=== PATIENT | female | born 1955 | race Caucasian/White ===

== ENCOUNTER 2016-04-18 16:53 | Inpatient (IN) | payer MEDICARE ==
[~2016-04-18] VITALS: Ht 154.9 cm; Wt 50.4 kg
[~2016-04-18 16:53] MED LIST: ASPI81TA3 PO; BISA-67 PO; DIL4T PO; DXM4T PO; Fentanyl TOPICAL; HYDR4TAB PO; LOV80 SUBQ; OMEP20CA11 PO; OXYC-466 PO; POLY17PO6 PO; SENN-133 PO
[2016-04-18 17:00] VITALS: BP 115/77; PULSE 119; O2SAT 94
[2016-04-18 17:11] VITALS: BP 112/63; PULSE 113; RESP 18; O2SAT 94
--- NOTE | 2016-04-18 17:16 | ED.REPORT ---
HPI-Dyspnea / Wheezing Date of Service Apr 18, 2016 ED Provider: Haile Salvador MD A 61 year old female with a medical history including pulmonary adenocarcinoma, pulmonary embolism, and pneumonia presents to the ED with bilateral rib pain and shortness of breath onset last night, waking her up. She also reports wheezing, nausea, upper abdominal pain, and back pain. Her rib pain is exacerbated with deep breathing and her abdominal pain is relieved with passing gas. Her current pain has replaced the right shoulder pain she has been experiencing for some time. The patient denies fever or chills, although her temperature in the ED is 38.0. Her most recent oncology appointment for chemotherapy was two weeks ago. Nursing Notes Stated Complaint: TROUBLE BREATHING,LUNG PAIN Chief Complaint: Respiratory Distress Nursing Notes Reviewed: Yes Allergies: Coded Allergies: cyclobenzaprine (Verified Allergy, Unknown, Unknown, 03/18/16) per outpatient record prednisone (Verified Adverse Reaction, Severe, "makes my skin crawl", 04/18) Scheduled Aspirin Chew (Aspirin Chew) 81 Mg Chew 81 MG PO DAILY Enoxaparin (Lovenox) 80 Mg/0.8 Ml Syringe 80 MG SUBQ DAILY Fentanyl 50 mcg/hr Patch (Fentanyl 50 mcg/hr Patch) 1 Each Patch.td72 1 PATCH TRANSDERM Q3D Metoprolol Tartrate (Metoprolol Tartrate) 25 Mg Tablet 12.5 MG PO BID Scheduled PRN Omeprazole (Omeprazole) 20 Mg Tablet.dr 20 MG PO DAILY PRN PRN For Nausea oxyCODONE-Acetaminophen 5-325 mg (oxyCODONE-Acetaminophen 5-325 mg) 1 Each Tablet 1 TAB PO 3.5h PRN PRN For Pain General Time Seen by MD: 17:14 Chief Complaint Shortness of breath Hx Obtained From: Patient Arrived By: Walk-in Sudden in Onset?: Yes Onset Occurred: 13 - 16 hours ago Symptom Duration: Since onset Location: : Chest left: Chest right Quality: Painful Severity: Current: Moderate Severity: Maximum: Moderate Associated with: Denies: Fever, Nausea, Wheeze Exacerbated by: Deep breath Context Related History: Reports: Pulmonary embolism Recent Healthcare: Recent doctor visit Similar Sx Previous: Yes Past Medical History Past Medical History Notes: Past Medical History - Stage IV pulmonary adenocarcinoma - Cancer-related PE - Pneumonia - Thrombocytosis - 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 Past Surgical History Corrective surgery on her feet in childhood, otherwise none. Family History Mother blood clot Father cancer unspecified Brother Ear cancer Sister Breast cancer Smoking History Current Every Day Smoker Ambulatory Status Cane Review of Systems Constitutional: Denies: Chills, Fever (Although temp in ED is 38.0) Respiratory: Reports: Shortness of breath, Wheezing Cardiovascular: Reports: Chest pain (Ribs) Musculoskeletal: Reports: Back pain, Denies: Joint pain Complete sys rev & neg: except as marked. GI: Reports: Abdominal pain (Upper), Nausea Physical Exam Initial Vital Signs Vital Signs (First) Date Time Temp Pulse Resp B/P Pulse Ox O2 Delivery O2 Flow Rate FiO2 04/18/16 17:00 38.0 119 115/77 94 04/18/16 17:11 18 Room Air Initial VS: Reviewed Head / Eyes: Atraumatic, Normocephalic ENT: Conjunctiva normal, No scleral icterus Skin: Warm, Dry Neurologic: Alert, Oriented, Nonfocal Psychiatric: Mood/affect normal, Behavior normal, Normal thought content General/Constitutional: Awake, Alert Neck: Full range of motion, Non-tender Soft Tissue Neck: Positive: Cervical adenopathy R... (Anterior) Respiratory / Chest: Breath sounds = bilat, No respiratory distress, No wheezing Slightly coarse breath sounds Speaking in full sentences Cardiovascular: Regular rhythm, Heart sounds NL, No gallop, No murmurs, No rubs Heart Rate / Rhythm: Positive: Tachycardia Interpretation & Diagnostics Interpretation & Diagnostics: Influenza Negative Lab Results Interpretation Result Diagram: 04/18/16 1720 04/18/16 1720 Test 04/18/16 17:20 White Blood Count 10.6th/mm3 (3.8-10.1) Red Blood Count 3.66mil/mm3 (3.90-5.20) Hemoglobin 9.7g/dL (12.0-15.6) Hematocrit 30.9% (35.0-46.0) Mean Corpuscular Volume 84.4fL (81-100) Mean Corpuscular Hemoglobin 26.5pg (27.0-35.0) Mean Corpuscular Hemoglobin Concent 31.4% (32.0-37.0) Red Cell Distribution Width 18.7% (12.3-15.4) Platelet Count 795bil/L (150-400) Neutrophils (%) (Auto) 77.1% (40-74) Lymphocytes (%) (Auto) 14.3% (14-46) Monocytes (%) (Auto) 7.6% (4-12) Eosinophils (%) (Auto) 0.1% (0-5) Basophils (%) (Auto) 0.2% (0-3) Prothrombin Time 12.3sec (8.1-12.5) Prothromb Time International Ratio 1.15ratio Sodium Level 132mEq/L (134-144) Potassium Level 3.4mEq/L (3.5-5.2) Chloride Level 94mEq/L (97-108) Carbon Dioxide Level 19mmol/L (18-29) Blood Urea Nitrogen 8mg/dL (8-27) Creatinine 0.39mg/dL (0.57-1.00) Estimat Glomerular Filtration Rate 239mL/min (>59) Glucose Level 112mg/dL (60-99) Lactic Acid Level 1.8mmol/L (0.4-2.0) Calcium Level 8.8mg/dL (8.5-10.1) Total Bilirubin 0.2mg/dL (0.0-1.2) Aspartate Amino Transf (AST/SGOT) 12U/L (0-50) Alanine Aminotransferase (ALT/SGPT) 7U/L (0-32) Alkaline Phosphatase 124U/L (25-165) Troponin T < 0.010ug/L (0.0-0.011) Pro-B-Type Natriuretic Peptide 654.3pg/mL (0-287) Total Protein 6.4g/dL (6.4-8.4) Albumin 2.8g/dL (3.4-5.0) ECG Interpretation ECG Interpretation: Sinus rhythm rate 107 Time: 18:06 Interpreted by: ED physician X-Ray Chest Interpretation Chest Xray Interpretation: IMPRESSION: 1. Increased bony erosion of the fourth and fifth right posterior ribs when compared with the study dated 03/25/16 suggesting progression of disease. 2. Slightly decreased patchy airspace opacities around the right upper lobe mass when compared with the prior study. Dictated by: Clarisse Lane M.D. on 04/18/2016 at 17:51 View: AP & lat Interpretation / Wet Read by: Interpret - Radiologist CT Chest Interpretation IMPRESSION: 1. Segmental and subsegmental pulmonary emboli in the bilateral lower lobes as described above. 2. Increased size of the right upper lobe lung mass with increased bony destruction when compared with the study dated 03/17/16 suggesting progression of disease. 3. Increased right hilar and mediastinal adenopathy consistent with progression of disease. These findings were discussed with Dr. Salvador at 7:41 PM on 04/18/16. Dictated by: Clarisse Lane M.D. on 04/18/2016 at 19:34 Study type: CT pulm angiogram Interpretation / Wet Read by: Interpret - Radiologist, Discussed w radiologist Re-Eval/Medical Decision Med Decision/Clinical Course 61-year-old female with recurrent pulmonary embolism in spite of being on Lovenox. Dosage adjusted to a milligram subcutaneous twice a day per recommendations of hematology. She is hemodynamically stable and will be admitted to the hospitalist service. Presently full code per her stated wishes. Source of Hx: Old records Re-Evaluation/Progress : Time of Eval: 19:52 Patient Status: Condition improved, Pain improved Re-Evaluation/Progress Note: Patient rechecked. Her breathing has improved. Discussed with patient x-ray and CT results, diagnosis, and plan for admit. Patient agrees with plan for care and all questions were addressed. Code status discussed at length with patient, at this point she wishes to be FULL CODE Consultation #1: Referral / Consult Name: Jeovany Gomes MD Call Returned at: 19:46 Machine Operator Packaging: Agrees with eval, Agrees with plan Note: ONCOLOGY: Will consult Recommends Lovenox (1mg/kg) and ASA (81mg) Consultation #2: Referral / Consult Name: Lor Murray DO Consulted With: Hospitalist Call Returned at: 20:22 Machine Operator Packaging: Agrees with eval, Agrees with plan Counseled Regarding: Diagnosis, Need for admission Discharge & Departure Impression: Primary Impression: Pulmonary embolism Pulmonary embolism type: other Chronicity: acute Acute cor pulmonale presence: without acute cor pulmonale Qualified Code: I26.99 - Other pulmonary embolism without acute cor pulmonale Disposition: ADMITTED TO HOSPITAL Discharge Condition All VS Reviewed: Yes Condition: Stable Referrals: AIDEN TREADWELL DO (PCP) Maniibneri Attestation Portions of this note were transcribed by Jenny Matt. I, Dr. Salvador, personally performed the history, physical exam, and medical decision-making; I reviewed and confirmed the accuracy of the information in the transcribed note. Signed by: Erendira Tellez, 04/18/2016, 20:45 copies to: AIDEN TREADWELL Donald L MD Apr 18, 2016 17:16 JENNY MATT Apr 18, 2016 18:39
[2016-04-18] MEDS ORDERED: 0.9% Sodium Chloride 1,000 ML IV ONE (17:20)
[2016-04-18 17:37] LABS: BASOPHILS % (AUTO) 0.2 % (0-3); EOSINOPHILS % (AUTO) 0.1 % (0-5); MONOCYTES % (AUTO) 7.6 % (4-12); Mean Corpuscular Hemoglobin 26.5 pg (27.0-35.0); Mean Corpuscular Volume 84.4 fL (81-100); NEUTROPHILS % (AUTO) 77.1 % (40-74); Platelet Count 795 bil/L (150-400)
[2016-04-18] MEDS ORDERED: oxyCODONE-Acetamin 5-325 mg Tablet PO ONE ×2 (17:45→18:40)
[2016-04-18 17:53] LABS: INR 1.15 ratio
--- NOTE | 2016-04-18 17:54 | DRSVH ---
PROCEDURE: X-RAY CHEST, TWO VIEWS ([id number]) INDICATIONS: dyspnea, fever, lung Ca TECHNIQUE: 2 views of the chest were acquired. COMPARISON: [facility], CR, XR CHEST 1VW (PORTABLE), 03/25/2016, 17:35. FINDINGS: Surgical changes and devices: None. Lungs and pleura: Right upper lobe pulmonary mass is redemonstrated. Airspace opacity surrounding thi s mass have decreased in extent when compared with the study dated 03/25/16, but some airspace opacit ies persist. There is likely mild atelectasis at the bilateral lung bases. No pleural effusion or pne umothorax. Mediastinum: Mediastinal contours are normal. Heart size is normal. Bones and chest wall: Bony erosion of the fourth and fifth ribs appear increased in extent when fan red with the study dated 03/25/16. IMPRESSION: 1. Increased bony erosion of the fourth and fifth right posterior ribs when compared with the study d ated 03/25/16 suggesting progression of disease. 2. Slightly decreased patchy airspace opacities around the right upper lobe mass when compared with t he prior study. Dictated by: Clarisse Lane M.D. on 04/18/2016 at 17:51 Approved by: Clarisse Lane M.D. on 04/18/2016 at 17:53
[2016-04-18 18:18] LABS: TROPONIN T < 0.010 ug/L (0.0-0.011)
--- NOTE | 2016-04-18 19:44 | DRSVH ---
PROCEDURE: CT ANGIO CHEST PULMONARY EMBOLISM ([id number]) INDICATIONS: prior PE, dyspnea and tachycardia TECHNIQUE: After the administration of intravenous contrast, 2 mm thick sections acquired from the pulmonary api maico to the posterior costophrenic angles. 3-dimensional maximum intensity projection (MIP) coronal a nd sagittal reformats were then acquired through the thorax. For radiation dose reduction, the follo wing was used: automated exposure control, adjustment of mA and/or kV according to patient size. COMPARISON: [facility], CT, CT ANGIO CHEST PE, 03/17/2016, 22:28. FINDINGS: Image quality: Excellent. Pulmonary arteries: Nonocclusive pulmonary arterial emboli are present within the segmental branches of the bilateral lower lobes. No pulmonary arterial emboli within the upper lobes. Lungs and pleura: When compared with the study dated 03/17/16, the heterogeneously enhancing right up per lobe mass which has eroded into the third, fourth, fifth, and sixth ribs has increased in size. T his lesion now measures 8.8 x 7.8 cm (previously measured 7.9 x 7.3 cm in the same plane). There is s evere centrilobular emphysema with an apical predominance. Patchy airspace opacities persist surround ing the right upper lobe pulmonary mass, somewhat decreased when compared with the prior study. An 8 mm diameter pulmonary nodule is present within the left lower lobe similar in size to the prior study . Mediastinum: Heart size is normal, without pericardial effusion. No evidence for right heart strain or leftward interventricular septal bowing. Right hilar adenopathy and mediastinal adenopathy has inc reased in extent when compared with the prior study. For example, a precarinal lymph node measures 17 mm in diameter and previously measured 14 mm in diameter. Thoracic aorta is normal in caliber and en hancement. Esophagus is normal in caliber, without hiatal hernia. Bones and chest wall: No suspicious bony lesions. Ribs and thoracic spine appear intact throughout. Thyroid gland is unremarkable. No axillary or supraclavicular adenopathy. Abdomen: Visualized upper abdominal solid organs appear normal in the early arterial phase of enhanc ement. IMPRESSION: 1. Segmental and subsegmental pulmonary emboli in the bilateral lower lobes as described above. 2. Increased size of the right upper lobe lung mass with increased bony destruction when compared wit h the study dated 03/17/16 suggesting progression of disease. 3. Increased right hilar and mediastinal adenopathy consistent with progression of disease. These findings were discussed with Dr. Salvador at 7:41 PM on 04/18/16. Dictated by: Clarisse Lane M.D. on 04/18/2016 at 19:34 Approved by: Clarisse Lane M.D. on 04/18/2016 at 19:42
[2016-04-18] MEDS: HYDROmorphone 1 mg/mL Inj IVPUSH PRN ×3 (19:49→21:07)
[2016-04-18] MEDS ORDERED: Ondansetron 2 mg/mL 2 mL Inj IVPUSH PRN (21:00)
[2016-04-18] MEDS ORDERED: Polyethylene Glycol (PEG) 17 Gm Powder PO PRN (21:00)
[2016-04-18] MEDS ORDERED: Alum-Mag Hydrox-Simeth 30 mL Suspension PO PRN (21:00)
[2016-04-18] MEDS ORDERED: OXYC1TAB24 PO (21:09)
[2016-04-18] MEDS ORDERED: METO25TA6 PO (21:09)
[2016-04-18] MEDS ORDERED: OMEP20TA86 PO (21:09)
[2016-04-18] MEDS ORDERED: ASPI81TA3 PO (21:09)
[2016-04-18] MEDS ORDERED: LOV80 SUBQ (21:09)
[2016-04-18] MEDS ORDERED: FENT1PAT9 TRANSDERM (21:09)
[2016-04-18 21:37] VITALS: BP 128/70; PULSE 88; RESP 20; O2SAT 95
[2016-04-18 22:14] VITALS: PULSE 115
[2016-04-18 22:39] VITALS: BP 108/59; PULSE 120; RESP 20; O2SAT 94
[2016-04-18] MEDS ORDERED: Potassium Chloride 20 mEq SR Tablet PO ONE (22:40)
--- NOTE | 2016-04-18 22:41 | PCM.HPMED ---
Subjective Date of Service Apr 18, 2016 Primary Provider: Admitting Physician: Lor Murray DO Primary Care Physician: Aiden Treadwell DO Attending Physician: Lor Murray DO Chief Complaint: SOB History of Present Illness: Patient is a 61 year old female with a history of Stage IV pulmonary adenocarcinoma (last Taxol treatment 04/02/16) and cancer-related PE on Lovenox. She presented to [facility] on 04/18/16 with a 24 hour history of shortness of breath. Patients states that she knew she wasn't feeling right. Minimal amounts of activity made her short of breath and she would have to rest in bed for an hour to recover. She denies chest pain but does report that her sides are sore and it radiates into her back. She denies fever, chills but has been having night sweats. Over the past couple of days she has had a cough with some mild sputum production but no sinus congestion or sore throat. The patient has nausea but no vomiting. She has been constipated and taking Colace to help ease that; also reports increased gas. She denies hematuria, dysuria. In the ED the patient had a temperature of 38.0, heart rate of 119, respiratory rate of 18, blood pressure 115/77 and O2 saturation of 94% on room air. Labs were remarkable for WBC 10.6, Hgb 9.7, platelets 795, sodium 132, potassium 3.4. CTA of the chest showed pulmonary emboli. Heme/onc was called and recommendations were given for increased Lovenox dosing (1mg/kg twice daily). Patient to be admitted and oncology will follow along with us tomorrow. Review of Systems: A comprehensive review of systems was conducted with the patient and found to be negative except as above in the history of present illness. Allergies Coded Allergies: cyclobenzaprine (Verified Allergy, Unknown, Unknown, 03/18/16) per outpatient record prednisone (Verified Adverse Reaction, Severe, "makes my skin crawl", 04/18) Home Medications Per medication bottles provided by the patient: Lovenox 80 mg daily Fentanyl patch 50 mcg every three days Metoprolol tartrate 12.5 mg BID Omeprazole 20 mg daily PRN nausea Oxycodone-acetaminophen 5/325 mg Q3-4H PRN pain Aspirin 81 mg daily PMH Stage IV adenocarcinoma of the lung Cancer-related pulmonary emboli Poliomyelitis (age 4 years) Chronic tobacco use (40+ pack year history) Surgical History Correctional surgery on her feet secondary to the poliomyelitis - approximately age 5 or 6 years Family History Mother last year of a major stroke; also had history of heart disease Social History Hx Alcohol Use: No Hx Substance Use: Yes (occasional marijuana) Hx Tobacco Use: Yes Smoking Status: Current Every Day Smoker (3-4 cigarettes daily) Living Arrangement: with Friends/Roommate Exam Vital Signs Vital Sign - Last Date Time Temp Pulse Resp B/P Pulse Ox O2 Delivery O2 Flow Rate FiO2 04/18/16 21:37 36.9 88 20 128/70 95 Room Air Exam Alert and oriented x3, no acute distress, laying comfortably in ED bed Head atraumatic, normocephalic PERRLA, EOMI, sclera anicteric Mucus membranes moist, no oral thrush observed No cervical lymphadenopathy, neck supple, nontender No JVD noted Cardiac tones regular rate and rhythm with no murmur appreciated Lungs clear to auscultation bilaterally with diminished breath sounds noted throughout the lung adams No abdominal tenderness, non-distended, normoactive bowel tones, soft [place] absent Radial pulses normal and equivalent bilaterally, dorsalis pedis pulses normal and equivalent bilaterally No cyanosis, clubbing or edema No ulcerations/open wounds Cranial nerves appear to be fully intact, normal speech, patient can move upper and lower limbs grossly Lab and Diagnostics Result Diagram: 04/18/16 1720 04/18/16 1720 X-Rays, CTs and MRIs Chest CTA: IMPRESSION: 1. Segmental and subsegmental pulmonary emboli in the bilateral lower lobes as described above. 2. Increased size of the right upper lobe lung mass with increased bony destruction when compared with the study dated 03/17/16 suggesting progression of disease. 3. Increased right hilar and mediastinal adenopathy consistent with progression of disease. Dictated by: Clarisse Lane M.D. on 04/18/2016 at 19:34 12-lead ECG Rate 107 QTc 453 Sinus tachycardia Assessment & Plan Patient is a 61 year old female with a history of Stage IV pulmonary adenocarcinoma (last Taxol treatment 04/02/16) and cancer-related PE on Lovenox. She presented to [facility] on 04/18/16 with a 24 hour history of shortness of breath. CTA of the chest shows pulmonary emboli. New Lovenox dose recommended by oncology and they will follow with her tomorrow. 1. Cancer-related bilateral pulmonary emboli, acute, present on admission. - Lovenox to be given 1 mg/kg BID - 50 mg BID. - Full dose aspirin to be given daily as well. - Heme/onc to follow up with the patient tomorrow AM. 2. Stage IV pulmonary adenocarcinoma. - Patient sees Dr. Zaman. Last chem 04/02/16 - Taxol. Next due 04/22/16. - Continue Fentanyl patch 50 mcg every three days. - Continue oxycodone-acetaminophen 5/325 mg Q4H PRN. - Oncology has been consulted and we appreciate their input. 3. Sinus tachycardia, present on admission, has been ongoing. - Likely secondary to PE. - Continue metoprolol tartrate 12.5 mg BID. - Continue telemetry. 4. Low grade fever (38.0), acute, present on admission. - Likely secondary to PE. - No other obvious signs of infection, no reported recent exposure. Procalcitonin ordered and pending. - No antibiotics at this time. - Continue to monitor. 5. Hypokalemia, acute, present on admission. - Correct with 20 mEq once. - Monitor with BMP tomorrow AM. - Also check magnesium. 6. Hyponatremia, acute, present on admission. - One liter NS given in ED. - Monitor with BMP tomorrow AM. - Bowel regimen available PRN. - Antiemetic available PRN. - Tylenol available PRN fever, mild pain. Patient admitted under inpatient status with expected length of stay greater than 2 midnights for severity of present symptoms, complexities of treatment plan and risk for adverse events. PCP: Aiden Treadwell DO (to establish care soon) Oncologist: Carmel Zaman MD VTE Prophylaxis: Sub-Q Enoxaparin Resuscitation Status: CPR: Attempt Resuscitation Attending Statement The patient was seen and examined together with house staff on 04/19/2016 and I agree with the history, exam and plan as outlined in the note above. copies to: Carmel Zaman MD; AIDEN TREADWELL Jennifer E DO Apr 18, 2016 22:01 Lor Murray DO Apr 19, 2016 01:53
[2016-04-18] MEDS: oxyCODONE-Acetamin 5-325 mg Tablet PO PRN (23:15)
[2016-04-19] VITALS (10 sets, daily range): BP systolic 88–105; BP diastolic 51–67; PULSE 72–124; RESP 16–20; O2SAT 94–99
--- NOTE | 2016-04-19 01:10 | NUR ---
Admit: Pt arrived to room 3004 from ED via stretcher, able to ambulate self to scale and bed; family at bedside. RA, vitals stable, tele placed. Pt sending home medications home with family. Pt pleasant and cooperative with care.
[2016-04-19] MEDS: oxyCODONE-Acetamin 5-325 mg Tablet PO PRN ×2 (03:18→07:51)
[2016-04-19 05:52] LABS: BASOPHILS % (AUTO) 0.1 % (0-3); EOSINOPHILS % (AUTO) 0.6 % (0-5); MONOCYTES % (AUTO) 5.1 % (4-12); Mean Corpuscular Hemoglobin 26.6 pg (27.0-35.0); Mean Corpuscular Volume 85.9 fL (81-100); Platelet Count 918 bil/L (150-400)
[2016-04-19 06:11] LABS: Magnesium 1.9 mg/dL (1.6-2.6); Phosphorus 3.9 mg/dL (2.5-4.9)
--- NOTE | 2016-04-19 06:15 | NUR ---
Pain/NOC Note: Pt c/o R shoulder pain, 11/04 x2, medication administered, pt states medication only lasts for about 3.5 hours order is for Q4hrs; will pass to dayshift to request additional pain medication. Pt stated pain started a couple of days ago and is getting worse. Pt AOx3, pleasant and cooperative with care. Slept most fo the night.
--- NOTE | 2016-04-19 06:24 | NUR ---
Hemoglobin: This am hemoglobin result 6.6. alerted, new order for STAT redraw. Pt up to bathroom with SBA, asymptomatic.
[2016-04-19] MEDS ORDERED: 0.9% Sodium Chloride 250 ML IV ONE (08:20)
[2016-04-19] MEDS ORDERED: Furosemide 10 mg/mL 2 mL Inj IV ONE (08:20)
--- NOTE | 2016-04-19 11:48 | NUR ---
Blood transfused Stat re-draw Hgb = 6.9. aware, New orders received. Pt to receive 1 unit of PRBC. consent obtained and signed, blood has been type and crossed. Blood obtained from blood bank, and double checked with Michael noel RN. Vital signs obtained prior to start of blood and 15 minutes following initiation. Pt tolerated well. Call light with in reach, intentional rounding in place.
[2016-04-19] MEDS: oxyCODONE-Acetamin 10-325 mg Tablet PO PRN ×3 (13:00→22:18)
[2016-04-19] MEDS: Pantoprazole 40 mg ER24 Tablet PO SCH ×2 (15:01→19:57)
[2016-04-19] MEDS: Piper-Tazo 3.375 Gm/50 mL D5W Minibag Plus - Q8H over 4 hrs IV SCH ×4 (15:02→22:19)
--- NOTE | 2016-04-19 16:24 | DRSVH ---
[facility] [address] [place] [address] Echocardiogram Report Name: LILIANA ARREDONDO JStudy Date: Height: 6 2 in Hospital Exam Location: [facility] Weight: 1 09 lb Gender: Female BSA: 1.5 m2 : 1955 Age: 61 yrs BP: 99/61 mmHg Reason For Study: NEW PULMONARY EMBOLISM, LUNG CA Ordering Physician: HOSPITALIST [facility] Performed By: Remberto Naranjo Referring Physician: Jeovany Gomes Interpretation Summary The left ventricle is normal in size. Left ventricular systolic function is normal. The ejection fraction is estimated to be 55-60%. There are no focal wall motion abnormalities. The right ventricle is normal in size and function. The right ventricular systolic pressure is estimated at 44 mmHg assuming a right atrial pressure of 15 mm Hg. Compared to the prior echo exam, there has been an increase in the severity of pulmonary hypertension. Both atria are normal in size. There is no significant valvular heart disease. The aortic root is normal size. 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 The size of thrombus is 0.6 x 1.3 cm. Procedure: A two-dimensional transthoracic echocardiogram with color flow and Doppler was performed. The study quality was technically good. Comparison is made with the echocardiogram of 03/18/16. The patient was in normal sinus rhythm during the exam. The patient was tachycardic with a heart rate of 94- 103 beats per minute. Left Ventricle: The left ventricle is normal in size. There is normal left ventricular wall thickness. Left ventricular systolic function is normal. The ejection fraction is estimated to be 55-60%. There are no focal wall motion abnormalities. Assessment of diastolic parameters indicates normal left ventricular diastolic function and normal filling pressures. Right Ventricle: The right ventricle is normal in size and function. Atria: Both atria are normal in size. The interatrial septum is intact with no evidence for an atrial septal defect. Mitral Valve: The mitral valve is normal in structure and function. The mitral valve leaflets are slightly calcified. There is trace mitral regurgitation. Aortic Valve: The aortic valve is normal in structure and function. The aortic valve is trileaflet. The aortic valve opens well. No aortic regurgitation is present. Tricuspid Valve: The tricuspid valve is normal in structure and function. There is trace tricuspid regurgitation. The right ventricular systolic pressure is estimated at 44 mmHg assuming a right atrial pressure of 15 mm Hg. Compared to the prior echo exam, there has been an increase in the severity of pulmonary hypertension. Pulmonic Valve: The pulmonic valve is normal in structure and function. There is no pulmonic valvular regurgitation. There is no significant valvular heart disease. Great Vessels: The aortic root is normal size. The dimensions of the ascending aorta are normal. 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 The pulmonary artery is normal size. The IVC is of normal diameter and collapses greater than 50% with a sniff. This suggests a low right atrial pressure of 3 mm Hg. Pericardium/ Pleura There is no pericardial effusion. There is no pleural effusion. MMode/2D Measurements & Calculations LVIDd: 4.8 cm RA long axis asc Aorta LVIDs: 3.6 cm LA A2 area: 16.5 cm Diam: 2.5 cm FS: 25.0 % LA A4 area: 16.1 cm RA area IVSd: 0.67 cm LA length (vol): 4.9 cm LVPWd: 0.75 cm LA vol: 46.0 ml : 14.3 cm LA vol index RA vol: 41.9 ml RA : 28.3 mm2 IVC diam: 2.2 cm LV jacob. diameter/BSA LV sys. diameter/BSA RVD1 (basal) RVD2 (mid) (cm/m^2): 3.3 (cm/m^2): 2.5 : 3.3 cm Doppler Measurements & Calculations Ao V2 max MV E max chris MV E/A: 1.0 TR max chris : 178.1 cm/sec : 105.8 cm/sec Med Peak E' Chris : 267.1 cm/sec Ao max PG MV A max chris TR max PG : 12.7 mmHg : 102.3 cm/sec E/E' med: 13.1 : 28.5 mmHg Ao mean PG Pulm A Revs Dur PA V2 max : 6.4 mmHg : 77.4 cm/sec PA mean PG PA Accel Time : 0.08 sec MV dec time Ao V2 mean PA V2 mean : 0.17 sec : 118.4 cm/sec : 56.2 cm/sec Ao V2 VTI: 30.2 cm PA pr(Accel) : 41.6 mmHg Reading Physician:RUBY
--- NOTE | 2016-04-19 18:54 | PCM.PNMED ---
Subjective Date of Service Apr 19, 2016 Subjective María's hgb and hct declined this morning. Per chart review, she has had some diarrhea over the past month, she denies any diarrhea recently and further denies any blood per rectum or black, tarry stools. She denies any known bleeding including epistaxis, hemoptysis, bleeding gums, or uterine bleeding. Exam Vital Signs Vital Sign - Last Date Time Temp Pulse Resp B/P Pulse Ox O2 Delivery O2 Flow Rate FiO2 04/19/16 13:50 36.4 109 20 90/51 99 Nasal Cannula 2.00 Intake and Output 04/18/16 04/18/16 04/19/16 Cumulative From/Thru 15:00 23:00 07:00 04/18/16 17:00 - 04/19/16 06:25 Intake Total 1000 ml 1000 ml Balance 1000 ml 1000 ml IV Total 1000 ml 1000 ml Exam Genera: Resting comfortably in bed. Alert and oriented x3, no acute distress. HEENT: atraumatic, normocephalic, PERRLA, sclera anicteric. Mucus membranes moist. Cardiac: Regular rate and rhythm without murmur, rub, or gallop appreciated Lungs: Moderate inspiratory effort with diminished breath sounds noted throughout the lung adams. No wheezes, rales, or rhonchi Abdomen:Normoactive bowel tones, soft, nontender and nondistended. Extremities: No cyanosis, clubbing or edema Neuro: Normal speech, moves al 4 extremities with ease. Able to sit up in bed unassisted. No known gait impairment. Lab and Diagnostics Result Diagram: 04/19/16 1435 04/19/16 0535 X-Rays, CTs and MRIs Chest CTA: IMPRESSION: 1. Segmental and subsegmental pulmonary emboli in the bilateral lower lobes as described above. 2. Increased size of the right upper lobe lung mass with increased bony destruction when compared with the study dated 03/17/16 suggesting progression of disease. 3. Increased right hilar and mediastinal adenopathy consistent with progression of disease. Dictated by: Clarisse Lane M.D. on 04/18/2016 at 19:34 12-lead ECG Rate 107 QTc 453 Sinus tachycardia Assessment & Plan Patient is a 61yo female with a history of Stage IV pulmonary adenocarcinoma ( last Taxol treatment 04/02/16) and cancer-related pulmonary embolism on Lovenox. She presented to [facility] on 04/18/16 with sudden worsening dyspnea. CT angio of the chest shows pulmonary emboli. New Lovenox dose recommended by oncology while she was still in the ER. 1. Cancer-related bilateral pulmonary emboli, acute, present on admission. - Lovenox to be given 1 mg/kg BID which is 50 mg BID. - Heme/onc to follow up with the patient, recommendations appreciated 2. Stage IV pulmonary adenocarcinoma, present on admission - Increased tumor size with further rib destruction based on CT angio of the chest - Patient sees Dr. Zaman. Last Taxol treatment on 04/02/16, next treatment due per chart review. - Continue Fentanyl patch 50 mcg every 3 days. - Oxycodone-acetaminophen 10/325 mg Q4H PRN for cancer pain - Oncology has been consulted and we appreciate their input. 3. Acute anemia of unclear etiology - It is possible that she was volume depleted giving a higher H&H at admission - 1 unit of PRBCs transfused this morning with good response - Pantoprazole BID in case she is having an upper GI bleed - Guaiac stools - Hgb & hct q6h to monitor 4. Sinus tachycardia, present on admission, has been ongoing. - Likely secondary to PE though infection is possible. - Continue metoprolol tartrate 12.5 mg BID. - Telemetry. 5. Low grade fever (38.0), acute, present on admission. - Likely secondary to PE though infection is also possible - Zosyn q6h. - Procalcitonin 0.92 - Will await recommendations from Dr Avila (infectious disease specialist), who has been consulted 6. Hypokalemia, acute, present on admission, resolved - Corrected with 20 mEq once at admission - Monitor 7. Hyponatremia, acute, present on admission, resolved - NS 1L IV given in the ER and this is normal on this morning's labs - Monitor - Bowel regimen available PRN. - Antiemetic available PRN. - Tylenol available PRN fever, mild pain. PCP: Jasmin Grider DO (to establish care soon) Oncologist: Carmel Zaman MD [facility] Prophylaxis: Sub-Q Enoxaparin Resuscitation Status: CPR: Attempt Resuscitation Attending Statement The patient was seen and examined together with Dr. Marina on 04/19/2016 and I have agree with the assessment and plan of care as noted above. Catie Marina DO Apr 19, 2016 18:43 Brendon Britton MD Apr 20, 2016 14:52
--- NOTE | 2016-04-19 20:01 | CONS ---
[address] [address] CONSULTATION REPORT PATIENT: LILIANA ARREDONDO : 1955 MR#: [id number] ADMIT: 04/18/2016 JOB ID: [id number] DATE OF SERVICE: 04/19/[address] Grider for this timely consult. REASON FOR CONSULTATION: Possible postobstructive pneumonia. HISTORY OF PRESENT ILLNESS: The patient is an unfortunate woman than I had the opportunity to see during her last admission which was February 2016. At that time, she had just been diagnosed with a large malignancy which was adenocarcinoma in the right upper lobe. The patient's biopsy showed poorly differentiated adenocarcinoma. Also, during this initial admission in February, it was found that she had pulmonary emboli requiring anticoagulation as well as probable metastatic disease. The question I was asked in February was whether or not she had a postobstructive pneumonia. I felt it was unlikely though she did have some low-grade fevers and a mild leukocytosis, which I thought were more likely due to the primary tumor itself or perhaps the pulmonary emboli but not likely due to infection. Her procalcitonin levels were elevated throughout that February stay and literature that we reviewed suggested that elevated procalcitonins are common in people with lung malignancies, especially with metastatic disease, so we did not feel that this was a reliable marker. In any event, a course of antibiotics was given on the off chance that there was some postobstructive pneumonia which we had not been able to ascertain on CT scan or through other means and the patient was eventually discharged at about the end of February. She subsequently returned home to [place] where she lives with a roommate. She reports she was getting along reasonably well and receiving outpatient chemotherapy under the direction of Dr. Zaman until about 36 hours ago when she started to get more short of breath. She said that shortness of breath was really pronounced with any level of activity and she would have to lie down and rest for long periods just to recover from short periods of exertion. She denied fevers or chills, but she has been having night sweats really since her lung tumor was diagnosed and these have not changed much. She also notes that she may have had a little bit of cough but really nothing in the way of sputum production. There has been no associated sore throat or GI symptoms except for some mild nausea. In the ER last night, the patient was evaluated and admitted. She had a temperature then of 38 degrees. In talking to the patient this morning, she really has not had any significant fever or chills since the diagnosis of her lung cancer. The night sweats have continued at about twice a week and do not seem to change much. She feels that her shortness of breath was much worse Tuesday night, April 17, as well as yesterday April 18. That is the main reason she came. There has been no significant pleuritic chest pain nor is she having much pain at the site of the rib destruction along the right chest. PAST MEDICAL HISTORY: 1. Stage IV adenocarcinoma of the lung, diagnosed February 2016. 2. Bilateral pulmonary emboli diagnosed February 2016 and felt secondary to a hypercoagulable state due to her malignancy. 3. History of childhood polio. 4. COPD with ongoing cigarette smoking. SOCIAL HISTORY: The patient continues to smoke cigarettes though she has cut back quite a bit since her diagnosis of lung cancer. She lives with a roommate in the [facility]. She notes that her some 17 years ago of a malignancy. She does not drink any alcohol and does not use illicit drugs but occasionally smokes marijuana. FAMILY HISTORY: Negative for tuberculosis. REVIEW OF SYSTEMS: Today, the patient has no significant headache. No visual change. No sores in the mouth, odynophagia, or dysphagia. No stiff neck. She does note that one of her doctors noted a knot in her right neck which he thinks has gone away. Her lungs are notable for some decreased breath sounds at the bases bilaterally as well as perhaps in the right upper lung area. I do not hear much in the way of rales or rhonchi but rather just diminished sounds. Cardiac tones: Regular rate and rhythm. The abdomen is soft and nontender without organomegaly. No Fulton catheter is present. There is no suprapubic tenderness. The joints are without synovitis. There is no cellulitis or edema involving the upper or lower extremities. Neurologically she is completely intact and offers a lucid history. LABORATORIES: Include white blood count 11,500, hematocrit 26, platelet count 918,000 which is steadily increasing. Creatinine is 0.32. LFTs are normal. CRP is 30. Procalcitonin is 0.92. During admission in February, procalcitonin ranged between 2 and 5, so this is actually improved. Urinalysis without white cells. Influenza screen negative. A recent C diff ordered as an outpatient is negative. Blood cultures are negative. IMAGING: Includes a CT scan of the chest, which was done yesterday and shows bilateral pulmonary emboli and increased size in her tumor mass with increased bony destruction in the ribs adjacent to the mass and increased hilar and mediastinal adenopathy, all consistent with progression of disease. Some scattered small infiltrates are also noted around the tumor which are described as patchy airspace opacities surrounding the mass. A plain radiograph done in the ER yesterday shows increased erosion of the 4th and 5th ribs and some slightly decreased patchy infiltrates around the mass as compared to prior. PHYSICAL EXAMINATION: Reveals an afebrile woman lying supine in her bed in no acute distress. She has been afebrile since admission and her current temperature is 36.7. She did have a temperature of 38.0 in the ER. Pulse is currently 90s, respiratory rate 20, blood pressure 88/65. She is saturating well but on 2 L. She looks quite weak but is in no acute distress. Head without trauma. Eyes without conjunctivitis. Nose normal. Oral cavity: No thrush, hairy leukoplakia or pharyngitis. On the right neck there is a palpable supraclavicular node about 2 cm which is firm and mobile. That was not present on her last admission to the best of my recollection or notes. The patient's lungs are notable for some decreased breath sounds at the right upper area as well as some decreased breath sounds over the lower lung adams bilaterally. Cardiac tones regular rate and rhythm without murmur. Abdomen soft and nontender without ascites. I think the remainder of the physical is as follows from above but no suprapubic tenderness. No Fulton catheter. No swelling of the joints. No peripheral edema. No cellulitis. No focal neurologic deficits. IMPRESSION: Once again, think that this patient does not have any infection. She has had some very low-grade fevers up to 38 degrees on both of her recent admissions which could easily be explained by her underlying tumor as well as by bilateral pulmonary emboli. Her white counts have tended to be a bit elevated in a range really between 9 and 18,000 since the whole business with his tumor started back in February. Her procalcitonin levels are probably uninterpretable and I think the fall in procalcitonin between the last admission and this one probably reflects success of chemotherapy. As I mentioned during my consult in February, there is some literature to show that metastatic lung cancers are often associated with elevated procalcitonin levels and these can even be used as a tumor marker of sorts and I suspect her dropping procalcitonin does not mean anything about infection but rather reflects her chemotherapy. That said, her overall CT looks worse and it is hard to tell if she has achieved any benefits from the chemo she has received just in the last few weeks but it may be too early to tell. RECOMMENDATIONS: 1. We can continue with the Zosyn for a day or so but I think that unless we derive some additional evidence of infection, such as higher fevers or positive blood culture or positive sputum to culture, I think I would be inclined to stop the antibiotics tomorrow. 2. Will request a sputum Gram stain and culture should one be available. 3. Will need the urine Legionella and pneumococcal antigens. 4. Respiratory viral PCR will be ordered. Thank you very much.
[2016-04-20] VITALS (12 sets, daily range): BP systolic 90–110; BP diastolic 52–66; PULSE 67–112; RESP 16–20; O2SAT 96–99
[2016-04-20 01:54] LABS: APPEARANCE,URINE CLEAR (CLEAR,HAZY); COLOR,URINE YELLOW (YELLOW)
[2016-04-20 01:55] LABS: OCCULT BLOOD,URINE TRACE (NEGATIVE); UROBILINOGEN,URINE NORMAL (NORMAL)
[2016-04-20] MEDS: oxyCODONE-Acetamin 10-325 mg Tablet PO PRN ×6 (02:07→23:43)
--- NOTE | 2016-04-20 05:15 | NUR ---
Pain/NOC Shift: Pt c/o shoulder pain 11/04, medication administered. Pt states that the new dosing and frequency of pain medication has improved the management of her pain. Denied chest pain and SOB. Pt did experience some anxiety to the point of tears when she learned that the MD ordered a PCR and her nares needed to be swabbed. RN was able to talk pt through the procedure. Pt slept off/on throughout the night, pleasant and cooperative with care.
[2016-04-20] MEDS: Piper-Tazo 3.375 Gm/50 mL D5W Minibag Plus - Q8H over 4 hrs IV SCH ×2 (05:42)
[2016-04-20 07:36] LABS: Mean Corpuscular Hemoglobin 27.1 pg (27.0-35.0); Mean Corpuscular Volume 85.6 fL (81-100)
[2016-04-20 07:38] LABS: BASOPHILS % (AUTO) 0.1 % (0-3); MONOCYTES % (AUTO) 9.7 % (4-12); NEUTROPHILS % (AUTO) 75.7 % (40-74); Platelet Count 1070 bil/L (150-400)
[2016-04-20] MEDS: Pantoprazole 40 mg ER24 Tablet PO SCH ×2 (08:52→20:16)
--- NOTE | 2016-04-20 09:17 | NUR ---
Social Work-initial assessment: Data:See initial assessment. Pt is a 61 y/o female who was admitted on 04/18/16 for PE per H&P. Pt's insurance is [facility] and PCP is Jasmin Grider MD. EMR Reviewed. Pt's readmission score is 4. SW met with pt at bedside to discuss discharge planning, SW role explained. Pt is alert and oriented x3. Pt resides at home with her roommate Arya in [place] in a single level mobile home with 2 steps to enter. Pt uses a cane at baseline and and does drive. Pt has no HH or SNF history. Pt has no middle or intermediate school principal care or VA benefits. SW discussed DPOA/advanced directive, pt states she has completed this paperwork, SW encouraged pt to bring a copy into the hospital. SW discussed pt's lack of supplemental insurance. Pt states that oncology NADYA Diaz has been assisting with this, KASHIF called Joe and left message requesting a return call to discuss. Pt is currently on O2, but does not use this at baseline. Pt states her roommate Arya will provide transport home at discharge. Per RN notes, pt has been up independent in her room. SW provided phone number and plan on white board in room. R/O HH Services. SW will continue to follow. Assessment:Pt who is independent at baseline. Plan:Pt to discharge home when medically stable. message has been left for oncology KASHIF. R/O HH Services. SW will continue to follow. NADYA Duong Addendum: 04/20/16 at 0921 by ARY HAIDER Amended: Links added. Addendum: 04/20/16 at 1530 by ARY DELCID SS SW received call back from Joe ROWLAND, who states he has met with pt, but did not provide CJ information. SW to follow up with pt tomorrow to discuss CJ and HH. KASHIF will continue to follow. NADYA Duong
--- NOTE | 2016-04-20 13:27 | PCM.PNMED ---
Subjective Date of Service Apr 20, 2016 Subjective María states that she is feeling less fatigued than she felt better and that her right sided rib and scapular pain is better since the change of oxycodone-acetaminophen from 5/325mg tablets to 10/325mg tablets. She has not yet had a bowel movement during this hospitalization. Echocardiogram shows a thrombus in the aorta. Exam Vital Signs Vital Sign - Last Date Time Temp Pulse Resp B/P Pulse Ox O2 Delivery O2 Flow Rate FiO2 04/20/16 09:22 37.0 67 18 95/57 96 Nasal Cannula 2.00 Intake and Output 04/19/16 04/19/16 04/20/16 Cumulative From/Thru 15:00 23:00 07:00 04/18/16 17:00 - 04/19/16 22:00 Intake Total 1308 ml 656 ml 2964 ml Output Total 350 ml 1120 ml 1470 ml Balance 958 ml -464 ml 1494 ml Intake Oral 550 ml 656 ml 1206 ml IV Total 458 ml 1458 ml Packed Cells 300 ml 300 ml Output Urine Total 350 ml 1120 ml 1470 ml Exam Genera: Resting comfortably in bed. Alert and oriented x3, no acute distress. No pallor HEENT: Atraumatic, normocephalic, PERRLA, sclera anicteric. Mucus membranes moist. Cardiac: Regular rate and rhythm without murmur, rub, or gallop appreciated Lungs: Moderate inspiratory effort with diminished breath sounds noted throughout the lung adams. No wheezes, rales, or rhonchi Abdomen:Normoactive bowel tones, soft, nontender and nondistended. Extremities: No cyanosis, clubbing or edema. Back: Tender to palpation of the right side of the thoracic region posteriorly, especially along the scapula, ribs 3-7 on the right. Neuro: Normal speech, moves all 4 extremities with ease. Able to sit up in bed unassisted. No known gait impairment. IVs and Medications Medications Reviewed: Medications were reviewed in detail Lab and Diagnostics Result Diagram: 04/20/1635 04/20/16 0535 X-Rays, CTs and MRIs Chest CTA: IMPRESSION: 1. Segmental and subsegmental pulmonary emboli in the bilateral lower lobes as described above. 2. Increased size of the right upper lobe lung mass with increased bony destruction when compared with the study dated 03/17/16 suggesting progression of disease. 3. Increased right hilar and mediastinal adenopathy consistent with progression of disease. Dictated by: Clarisse Lane M.D. on 04/18/2016 at 19:34 Cardiac Echo Impressions Transthoracic Echo 04/19/16: Interpretation Summary The left ventricle is normal in size. Left ventricular systolic function is normal. The ejection fraction is estimated to be 55-60%. There are no focal wall motion abnormalities. The right ventricle is normal in size and function. The right ventricular systolic pressure is estimated at 44 mmHg assuming a right atrial pressure of 15 mm Hg. Compared to the prior echo exam, there has been an increase in the severity of pulmonary hypertension. Both atria are normal in size. There is no significant valvular heart disease. The aortic root is normal size. 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 The size of thrombus is 0.6 x 1.3 cm. Assessment & Plan María is a 61yo female with Stage IV pulmonary adenocarcinoma (last Taxol treatment 04/02/16) and cancer-related pulmonary embolism while on once daily dosing of Lovenox. She presented to [facility] on 04/18/16 with sudden worsening dyspnea. CT angio of the chest shows pulmonary emboli. New Lovenox dose recommended by oncology while she was still in the ER. 1. Bilateral pulmonary emboli due to hypercoagulability in the setting of cancer , acute, present on admission. - Lovenox to be given 1 mg/kg BID which is 50 mg BID. - Dr. Zaman to see the patient later today, recommendations appreciated 2. Stage IV pulmonary adenocarcinoma, present on admission - Increased tumor size with further rib destruction based on CT angio of the chest - Last Taxol treatment on 04/02/16, next treatment due 04/22/16 per chart review. - Continue Fentanyl patch 50 mcg every 3 days. - Oxycodone-acetaminophen 10/325 mg Q4H PRN for cancer pain - Oncology has been consulted and we appreciate their input. 3. Acute anemia of unclear etiology - It is possible that she was volume depleted giving a higher H&H at admission, however, her hgb has declined again. - 1 unit of PRBCs again today - Pantoprazole 40mg BID in case she is having an upper GI bleed - Guaiac stools today - Hgb & hct q6h to monitor - Transferrin, ferritin, and direct Dainel ordered on recommendation from Dr Zaman 4. Aortic thrombus of unknown duration, presumed acute - Further driving the importance of Lovenox BID - This finding was discussed with the patient this morning 5. Sinus tachycardia, present on admission, has been ongoing. - Likely secondary to PE and cancer though infection is possible. - Continue metoprolol tartrate 12.5 mg BID. - Telemetry. 6. Low grade fever (38.0), acute, present on admission. - Suspect this is due to her pulmonary emboli and adenocarcinoma - Procalcitonin 0.92 - Dr Avlia (infectious disease specialist) has been consulted 7. Thrombocytosis, worsening - This may be reactive - Monitor 8. Hypokalemia, acute, present on admission, resolved - Corrected with 20 mEq once at admission - Monitor 9. Hyponatremia, acute, present on admission, resolved - NS 1L IV given in the ER and this is normal on this morning's labs - Monitor - Bowel regimen available PRN. - Antiemetic available PRN. - Tylenol available PRN fever, mild pain. PCP: Jasmin Grider DO (to establish care soon) Oncologist: Carmel Zaman MD VTE Prophylaxis: Sub-Q Enoxaparin (50mg BID) Resuscitation Status: CPR: Attempt Resuscitation Attending Statement The patient was seen and examined together with Dr. Marina on 04/20/2016 and I have agree with the assessment and plan of care as noted above. Catie Marina DO Apr 20, 2016 10:30 Brendon Britton MD Apr 20, 2016 15:11
[2016-04-20] MEDS: 0.9% Sodium Chloride 250 ML IV SCH (14:14)
--- NOTE | 2016-04-20 14:53 | PROG NOTE ---
[address] [address] PROGRESS NOTE PATIENT: LILIANA ARREDONDO : 1955 MR#: [id number] ADMIT: 04/18/2016 JOB ID: [id number] DATE: 04/20/2016 REASON FOR FOLLOWUP: Possible postobstructive pneumonia in a patient with underlying lung cancer. INTERVAL HISTORY: The patient continues to have a minimal amount of cough. She is not significantly short of breath when at rest. She has no fevers, chills, or sweats. No nausea, vomiting, and reports good appetite today. PHYSICAL EXAMINATION: Reveals an afebrile woman. Temperature 36.8, pulse 100, respiratory rate 18, blood pressure 90/54. She is saturating well on 2 L. The patient is quite comfortable. Her oral cavity is benign. Lungs with a few crackles at the bases and some reduced breath sounds over the right upper lung. The abdomen is soft and nontender. No skin rashes noted. LABORATORIES: Include white count 12,700 which continues in a long line of mildly elevate white blood counts. Hematocrit 24. Platelet count now exceeds 1 million at 1.07 million. Creatinine is less than 0.3. LFTs are normal. Albumin 2.2. CRP 30. Micro studies basically negative. Urine pneumococcal and Legionella antigen negative. A sputum culture to date, which had moderate polys and a few mixed leola so far. Rapid PCR multiplex test one respiratory secretions negative and blood cultures negative. IMAGING: Has not been updated. IMPRESSION: I doubt that this patient has any significant underlying infection. She had a very low-grade fever on admission and has been completely afebrile since. Her white count continues to bounce between about 9 and 15,000 to 20,[address] for several weeks. This moderately elevated white count is likely on the basis of underlying tumor and/or pulmonary emboli. I do not think there is anything going on in terms of infection, and her procalcitonin is not reliable because of her metastatic lung cancer. RECOMMENDATIONS: 1. This case was discussed in detail with Dr. Catie Marina of the hospitalist team. 2. I think we can go ahead and stop all antibiotics right now. 3. ID will go ahead and sign off, but please do not hesitate to call me if there are additional questions or problems regarding this unfortunate woman.
--- NOTE | 2016-04-20 18:05 | NUR ---
PRBC tfr pts h&h dropped to 7.7/24.3. ordered 1 unit PRBC. Administered with no reaction. New H&H came back at 8.9/
--- NOTE | 2016-04-20 19:56 | PROG NOTE ---
[address] [address] PROGRESS NOTE PATIENT: LILIANA ARREDONDO : 1955 MR#: [id number] ADMIT: 04/18/2016 JOB ID: [id number] DATE: 04/20/2016 INPATIENT MEDICAL ONCOLOGY PROGRESS REPORT: DIAGNOSIS: Metastatic pulmonary adenocarcinoma, admitted for progressive disease and worsening cancer-related pain, and acute on chronic bilateral pulmonary emboli. HISTORY OF PRESENT ILLNESS: The patient is a very pleasant, chronic smoker, 61-year-old woman who recently was diagnosed with metastatic pulmonary adenocarcinoma after suffering from persistent right shoulder pain for months. A CT scan on March 06 showed a large mass in the posterior segment of the right upper lobe with destruction of right upper posterior ribs, associated with pathological right hilar and mediastinal lymphadenopathy, left adrenal metastasis, and bilateral ovarian metastases ([place] tumors). Biopsy was positive for poorly differentiated adenocarcinoma, negative for city bus driver mutations including EGFR, ALK, and ROS1. She was found to have incidental right lower lobe pulmonary emboli on a CT scan of the abdomen and was initiated on anticoagulation therapy with Lovenox which she continues to take. She recently completed one cycle of carboplatin/weekly paclitaxel chemotherapy. She presented to the ER two days ago because of bilateral chest pain. She also indicates that her posterior right shoulder pain never improved with chemotherapy and in fact has worsened. She was feeling profoundly weak and short of breath. She has lost about 5 pounds over the last month. She denies fever, chills, or sweats. Upon admission, a CT chest angiogram shows further enlargement of the posterior right upper lobe mass, with further advancement of adjacent rib destruction. Additionally, there is advancement of pulmonary embolism, now involving bilateral lower lobes. There is also progression of right hilar and mediastinal pathological lymphadenopathy. Her left adrenal mass does not appear to be any smaller as compared to prior scan. Her labs show persistent leukocytosis, worsening of anemia, and persistent severe thrombocytosis. Albumin is profoundly low at 2.2. Liver and renal function are normal. Inflammatory markers are elevated, including ferritin and CRP. Blood cultures are negative so far at two days. She has been afebrile throughout the admission, but persistently tachycardic and hypotensive. She has received 2 units of packed red blood cell transfusion. She was initiated on antibiotics, but they have been stopped. The Lovenox has been changed to 1 mg/kg subcutaneously b.i.d. and aspirin 325 mg orally has been added. OBJECTIVE: Currently, she feels a little better. Her bilateral rib pain has lessened. Her right shoulder pain is under good control currently. She is awake, alert, and oriented x3. She is resting comfortably in bed. Blood pressure 110/56, heart rate 112, temperature 37, O2 saturation 97% on 2 L. IMPRESSION AND PLAN: 1. The underlying problem is progressive metastatic pulmonary adenocarcinoma. She has not responded to carboplatin/weekly paclitaxel. Even though she has only received one cycle so far, I do not think further treatment of the same regimen would be beneficial. Her options at this point include: A: Switch to immune checkpoint inhibitor therapy. Versus: B: Second-line chemotherapy. Given refractoriness to first-line chemotherapy, I think immune checkpoint inhibitor therapy would give her a better chance of response. We will have to start this in near future as outpatient. I will also discuss her case with Radiation Oncology for palliative radiotherapy to large posterior right upper lobe mass. 2. Persistent/progressive bilateral cancer-related pulmonary embolism. Continue Lovenox 1 mg/kg subcutaneously b.i.d. Her home prescription will need to change at the time of discharge to reflect this. Continue aspirin, but recommend lower dose 81 mg daily, and continue the same at home. 3. Severe anemia, multifactorial, related to advanced malignancy, chemotherapy, and blood loss anemia from anticoagulation. She has received 2 units of packed red blood cell transfusion, and more than likely will need to continue intermittent blood transfusions in the near future. Keep hemoglobin above 8. 4. For this patient, when her pain is under satisfactory control, she can be discharged home on current dosage of Lovenox and will manage her cancer treatment as outpatient.
[2016-04-21] VITALS (7 sets, daily range): BP systolic 97–131; BP diastolic 61–71; PULSE 96–127; RESP 18–20; O2SAT 97–99
[2016-04-21] MEDS: oxyCODONE-Acetamin 10-325 mg Tablet PO PRN ×7 (04:06→23:04)
--- NOTE | 2016-04-21 06:18 | NUR ---
Pain/NOC Note: Pt continues to c/o shoulder pain 11/04, medication administered; effective. Slept most of the night, pleasant and cooperative with care.
[2016-04-21 07:05] LABS: Mean Corpuscular Hemoglobin 26.9 pg (27.0-35.0); Mean Corpuscular Volume 86.7 fL (81-100)
[2016-04-21 07:06] LABS: BASOPHILS % (AUTO) 0.2 % (0-3); EOSINOPHILS % (AUTO) 1.1 % (0-5); MONOCYTES % (AUTO) 12.6 % (4-12); NEUTROPHILS % (AUTO) 70.3 % (40-74); Platelet Count 1158 bil/L (150-400)
[2016-04-21] MEDS: Pantoprazole 40 mg ER24 Tablet PO SCH ×2 (08:00→19:43)
--- NOTE | 2016-04-21 10:33 | PCM.PNMED ---
Subjective Date of Service Apr 21, 2016 Subjective María reports that she is having moderate pain of the right side of her ribs with her opiate medication, she states that her pain is severe without the oxycodone. She reports feeling too weak and tired to go home today, she is wanting to stay another day before going home. Exam Vital Signs Vital Sign - Last Date Time Temp Pulse Resp B/P Pulse Ox O2 Delivery O2 Flow Rate FiO2 04/21/16 09:41 110 04/21/16 08:15 36.6 20 112/69 99 Nasal Cannula 2.00 Intake and Output 04/20/16 04/20/16 04/21/16 Cumulative From/Thru 15:00 23:00 07:00 04/18/16 17:00 - 04/21/16 06:26 Intake Total 400 ml 1737 ml 400 ml 5501 ml Output Total 850 ml 650 ml 2000 ml 4970 ml Balance -450 ml 1087 ml -1600 ml 531 ml Intake Oral 400 ml 637 ml 400 ml 2643 ml IV Total 600 ml 2058 ml Packed Cells 500 ml 800 ml Output Urine Total 850 ml 650 ml 2000 ml 4970 ml # Bowel Movements 0 0 Exam Genera: Resting comfortably in bed. Alert and oriented x3, no acute distress. No pallor. HEENT: Mucus membranes moist. Atraumatic, normocephalic, PERRLA, sclera anicteric. Cardiac: Regular rate and rhythm without murmur, rub, or gallop appreciated Lungs: Moderate inspiratory effort with diminished breath sounds throughout the lung adams. No wheezes, rales, or rhonchi Abdomen: Normoactive bowel tones, soft, nontender and nondistended. Extremities: No cyanosis, clubbing or edema. Back: Tender to palpation of the right side of the thoracic region posteriorly, especially along the scapula and ribs 3-7 on the right. Neuro: Normal speech, moves all 4 extremities with ease. Able to sit up in bed unassisted and with ease. No known gait impairment. IVs and Medications Medications Reviewed: Medications were reviewed in detail Lab and Diagnostics Result Diagram: 04/21/16 0577 04/20/16 0535 X-Rays, CTs and MRIs Chest CTA: IMPRESSION: 1. Segmental and subsegmental pulmonary emboli in the bilateral lower lobes as described above. 2. Increased size of the right upper lobe lung mass with increased bony destruction when compared with the study dated 03/17/16 suggesting progression of disease. 3. Increased right hilar and mediastinal adenopathy consistent with progression of disease. Dictated by: Clarisse Lane M.D. on 04/18/2016 at 19:34 Cardiac Echo Impressions Transthoracic Echo 04/19/16: Interpretation Summary The left ventricle is normal in size. Left ventricular systolic function is normal. The ejection fraction is estimated to be 55-60%. There are no focal wall motion abnormalities. The right ventricle is normal in size and function. The right ventricular systolic pressure is estimated at 44 mmHg assuming a right atrial pressure of 15 mm Hg. Compared to the prior echo exam, there has been an increase in the severity of pulmonary hypertension. Both atria are normal in size. There is no significant valvular heart disease. The aortic root is normal size. 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 The size of thrombus is 0.6 x 1.3 cm. Assessment & Plan María is a 61yo female with Stage IV pulmonary adenocarcinoma (last Taxol treatment 04/02/16) and cancer-related pulmonary embolism while on once daily dosing of Lovenox. She presented to [facility] on 04/18/16 with sudden worsening dyspnea and worsening posterior shoulder pain. CT angio of the chest shows pulmonary emboli and increase in size of her RUL lung mass. New Lovenox dose recommended by oncology while she was still in the ER. 1. Bilateral pulmonary emboli due to hypercoagulability in the setting of cancer , acute, present on admission. - Lovenox to be continued at 1 mg/kg BID which is 50 mg BID. - Note that she was taking once daily Lovenox after her first pulmonary emboli, prior to this hospitalization - Dr. Zaman is providing expertise 2. Stage IV pulmonary adenocarcinoma, present on admission - Increased tumor size with further rib destruction based on CT angio of the chest - Last Taxol treatment on 04/02/16, per Dr Zaman, plan to transition to 2nd line treatment - Oncology has been consulted and we appreciate their expertise. 3. Aortic thrombus of unknown duration, presumed acute - Further driving the importance of Lovenox BID - This finding was discussed with the patient yesterday 4. Acute anemia of unclear etiology - Suspect this is secondary to #2 above - It is possible that she was volume depleted giving a higher H&H at admission, however, her hgb has declined again. - 2 units of PRBCs given during this hospitalization - Pantoprazole 40mg BID in case she is having an upper GI bleed - Stool guaiac is negative - Hgb & hct q6h to monitor 5. Cancer pain - See #2 above - Continue Fentanyl 50 mcg patch every 3 days. - Oxycodone-acetaminophen 10/325 mg Q4H PRN for cancer pain - Palliative radiation oncology as an outpatient per Dr Zaman 6. Sinus tachycardia, present on admission, has been ongoing. - Likely secondary to PE and cancer though infection is possible. - Continue metoprolol tartrate 12.5 mg BID. - Telemetry. 7. Low grade fever (38.0), acute, present on admission. - Suspect this is due to her pulmonary emboli and adenocarcinoma - Dr Avila (infectious disease specialist) has provided expertise and antibiotics have been discontinued. Recall no pleural effusion or sign of pneumonia on CTA chest. 8. Thrombocytosis, worsening - Suspect this is reactive - Monitor 9. Hypokalemia, acute, present on admission, resolved - Corrected with 20 mEq once at admission - Monitoring 10. Hyponatremia, acute, present on admission, resolved - NS 1L IV given in the ER and this is normal on this morning's labs - Monitoring - Bowel regimen available PRN. - Antiemetic available PRN. - Tylenol available PRN fever, mild pain. PCP: Jasmin Girder DO (to establish care soon) Oncologist: Carmel Zaman MD Disposition: Physical therapy evaluation today, anticipate discharge tomorrow with close outpatient oncology follow up. VTE Prophylaxis: Sub-Q Enoxaparin (50mg BID) VTE Mechanical Devices: Intermittant Pneumatic CD Resuscitation Status: CPR: Attempt Resuscitation Attending Statement Patient was seen and evaluated with Dr. Marina on 04/21/2016. I agree with the findings, assessment and plan of care as noted above. Catie Marina DO Apr 21, 2016 10:33 Brendon Britton MD Apr 22, 2016 13:00
--- NOTE | 2016-04-21 14:03 | NUR ---
Pain: Pt continues to c/o pain to R shoulder, ranging from 4-8/10. Effective relief provided by Percocet. Pt able to tolerate PO intake, bed bath/linen changes. Turns independently in bed. Care ongoing.
--- NOTE | 2016-04-21 15:44 | NUR ---
Social Work-continued d/c planning: Data:EMR reviewed. Pt is on day 3 of hospitalization for pulmonary embolism per H&P. Pt is several days out from discharge. SW followed up with pt and provided her with CJ application and discussed information from oncology SW. SW discussed HH services, pt declining at this time. PT evaluation is pending. Pt currently on O2, but does not have home o2. F2F in folder. SW will continue to follow. Assessment:Pt who is would likely benefit from HH. Plan:Pt to discharge home when medically stable via POV. PT evaluation is pending. Pt declining HH currently, SW to follow up again. F2F in folder. SW will continue to follow. NADYA Duong
--- NOTE | 2016-04-21 19:07 | PROG NOTE ---
[address] [address] PROGRESS NOTE PATIENT: LILIAAN ARREDONDO : 1955 MR#: [id number] ADMIT: 04/18/2016 JOB ID: [id number] DATE: 04/21/2016 SUBJECTIVE: Today, she had a slightly better today. Her pain is under satisfactory control. She remains profoundly weak. She does not feel ready yet to go home tomorrow, and she is actually open to discharge to a rehab facility. OBJECTIVE: Appears weak, awake, alert, and oriented x3, resting in bed. She remains tachycardic. Vital signs otherwise normal. She remains afebrile. LABORATORY DATA: Leukocytosis and thrombocytosis are persistent. Hemoglobin and hematocrit are stable. Chemistry remains normal except profound hypoalbuminemia. IMPRESSION AND PLAN: 1. Progressive stage IV pulmonary adenocarcinoma, unresponsive to carboplatin/paclitaxel. Tomorrow, I will discuss with our pharmacy department and will arrange to start nivolumab immunotherapy as outpatient. I will also discuss her case with Radiation Oncology to arrange consult and start palliative radiotherapy to large destructive right upper lobe mass. 2. Cancer-related bilateral pulmonary embolism. Continue Lovenox 50 mg subcutaneously b.i.d. She will need a new prescription at the time of discharge. 3. If she is discharged to a rehab facility, the same dose can be continued, but if she is discharged home, it will have to be 40 mg subcutaneously b.i.d. She is unable to adjust the 60 mg syringe to give herself 50 mg dose. Continue aspirin, but I recommend 81 mg once daily. 4. She is scheduled for port placement as outpatient by Dr. Renee on April 29. Lovenox will need to continue until 24 hours before and will need to be resumed 24 hours after procedure. This will have to be written down for her. She will basically skip three doses, the evening before and day of the procedure. 5. Disposition. This patient does not have adequate support at home and is facing progressive cancer and severe pain. Please consult test case developer for eligibility to discharge to a SNF.
[2016-04-21] MEDS: 0.9% Sodium Chloride 250 ML IV SCH (19:17)
[2016-04-22] MEDS: oxyCODONE-Acetamin 10-325 mg Tablet PO PRN ×7 (02:02→21:31)
--- NOTE | 2016-04-22 04:51 | NUR ---
Pain/Respiration Pt c/o pain 7-9/10 at right shoulder blade area, she requests Percocet 1tab to be given q3hr. Pain med given according her requests, warm pack and ice bag also tried. Pain controlled to tolerable level. Pt doze off intermittently. Pt states mild SOB, occasional cough,nonproductive. Coarse lung sounds bilaterally, no wheezes or crackles noted. SPO2 around 97% on O2 2L per nc. Tachycardia, up to 120s with activities, denies chest pain. VSS, afebrile.
[2016-04-22 05:04] VITALS: BP 138/75; PULSE 115; RESP 20; O2SAT 97
[2016-04-22] MEDS: Pantoprazole 40 mg ER24 Tablet PO SCH ×2 (07:54→20:09)
[2016-04-22 08:05] LABS: BASOPHILS % (AUTO) 0.2 % (0-3); EOSINOPHILS % (AUTO) 1.3 % (0-5); MONOCYTES % (AUTO) 15.9 % (4-12); Mean Corpuscular Hemoglobin 27.5 pg (27.0-35.0); Mean Corpuscular Volume 87.2 fL (81-100); NEUTROPHILS % (AUTO) 65.4 % (40-74)
[2016-04-22 08:12] LABS: Platelet Count 1298 bil/L (150-400)
[2016-04-22 08:30] VITALS: BP 108/69; PULSE 112; RESP 18; O2SAT 98
--- NOTE | 2016-04-22 10:41 | NUR ---
Evaluation completed. Please go to "Notes" then click on "Assessments and Notes" (bottom left corner of screen). Then select appropriate discipline tab on top of screen.
--- NOTE | 2016-04-22 10:44 | NUR ---
Gave access and faxed facesheet to [facility]. Updated REVIEW TRAINER
--- NOTE | 2016-04-22 10:49 | NUR ---
Social Work: Readiness for d/c Data: Pt is on day 4 of hospitalization. EMR reviewed, pt discussed in rounds. MD states pt likely ready for d/c tomorrow. PT recommending SNF at this time, pt walking only 30 feet. MD also requested SNF as pt had medication management needs. HAIR STYLIST met with pt at bedside and explained the recommendations. Pt agreeable to SNF, accepted SNF choice list. She states that she wants referrals sne to [facility]. HAIR STYLIST requested UR specialist send referrals. HAIR STYLIST will continue to follow. Assessment: Pt who is independent at baseline. Plan: Pt will d/c to SNF likely tomorrow, [facility] being referred by UR specialist. HAIR STYLIST will continue to follow. NADYA Kasper
--- NOTE | 2016-04-22 11:07 | PCM.PNMED ---
Subjective Date of Service Apr 22, 2016 Subjective María reports that she is continuing to feel pretty weak and that she felt very short of breath when she got of bed this morning without supplemental oxygen. She had not been using supplemental oxygen prior to this hospitalization. She has worked with physical therapy today who recommend a front wheeled walker. Note that the patient has a hx of gait abnormality secondary to polio as a child. Exam Vital Signs Vital Sign - Last Date Time Temp Pulse Resp B/P Pulse Ox O2 Delivery O2 Flow Rate FiO2 04/22/16 08:30 37.0 112 18 108/69 98 Nasal Cannula 2.00 Intake and Output 04/21/16 04/21/16 04/22/16 Cumulative From/Thru 15:00 23:00 07:00 04/18/16 17:00 - 04/22/16 05:04 Intake Total 1260 ml 6761 ml Output Total 1450 ml 6420 ml Balance -190 ml 341 ml Intake Oral 1260 ml 3903 ml IV Total 2058 ml Packed Cells 800 ml Output Urine Total 1450 ml 6420 ml # Bowel Movements 1 1 2 Exam General: Resting comfortably in bed with supplemental oxygen at 2.5L/h via nasal cannula. Awake, alert and oriented x3, no acute distress. No pallor. HEENT: Mucus membranes moist. Atraumatic, normocephalic, PERRLA, sclera anicteric. Cardiac: Regular rate and rhythm without murmur, rub, or gallop appreciated Lungs: Moderate inspiratory effort with diminished breath sounds throughout the lung adams. No wheezes, rales, or rhonchi Abdomen: Normoactive bowel tones, soft, nontender and nondistended. No hepatosplenomegaly appreciated. Extremities: No cyanosis, clubbing or edema. Skin: Normal turgor without rash Neuro: Normal speech, moves all 4 extremities with ease. Able to sit up in bed unassisted and with ease. No known gait impairment. Lab and Diagnostics Result Diagram: 04/22/16 0730 04/20/16 0535 X-Rays, CTs and MRIs Chest CTA: IMPRESSION: 1. Segmental and subsegmental pulmonary emboli in the bilateral lower lobes as described above. 2. Increased size of the right upper lobe lung mass with increased bony destruction when compared with the study dated 03/17/16 suggesting progression of disease. 3. Increased right hilar and mediastinal adenopathy consistent with progression of disease. Dictated by: Clarisse Lane M.D. on 04/18/2016 at 19:34 Cardiac Echo Impressions Transthoracic Echo 04/19/16: Interpretation Summary The left ventricle is normal in size. Left ventricular systolic function is normal. The ejection fraction is estimated to be 55-60%. There are no focal wall motion abnormalities. The right ventricle is normal in size and function. The right ventricular systolic pressure is estimated at 44 mmHg assuming a right atrial pressure of 15 mm Hg. Compared to the prior echo exam, there has been an increase in the severity of pulmonary hypertension. Both atria are normal in size. There is no significant valvular heart disease. The aortic root is normal size. 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 The size of thrombus is 0.6 x 1.3 cm. Assessment & Plan María is a 61yo female with Stage IV pulmonary adenocarcinoma (last Taxol treatment 04/02/16) and cancer-related pulmonary embolism while on once daily dosing of Lovenox. She presented to [facility] on 04/18/16 with sudden worsening dyspnea and worsening posterior shoulder pain. CT angio of the chest shows pulmonary emboli and increase in size of her RUL lung mass. New Lovenox dose recommended by oncology. 1. Bilateral pulmonary emboli due to hypercoagulability in the setting of cancer , acute, present on admission. - Continue Lovenox 1 mg/kg BID which is 50 mg BID. - Note that she was taking once daily Lovenox after her first pulmonary emboli, prior to this hospitalization - Dr. Zaman has been providing expertise and she will follow up closely with him as an outpatient 2. Stage IV pulmonary adenocarcinoma, present on admission - Increased tumor size with further rib destruction based on CT angio of the chest - Last Taxol treatment on 04/02/16, per Dr Zaman, plan to transition to 2nd line treatment as an outpatient - Port placement for further chemotherapy administration, plan for this to be placed by Dr Renee on 04/29/2016. Her Lovenox will be held the night prior and the day of the port placement, otherwise she will continue with Lovenox. - Oncology has been consulted and we appreciate their expertise. 3. Aortic thrombus of unknown duration, presumed acute - Further driving the importance of Lovenox BID - This finding from her echocardiogram has been discussed with the patient 4. Acute anemia of unclear etiology - Suspect this is secondary to #2 above - 2 units of PRBCs given during this hospitalization, anticipate that she will likely need further transfusions in the future - Pantoprazole 40mg BID - Stool guaiac is negative - Monitor 5. Cancer pain - See #2 above - Continue Fentanyl 50 mcg patch every 3 days. - Oxycodone-acetaminophen 10/325 mg Q4H PRN for cancer pain; plan to continue this as an outpatient - Stool softeners BID and laxatives PRN while on opiate pain medication - Palliative radiation oncology as an outpatient per Dr Zaman 6. Sinus tachycardia, present on admission, has been ongoing. - Likely secondary to PE and cancer though infection is possible. - Continue metoprolol tartrate 12.5 mg BID. - Telemetry. 7. Hypoxemic respiratory failure secondary to #1 and #2 above - Supplemental oxygen to keep oxygen saturation >92% - Desaturated quickly without supplemental oxygen when ambulating 8. Low grade fever (38.0) present on admission, resolved - Suspect this was due to her pulmonary emboli and adenocarcinoma - Dr Avila (infectious disease specialist) has provided expertise and antibiotics discontinued. Recall no pleural effusion or sign of pneumonia on CTA chest. 9. Thrombocytosis, worsening - Suspect this is reactive to #1 and #2 above - Monitor 10. Hypokalemia, acute, present on admission, resolved - Corrected with 20 mEq once at admission - Monitoring - Antiemetic available PRN. - Tylenol available PRN fever, mild pain. PCP: Jasmin Grider DO (to establish care soon) Oncologist: Carmel Zaman MD Disposition: Anticipate discharge tomorrow to SNF where she will need Lovenox 50mg BID as well as a front wheeled walker, supplemental oxygen, and close follow up with oncology. VTE Prophylaxis: Sub-Q Enoxaparin (50mg BID) VTE Mechanical Devices: Intermittant Pneumatic CD Resuscitation Status: CPR: Attempt Resuscitation Attending Statement Patient was seen and evaluated with Dr. Marina on 04/22/2016. I agree with the findings, assessment and plan of care as noted above. Catie Marina DO Apr 22, 2016 11:07 Brendon Britton MD Apr 22, 2016 13:02
[2016-04-22] MEDS: 0.9% Sodium Chloride 250 ML IV SCH (11:45)
--- NOTE | 2016-04-22 12:53 | NUR ---
inside technical sales representativemeal room hand note: This is a 2nd admission for this 61 yrs old patient recently diagnosed with Lung Cancer/PE. Patient voiced concern regarding her financial status. Referral made to NADYA Diaz who is assisting her with financial assistance. Patient is tearful today. She essentially has no support, her family lives in [place]. She says the are trying to come down to see her. Patient stated she will be starting Opdivo because her Chemo Regimen was not working. She has had disease progression. Provided patient with Educational material regarding Opdivo and discussed the common side effects with patient. No othr care needs identified at this time. Will continue to follow and address needs as they arise.
[2016-04-22 13:36] VITALS: BP 138/67; PULSE 102; RESP 18; O2SAT 98
--- NOTE | 2016-04-22 15:25 | NUR ---
Sewing Line Baler D/A: PCA received a referral regarding psychosocial and financial challenges. Patient is 60yo female who lives in [facility]) with a room-mate. Patient states that her primary concerns are "gaining strength back" and "dealing with my finances before it gets to overwhelming". Patient has Medicare Part A and B without any supplemental coverage. Patient is starting to receive bills for her 20% portion causing the patient significant distress. PCA had encouraged the patient at a previous [facility] clinic visit to apply for [facility] Medicaid supplemental coverage. Patient stated that she had presented to [facility] submitted and application and was informed she has a $5900 spend-down. PCA encouraged the patient to bring in any medical bills so PCA can submit them to [facility] spend-down department on the patient's behalf, PCA also provided the patient a application for the [facility] Foundation Cancer Care fund and the [facility] Patient Financial Assistance. Patient also notes the she believes that she has an insurance policy with a cancer rider. PCA suggested the patient bring in the insurance policy and financial assistance application is she requires additional assistance with interpreting/completing the aforementioned paperwork. Patient understands she is discharging to a local SNF and will still be receiving outpatient treatment at [facility]. PCA will be in contact with the patient' SNF to verify transportation arrangements. No other psychosocial concerns noted at this time. [facility] PCA updated inpatient PCAJustice Terry on the issues addressed with the patient. P: PCA will continue to monitor and follow-up with the patient on the aforementioned psychosocial challenges discussed. Joe Timmons GASKET FORMER, PCA
--- NOTE | 2016-04-22 15:37 | NUR ---
Social Work: Continued d/c planning Data: Pt is on day 4 of hospitalization. EMR reviewed. PLANT OPERATIONS MANAGER spoke with Michela with [facility] who states they can take pt as long as she agrees to a no smoking agreement. PLANT OPERATIONS MANAGER met with pt who states she will abide by a no smoking agreement. PLANT OPERATIONS MANAGER will continue to follow. Plan: Pt will d/c to either [facility] or [facility] likely tomorrow. PLANT OPERATIONS MANAGER will continue to follow. NADYA Kasper
[2016-04-22 16:08] LABS: Transferrin 89 mg/dL (.)
[2016-04-22 18:26] VITALS: BP 108/67; PULSE 98; RESP 18; O2SAT 98
--- NOTE | 2016-04-22 18:27 | PROG NOTE ---
[address] [address] PROGRESS NOTE PATIENT: LILIANA ARREDONDO : 1955 MR#: [id number] ADMIT: 04/18/2016 JOB ID: [id number] DATE: 04/22/2016 SUBJECTIVE: Today, she feels overall good. She is happy to be transferred to [facility]. Her pain is under satisfactory control. She reports good appetite. OBJECTIVE: Very comfortable, resting in bed. Awake, alert, oriented x3. Blood pressure 138/67, heart rate 102, temperature 36.7, O2 saturation 98% on 2 L. LABORATORY DATA: Reviewed. Hemoglobin has dropped to 8.8. Transferrin saturation is extremely low. Ferritin is elevated. Albumin remains low. IMPRESSION AND PLAN: 1. Stage IV pulmonary adenocarcinoma, Digital Media Analyst mutation negative. We will schedule for first infusion of immunotherapy with nivolumab next week. The patient has been referred to Radiation Oncology for palliative radiotherapy to large, painful, destructive mass involving the posterior right upper lobe. 2. Continue Lovenox 50 mg subcutaneously b.i.d. and aspirin 81 mg daily at discharge. 3. Severe anemia. The primary cause of this is underlying malignancy, and consequent anemia of chronic disease. The mechanism is impaired iron utilization. There could be slight improvement with IV iron, and I will place an order for one dose Venofer 300 mg IV infusion prior to discharge tomorrow morning. 4. Cancer-related pain. Continue current regimen. 5. Disposition. The patient will be discharged to [facility] tomorrow, and I will follow up later in Cancer Clinic.
[2016-04-22 20:20] VITALS: BP 128/75; PULSE 135; RESP 22; O2SAT 92
[2016-04-23 01:40] VITALS: PULSE 127; O2SAT 92
[2016-04-23] MEDS: oxyCODONE-Acetamin 10-325 mg Tablet PO PRN ×7 (01:49→21:55)
--- NOTE | 2016-04-23 03:18 | NUR ---
Shift report Pleasant and cooperative pt, able to make needs known, uses call light appropriately. d/t pain in R shoulder/back, pt requires PO PRN pain meds, q3hrs while awake. Pt able to sustain O2 at RA, sating near 92%. Pt requires SBA with ambulation d/t weakness from polio in childhood. Bed in low position, call light in reach. Will continue with frequent rounding.
[2016-04-23 05:18] VITALS: BP 108/67; PULSE 118; RESP 20; O2SAT 88
[2016-04-23 05:33] VITALS: O2SAT 97
[2016-04-23 06:03] LABS: Mean Corpuscular Hemoglobin 27.2 pg (27.0-35.0); Mean Corpuscular Volume 87.6 fL (81-100)
[2016-04-23] MEDS: 0.9% Sodium Chloride 250 ML IV SCH (06:29)
[2016-04-23 06:40] LABS: BASOPHILS % (AUTO) 0 % (0-3); EOSINOPHILS % (AUTO) 2 % (0-5); MONOCYTES % (AUTO) 12 % (4-12); NEUTROPHILS % (AUTO) 60 % (40-74); Platelet Count 1468 bil/L (150-400)
[2016-04-23] MEDS ORDERED: IRON SUCROSE IV ONE (07:00)
[2016-04-23] MEDS ORDERED: SODIUM CHLORIDE 0.9% IV ONE (07:00)
[2016-04-23] MEDS: Pantoprazole 40 mg ER24 Tablet PO SCH ×2 (08:32→20:31)
--- NOTE | 2016-04-23 10:41 | NUR ---
Social Work: Continued d/c planning Data: EMR reviewed, pt discussed in rounds. MD states pt likely to remain in hospital today and will likely d/c tomorrow. Plan: Pt will d/c to either [facility] (accepted, and pt's first choice) or to [facility] (referred), when medically stable, likely tomorrow. GEOTHERMAL INSTALLER will continue to follow. NADYA Kasper
[2016-04-23 12:40] VITALS: BP 92/57; PULSE 111; RESP 18; O2SAT 96
--- NOTE | 2016-04-23 12:49 | PCM.PNMED ---
Subjective Date of Service Apr 23, 2016 Subjective María began having diarrhea yesterday. She reports that she had to ambulate to the toilet every 2-3 hours for loose stooling since yesterday afternoon. She had a single dose of Miralax 2 days ago for constipation, no stool softeners or laxatives since that time Exam Vital Signs Vital Sign - Last Date Time Temp Pulse Resp B/P Pulse Ox O2 Delivery O2 Flow Rate FiO2 04/23/16 08:40 Supplement Oxygen 04/23/16 05:33 97 1.00 04/23/16 05:18 37.1 118 20 108/67 Intake and Output 04/22/16 04/22/16 04/23/16 Cumulative From/Thru 15:00 23:00 07:00 04/18/16 17:00 - 04/23/16 06:55 Intake Total 800 ml 1237 ml 400 ml 9198 ml Output Total 2250 ml 1600 ml 750 ml 38307 ml Balance -1450 ml -363 ml -350 ml -1822 ml Intake Oral 800 ml 1237 ml 400 ml 6340 ml IV Total 2058 ml Packed Cells 800 ml Output Urine Total 2250 ml 1600 ml 750 ml 80575 ml # Bowel Movements 0 0 2 Exam General: Resting comfortably in bed with supplemental oxygen at 2L/h via nasal cannula. Awake, alert and oriented x3, no acute distress. No pallor. HEENT: Mucus membranes moist. Atraumatic, normocephalic, PERRLA, sclera anicteric. Cardiac: Mildly tachycardic at 100bpm. Regular rhythm without murmur, rub, or gallop appreciated Lungs: Moderate inspiratory effort with diminished breath sounds throughout the lung adams. No wheezes, rales, or rhonchi Abdomen: Normoactive bowel tones, soft, nontender and nondistended. No hepatosplenomegaly appreciated. Extremities: No cyanosis, clubbing or edema. Skin: Normal turgor without rash Neuro: Normal speech, moves all 4 extremities with ease. Able to sit up in bed unassisted and with ease. IVs and Medications Medications Reviewed: Medications were reviewed in detail Lab and Diagnostics Result Diagram: 04/23/16 0520 04/23/16 0945 X-Rays, CTs and MRIs Chest CTA: IMPRESSION: 1. Segmental and subsegmental pulmonary emboli in the bilateral lower lobes as described above. 2. Increased size of the right upper lobe lung mass with increased bony destruction when compared with the study dated 03/17/16 suggesting progression of disease. 3. Increased right hilar and mediastinal adenopathy consistent with progression of disease. Dictated by: Clarisse Lane M.D. on 04/18/2016 at 19:34 Cardiac Echo Impressions Transthoracic Echo 04/19/16: Interpretation Summary The left ventricle is normal in size. Left ventricular systolic function is normal. The ejection fraction is estimated to be 55-60%. There are no focal wall motion abnormalities. The right ventricle is normal in size and function. The right ventricular systolic pressure is estimated at 44 mmHg assuming a right atrial pressure of 15 mm Hg. Compared to the prior echo exam, there has been an increase in the severity of pulmonary hypertension. Both atria are normal in size. There is no significant valvular heart disease. The aortic root is normal size. 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 The size of thrombus is 0.6 x 1.3 cm. Assessment & Plan María is a 61yo female with Stage IV pulmonary adenocarcinoma (last Taxol treatment 04/02/16) and cancer-related pulmonary embolism while on once daily dosing of Lovenox. She presented to [facility] on 04/18/16 with sudden worsening dyspnea and worsening posterior shoulder pain. CT angio of the chest shows pulmonary emboli and increase in size of her RUL lung mass. New Lovenox dose recommended by oncology. 1. Bilateral pulmonary emboli due to hypercoagulability in the setting of cancer , acute, present on admission. - Continue Lovenox 1 mg/kg BID which is 50 mg BID. - Note that she was taking once daily Lovenox after her first pulmonary emboli, prior to this hospitalization - Dr. Zaman has been providing expertise and she will follow up closely with him as an outpatient 2. Stage IV pulmonary adenocarcinoma, present on admission - Increased tumor size with further rib destruction based on CT angio of the chest - Last Taxol treatment on 04/02/16, per Dr Zaman, plan to transition to 2nd line treatment as an outpatient - Port placement for further chemotherapy administration, plan for this to be placed by Dr Renee on 04/29/2016. Her Lovenox will be held the night prior and the day of the port placement, otherwise she will continue with Lovenox. - Oncology has been consulted and we appreciate their expertise. 3. Aortic thrombus of unknown duration, presumed acute - Further driving the importance of Lovenox BID - This finding from her echocardiogram has been discussed with the patient 4. Thrombocytosis, severe and worsening - Suspect this is reactive to #1 and #2 above - Will consult oncology/hematology about this as it has been worsening - Monitor 5. Acute anemia of unclear etiology - Suspect this is secondary to #2 above - 2 units of PRBCs given during this hospitalization, anticipate that she will likely need further transfusions in the future - Pantoprazole 40mg BID - Stool guaiac is negative - Monitor 6. Cancer pain - See #2 above - Continue Fentanyl 50 mcg patch every 3 days. - Oxycodone-acetaminophen 10/325 mg Q4H PRN for cancer pain; plan to continue this as an outpatient - Stool softeners BID and laxatives PRN while on opiate pain medication - Palliative radiation oncology as an outpatient per Dr Zaman 7. Sinus tachycardia, present on admission, has been ongoing. - Likely secondary to PE and cancer though infection is possible. - Continue metoprolol tartrate 12.5 mg BID. - Telemetry. 8. Hypoxemic respiratory failure secondary to #1 and #2 above - Supplemental oxygen to keep oxygen saturation >92% - Desaturated quickly without supplemental oxygen when ambulating 9. Low grade fever (38.0) present on admission, resolved - Suspect this was due to her pulmonary emboli and adenocarcinoma - Dr Avila (infectious disease specialist) has provided expertise and antibiotics discontinued. Recall no pleural effusion or sign of pneumonia on CTA chest. 10. Diarrhea, new onset - This may be due to miralax use, however, with her elevated leukocytosis, infection is a concern - Stool BioFire PCR - Monitor 11. Hypokalemia, acute, present on admission, resolved - Corrected with 20 mEq once at admission - Monitoring - Antiemetic available PRN. - Tylenol available PRN fever, mild pain. Disposition: Anticipate discharge to SNF once more stable, in 1-2 days, where she will need Lovenox 50mg BID as well as a front wheeled walker, supplemental oxygen, and close follow up with oncology. VTE Prophylaxis: Sub-Q Enoxaparin (50mg BID) VTE Mechanical Devices: Venous Foot Pump Resuscitation Status: CPR: Attempt Resuscitation Attending Statement The patient was seen and examined together with Dr. Marina on 04/23/2016 and I agree with the history, exam and plan as outlined in the note above. Catie Marina DO Apr 23, 2016 11:05 Brendon Britton MD Apr 24, 2016 12:55
[2016-04-23 20:30] VITALS: BP 119/65; PULSE 127; O2SAT 95
[2016-04-24] MEDS: oxyCODONE-Acetamin 10-325 mg Tablet PO PRN ×8 (01:12→23:24)
--- NOTE | 2016-04-24 03:00 | NUR ---
Pain Pt has been asking for pain medication about every 3 hours. Pt is complaining of right shoulder pain as her worst pain. Current dose of percocet is managing Pts pain.
[2016-04-24 04:30] VITALS: BP 113/67; PULSE 116; RESP 18; O2SAT 96
[2016-04-24 06:32] LABS: Mean Corpuscular Hemoglobin 27.3 pg (27.0-35.0); Mean Corpuscular Volume 87.2 fL (81-100); Platelet Count 1396 bil/L (150-400)
[2016-04-24 06:33] LABS: BASOPHILS % (AUTO) 0 % (0-3); EOSINOPHILS % (AUTO) 0 % (0-5); MONOCYTES % (AUTO) 7 % (4-12); NEUTROPHILS % (AUTO) 64 % (40-74)
[2016-04-24] MEDS: Pantoprazole 40 mg ER24 Tablet PO SCH ×2 (07:44→20:21)
[2016-04-24] MEDS ORDERED: DOCU-41 PO (10:14)
[2016-04-24] MEDS ORDERED: Fentanyl TOPICAL (10:14)
[2016-04-24] MEDS ORDERED: OXYC-466 PO (10:14)
[2016-04-24] MEDS ORDERED: ONDA-53 PO (10:14)
[2016-04-24] MEDS ORDERED: Aspirin-Expunged Drug, Do Not Renew! PO (10:14)
[2016-04-24] MEDS ORDERED: LOV60 SUBQ (10:14)
--- NOTE | 2016-04-24 10:50 | PCM.DIMED ---
Discharge Instructions Date of Service Apr 24, 2016 Dates of Hospitalization Apr 18, 2016 at 20:31 Discharge Diagnosis Discharge Diagnosis 1. Bilateral pulmonary emboli due to hypercoagulability in the setting of cancer , acute, present on admission. 2. Stage IV pulmonary adenocarcinoma, present on admission 3. Aortic thrombus of unknown duration, presumed acute 4. Thrombocytosis, severe and worsening 5. Acute anemia, likely secondary to malignancy 6. Cancer pain 7. Sinus tachycardia, present on admission, ongoing. 8. Hypoxemic respiratory failure secondary to #1 and #2 above, improved 9. Low grade fever (38.0) present on admission, resolved 10. Diarrhea, resolved 11. Hypokalemia, acute, present on admission, resolved Medication Instructions Take the following: Lovenox 50mg injected subcutaneously twice daily. * You will be getting this medication twice daily every day except you will not receive a dose the evening of 04/28/2016 or either dose on 04/29/16 as you are scheduled to have a port placed on 04/29/[address] Renee. The Lovenox will return to twice daily dosing the morning of 04/30/16. Aspiring 325mg by mouth once daily Metoprolol 25mg by mouth twice daily The pain medication can cause constipation, thus you should take 1 tablet of docusate by mouth twice daily; This is a stool softener. For pain: Fentanyl 1 patch to be applied once every 3 days. The old patch must be removed prior to application of the new patch Oxycodone-acetaminophen 10/325mg tablet, 1 tablet by mouth every 3 hours as needed. You will not be able to take any additional acetaminophen when taking this medication, so take extra caution to avoid other acetaminophen containing medications. For nausea: Take 1 tablet of ondansetron by mouth every 4 hours as needed. Test Results CT Angiogram of the chest: IMPRESSION: 1. Segmental and subsegmental pulmonary emboli in the bilateral lower lobes as described above. 2. Increased size of the right upper lobe lung mass with increased bony destruction when compared with the study dated 03/17/16 suggesting progression of disease. 3. Increased right hilar and mediastinal adenopathy consistent with progression of disease. These findings were discussed with Dr. Salvador at 7:41 PM on 04/18/16. Dictated by: Clarisse Lane M.D. on 04/18/2016 at 19:34 Diet No restrictions Activity Other (Detention physical therapy) Patient Instructions Follow-up plan You have an appointment with Dr Zaman (oncologist) on Tuesday to start the new chemotherapy; make sure that you keep this appointment. Please call to schedule an appointment with Dr Nielson in the [facility] for follow up of this hospitalization,This may be in 1-2 weeks from now. Follow-up Provider: Carmel Zaman MD Provider: AIDEN TREADWELL DO Follow-up in: 2 weeks Catie Marina DO Apr 24, 2016 10:18
[2016-04-24] MEDS ORDERED: METO25TA6 PO (11:40)
[2016-04-24] MEDS: 0.9% Sodium Chloride 250 ML IV SCH (11:45)
[2016-04-24] MEDS ORDERED: Insulin Human REGular 300 Unit/3 mL Inj IV ONE (13:20)
--- NOTE | 2016-04-24 13:33 | DRSVH ---
PROCEDURE: X-RAY CHEST, TWO VIEWS ([id number]) INDICATIONS: 61 year-old woman with elevated white blood count and procalcitonin. TECHNIQUE: 2 views of the chest were acquired. COMPARISON: [facility], CT, CT CHEST W CON, 03/06/2016, 14:57. [facility], CT, CT ANGIO CHEST PE, 03/17/2016, 22:28. [facility], CR, XR CHEST 2VW, 04/18/2016, 17:32 . [facility], CT, CT ANGIO CHEST PE, 04/18/2016, 19:20. FINDINGS: Surgical changes and devices: None. Lungs and pleura: There is a large mass in the right apex. There is diffuse interstitial prominence. Interstitial and air space infiltrates in the right upper lobe below the mass are slightly increased . A 1.3 cm nodular density seen in the left midlung zone. Blunting of the left costophrenic angle may be caused by small left effusion. Moderate emphysema. No pneumothorax. Mediastinum: Mediastinal contours are normal. Heart size is normal. Bones and chest wall: The right fourth and fifth ribs are well-seen, likely secondary to rib destruc tion. IMPRESSION: 1. Large right apical mass with destruction of posterior right upper ribs, compatible with a large pr imary lung cancer. Interstitial and airspace infiltrates below the mass could represent superimposed pneumonia. 2. A 1.3 cm nodule in the left midlung zone. 3. Emphysema. 4. Possible small left effusion. Dictated by: Emil James M.D. on 04/24/2016 at 13:23 Approved by: Emil James M.D. on 04/24/2016 at 13:32
--- NOTE | 2016-04-24 13:38 | PCM.PNMED ---
Subjective Date of Service Apr 24, 2016 Subjective María states that she has not had any further diarrhea. She states that she is feeling well and looking forward to discharging. Exam Vital Signs Vital Sign - Last Date Time Temp Pulse Resp B/P Pulse Ox O2 Delivery O2 Flow Rate FiO2 04/24/16 07:50 Supplement Oxygen 04/24/16 04:30 36.9 116 18 113/67 96 1.00 Intake and Output 04/23/16 04/23/16 04/24/16 Cumulative From/Thru 15:00 23:00 07:00 04/18/16 17:00 - 04/24/16 06:00 Intake Total 1072 ml 700 ml 68375 ml Output Total 1400 ml 2100 ml 45298 ml Balance -328 ml -1400 ml -3550 ml Intake Oral 1072 ml 700 ml 8112 ml IV Total 2058 ml Packed Cells 800 ml Output Urine Total 1400 ml 2100 ml 95583 ml # Bowel Movements 2 4 Exam General: Resting comfortably in bed with supplemental oxygen at 2L/h via nasal cannula, smiling and pleasant. Awake, alert and oriented x3, no acute distress. No pallor. HEENT: Mucus membranes moist. Atraumatic, normocephalic, PERRLA, sclera anicteric. Cardiac: Mildly tachycardic at 110bpm. Regular rhythm without murmur, rub, or gallop appreciated Lungs: Moderate inspiratory effort with diminished breath sounds throughout the lung adams. No wheezes, rales, or rhonchi Abdomen: Normoactive bowel tones, soft, nontender and nondistended. No hepatosplenomegaly appreciated. Extremities: No cyanosis, clubbing or edema. Skin: Normal turgor without rash Neuro: Normal speech, moves all 4 extremities with ease. Able to sit up in bed unassisted and with ease. Lab and Diagnostics Result Diagram: 04/24/16 0510 04/24/16 1220 X-Rays, CTs and MRIs Chest CTA: IMPRESSION: 1. Segmental and subsegmental pulmonary emboli in the bilateral lower lobes as described above. 2. Increased size of the right upper lobe lung mass with increased bony destruction when compared with the study dated 03/17/16 suggesting progression of disease. 3. Increased right hilar and mediastinal adenopathy consistent with progression of disease. Dictated by: Clarisse Lane M.D. on 04/18/2016 at 19:34 Cardiac Echo Impressions Transthoracic Echo 04/19/16: Interpretation Summary The left ventricle is normal in size. Left ventricular systolic function is normal. The ejection fraction is estimated to be 55-60%. There are no focal wall motion abnormalities. The right ventricle is normal in size and function. The right ventricular systolic pressure is estimated at 44 mmHg assuming a right atrial pressure of 15 mm Hg. Compared to the prior echo exam, there has been an increase in the severity of pulmonary hypertension. Both atria are normal in size. There is no significant valvular heart disease. The aortic root is normal size. 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 The size of thrombus is 0.6 x 1.3 cm. Assessment & Plan María is a 61yo female with Stage IV pulmonary adenocarcinoma (last Taxol treatment 04/02/16) and cancer-related pulmonary embolism while on once daily dosing of Lovenox. She presented to [facility] on 04/18/16 with sudden worsening dyspnea and worsening posterior shoulder pain. CT angio of the chest shows pulmonary emboli and increase in size of her RUL lung mass. New Lovenox dosing as guided by oncology. 1. Bilateral pulmonary emboli due to hypercoagulability in the setting of cancer , acute, present on admission. - Continue Lovenox 1 mg/kg BID which is 50 mg BID. - Note that she was taking once daily Lovenox after her first pulmonary emboli, prior to this hospitalization - Dr. Zaman has been providing expertise and she will follow up closely with him as an outpatient 2. Stage IV pulmonary adenocarcinoma, present on admission - Increased tumor size with further rib destruction based on CT angio of the chest - Last Taxol treatment on 04/02/16, per Dr Zaman, plan to transition to 2nd line treatment as an outpatient starting on 04/27/2016 - Port placement for further chemotherapy administration, plan for this to be placed by Dr Renee on 04/29/2016. Her Lovenox will be held the night prior and the day of the port placement, otherwise she will continue with Lovenox. - Oncology has been consulted and we appreciate their expertise. 3. Aortic thrombus of unknown duration, presumed acute - Further driving the importance of Lovenox BID - This finding from her echocardiogram has been discussed with the patient 4. Thrombocytosis, severe - Suspect this is reactive to #1 and #2 above - This has worsening during this hospitalization, today's platelet count is slightly better than yesterdays. - Monitor 5. Acute anemia of unclear etiology. improved and stable - Suspect this is secondary to #2 above - 2 units of PRBCs given during this hospitalization, anticipate that she may need further transfusions in the future - Pantoprazole 40mg BID - Stool guaiac is negative - Monitor 6. Cancer pain - See #2 above - Continue Fentanyl 50 mcg patch every 3 days. - Oxycodone-acetaminophen 10/325 mg Q4H PRN for cancer pain; plan to continue this as an outpatient - Stool softeners BID and laxatives PRN while on opiate pain medication - Palliative radiation oncology as an outpatient per Dr Zaman 7. Sinus tachycardia, present on admission, ongoing. - Likely secondary to PE and cancer though infection is a concern. - Continue metoprolol tartrate 12.5 mg BID. - Telemetry. 8. Leukocytosis with 6% bands, worsening - Concern for infection especially given her elevated procalcitonin - Chest xray, blood cultures, and urine analysis ordered - Monitor 9. Hypoxemic respiratory failure secondary to #1 and #2 above - Supplemental oxygen to keep oxygen saturation >92% - Desaturated quickly without supplemental oxygen when ambulating 10. Hyperkalemia, new onset - 10units of regular insulin with D50 to be given - Monitor 11. Diarrhea, new onset - This may be due to miralax use, however, with her elevated leukocytosis, infection is a concern - Stool BioFire PCR - Monitor 12. Low grade fever (38.0) present on admission, resolved - Suspect this was due to her pulmonary emboli and adenocarcinoma - Dr Avila (infectious disease specialist) has provided expertise and antibiotics were discontinued. - Antiemetic available PRN. - Tylenol available PRN fever, mild pain. Disposition: Anticipate discharge to SNF when stable, where she will need Lovenox 50mg BID as well as a front wheeled walker, supplemental oxygen, and close follow up with oncology. VTE Prophylaxis: Sub-Q Enoxaparin (50mg BID) VTE Mechanical Devices: Venous Foot Pump Resuscitation Status: CPR: Attempt Resuscitation Attending Statement The patient was seen and examined together with Dr. Marina on 04/24/2016 and I agree with the findings, assessment and plan as stated above. Catie Marina 28, 2017 13:28 Brendon Britton MD Apr 25, 2016 13:11
[2016-04-24 14:52] VITALS: BP 97/61; PULSE 116; RESP 18; O2SAT 96
[2016-04-24 15:57] VITALS: PULSE 126
--- NOTE | 2016-04-24 15:59 | NUR ---
Social Work-readiness for discharge: Data:EMR Reviewed. Pt is on day 6 of hospitalization for PE per H&P. Pt may be medically stable to discharge tomorrow. SW called Erika Elise at [facility] and confirmed they can accept pt tomorrow. PT continues to recommend SNF, pt only able to ambulate 25ft CGA. Paperwork in the chart. SW will continue to follow. Assessment:Pt who will benefit from SNF. Plan:[facility] has accepted with Dr. Thomas to follow when medically stable. Paperwork in the chart. SW will continue to follow. NADYA Duong
--- NOTE | 2016-04-24 17:07 | NUR ---
Pain Pt requesting PO pain med appro every 3 hours as ordered. Pain rated at 7/10 during initial assessment however has decreased to 6/10 for following assessments. Pt reports pain Rx is managing pain levels at tolerable levels at this time. Call light with in reach, will continue to monitor,
[2016-04-24 20:22] VITALS: BP 111/68; PULSE 121; RESP 20; O2SAT 94
[2016-04-24 22:02] LABS: APPEARANCE,URINE HAZY (CLEAR,HAZY); COLOR,URINE YELLOW (YELLOW); OCCULT BLOOD,URINE NEGATIVE (NEGATIVE); UROBILINOGEN,URINE NORMAL (NORMAL)
[2016-04-25] MEDS: oxyCODONE-Acetamin 10-325 mg Tablet PO PRN ×8 (02:21→23:45)
--- NOTE | 2016-04-25 03:21 | NUR ---
Increased pain Tonight Pt is reporting her pain numbers greater than last nights numbers. Pt says she will ask MD in morning if there is anything else to do for her pain.
[2016-04-25 04:44] VITALS: BP 107/67; PULSE 120; RESP 18; O2SAT 95
[2016-04-25 06:11] LABS: Mean Corpuscular Hemoglobin 27.2 pg (27.0-35.0); Mean Corpuscular Volume 88.3 fL (81-100)
[2016-04-25 06:16] LABS: Platelet Count 1514 bil/L (150-400)
[2016-04-25 06:51] LABS: BASOPHILS % (AUTO) 1 % (0-3); EOSINOPHILS % (AUTO) 1 % (0-5); MONOCYTES % (AUTO) 12 % (4-12); NEUTROPHILS % (AUTO) 62 % (40-74)
[2016-04-25] MEDS: Pantoprazole 40 mg ER24 Tablet PO SCH ×2 (08:40→20:41)
[2016-04-25] MEDS ORDERED: Albuterol 2.5 mg/3 mL Inhalation Solution NEB ONE (09:10)
[2016-04-25 09:19] VITALS: PULSE 120; RESP 18; O2SAT 96
[2016-04-25] MEDS ORDERED: Piperacillin-Tazo 3.375 Gm Inj 3.375 GM in Dextrose 5% Minibag Plus 50 ML IV SCH (10:25)
--- NOTE | 2016-04-25 10:44 | NUR ---
NICOLAS signed. NADYA Duong
[2016-04-25] MEDS ORDERED: Vancomycin Inj 1,000 MG in IV Premix 1 EACH IV SCH (10:46)
--- NOTE | 2016-04-25 10:53 | PCM.CONPHA ---
Subjective SOB Objective Vital Signs Date Time Temp Pulse Resp B/P Pulse Ox O2 Delivery O2 Flow Rate FiO2 04/25/16 09:19 120 18 96 Nasal Cannula 1.00 04/25/16 04:44 36.9 120 18 107/67 95 Nasal Cannula 1.00 04/24/16 20:22 36.9 121 20 111/68 94 Nasal Cannula 1.00 04/24/16 20:00 Supplement Oxygen 04/24/16 15:57 126 Nasal Cannula 2.00 04/24/16 14:52 36.1 116 18 97/61 96 Nasal Cannula 1.00 Intake and Output 04/23/16 04/24/16 04/25/16 00:00 00:00 00:00 Intake Total 2037 ml 1472 ml 1320 ml Output Total 3850 ml 2150 ml 2100 ml Balance -1813 ml -678 ml -780 ml Weight (Kilograms): 49.800 Height (Feet): 5 Height (Inches): 2.00 Test 04/18/16 17:20 04/19/16 05:35 04/20/16 01:00 04/20/16 05:15 Prothrombin Time 12.3sec (8.1-12.5) Prothromb Time International Ratio 1.15ratio Lactic Acid Level 1.8mmol/L (0.4-2.0) Troponin T < 0.010ug/L (0.0-0.011) Pro-B-Type Natriuretic Peptide 654.3pg/mL (0-287) Phosphorus Level 3.9mg/dL (2.5-4.9) Magnesium Level 1.9mg/dL (1.6-2.6) Urinalysis Comment None Urine Legionella pneumophilia Ag Negative (Negative) Iron Level 7ug/dL (.) Transferrin 89mg/dL (.) Transferrin % Saturation 6 (.) Ferritin 825ng/mL (13-150) Test 04/24/16 05:35 04/24/16 21:24 04/25/16 05:25 C-Reactive Protein 18.0mg/dL (0.0-0.5) Procalcitonin 2.00ng/mL (See Comment) Urine Color Yellow (YELLOW) Urine Appearance Hazy (CLEAR,HAZY) Urine pH 8.0 (5.0-8.0) Urine Specific Leslie 1.010 (1.003-1.035) Urine Protein Negativemg/dL (NEG,TRACE) Urine Glucose (UA) Negativemg/dL (NEGATIVE) Urine Ketones Tracemg/dL (NEGATIVE) Urine Occult Blood Negative (NEGATIVE) Urine Nitrite Negative (NEGATIVE) Urine Bilirubin Negative (NEGATIVE) Urine Urobilinogen Normalmg/dL (NORMAL) Urine Leukocyte Esterase Negative (NEGATIVE) Urine RBC 0-2/hpf (0-2) Urine WBC 0-5/hpf (0-5) Urine Epithelial Cells Many/hpf (NONE-MOD) Urine Crystals None seen (NONE SEEN) Urine Bacteria None/hpf (NONE-FEW) Urine Hyaline Casts None/lpf (NONE) Urine Granular Casts None seen (NONE SEEN) Urine Waxy Casts None seen (NONE SEEN) Urine Red Blood Cell Casts None seen (NONE SEEN) Urine White Blood Cell Casts None seen (NONE SEEN) Urine Mucus None seen (None Seen) Urine Trichomonas None seen (NONE SEEN) Urine Yeast None (NONE SEEN) Urine Culture Reflexed Not indicated White Blood Count 21.7th/mm3 (3.8-10.1) Red Blood Count 3.49mil/mm3 (3.90-5.20) Hemoglobin 9.5g/dL (12.0-15.6) Hematocrit 30.8% (35.0-46.0) Mean Corpuscular Volume 88.3fL (81-100) Mean Corpuscular Hemoglobin 27.2pg (27.0-35.0) Mean Corpuscular Hemoglobin Concent 30.8% (32.0-37.0) Red Cell Distribution Width 18.5% (12.3-15.4) Platelet Count 1514bil/L (150-400) Neutrophils (%) (Auto) 62% (40-74) Lymphocytes (%) (Auto) 13% (14-46) Monocytes (%) (Auto) 12% (4-12) Eosinophils (%) (Auto) 1% (0-5) Basophils (%) (Auto) 1% (0-3) Band Neutrophils % 3% (1-5) Metamyelocytes % 1% (0-0) Myelocytes % 7% (0-0) Sodium Level 137mEq/L (134-144) Potassium Level 5.3mEq/L (3.5-5.2) Chloride Level 98mEq/L (97-108) Carbon Dioxide Level 26mmol/L (18-29) Blood Urea Nitrogen 10mg/dL (8-27) Creatinine 0.32mg/dL (0.57-1.00) Estimat Glomerular Filtration Rate 301mL/min (>59) Glucose Level 96mg/dL (60-99) Calcium Level 8.9mg/dL (8.5-10.1) Total Bilirubin 0.2mg/dL (0.0-1.2) Aspartate Amino Transf (AST/SGOT) 20U/L (0-50) Alanine Aminotransferase (ALT/SGPT) 13U/L (0-32) Alkaline Phosphatase 190U/L (25-165) Total Protein 5.7g/dL (6.4-8.4) Albumin 2.4g/dL (3.4-5.0) Assessment/Plan Assessment/Plan Patient is an 61 y.o.fe male receiving vancomycin for PNEUMONIA. Concurrent abx include: ZOSYN. WBC count is 21.7 and the patient is afebrile. Based on patient parameters vancomycin will be dosed at 1000mg q12h with a target trough of 15-20 /mL. Trough will be drawn prior to the 4th dose on 04/26 @ 1930. Pharmacy will follow daily and adjust as appropriate. Thank you for the consult in the care of this patient. RTM PharmD Steven Salmon Apr 25, 2016 10:53
[2016-04-25] MEDS: 0.9% Sodium Chloride 250 ML IV SCH (11:45)
[2016-04-25] MEDS: Vancomycin Dose per Pharmacist XX SCH (11:46)
[2016-04-25 14:16] VITALS: BP 96/60; PULSE 109; RESP 18; O2SAT 96
--- NOTE | 2016-04-25 15:11 | PCM.PNMED ---
Subjective Date of Service Apr 25, 2016 Subjective Patient is a 61yof with MHx significant for pulmonary adenocarcinoma stage IV and PE presented with SOB/shoulder pain, admitted for PE while on Lovenox. No overnight event. Patient without new complaints. Patient was anticipated to D/c to [facility]. However, held for one more day based on consistent tachycardia, increasing leukocytosis/thrombocytosis and elevated K+. Concerns is for post-obstructive pneumonia given large right upper and left middle lung mass. Exam Vital Signs Vital Sign - Last Date Time Temp Pulse Resp B/P Pulse Ox O2 Delivery O2 Flow Rate FiO2 04/25/16 14:16 36.7 109 18 96/60 96 Nasal Cannula 1.00 Intake and Output 04/24/16 04/24/16 04/25/16 Cumulative From/Thru 15:00 23:00 07:00 04/18/16 17:00 - 04/25/16 06:20 Intake Total 620 ml 800 ml 59474 ml Output Total 1400 ml 28118 ml Balance 620 ml -600 ml -3530 ml Intake Oral 620 ml 800 ml 9532 ml IV Total 2058 ml Packed Cells 800 ml Output Urine Total 1400 ml 01174 ml # Voids 5 5 # Bowel Movements 0 4 Exam Gen: Lying comfortably at 30degree head tilt HEENT: PERRLA, Anicteric sclerae, moist conjunctivae, and no lid lag. Neck: supple, no JVD Cardio: tachycardic, no murmurs, rubs, or gallops appreciated Pulm: diminished Left upper and lower lung sound. Abd: positive bowel tone. Soft, nontender, nondistended. Extremities: No clubbing, cyanosis, edema, or lymphadenopathy appreciated. Skin: Normal temperature, turgor, and texture; no rash, ulcers, or subcutaneous nodules appreciated. Neuro: Cranial nerves grossly intact. moving equally on all four extremities. Psyc: Normal mood and affect. AoX3 Lab and Diagnostics Result Diagram: 04/25/16 0525 04/25/16 1310 X-Rays, CTs and MRIs Chest CTA: IMPRESSION: 1. Segmental and subsegmental pulmonary emboli in the bilateral lower lobes as described above. 2. Increased size of the right upper lobe lung mass with increased bony destruction when compared with the study dated 03/17/16 suggesting progression of disease. 3. Increased right hilar and mediastinal adenopathy consistent with progression of disease. Dictated by: Clarisse Lane M.D. on 04/18/2016 at 19:34 Cardiac Echo Impressions Transthoracic Echo 04/19/16: Interpretation Summary The left ventricle is normal in size. Left ventricular systolic function is normal. The ejection fraction is estimated to be 55-60%. There are no focal wall motion abnormalities. The right ventricle is normal in size and function. The right ventricular systolic pressure is estimated at 44 mmHg assuming a right atrial pressure of 15 mm Hg. Compared to the prior echo exam, there has been an increase in the severity of pulmonary hypertension. Both atria are normal in size. There is no significant valvular heart disease. The aortic root is normal size. 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 The size of thrombus is 0.6 x 1.3 cm. Assessment & Plan María is a 61yo female with Stage IV pulmonary adenocarcinoma (last Taxol treatment 04/02/16) and cancer-related pulmonary embolism while on once daily dosing of Lovenox. She presented to [facility] on 04/18/16 with sudden worsening dyspnea and worsening posterior shoulder pain. CT angio of the chest shows pulmonary emboli and increase in size of her RUL lung mass. New Lovenox dosing as guided by oncology. 1. Bilateral pulmonary emboli due to hypercoagulability in the setting of cancer , acute, present on admission. - Continue Lovenox 1 mg/kg BID which is 50 mg BID. - Note that she was taking once daily Lovenox after her first pulmonary emboli, prior to this hospitalization - Dr. Zaman has been providing expertise and she will follow up closely with him as an outpatient 2. Stage IV pulmonary adenocarcinoma, present on admission - Increased tumor size with further rib destruction based on CT angio of the chest - Last Taxol treatment on 04/02/16, per Dr Zaman, plan to transition to 2nd line treatment as an outpatient starting on 04/27/2016 - Port placement for further chemotherapy administration, plan for this to be placed by Dr Renee on 04/29/2016. Her Lovenox will be held the night prior and the day of the port placement, otherwise she will continue with Lovenox. - Oncology has been consulted and we appreciate their expertise. 3. Aortic thrombus of unknown duration, presumed acute - Further driving the importance of Lovenox BID - This finding from her echocardiogram has been discussed with the patient 4. Thrombocytosis, severe - Suspect this is reactive to #1 and #2 above - This has worsening during this hospitalization, today's platelet count is slightly better than yesterdays. - Monitor 5. Acute anemia of unclear etiology. improved and stable - Suspect this is secondary to #2 above - 2 units of PRBCs given during this hospitalization, anticipate that she may need further transfusions in the future - Pantoprazole 40mg BID - Stool guaiac is negative - Monitor 6. Cancer pain - See #2 above - Continue Fentanyl 50 mcg patch every 3 days. - Oxycodone-acetaminophen 10/325 mg Q4H PRN for cancer pain; plan to continue this as an outpatient - Stool softeners BID and laxatives PRN while on opiate pain medication - Palliative radiation oncology as an outpatient per Dr Zaman 7. Sinus tachycardia, present on admission, ongoing. - Likely secondary to PE and cancer though infection is a concern. - Left middle lobe 1.3cm mass appearing (04/24). Temp 36.1 with worsening leukocytosis. - Continue metoprolol tartrate 12.5 mg BID. BP consistently low. - Will start vancomycin and zosyn, MRSA pending. Consider reconsult Dr. Avila - Telemetry 8. Leukocytosis with 6% bands, worsening - Concern for infection especially given her elevated procalcitonin - Chest xray, blood cultures, and urine analysis ordered - Monitor 9. Hypoxemic respiratory failure secondary to #1 and #2 above - Supplemental oxygen to keep oxygen saturation >92% - Desaturated quickly without supplemental oxygen when ambulating 10. Hyperkalemia, new onset - 10units of regular insulin with D50 to be given - Monitor 11. Diarrhea, new onset - This may be due to miralax use, however, with her elevated leukocytosis, infection is a concern - Stool BioFire PCR - Monitor 12. Low grade fever (38.0) present on admission, resolved - Suspect this was due to her pulmonary emboli and adenocarcinoma - Dr Avila (infectious disease specialist) has provided expertise and antibiotics were discontinued. - Antiemetic available PRN. - Tylenol available PRN fever, mild pain. Disposition: Anticipate discharge to SNF when stable, where she will need Lovenox 50mg BID as well as a front wheeled walker, supplemental oxygen, and close follow up with oncology. VTE Prophylaxis: Sub-Q Enoxaparin (50mg BID) VTE Mechanical Devices: Venous Foot Pump Resuscitation Status: CPR: Attempt Resuscitation Attending Statement The patient was seen and examined together with Dr. Dexter Rivers on 04/25/2016 and I agree with the history, exam and plan as outlined in the note above. Dexter Rivers DO Apr 25, 2016 15:11 Brendon Britton MD May 04, 2016 10:41
[2016-04-25] MEDS: Piperacillin-Tazo 3.375 Gm Inj 3.375 GM in Dextrose 5% Minibag Plus 50 ML IV SCH (16:25)
[2016-04-25 18:07] VITALS: BP 95/58; PULSE 107; RESP 18; O2SAT 95
--- NOTE | 2016-04-25 18:35 | NUR ---
Pain/activity Pt requesting pain medication Q3 hours and states it's controlling her pain at the moment. Pt did state if meds are late, her pain will be unbearable. She is able to amb to BR with SBA, fairly unsteady, utilizing cane. Bed in lowest, locked position and call light in reach.
[2016-04-25] MEDS: Vancomycin Inj 1,000 MG in IV Premix 1 EACH IV SCH (20:41)
[2016-04-25 20:45] VITALS: BP 92/59; PULSE 120; RESP 22; O2SAT 95
[2016-04-26] MEDS: Piperacillin-Tazo 3.375 Gm Inj 3.375 GM in Dextrose 5% Minibag Plus 50 ML IV SCH ×3 (01:00→17:08)
[2016-04-26] MEDS: oxyCODONE-Acetamin 10-325 mg Tablet PO PRN ×7 (02:40→21:06)
[2016-04-26 05:05] VITALS: BP 110/64; PULSE 118; RESP 20; O2SAT 95
[2016-04-26 06:06] LABS: Mean Corpuscular Volume 88.3 fL (81-100)
--- NOTE | 2016-04-26 06:27 | NUR ---
Pain management Pt reporting lower pain numbers tonight compared to last night.
[2016-04-26 06:48] LABS: Platelet Count 1455 bil/L (150-400)
[2016-04-26 07:38] LABS: BASOPHILS % (AUTO) 0 % (0-3); EOSINOPHILS % (AUTO) 1 % (0-5); MONOCYTES % (AUTO) 14 % (4-12); NEUTROPHILS % (AUTO) 68 % (40-74)
[2016-04-26] MEDS: Vancomycin Dose per Pharmacist XX SCH (08:30)
[2016-04-26] MEDS: Pantoprazole 40 mg ER24 Tablet PO SCH ×2 (08:43→20:55)
[2016-04-26] MEDS: Vancomycin Inj 1,000 MG in IV Premix 1 EACH IV SCH ×2 (08:45→22:02)
[2016-04-26] MEDS: 0.9% Sodium Chloride 250 ML IV SCH (10:43)
--- NOTE | 2016-04-26 13:45 | NUR ---
NUTRITION ASSESSMENT: ASSESS: 61 YO female admitted for pulmonary embolism. Pt continues to eat well and po intake has been avg. 75% x 7 days. PMHx: Pulmonary adenocarcinoma stage IV. LABS: Reviewed. Cr .30, Glu 103, Alk Phos 190, Alb 2.4. MEDS: Reviewed. GI: BM x 1 today (04/26) CURRENT WT: 49.8 kg. Admit wt: 49.6 kg. DIET: Heart healthy. Po avg x 7 days of 75%. EST. NEEDS: 8939-4434 kcals (25-30 kcals/kg BW), 50-75 g protein (1.0-1.5 g/kg BW) NUTRITION DIAGNOSIS: 1.) No nutritional diagnosis at this time. NUTRITION INTERVENTION: 1.) No nutritional interventions at this time. MONITOR / EVAL: PO intake, labs, nutritional status. Follow per low nutritional risk guidelines.
[2016-04-26 14:37] VITALS: BP 101/64; PULSE 109; RESP 18; O2SAT 95
--- NOTE | 2016-04-26 17:31 | NUR ---
Pain Pt's Fentanyl patch increased this afternoon from 50mcg to 75 mcg. Initially, pt thought it was helping with her pain/discomfort however reported this evening that "it hasn't helped at all, I haven't noticed a single change." Pt reports her pain is constant and never-ending. PRN Percocet given for breakthrough discomfort.
--- NOTE | 2016-04-26 19:18 | PCM.PNMED ---
Subjective Date of Service Apr 26, 2016 Subjective María states that she is still having a lot of pain in her right upper back and shoulder. She is unable to find a comfortable position. She has been requesting the PRN oxycodone-acetaminophen right at the 3 hour time consistently , even at night when the pain wakes her up. Exam Vital Signs Vital Sign - Last Date Time Temp Pulse Resp B/P Pulse Ox O2 Delivery O2 Flow Rate FiO2 04/26/16 14:37 36.7 109 18 101/64 95 Nasal Cannula 1.00 Intake and Output 04/25/16 04/25/16 04/26/16 Cumulative From/Thru 15:00 23:00 07:00 04/18/16 17:00 - 04/26/16 06:14 Intake Total 214 ml 800 ml 200 ml 10401 ml Output Total 800 ml 650 ml 24470 ml Balance 214 ml 0 ml -450 ml -3766 ml Intake Oral 800 ml 200 ml 47240 ml IV Total 214 ml 2272 ml Packed Cells 800 ml Output Urine Total 800 ml 650 ml 64691 ml # Voids 5 # Bowel Movements 0 1 5 Exam General: Resting in bed with supplemental oxygen at 2L/h via nasal cannula, smiling and pleasant though mildly uncomfortable appearing. No acute distress. No pallor. HEENT: Mucus membranes moist. Sclera anicteric. Cardiac: Mildly tachycardic at 115bpm. Regular rhythm without murmur, rub, or gallop appreciated Lungs: Moderate inspiratory effort with diminished breath sounds throughout the lung adams. No wheezes, rales, or rhonchi Abdomen: Normoactive bowel tones, soft, nontender and nondistended. No hepatosplenomegaly appreciated. Extremities: No cyanosis, clubbing or edema. Skin: Normal turgor without rash Neuro: Normal speech, moves all 4 extremities with ease. Able to sit up in bed unassisted and with ease. Awake, alert and oriented x3. Lab and Diagnostics Result Diagram: 04/26/16 0520 04/26/16 0520 X-Rays, CTs and MRIs Chest CTA: IMPRESSION: 1. Segmental and subsegmental pulmonary emboli in the bilateral lower lobes as described above. 2. Increased size of the right upper lobe lung mass with increased bony destruction when compared with the study dated 03/17/16 suggesting progression of disease. 3. Increased right hilar and mediastinal adenopathy consistent with progression of disease. Dictated by: Clarisse Lane M.D. on 04/18/2016 at 19:34 Assessment & Plan María is a 61yo female with Stage IV pulmonary adenocarcinoma (last Taxol treatment 04/02/16) and cancer-related pulmonary embolism while on once daily dosing of Lovenox. She presented to [facility] on 04/18/16 with sudden worsening dyspnea and worsening posterior shoulder pain. CT angio of the chest shows pulmonary emboli and increase in size of her RUL lung mass. New Lovenox dosing as guided by oncology. 1. Bilateral pulmonary emboli due to hypercoagulability in the setting of cancer , acute, present on admission. - Continue Lovenox 1 mg/kg BID which is 50 mg BID. - Note that she was taking once daily Lovenox after her first pulmonary emboli, prior to this hospitalization - Dr. Zaman has been providing expertise and she will follow up closely with him as an outpatient 2. Stage IV pulmonary adenocarcinoma, present on admission - Increased tumor size with further rib destruction based on CT angio of the chest - Last Taxol treatment on 04/02/16, per Dr Zaman, plan to transition to 2nd line treatment as an outpatient starting on 04/27/2016 - Port placement for further chemotherapy administration, plan for this to be placed by Dr Renee on 04/29/2016. Her Lovenox will be held the night prior and the day of the port placement, otherwise she will continue with Lovenox. - Oncology has been consulted and we appreciate their expertise. 3. Aortic thrombus of unknown duration, presumed acute - Further driving the importance of Lovenox BID - This finding from her echocardiogram has been discussed with the patient 4. Thrombocytosis, severe - Suspect this is reactive to #1 and #2 above - This has worsened during this hospitalization - Monitor 5. Acute anemia of unclear etiology. improved and stable - Suspect this is secondary to #2 above - 2 units of PRBCs given during this hospitalization, anticipate that she may need further transfusions in the future though her Hgb and hct have been stable post transfusion - Continue pantoprazole 40mg BID - Stool guaiac negative - Monitor 6. Cancer pain - See #2 above - Increase dosing of Fentanyl to 75 mcg patch q3 days, previously on 50mcg q3days. - Oxycodone-acetaminophen 10/325 mg Q3H PRN for cancer pain; plan to continue this as an outpatient - Stool softeners BID and laxatives PRN while on opiate pain medication - Palliative radiation oncology as an outpatient per Dr Zaman 7. Sinus tachycardia, present on admission, ongoing. - Likely secondary to PE and cancer though infection is a concern especially with her rising leukocytosis. - Continue metoprolol tartrate 25 mg BID - Reconsult Dr. Avila - Telemetry 8. Leukocytosis with 6% bands, worsening - Concern for infection - Vancomycin and Zosyn started yesterday, will continue - Monitor 9. Hypoxemic respiratory failure secondary to #1 and #2 above - Supplemental oxygen to keep oxygen saturation >92% - Desaturated quickly without supplemental oxygen when ambulating - Antiemetic available PRN. Disposition: Anticipate discharge to SNF when stable, where she will need Lovenox 50mg BID as well as a front wheeled walker, supplemental oxygen, and close follow up with oncology. VTE Prophylaxis: Sub-Q Enoxaparin (50mg BID) VTE Mechanical Devices: Venous Foot Pump Resuscitation Status: CPR: Attempt Resuscitation Time spent 30 minutes Attending Statement I have seen and evaluated patient at bedside in addition to directly supervised care provided by resident physician. I agree with above documentation. Catie Marina DO Apr 26, 2016 19:18 Edvin Abraham DO Apr 27, 2016 08:29
[2016-04-26] MEDS ORDERED: Vancomycin Serum Trough XX ONE (19:30)
[2016-04-26 20:09] VITALS: BP 97/61; PULSE 118; RESP 18; O2SAT 97
--- NOTE | 2016-04-26 21:17 | NUR ---
pain patient complains of pain to right shoulder. rates 10. crying. requests additional pain medication. notified night resident of above. no new orders. patient given oxycodone as documented. given heating pad. resident asked to be notified if pain control ineffective. explained to patient. care ongoing.
--- NOTE | 2016-04-26 21:34 | PCM.PHAPRO ---
Progress Date of Service: Apr 26, 2016 SOB Nuvia per Rx Trough after 3rd dose was 13.2, approaching goal, will do another trough before the 6th dose to determine further adjustment, if needed. Jose Dent PharmD Apr 26, 2016 21:34
[2016-04-27] MEDS: oxyCODONE-Acetamin 10-325 mg Tablet PO PRN ×8 (00:08→21:34)
[2016-04-27] MEDS: Piperacillin-Tazo 3.375 Gm Inj 3.375 GM in Dextrose 5% Minibag Plus 50 ML IV SCH ×3 (00:18→16:30)
[2016-04-27] MEDS: 0.9% Sodium Chloride 250 ML IV SCH (00:19)
[2016-04-27 05:05] VITALS: BP 114/70; PULSE 121; RESP 20; O2SAT 94
[2016-04-27 05:48] LABS: Mean Corpuscular Hemoglobin 27.7 pg (27.0-35.0); Mean Corpuscular Volume 87.1 fL (81-100)
[2016-04-27 06:02] LABS: BASOPHILS % (AUTO) 4 % (0-3); EOSINOPHILS % (AUTO) 0 % (0-5); MONOCYTES % (AUTO) 13 % (4-12); NEUTROPHILS % (AUTO) 73 % (40-74)
[2016-04-27 06:13] LABS: Platelet Count 1019 bil/L (150-400)
--- NOTE | 2016-04-27 06:18 | NUR ---
Pain Pt c/o RT shoulder pain and received Percocet 10/325mg with good effect. Denies chest pain and shortness of breath. The Pt slept on and off this shift and stated," As long as I stay on top of the pain, I'm ok." 1:1 per SBA to toilet and tolerated activity well. Expected critical PLT value of 1,019 noted. VSS.
[2016-04-27] MEDS: Pantoprazole 40 mg ER24 Tablet PO SCH ×2 (08:37→20:30)
[2016-04-27] MEDS: Vancomycin Inj 1,000 MG in IV Premix 1 EACH IV SCH (08:56)
[2016-04-27 10:01] VITALS: BP 125/69; PULSE 102; RESP 18; O2SAT 95
[2016-04-27] MEDS ORDERED: ASPI325T32 PO ×2 (10:03→10:31)
[2016-04-27] MEDS ORDERED: DOCU-41 PO ×2 (10:03→10:31)
[2016-04-27] MEDS ORDERED: METO25TA6 PO ×2 (10:03→10:31)
[2016-04-27] MEDS ORDERED: FENT1PAT9 TRANSDERM ×2 (10:03→10:31)
[2016-04-27] MEDS ORDERED: OXYC-466 PO ×2 (10:03→10:31)
[2016-04-27] MEDS ORDERED: ONDA-53 PO ×2 (10:03→10:31)
[2016-04-27] MEDS ORDERED: ENOX60DI7 SUBQ (10:04)
[2016-04-27] MEDS ORDERED: OMEP20CA11 PO (10:31)
[2016-04-27] MEDS ORDERED: LOV60 SUBQ (10:31)
[2016-04-27] MEDS ORDERED: ASPI-973 PO (10:31)
[2016-04-27] MEDS ORDERED: OXYC1TAB24 PO (10:31)
[2016-04-27] MEDS ORDERED: LOV80 SUBQ (10:31)
--- NOTE | 2016-04-27 11:26 | NUR ---
Social Work-readiness for discharge: Data:EMR reviewed. Pt is on day 9 of hospitalization for PE per H&P. Pt is not medically stable, anticipate 1-2 days from discharge. PT continues to recommend SNF placement. Pt only able to walk about 50 ft CGA. SW followed up with pt at bedside, pt still agreeable to discharging to [facility]. SW confirmed with [facility] they are able to accept pt. Paperwork in the chart. SW will continue to follow. Assessment:Pt who would benefit from SNF. Plan:Pt has been accepted at [facility] with Dr. Thomas to follow. Paperwork in the chart. SW will continue to follow. NADYA Duong
--- NOTE | 2016-04-27 12:01 | NUR ---
Pt leaving unit for Radiology Consult Picked up by transportation unit, transferred by WC. No s/sx of distress. Premedicated for pain relief. Consult expected to last 3 hours, return eta at 1500.
--- NOTE | 2016-04-27 16:46 | PCM.PNMED ---
Subjective Date of Service Apr 27, 2016 Subjective María states that her pain was much better controlled over night with the increased fentanyl dose to 75mcg patch q3days. She continues to have some pain, however, the pain did not waker her up overnight and she reports feeling more relaxed. Exam Vital Signs Vital Sign - Last Date Time Temp Pulse Resp B/P Pulse Ox O2 Delivery O2 Flow Rate FiO2 04/27/16 10:01 36.8 102 18 125/69 95 Nasal Cannula 1.00 Intake and Output 04/26/16 04/26/16 04/27/16 Cumulative From/Thru 15:00 23:00 07:00 04/18/16 17:00 - 04/27/16 06:44 Intake Total 883 ml 696 ml 30952 ml Output Total 800 ml 900 ml 58917 ml Balance 83 ml -204 ml -3887 ml Intake Oral 520 ml 300 ml 76808 ml IV Total 363 ml 396 ml 3031 ml Packed Cells 800 ml Output Urine Total 800 ml 900 ml 99433 ml # Voids 5 # Bowel Movements 1 6 Exam General: Resting in bed with supplemental oxygen at 1L/h via nasal cannula, comfortable appearing. Smiling and pleasant. No acute distress. No pallor. HEENT: Mucus membranes moist. Sclera anicteric. Cardiac: Mildly tachycardic at 110bpm. Regular rhythm without murmur, rub, or gallop appreciated Lungs: Moderate inspiratory effort with diminished breath sounds throughout the lung field bilaterally. No wheezes, rales, or rhonchi Abdomen: Normoactive bowel tones, soft, nontender and nondistended. No hepatosplenomegaly appreciated. Extremities: No cyanosis, clubbing or edema. Skin: Normal turgor without rash Neuro: Normal speech, moves all 4 extremities with ease. Able to sit up in bed unassisted and with ease. Awake, alert and oriented x3. Lab and Diagnostics Result Diagram: 04/27/1651904/27/16519 Assessment & Plan María is an unfortunate 61yo female with Stage IV pulmonary adenocarcinoma (last Taxol treatment 04/02/16) and malignancy-related bilateral pulmonary emboli while on once daily dosing of Lovenox. She presented to [facility] on 04/18/16 with sudden worsening dyspnea and worsening posterior shoulder pain. CT angio of the chest shows pulmonary emboli and increase in size of her RUL lung mass. New Lovenox dosing as guided by oncology. 1. Bilateral pulmonary emboli due to hypercoagulability in the setting of cancer , acute, present on admission. - Continue Lovenox 1 mg/kg BID which is 50 mg BID. - Note that she was taking once daily Lovenox after her first pulmonary emboli, prior to this hospitalization - Dr. Zaman has been providing expertise and she will follow up closely with him as an outpatient 2. Stage IV pulmonary adenocarcinoma, present on admission - Increased tumor size with further rib destruction based on CT angio of the chest - Last Taxol treatment on 04/02/16, per Dr Zaman, plan to transition to 2nd line treatment as an outpatient starting on 04/27/2016 - Port placement for further chemotherapy administration, plan for this to be placed by Dr Renee on 04/29/2016. Her Lovenox will be held the night prior and the day of the port placement, otherwise she will continue with Lovenox. - Oncology has been consulted and we appreciate their expertise. 3. Aortic thrombus of unknown duration, presumed acute - Further driving the importance of Lovenox BID - This finding from her echocardiogram has been discussed with the patient 4. Thrombocytosis, severe - Suspect this is reactive to #1 and #2 above - This has worsened during this hospitalization with some improvement today - Monitor 5. Acute anemia of unclear etiology. improved and stable - Suspect this is secondary to #2 above - 2 units of PRBCs given during this hospitalization, anticipate that she may need further transfusions in the future though her Hgb and hct have been stable post transfusion - Continue pantoprazole 40mg BID - Stool guaiac negative - Monitor 6. Cancer pain - See #2 above - Continue Fentanyl to 75 mcg patch q3 days, previously on 50mcg q3days. - Oxycodone-acetaminophen 10/325 mg Q3H PRN for cancer pain; plan to continue this as an outpatient - Stool softeners BID scheduled and laxatives PRN while on opiate pain medication - Radiation oncologist Dr Pham has consulted with her care, his expertise is appreciated 7. Sinus tachycardia, present on admission, ongoing. - Likely secondary to PE and cancer though infection is a concern especially with her rising leukocytosis. - Continue metoprolol tartrate 25 mg BID - Telemetry 8. Leukocytosis, worsening - Concern for infection - Vancomycin and Zosyn to be continued - Dr Avila has been consulted, his expertise is appreciated - CT chest to evaluate her mass further though this would give additional information as to whether or not she has a post obstructive pneumonia - Monitor 9. Hypoxemic respiratory failure secondary to #1 and #2 above - Supplemental oxygen to keep oxygen saturation >92% - Desaturated quickly without supplemental oxygen when ambulating - Antiemetic available PRN. Disposition: Anticipate discharge to SNF when stable, where she will need Lovenox 50mg BID as well as a front wheeled walker, supplemental oxygen, and close follow up with oncology. VTE Prophylaxis: Sub-Q Enoxaparin (50mg BID) VTE Mechanical Devices: Venous Foot Pump Resuscitation Status: CPR: Attempt Resuscitation Time spent 30 minutes Attending Statement I have seen and evaluated patient in addition to directly supervising care provided by resident. I agree with above documentation. Catie Marina DO Apr 27, 2016 16:46 Edvin Abraham DO Apr 28, 2016 08:01
--- NOTE | 2016-04-27 16:51 | PROG NOTE ---
[address] [address] PROGRESS NOTE PATIENT: LILIANA ARREDONDO : 1955 MR#: [id number] ADMIT: 04/18/2016 JOB ID: [id number] DATE: 04/27/2016 HISTORY OF PRESENT ILLNESS: Recall this is the 61-year-old woman who was recently diagnosed with very extensive left-sided lung cancer with rib destruction. I had been asked to see year in consult back on April 19 and then followed up for a couple of days before signing off. At that time, my overall impression was that she was not infected and that her leukocytosis and mildly elevated procalcitonin were directly due to her lung malignancy and that there was no indication to treat her. The patient has remained here in the hospital as efforts have been made to properly stage her lung cancer and get ready to begin treatment. There were some concerns on or about April 24 about possible additional infection as the patient's white count continued to rise even though it had been elevated really throughout her hospital stay, but the white count jumped from the 10 to 15,000 range up to 17,000 and this prompted concerns about a possible postobstructive pneumonia. We have heard through word of mouth that a fever was noted during that period around the and , but I actually do not see one recorded in the official record. In any event, the patient tells us today that she is continuing to have left-sided chest pain as before and some shortness of breath. She is having occasional night sweats as she was before but no fevers and no chills. She has a minimally productive cough. PHYSICAL EXAMINATION: Reveals a somewhat uncomfortable woman. She has been afebrile throughout her hospital stay, now temp 36.8, pulse 102, respiratory rate 18, blood pressure 125/69, and she is saturating well on 1 L. She actually looks better I think than when I saw her overall of five days ago. Eyes without conjunctivitis. Oral cavity negative. Lungs with decreased breath sounds at the left upper chest area and a few crackles at the bases bilaterally. Cardiac tones: Regular rate and rhythm. Abdomen benign. No skin rash. LABORATORY STUDIES: White count continues to rise. It was 10,600, on the when she was admitted and it has now reached 24,000. The diff shows 4% basophils but otherwise is fairly unremarkable. The patient's creatinine is 0.36. Her procalcitonin is 2.67. Urinalysis without white cells. Urine Legionella negative. MRSA screen negative. Blood cultures negative. Respiratory viral PCR panel has been done once and was negative. A stool PCR was done and was negative. Urine pneumococcal and Legionella antigens negative. IMAGING: Includes a repeat chest x-ray done on the which shows a large right apical mass with destruction of the posterior ribs compatible with long large lung cancer. There are some associated airspace infiltrates below the mass which could represent pneumonia or atelectasis. Underlying COPD is also noted. IMPRESSION: It is almost impossible to know whether or not this patient has a postobstructive or a tumor-related pneumonia. Her procalcitonins are likely unreliable and we have found articles in the literature that suggest procalcitonins may be falsely elevated in keeping with primary lung malignancies and especially when they have liver mets. The patient has not had any fever really throughout her hospital stay. Her white count could be on the basis of a postobstructive pneumonia, but could also just be due to a solid tumor, as we know that solid tumors are among the most common causes of leukemoid reactions. The patient does not have anything really in the way of fever, chills and her respiratory status does not seem to be changing which would argue to me that she likely does not have a postobstructive pneumonia, but it is difficult to exclude as noted on the basis of her chest x-ray and overall symptoms. RECOMMENDATIONS: 1. I would drop the Vanco that has been started immediately as there is no evidence for MRSA pneumonia. 2. The patient was started three days ago on Zosyn. We could continue with a short course of Zosyn for possible postobstructive pneumonia while she is here in the hospital. When the decision is made for her to go, she could leave on Augmentin. I would limit the total course of therapy for possible aspiration pneumonia to a total of 5-7 days. 3. Will continue to follow this complex patient with you.
[2016-04-27] MEDS ORDERED: Vancomycin Serum Trough XX ONE (19:30)
--- NOTE | 2016-04-27 19:40 | PROG NOTE ---
[address] [address] PROGRESS NOTE PATIENT: LILIANA ARREDONDO : 1955 MR#: [id number] ADMIT: 04/18/2016 JOB ID: [id number] DATE: 04/27/2016 INPATIENT ONCOLOGY PROGRESS REPORT: DIAGNOSES: 1. 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 2. Acute on chronic bilateral pulmonary emboli. 3. Cancer-related pain. HISTORY OF PRESENT ILLNESS: The patient is a very pleasant chronic smoker, 61-year-old woman with recent diagnosis of metastatic pulmonary adenocarcinoma which includes a large destructive mass arising from right upper lobe, destroying right upper posterior ribs and causing constant pain, right hilar and mediastinal adenopathy, left adrenal metastasis, and bilateral ovarian metastases. Biopsy was positive for poorly differentiated adenocarcinoma, negative for EGFR, ALK, and ROS1 alterations. The patient initially received one cycle of carboplatin/weekly paclitaxel but unfortunately did not respond. She was admitted to hospital about nine days ago for progressive pain and dyspnea and was found to have bilateral pulmonary emboli despite Lovenox 1.5 mg/kg subcutaneously once daily. It has been changed to 1 mg/kg subcutaneously b.i.d. with the addition of aspirin. She has persistent reactive leukocytosis, thrombocytosis, and elevation of procalcitonin, all related to advanced malignancy and not indicative of infection. The initial plan was to discharge her to [facility], but it never happened, I think primarily because of concerns about infection. She has not had any fever but has had persistent leukocytosis. She was seen by Dr. Pham this morning for palliative radiotherapy to her large posterior right upper lobe mass. OBJECTIVE: Currently she appears comfortable, resting in her bed. She is awake, alert, and oriented x3. The pain has been constant, but she appears comfortable on current regimen. Vitals are normal except persistent tachycardia. LABORATORY DATA: WBC count 24,900, with left shift, hemoglobin 9.9, platelet count over 1 million. Basic metabolic profile is normal. Procalcitonin remains positive. IMPRESSION AND RECOMMENDATIONS: 1. This patient has constantly had leukocytosis and thrombocytosis, along with persistent elevation of procalcitonin, and these are all related to her advanced malignancy. I would not change any management based on these lab tests. 2. She is scheduled for port placement on April 29. I will leave an order in her chart to hold Lovenox on April 28 evening, and on April 29 morning and evening, and then resume on April 30. Please let Dr. Renee know of her inpatient status. 3. Advanced malignancy. This patient has a very poor prognosis, but we are hopeful that she would respond to immune therapy. I believe nivolumab is not on hospital formulary list and can only be given as outpatient. We should therefore plan on transferring her to [facility] before the end of this week so that she can start her immune therapy next week as outpatient.
--- NOTE | 2016-04-27 19:54 | NUR ---
Medications Pain has chronic Right shoulder pain. Order for Fentanyl patch Q3D and PRN Q3H Percocet. Fentanyl patch removed per emar order. Order corrected, new patch applied to R-chest. Q3H PRN Percocet administered Q3, pt reports pain at 6-8 depending on when medicated. One dose Percocet given early as pt was leaving unit for 3 hour radiology consult. Report given to next shift for continued care.
[2016-04-27 20:55] VITALS: BP 107/67; PULSE 130; RESP 18; O2SAT 94
[2016-04-28] MEDS: Piperacillin-Tazo 3.375 Gm Inj 3.375 GM in Dextrose 5% Minibag Plus 50 ML IV SCH ×2 (00:14→09:18)
[2016-04-28] MEDS: oxyCODONE-Acetamin 10-325 mg Tablet PO PRN ×8 (00:15→22:38)
--- NOTE | 2016-04-28 04:09 | NUR ---
Pain Pt reported that pain level was between 7 and 9. PRN pain meds given q3 hrs as indicated, pt slept between doses of Percocet. Pt exhibited less grimacing at night when asleep than when awake. Will continue to monitor progress.
[2016-04-28 04:51] VITALS: BP 110/65; PULSE 114; RESP 18; O2SAT 91
[2016-04-28 06:50] LABS: Mean Corpuscular Hemoglobin 27.1 pg (27.0-35.0); Mean Corpuscular Volume 89.3 fL (81-100)
[2016-04-28 06:52] LABS: Platelet Count 1143 bil/L (150-400)
[2016-04-28 08:07] LABS: NEUTROPHILS % (AUTO) 74 % (40-74)
[2016-04-28 08:09] LABS: EOSINOPHILS % (AUTO) 1 % (0-5); MONOCYTES % (AUTO) 12 % (4-12)
[2016-04-28 08:10] LABS: BASOPHILS % (AUTO) 0 % (0-3)
--- NOTE | 2016-04-28 08:38 | NUR ---
Off Unit: Patient transported to CT via wheelchair accompanied by transporter @ approx 0830. No apparent distress at time of transport.
[2016-04-28 09:14] VITALS: BP 116/73; PULSE 110; RESP 18; O2SAT 95
[2016-04-28] MEDS: Pantoprazole 40 mg ER24 Tablet PO SCH ×2 (09:19→22:39)
--- NOTE | 2016-04-28 10:50 | DRSVH ---
PROCEDURE: CT CHEST WITH CONTRAST ([id number]) INDICATIONS: EVAL LUNG MASS, POTENTIAL POSTOBSTRUCTIVE PNA TECHNIQUE: After the administration of intravenous contrast, 5 mm thick sections acquired from the pulmonary api maico to the posterior costophrenic angles. 7 mm thick coronal and sagittal MIP reformats were acquire d. For radiation dose reduction, the following was used: automated exposure control, adjustment of mA and/or kV according to patient size. COMPARISON: [facility], CT, CT ANGIO CHEST PE, 04/18/2016, 19:20. FINDINGS: Image quality: Excellent. Lungs and pleura: No acute air space opacities. Emphysematous changes noted in the lungs bilaterally . Heterogeneously enhancing mass in the right upper lobe which extends into the posterior chest wall with local destruction of the right third fourth fifth and sixth ribs stable compared to prior examin ation obtained 04/18/2016. 0.9 cm in maximum diameter nodule in the posterolateral periphery of the le ft lower lobe is stable compared to 04/18/16. No pleural effusions or pneumothorax. Central and perip heral airways are patent and normal in caliber. Mediastinum: Filling defects compatible pulmonary emboli involving the segmental and subsegmental art eries of the lower lobes bilaterally are not significantly changed compared to 04/18/16. Probable clot involving the superior vena cava proximal to the left brachiocephalic vein is noted. Heterogeneously enhancing mass in the right upper lobe which extends into the posterior chest wall with local destru ction of the right third fourth fifth and sixth ribs stable compared to prior examination obtained . Heart size is normal. No pericardial effusion. Right paratracheal, precarinal and subcarina l mediastinal lymphadenopathy is stable compared to 04/18/16. Right hilar lymphadenopathy stable fan red to prior CT scan obtained 04/18/16. No left hilar lymphadenopathy is identified. Thoracic aorta an d central pulmonary arteries are normal in size. Esophagus is normal in caliber. No hiatal hernia. Bones and chest wall: Numerous heterogeneously enhancing lesions are noted in the right posterior-lat eral chest wall/lower right neck. No vertebral body compression fractures. No axillary or supraclavi cular adenopathy by size criteria. Thyroid gland is within normal limits. Abdomen: 4.4 cm heterogeneously enhancing left adrenal mass is stable compared to prior examinations likely represents metastatic disease. Visualized upper abdominal solid organs otherwise appear akin l. Upper abdominal bowel loops are normal in caliber. IMPRESSION: 1. Large right upper lobe mass with right chest wall invasion is stable compared to 04/18/2016. 2. Mediastinal and right hilar lymphadenopathy stable compared to 04/18/2016. 3. Numerous heterogeneously enhancing masses in the right superior-posterior and superior-lateral bisi st wall compatible with metastatic disease. 4. 4.4 cm left adrenal metastatic lesion. 5. Bilateral lower lobe pulmonary emboli and superior vena cava thrombus stable compared to prior exa minations. Dictated by: Alisia An MD, PhD on 04/28/2016 at 10:20 Approved by: Alisia An MD, PhD on 04/28/2016 at 10:48
[2016-04-28] MEDS: 0.9% Sodium Chloride 250 ML IV SCH (11:45)
--- NOTE | 2016-04-28 11:54 | PROG NOTE ---
[address] [address] PROGRESS NOTE PATIENT: LILIANA ARREDONDO : 1955 MR#: [id number] ADMIT: 04/18/2016 JOB ID: [id number] DATE: 04/28/2016 INFECTIOUS DISEASE FOLLOWUP NOTE: REASON FOR FOLLOWUP: Possible postobstructive pneumonia. INTERVAL HISTORY: Overnight, the patient reports no fevers or chills. No significant cough. She still has right chest wall pain. No nausea, vomiting, or diarrhea. PHYSICAL EXAMINATION: Reveals an afebrile woman, in no acute distress. Temp 36.7, pulse 110, respiratory rate 18, blood pressure 116/73. She is saturating well on room air. She is in no acute distress. Her oral cavity is without thrush. Her lungs are with decreased breath sounds in her right upper lung area as before. Abdomen soft and nontender. Cardiac tones: Tachycardic, regular rate and rhythm. No murmur. No skin rash. LABORATORIES: Include a white count stable at 25,000, platelet count at 1.15 million. Procalcitonin is elevated at 2.67. All cultures remain negative including blood, sputum, stool. IMAGING: A CT scan was repeated today of the chest. It shows a large right upper lobe mass with chest wall invasion as stable from 10 days ago. Also noted are more enhancing masses in the chest wall compatible with metastatic disease, as is a large adrenal mass. Septic emboli are also seen. IMPRESSION: I see no evidence for infection in this case. Her leukocytosis and elevated procalcitonin are almost certainly secondary to her large metastatic and locally invasive lung cancer. RECOMMENDATIONS: 1. Will go ahead and stop her Zosyn, as it is likely to produce only toxicity. 2. Infectious Disease will go ahead and sign off this case at this time. Please do not hesitate to call if there are additional issues or questions.
[2016-04-28 16:06] VITALS: BP 102/61; PULSE 116; RESP 13; O2SAT 97
--- NOTE | 2016-04-28 17:40 | PCM.PNMED ---
Subjective Date of Service Apr 28, 2016 Subjective María reports that she would prefer to stay inpatient for her port placement that is scheduled for tomorrow afternoon. She is to check into day surgery at 1pm and be NPO for 4 hours preprocedure. She is to have only clear liquids for 8 hours prior to the procedure. Exam Vital Signs Vital Sign - Last Date Time Temp Pulse Resp B/P Pulse Ox O2 Delivery O2 Flow Rate FiO2 04/28/16 16:06 36.9 116 13 102/61 97 Nasal Cannula 2.00 Intake and Output 04/27/16 04/27/16 04/28/16 Cumulative From/Thru 15:00 23:00 07:00 04/18/16 17:00 - 04/28/16 06:01 Intake Total 1014 ml 854 ml 81897 ml Output Total 100 ml 800 ml 54498 ml Balance 914 ml 54 ml -2919 ml Intake Oral 630 ml 700 ml 37791 ml IV Total 384 ml 154 ml 3569 ml Packed Cells 800 ml Output Urine Total 100 ml 800 ml 91626 ml # Voids 5 # Bowel Movements 6 Exam General: Resting in bed with supplemental oxygen at 1L/h via nasal cannula, comfortable appearing. Pleasant, but tearful and slightly anxious at times. No acute distress. No pallor. HEENT: Mucus membranes moist. Sclera anicteric. Cardiac: Mildly tachycardic at 115bpm. Regular rhythm without murmur, rub, or gallop appreciated Lungs: Moderate inspiratory effort with diminished breath sounds throughout the lung field bilaterally. No wheezes, rales, or rhonchi Abdomen: Normoactive bowel tones, soft, nontender and nondistended. No hepatosplenomegaly appreciated. Extremities: No cyanosis, clubbing or edema. Skin: Normal turgor without rash Neuro: Normal speech, moves all 4 extremities with ease. Able to sit up in bed unassisted and with ease. Awake, alert and oriented x3. IVs and Medications Medications Reviewed: Medications were reviewed in detail Lab and Diagnostics Result Diagram: 04/28/16 0557 04/28/16 0557 Assessment & Plan María is an unfortunate 61yo female with worsening Stage IV pulmonary adenocarcinoma and malignancy-related bilateral pulmonary emboli while on once daily dosing of Lovenox. She presented to [facility] on 04/18/16 with suddenly worsening dyspnea and worsening posterior shoulder pain. CT angio of the chest shows pulmonary emboli and increase in size of her RUL lung mass. New Lovenox dosing as guided by oncology. 1. Bilateral pulmonary emboli due to hypercoagulability in the setting of cancer , acute, present on admission. - Continue Lovenox 1 mg/kg BID which is 50 mg BID. - Note that she was taking once daily Lovenox after her first pulmonary emboli, prior to this hospitalization - Dr. Zaman has been providing expertise and she will follow up closely with him as an outpatient 2. Stage IV pulmonary adenocarcinoma, present on admission - Increased tumor size from last month with further rib destruction - Last Taxol treatment on 04/02/16, per Dr Zaman, plan to transition to 2nd line treatment as an outpatient - Port placement tomorrow with Dr Renee - Her Lovenox will be held tonight and tomorrow for port placement, resuming use on 04/30/16 - Clear liquids tomorrow morning until 11am, then will be NPO - Oncology has been consulted and we appreciate their expertise. 3. Aortic thrombus of unknown duration, presumed acute - Further driving the importance of Lovenox BID 4. Thrombocytosis, severe - Suspect this is reactive to #1 and #2 above - This has worsened during this hospitalization - Monitor 5. Acute anemia of unclear etiology. improved and stable - Suspect this is secondary to #2 above - 2 units of PRBCs given during this hospitalization - Continue pantoprazole 40mg BID - Stool guaiac negative - Monitor 6. Cancer pain - See #2 above - Continue Fentanyl to 75 mcg patch q3 days, previously on 50mcg q3days. - Oxycodone-acetaminophen 10/325 mg Q3H PRN for cancer pain; plan to continue this as an outpatient - Stool softeners BID scheduled and laxatives PRN while on opiate pain medication - Radiation oncologist Dr Pham has consulted with her care, his expertise is appreciated 7. Sinus tachycardia, present on admission, ongoing. - Likely secondary to PE and cancer - Continue metoprolol tartrate 25 mg BID, will hold for systolic BP < 90mmHg - Telemetry 8. Leukocytosis, worsening - Vancomycin and Zosyn discontinued - Dr Avila has been consulted and agreed that this is unlikely to be an infection - CT chest without evidence of an infection, - Monitor 9. Hypoxemic respiratory failure secondary to #1 and #2 above - Supplemental oxygen to keep oxygen saturation >92% - Desaturates quickly without supplemental oxygen when ambulating - Antiemetic available PRN. Disposition: Anticipate discharge to SNF, possibly tomorrow after port placement. She will need Lovenox 50mg BID as well as a front wheeled walker, supplemental oxygen, and close follow up with oncology. VTE Prophylaxis: Sub-Q Enoxaparin (50mg BID, being held this evening and tomorrow for procedure) VTE Mechanical Devices: Venous Foot Pump Resuscitation Status: CPR: Attempt Resuscitation Time spent 25 minutes Attending Statement I have seen and evaluated patient at bedside, in addition to directly supervising care provided by resident physician. I agree with above documentation. Catie Marina DO Apr 28, 2016 17:27 Edvin Abraham DO Apr 29, 2016 07:54
--- NOTE | 2016-04-28 18:28 | PROG NOTE ---
[address] [address] PROGRESS NOTE PATIENT: LILIANA ARREDONDO : 1955 MR#: [id number] ADMIT: 04/18/2016 JOB ID: [id number] DATE: 04/28/2016 INPATIENT MEDICAL ONCOLOGY PROGRESS REPORT: SUBJECTIVE: Today the patient walked with physical therapist in the hallway after having CT scan in the morning. Her pain remains under satisfactory control. She has no new complaints today. OBJECTIVE: Resting comfortably in bed. Awake, alert, oriented x3. Vitals are normal, except persistent tachycardia. IMAGING: CT chest with IV contrast was obtained today for radiation therapy planning. It shows bilateral emphysematous changes. There is heterogeneously enhancing mass in right upper lobe extending into posterior chest wall, with destruction of right posterior lower 3rd through 6th ribs, stable. There are unchanged pulmonary emboli involving segmental and subsegmental arteries of bilateral lower lobes. There is probable thrombus within SVC. There is unchanged right hilar adenopathy and numerous enhancing metastases within right posterolateral chest wall and right lower neck. The left adrenal mass is unchanged, measuring 4.4 cm. LABORATORY: Today's labs: Persistent leukocytosis and thrombocytosis with left shift. Persistent anemia. Basic metabolic profile is normal. IMPRESSION AND PLAN: A 61-year-old woman with metastatic pulmonary adenocarcinoma, without response to first line chemotherapy. Planned to start immunotherapy with nivolumab next week. She had radiation therapy planning CT scan this morning for palliative radiation to her large destructive right upper lung mass. She is scheduled for port placement tomorrow morning, and hopefully tomorrow afternoon will be discharged to [facility]. She will need to resume Lovenox 50 mg subcutaneously b.i.d. as of April 30. Continue aspirin, but I recommend decreasing dosage to 81 mg daily. Continue current pain regimen at [facility]. I will schedule her followup oncology appointment next week.
--- NOTE | 2016-04-28 18:40 | NUR ---
Pt resting Pt in bed, resting this evening, friend visited with food. Pt was up several times to ambulate to the restroom and around the unit with PT. Bed in low position, call light w/in reach.
[2016-04-28 20:45] VITALS: BP 98/59; PULSE 127; RESP 20; O2SAT 96
--- NOTE | 2016-04-28 22:52 | NUR ---
BP Pt BP was 98/57 and HR 127, consulted night resident about metoprolol. said to give it, given, will continue to monitor.
[2016-04-29] VITALS (9 sets, daily range): BP systolic 94–115; BP diastolic 56–64; PULSE 68–125; RESP 14–20; O2SAT 94–98
[2016-04-29] MEDS: 0.9% Sodium Chloride 250 ML IV SCH (00:42)
[2016-04-29] MEDS: oxyCODONE-Acetamin 10-325 mg Tablet PO PRN ×7 (02:08→23:27)
--- NOTE | 2016-04-29 04:45 | NUR ---
Pain Pt complained of pain, rated 8 to 9, given PRN percoset. On reassessment pain at 7. PRN pain meds given Q3hrs consistently to control pain. Pt on fentanyl patch to assist with pain relief. Using distraction and heat to assist with pain. Will continue to monitor.
[2016-04-29] MEDS: Pantoprazole 40 mg ER24 Tablet PO SCH ×2 (08:20→22:10)
[2016-04-29] MEDS ORDERED: fentaNYL-PF 50 mCg/mL 2 mL Inj ONE (12:45)
[2016-04-29] MEDS ORDERED: Propofol 10,000 mCg/mL 20 mL Inj ONE (13:20)
[2016-04-29] MEDS ORDERED: Phenylephrine/NS-PF 100 mCg/mL 5 mL Syringe IVPUSH ONE (13:20)
[2016-04-29] MEDS ORDERED: Ondansetron 2 mg/mL 2 mL Inj ONE (13:20)
--- NOTE | 2016-04-29 14:43 | PCM.PNMED ---
Subjective Date of Service Apr 29, 2016 Subjective María slept better overnight than she had been. Her oxygen saturation decreases into the low 80s with ambulation of even 10feet when off of supplemental oxygen. Exam Vital Signs Vital Sign - Last Date Time Temp Pulse Resp B/P Pulse Ox O2 Delivery O2 Flow Rate FiO2 04/29/16 06:19 37.2 125 18 100/64 94 Nasal Cannula 2.00 Intake and Output 04/28/16 04/28/16 04/29/16 Cumulative From/Thru 15:00 23:00 07:00 04/18/16 17:00 - 04/28/16 17:07 Intake Total 1150 ml 127 ml 36596 ml Output Total 1450 ml 42294 ml Balance -300 ml 127 ml -3092 ml Intake Oral 1150 ml 86233 ml IV Total 127 ml 3696 ml Packed Cells 800 ml Output Urine Total 1450 ml 08135 ml # Voids 5 # Bowel Movements 0 6 Exam General: Resting in bed with supplemental oxygen at 1L/h via nasal cannula, comfortable appearing. Pleasant. No acute distress. No pallor. HEENT: Mucus membranes moist. Sclera anicteric. Cardiac: Mildly tachycardic at 115bpm. Regular rhythm without murmur, rub, or gallop appreciated Lungs: Moderate inspiratory effort with diminished breath sounds throughout the lung field bilaterally. No wheezes, rales, or rhonchi Abdomen: Normoactive bowel tones, soft, nontender and nondistended. No hepatosplenomegaly appreciated. Extremities: No cyanosis, clubbing or edema. Skin: Normal turgor without rash Neuro: Normal speech, moves all 4 extremities with ease. Able to sit up in bed unassisted and with ease. Awake, alert and oriented x3. Lab and Diagnostics Result Diagram: 04/28/16 0557 04/29/16 0510 Assessment & Plan María is an unfortunate 61yo female with worsening Stage IV pulmonary adenocarcinoma and malignancy-related bilateral pulmonary emboli while on once daily dosing of Lovenox. She presented to [facility] on 04/[facility]/16 with suddenly worsening dyspnea and worsening posterior shoulder pain. CT angio of the chest shows pulmonary emboli and increase in size of her RUL lung mass. New Lovenox dosing as guided by oncology. 1. Bilateral pulmonary emboli due to hypercoagulability in the setting of cancer , acute, present on admission. - Continue Lovenox 1 mg/kg BID which is 50 mg BID - Her Lovenox is being held today for port placement, resuming use tomorrow morning. - Note that she was taking once daily Lovenox after her first pulmonary emboli, prior to this hospitalization - Dr. Zaman has been providing expertise and she will follow up closely with him as an outpatient next week 2. Stage IV pulmonary adenocarcinoma, present on admission - Increased tumor size from last month with further rib destruction - Last Taxol treatment on 04/02/16, per Dr Zaman, plan to transition to 2nd line treatment as an outpatient - Port placement today with Dr Renee - Oncology has been consulted and we appreciate their expertise. 3. Aortic thrombus of unknown duration, presumed acute - Further driving the importance of Lovenox BID which will be resumed tomorrow morning 4. Thrombocytosis, severe - Reactive in the setting of #1 and #2 above - This has worsened during this hospitalization - Monitor 5. Acute anemia of unclear etiology. improved and stable - Suspect this is secondary to #2 above - 2 units of PRBCs given during this hospitalization - Continue pantoprazole 40mg BID - Stool guaiac negative - Monitor 6. Cancer pain - See #2 above - Continue Fentanyl to 75 mcg patch q3 days, previously on 50mcg q3days. - Oxycodone-acetaminophen 10/325 mg Q3H PRN for cancer pain; plan to continue this as an outpatient - Stool softeners BID scheduled and laxatives PRN while on opiate pain medication - Plan for outpatient radiation oncology with Dr Pham 7. Sinus tachycardia, present on admission, ongoing. - Likely secondary to PE and cancer - Continue metoprolol tartrate 25 mg BID, will hold for systolic BP < 90mmHg - Telemetry 8. Leukocytosis, worsening due to malignancy - Vancomycin and Zosyn discontinued - Dr Avila has been consulted and agreed that this is unlikely to be an infection - CT chest without evidence of an infection - Monitor 9. Hypoxemic respiratory failure secondary to #1 and #2 above - Supplemental oxygen to keep oxygen saturation >92% - Desaturates quickly without supplemental oxygen when ambulating, will need supplemental oxygen at SNF - Antiemetic available PRN. Disposition: As her port placement is scheduled for 3pm today, I anticipate that she will not be able to discharge to [facility] until tomorrow morning. VTE Prophylaxis: Sub-Q Enoxaparin (50mg BID, being held today for procedure, will resume tomorrow morning) VTE Mechanical Devices: Venous Foot Pump Resuscitation Status: CPR: Attempt Resuscitation Time spent 25 minutes Attending Statement I have seen and evaluated patient at bedside in addition to directly supervising care provided by resident physician. I agree with above documentation. Catie Marina DO Apr 29, 2016 14:43 Edvin Abraham DO Apr 30, 2016 08:03
[2016-04-29] MEDS ORDERED: MetoCLOpramide 5 mg/mL 2 mL Inj IVPUSH PRN (14:50)
[2016-04-29] MEDS ORDERED: Atropine 0.4 mg/mL Inj IVPUSH PRN (14:50)
[2016-04-29] MEDS ORDERED: hydrALAZINE 20 mg/mL Inj IVPUSH PRN (14:50)
[2016-04-29] MEDS ORDERED: Albuterol-Ipratropium 3 mL Inhalation Solution NEB PRN (14:50)
[2016-04-29] MEDS ORDERED: HYDROmorphone 1 mg/mL Inj IVPUSH PRN (14:50)
[2016-04-29] MEDS ORDERED: fentaNYL-PF 50 mCg/mL 2 mL Inj IVPUSH PRN (14:50)
[2016-04-29] MEDS ORDERED: Labetalol 5 mg/mL 4 mL Inj IV PRN (14:50)
[2016-04-29] MEDS ORDERED: Lactated Ringer's 500 ML IV PRN (14:50)
[2016-04-29] MEDS ORDERED: Lactated Ringer's 1,000 ML IV SCH (14:50)
[2016-04-29] MEDS ORDERED: EPHEDrine Sulfate 50 mg/mL Inj IVPUSH PRN (14:50)
[2016-04-29] MEDS ORDERED: Ondansetron 2 mg/mL 2 mL Inj IVPUSH PRN (14:50)
[2016-04-29] MEDS ORDERED: Phenylephrine 10,000 mCg/mL Inj IVPUSH PRN (14:50)
--- NOTE | 2016-04-29 14:50 | PCM.HPANE ---
Patient Data Surgeon Admitting Provider:Lor Murray DO Attending Provider:Lor Murray DO Primary Care Physician:Jasmin Grider DO Other Provider: Reason for Visit Pulmonary Embolism PULMONARY EMBOLISM Ht/WT & BMI Height (Feet): 5 Height (Inches): 1 Weight (Kilograms): 50.300 Body Mass Index 21.00 Allergies Coded Allergies: cyclobenzaprine (Verified Allergy, Unknown, Unknown, 03/18/16) per outpatient record prednisone (Verified Adverse Reaction, Severe, "makes my skin crawl", 04/18) Past Anesthesia History Anesthesia History: Denies:: Anesthesia Reactions Diabetes History Hx Diabetes?: No Current Bedside Blood Glucose: 100 MRSA MRSA: No Medications Blood Thinner: Aspirin, Lovenox Hypertension Medication: Yes Home Meds Incl Beta Yadira: Yes Previous Beta Yadira Dose >24: Previous Dose <24 Hours Reported Medications oxyCODONE-Acetaminophen 5-325 mg 1 Each Tablet1 Tab PO q3.5h PRN For Pain Ref 0 04/27/16 oxyCODONE-Acetaminophen 10-325 mg 1 Each Tablet1 Tablet PO Q3H PRN For Pain Ref 0 04/27/16 Aspirin 325 Mg Jnxppg961 Mg PO DAILY #1 BOTTLE 04/27/16 Ondansetron 4 Mg Tablet4 Mg PO Q6H PRN For Nausea 04/27/16 Omeprazole 20 Mg Capsule.dr20 Mg PO DAILY PRN For Nausea Ref 0 04/27/16 Metoprolol Tartrate 25 Mg Lfknpe28 Mg PO BID 30 Days Ref 0 04/27/16 Fentanyl 50 mcg/hr Patch 1 Each Patch.td721 Patch TRANSDERM Q3D Ref 0 04/27/16 Enoxaparin (Lovenox)80 Mg/0.8 Ml Iymgbdj25 Mg SUBQ DAILY Ref 0 04/27/16 Enoxaparin (Lovenox)60 Mg/0.6 Ml Ywrcwdf53 Mg SUBQ Q12 Ref 0 04/27/16 Docusate Sodium (Colace)100 Mg Iceohqr495 Mg PO BID PRN For Constipation Ref 0 04/27/16 Aspirin 81 Mg Otzgtv32 Mg PO DAILY Ref 0 04/27/16 Discontinued Reported Medications Enoxaparin (Lovenox)80 Mg/0.8 Ml Ocmtfxa04 Mg SUBQ DAILY 04/18/16 Fentanyl 50 mcg/hr Patch 1 Each Patch.td721 Patch TRANSDERM Q3D 04/18/16 oxyCODONE-Acetaminophen 5-325 mg 1 Each Tablet1 Tab PO 3.5h PRN For Pain 04/18/16 Metoprolol Tartrate 25 Mg Ehiodh59.5 Mg PO BID 04/18/16 Aspirin Chew 81 Mg Chew81 Mg PO DAILY 04/18/16 Omeprazole 20 Mg Tablet.dr20 Mg PO DAILY PRN For Nausea 04/18/16 Discontinued Scripts Metoprolol Tartrate 25 Mg Xqazfr20 Mg PO BID #30 TABLET Prov:Catie Marina DO 04/24/16 Ondansetron 4 Mg Tablet4 Mg PO Q6H PRN For Nausea #20 TABLET Prov:Catie Marina DO 04/24/16 Docusate Sodium (Colace)100 Mg Wfaouxk610 Mg PO BID PRN For Constipation #30 CAPSULE Prov:Catie Marina DO 04/24/16 oxyCODONE-Acetaminophen 10-325 mg 1 Each Tablet1 Tab PO Q3H PRN For Pain #80 TABLET Prov:Catie Marina DO 04/24/16 [Aspirin] 325 MG TABLET No Conflict Eehov853 Mg PO DAILY #30 TABLET Prov:Catie Marina DO 04/24/16 [Fentanyl] (Duragesic 50 mCg/Hr Patch)1 PATCH PATCH No Conflict Check1 Patch TOPICAL Q3D #10 Prov:Catie Marina DO 04/24/16 Enoxaparin (Lovenox)60 Mg/0.6 Ml Quofiht59 Mg SUBQ Q12 #30 SYR Prov:Catie Marina DO 04/24/16 History History of ENT Problems?: No Denture Type: Full- Upper Hx of Heart Problems?: Yes Cardiovascular History: Denies:: Congestive Heart Failure Hypertension Hx of Respiratory Problem?: Yes Respiratory History: Positive for:: COPD Dyspnea Hemoptysis Oxygen Administration (with current PE) Pneumonia (recent) Pulmonary Embolism (current admission 04/19) Denies:: Tuberculosis Use of C-PAP Machine Hx Neurologic Problems?: Yes Neurological History: Denies:: CVA Multiple Sclerosis Parkinson's Disease Other Neurological Pertinent: hx of polio as child- bilateral lower extremity weakness Hx of GI Problems?: No Gastrointestinal History: Positive for:: Heartburn (seldomly) Hx of Problems?: No Genitourinary History: Denies:: HX of Hemodialysis Kidney Stones Urinary Tract Infection HX of Peritoneal Dialysis: No Female Hx: Denies:: Currently Endometriosis Problems with Breasts? Hx Musculoskeletal Problems?: Yes Musculoskeletal History: Positive for:: Musculoskeletal Trauma (hx of bilateral foot surgery) Hx of Psycho/Social Problems?: No Psycho Social History: Positive for:: Anxiety Hx Surgeries?: Yes (straightening of legs from polio) Hx Any Other Health Problems?: Yes Other History: Positive for:: Cancer (Stg 4 Lung CA) Hospitalization (polio, straightening of legs) Denies:: Thyroid Disease History Blood Transfusions: Positive for:: Accept Blood Products? Blood Transfusions Denies:: Blood Transfuse Reaction Hx Diabetes: NoBedside Blood Glucose: 100 Hx Alcohol Use: NoHx Substance Use: Yes (occasional marijuana) Smoking Status: Current Every Day Smoker Have You Smoked inLast 12 mo: YesApprox How Many Cigarettes/day: 3-4 cigarettes / day Stop/Bang Treated for Sleep Apnea?: No Do You Have a CPAP Machine?: No S-Snoring: Do You Snore Loudly: Yes T-Tired: feel tired, fatigued: No O-Obsered: Observed not breath: No P-Blood Pressure: treated: No B- Body Mass Index > 35 kg/m2: No A- Age over 50: Yes N- Neck Large Circumference: No G- Gender Male: No GABRIELLE Total Score: 2 GABRIELLE Risk Assessment: Low Risk, <3 Yes Risk Assessment Category Category 1A: Patient has history of documented sleep apnea, and HAS NOT received any narcotic, sedative or anesthesia administration during this stay. Category 1B: Patient has history of documented sleep apnea, and HAS received any narcotic , sedative or anesthesia administration during this stay Category 2: Patient has SUSPECTED Obstructive Sleep Apnea, and HAS received any narcotic , sedative or anesthesia administration during this stay. Category 3: Patient has SUSPECTED Obstructive Sleep Apnea and HAS NOT received narcotic, sedative or anesthesia administration during this stay. Category 4: Outpatient in Procedural Areas with known sleep apnea or who screen positive for High Risk via the STOP/BANG questionnaire. Exam Exam General Appearance: Alert, Oriented X3, Cooperative, No Acute Distress HEENT/AIRWAY: MP 2 Lungs: Clear to Auscultation, Normal Air Movement Heart: Exam Unremarkable, Normal S1, Normal S2, No Murmurs/Rubs/Gallops Meds/Labs/Diagnostics Admission Meds Current Medications Metoprolol Tartrate (Lopressor) 25 mg BID PO Last administered on 04/29/16t 08: 20; Start 04/28/16 at 20:30 Bedside Blood Glucose: 100 Labs Test 04/18/16 17:20 04/19/16 05:35 04/20/16 01:00 04/20/16 05:15 Prothrombin Time 12.3sec (8.1-12.5) Prothromb Time International Ratio 1.15ratio Lactic Acid Level 1.8mmol/L (0.4-2.0) Troponin T < 0.010ug/L (0.0-0.011) Pro-B-Type Natriuretic Peptide 654.3pg/mL (0-287) Phosphorus Level 3.9mg/dL (2.5-4.9) Magnesium Level 1.9mg/dL (1.6-2.6) Urinalysis Comment None Urine Legionella pneumophilia Ag Negative (Negative) Iron Level 7ug/dL (.) Transferrin 89mg/dL (.) Transferrin % Saturation 6 (.) Ferritin 825ng/mL (13-150) Test 04/24/16 05:35 04/24/16 21:24 04/25/16 05:25 04/26/16 05:20 C-Reactive Protein 18.0mg/dL (0.0-0.5) Urine Color Yellow (YELLOW) Urine Appearance Hazy (CLEAR,HAZY) Urine pH 8.0 (5.0-8.0) Urine Specific [place] 1.010 (1.003-1.035) Urine Protein Negativemg/dL (NEG,TRACE) Urine Glucose (UA) Negativemg/dL (NEGATIVE) Urine Ketones Tracemg/dL (NEGATIVE) Urine Occult Blood Negative (NEGATIVE) Urine Nitrite Negative (NEGATIVE) Urine Bilirubin Negative (NEGATIVE) Urine Urobilinogen Normalmg/dL (NORMAL) Urine Leukocyte Esterase Negative (NEGATIVE) Urine RBC 0-2/hpf (0-2) Urine WBC 0-5/hpf (0-5) Urine Epithelial Cells Many/hpf (NONE-MOD) Urine Crystals None seen (NONE SEEN) Urine Bacteria None/hpf (NONE-FEW) Urine Hyaline Casts None/lpf (NONE) Urine Granular Casts None seen (NONE SEEN) Urine Waxy Casts None seen (NONE SEEN) Urine Red Blood Cell Casts None seen (NONE SEEN) Urine White Blood Cell Casts None seen (NONE SEEN) Urine Mucus None seen (None Seen) Urine Trichomonas None seen (NONE SEEN) Urine Yeast None (NONE SEEN) Urine Culture Reflexed Not indicated Blood Smear Pathologist Review Procalcitonin 2.67ng/mL (See Comment) Test 04/26/16 19:15 04/27/16 05:20 04/28/16 05:57 04/29/16 05:10 Vancomycin Level Trough 13.2mcg/mL Nucleated Red Blood Cells 1/100 WBC (0-24) White Blood Count 25.3th/mm3 (3.8-10.1) Red Blood Count 3.17mil/mm3 (3.90-5.20) Hemoglobin 8.6g/dL (12.0-15.6) Hematocrit 28.3% (35.0-46.0) Mean Corpuscular Volume 89.3fL (81-100) Mean Corpuscular Hemoglobin 27.1pg (27.0-35.0) Mean Corpuscular Hemoglobin Concent 30.4% (32.0-37.0) Red Cell Distribution Width 18.7% (12.3-15.4) Platelet Count 1143bil/L (150-400) Neutrophils (%) (Auto) 74% (40-74) Lymphocytes (%) (Auto) 8% (14-46) Monocytes (%) (Auto) 12% (4-12) Eosinophils (%) (Auto) 1% (0-5) Basophils (%) (Auto) 0% (0-3) Band Neutrophils % 2% (1-5) Metamyelocytes % 1% (0-0) Myelocytes % 2% (0-0) Sodium Level 135mEq/L (134-144) Potassium Level 4.3mEq/L (3.5-5.2) Chloride Level 99mEq/L (97-108) Carbon Dioxide Level 25mmol/L (18-29) Blood Urea Nitrogen 8mg/dL (8-27) Creatinine 0.30mg/dL (0.57-1.00) Estimat Glomerular Filtration Rate 324mL/min (>59) Glucose Level 108mg/dL (60-99) Calcium Level 8.5mg/dL (8.5-10.1) Total Bilirubin 0.2mg/dL (0.0-1.2) Aspartate Amino Transf (AST/SGOT) 14U/L (0-50) Alanine Aminotransferase (ALT/SGPT) 9U/L (0-32) Alkaline Phosphatase 182U/L (25-165) Total Protein 5.4g/dL (6.4-8.4) Albumin 2.2g/dL (3.4-5.0) Plan Impression Patient chart reviewed, patient interviewed and anesthestic plan with risks, benefits, and alternatives discussed, and informed consent obtained. ASA Physical Status: ASA3 Severe Disease Anesthetic Plan: GA Bene/Risks/Altern/Consents: Yes HP Complete Prior to Induction: Yes Montez Pizano MD Apr 29, 2016 14:50
[2016-04-29] MEDS ORDERED: CeFAZolin 2 Gm/50 mL D5W Duplex Bag IV ONE (15:10)
--- NOTE | 2016-04-29 15:24 | NUR ---
Pain/port-a-cath placement Patient continue to have severe pain. Patient requesting PRN pain medication every three hours on the dot. If pain medication is even 10 minutes late, patient begins to cry from 10/10 pain. Patient pain medication of when next due has been written on white board in room to help patient keep track of pain medication. Patient was SL and assisted to ajay to go to OR for Port placement.
[2016-04-29] MEDS ORDERED: Lactated Ringer's 1,000 ML IV ONE (15:30)
[2016-04-29] MEDS ORDERED: Bupivacaine-MPF 0.5% W/EPI 30 mL Inj INFILTRATE ONE (15:46)
--- NOTE | 2016-04-29 15:59 | PCM.ANEP1 ---
Post Anesthesia Phase 1 PACU Phase 1 Assessment Date of Service: Apr 26, 2016 Vital Signs Vital Signs Date Time Temp Pulse Resp B/P Pulse Ox O2 Delivery O2 Flow Rate FiO2 04/29/16 13:10 36.7 116 20 98/64 96 Nasal Cannula 2.00 Anesthetic Administered: GA NORTH's with Equal Strength: Yes Pain: No Nausea or Vomiting: No Oxygen Delivery: Nasal Cannula Lungs: Clear to Auscultation, Normal Air Movement Summary VSS Montez Pizano MD Apr 29, 2016 15:59
--- NOTE | 2016-04-29 16:00 | PCM.ANEP2 ---
Post Anesthesia Evaluation ASA/CMS Post Anesthesia VS in Patient's Normal Range?: Yes Resp Stable; Airway Patent?: Yes CV Function & Hydration Stable: Yes Mental Status Recovered?: Yes Pain control Satisfactory?: Yes N/V Control Satisfactory?: Yes Montez Pizano MD Apr 29, 2016 16:00
--- NOTE | 2016-04-29 16:42 | OP ---
[address] [address] OPERATIVE REPORT PATIENT: LILIANA ARREDONDO : 1955 MR#: [id number] ADMIT: 04/18/2016 JOB ID: [id number] DATE OF SURGERY: 04/29/2016 ANESTHESIA: General. PREOPERATIVE DIAGNOSIS(ES): 1. Lung cancer. 2. Pulmonary embolism. POSTOPERATIVE DIAGNOSIS(ES): 1. Lung cancer. 2. Pulmonary embolism. OPERATIVE PROCEDURE: Insertion of left subclavian vein Port-A-Cath using fluoroscopy with interpretation. SURGEON: Jeevan Renee MD CODING QUALITY ANALYST: EMILIE Vogel. COMPLICATIONS: None. ESTIMATED BLOOD LOSS: Minimal. CONDITION: Satisfactory. SPECIMEN: None. FINDINGS: A low-profile port was inserted into the left subclavian vein without complication. INDICATIONS AND SIGNIFICANT HISTORY: The patient is a 61-year-old female with a diagnosis of lung cancer and recent pulmonary embolism who is scheduled to begin chemotherapy in the near future. Her Lovenox was held for 24 hours preoperatively. OPERATIVE TECHNIQUE: The patient was taken into the operating room and placed in supine position. General anesthesia was administered and preoperative antibiotics were given. The neck and chest were prepped and draped in standard surgical fashion and a procedural pause was performed. The left subclavian vein was accessed with the first pass of the finder needle and a wire inserted into the vein. Position was confirmed using fluoroscopy. The wire was seen to course down through the heart into the IVC. Local anesthetic was injected, followed by creation of a subcutaneous pocket in the left anterior chest. The low-profile port was then secured in place using three 2-0 Prolene sutures. The catheter was tunneled up to the wire exit point and then inserted into the vein under fluoroscopic visualization using the Seldinger technique. Good final position was confirmed. The port aspirated and flushed nicely. This was locked with heparin. The skin was closed using 3-0 Vicryl deep dermis followed by running 4-0 Monocryl. Dermabond was applied. The entire procedure was well tolerated without complication.
--- NOTE | 2016-04-29 17:35 | DRSVH ---
PROCEDURE: X-RAY CHEST ONE VIEW, PORTABLE ([id number]) INDICATIONS: POST OP TECHNIQUE: One view of the chest was acquired. COMPARISON: [facility], CT, CT CHEST W CON, 04/28/2016, 8:08. [facility], CR , XR CHEST 2VW, 04/24/2016, 12:02. FINDINGS: Surgical changes and devices: None. Lungs and pleura: Large mass involving the right upper lobe with associated right upper rib destructi on again noted and grossly unchanged. No definite or new focal consolidation. Left chest port with th e tip projecting in the lower SVC. No pneumothorax or pleural effusion. Blunting of the costophrenic angles bilaterally. Mediastinum: Mediastinal contours appear normal. Heart size is normal. Bones and chest wall: No suspicious bony lesions. Overlying soft tissues appear unremarkable. IMPRESSION: Status post placement of left chest port with the tip projecting in the lower SVC. No pneumothorax. Redemonstration of large right upper lobe mass and associated adjacent rib destruction. Dictated by: Mookie Lui M.D. on 04/29/2016 at 17:32 Approved by: Mookie Lui M.D. on 04/29/2016 at 17:35
[2016-04-30] MEDS: oxyCODONE-Acetamin 10-325 mg Tablet PO PRN ×4 (02:40→11:26)
--- NOTE | 2016-04-30 03:59 | NUR ---
PAIN Pt complained of pain 9/10 during the night. Percocet administered every three hours. Pt is resting with eyes closed at this time. No s/sx of pain or discomfort. Call light within reach. Cooperative with care.
[2016-04-30 04:57] VITALS: BP 100/63; PULSE 70; RESP 18; O2SAT 96
[2016-04-30] MEDS ORDERED: Fentanyl TOPICAL (06:45)
[2016-04-30] MEDS ORDERED: ASPI-973 PO (08:34)
[2016-04-30] MEDS: Pantoprazole 40 mg ER24 Tablet PO SCH (08:57)
[2016-04-30 09:11] LABS: Mean Corpuscular Hemoglobin 26.9 pg (27.0-35.0); Mean Corpuscular Volume 90.4 fL (81-100); Platelet Count 851 bil/L (150-400)
[2016-04-30 09:57] LABS: BASOPHILS % (AUTO) 0 % (0-3); EOSINOPHILS % (AUTO) 0 % (0-5); MONOCYTES % (AUTO) 9 % (4-12); NEUTROPHILS % (AUTO) 78 % (40-74)
--- NOTE | 2016-04-30 10:02 | PCM.DC.MED ---
Discharge Summary Date of Service Apr 30, 2016 Dates of Hospitalization Date of Hospital Admission Apr 18, 2016 at 20:31 Date of Discharge: Apr 30, 2016 Providers: Admitting Physician: Lor Murray DO Primary Care Physician: Aiden Treadwell DO Attending Physician: Lor Murray DO Diagnosis at Time of Discharge Diagnosis at Time of Discharge 1. Bilateral pulmonary emboli due to hypercoagulability in the setting of cancer , acute, present on admission. 2. Stage IV pulmonary adenocarcinoma, present on admission 3. 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 Thrombocytosis, severe 5. Acute anemia, likely secondary to malignancy 6. Cancer pain, present on admission and ongoing 7. Sinus tachycardia, present on admission, ongoing. 8. Hypoxemic respiratory failure secondary to #1 and #2 above, improved 9. Leukocytosis, worsening due to malignancy 10. Low grade fever (38.0) present on admission, resolved 11. Diarrhea, resolved 12. Hypokalemia, acute, present on admission, resolved 13. Hyponatremia, acute, present on admission, resolved Consultations Dr Avila (Infectious disease) provided guidance regarding concern for potential infection Dr Zaman (hematology-oncology) provided expertise regarding anticoagulation and her cancer. He is her outpatient oncologist and she will follow up with him next week. Procedures XRay, CTs & MRIs CT ANGIO CHEST PULMONARY EMBOLISM INDICATIONS: prior PE, dyspnea and tachycardia TECHNIQUE: After the administration of intravenous contrast, 2 mm thick sections acquired from the pulmonary apices to the posterior costophrenic angles. 3-dimensional maximum intensity projection (MIP) coronal and sagittal reformats were then acquired through the thorax. For radiation dose reduction, the following was used: automated exposure control, adjustment of mA and/or kV according to patient size. COMPARISON: [facility], CT, CT ANGIO CHEST PE, 03/17/2016, 22:28. FINDINGS: Image quality: Excellent. Pulmonary arteries: Nonocclusive pulmonary arterial emboli are present within the segmental branches of the bilateral lower lobes. No pulmonary arterial emboli within the upper lobes. Lungs and pleura: When compared with the study dated 03/17/16, the heterogeneously enhancing right upper lobe mass which has eroded into the third , fourth, fifth, and sixth ribs has increased in size. This lesion now measures 8.8 x 7.8 cm (previously measured 7.9 x 7.3 cm in the same plane). There is severe centrilobular emphysema with an apical predominance. Patchy airspace opacities persist surrounding the right upper lobe pulmonary mass, somewhat decreased when compared with the prior study. An 8 mm diameter pulmonary nodule is present within the left lower lobe similar in size to the prior study. Mediastinum: Heart size is normal, without pericardial effusion. No evidence for right heart strain or leftward interventricular septal bowing. Right hilar adenopathy and mediastinal adenopathy has increased in extent when compared with the prior study. For example, a precarinal lymph node measures 17 mm in diameter and previously measured 14 mm in diameter. Thoracic aorta is normal in caliber and enhancement. Esophagus is normal in caliber, without hiatal hernia. Bones and chest wall: No suspicious bony lesions. Ribs and thoracic spine appear intact throughout. Thyroid gland is unremarkable. No axillary or supraclavicular adenopathy. Abdomen: Visualized upper abdominal solid organs appear normal in the early arterial phase of enhancement. IMPRESSION: 1. Segmental and subsegmental pulmonary emboli in the bilateral lower lobes as described above. 2. Increased size of the right upper lobe lung mass with increased bony destruction when compared with the study dated 03/17/16 suggesting progression of disease. 3. Increased right hilar and mediastinal adenopathy consistent with progression of disease. These findings were discussed with Dr. Salvador at 7:41 PM on 04/18/16. Dictated by: Clarisse Lane M.D. on 04/18/2016 at 19:34 CT CHEST WITH CONTRAST INDICATIONS: EVAL LUNG MASS, POTENTIAL POSTOBSTRUCTIVE PNA TECHNIQUE: After the administration of intravenous contrast, 5 mm thick sections acquired from the pulmonary apices to the posterior costophrenic angles. 7 mm thick coronal and sagittal MIP reformats were acquired. For radiation dose reduction , the following was used: automated exposure control, adjustment of mA and/or kV according to patient size. COMPARISON: [facility], CT, CT ANGIO CHEST PE, 04/18/2016, 19:20. FINDINGS: Image quality: Excellent. Lungs and pleura: No acute air space opacities. Emphysematous changes noted in the lungs bilaterally. Heterogeneously enhancing mass in the right upper lobe which extends into the posterior chest wall with local destruction of the right third fourth fifth and sixth ribs stable compared to prior examination obtained 04/18/2016. 0.9 cm in maximum diameter nodule in the posterolateral periphery of the left lower lobe is stable compared to 04/18/16. No pleural effusions or pneumothorax. Central and peripheral airways are patent and normal in caliber. Mediastinum: Filling defects compatible pulmonary emboli involving the segmental and subsegmental arteries of the lower lobes bilaterally are not significantly changed compared to 04/18/16. Probable clot involving the superior vena cava proximal to the left brachiocephalic vein is noted. Heterogeneously enhancing mass in the right upper lobe which extends into the posterior chest wall with local destruction of the right third fourth fifth and sixth ribs stable compared to prior examination obtained 04/18/2016. Heart size is normal. No pericardial effusion. Right paratracheal, precarinal and subcarinal mediastinal lymphadenopathy is stable compared to 04/18/16. Right hilar lymphadenopathy stable compared to prior CT scan obtained 04/18/16. No left hilar lymphadenopathy is identified. Thoracic aorta and central pulmonary arteries are normal in size. Esophagus is normal in caliber. No hiatal hernia. Bones and chest wall: Numerous heterogeneously enhancing lesions are noted in the right posterior-lateral chest wall/lower right neck. No vertebral body compression fractures. No axillary or supraclavicular adenopathy by size criteria. Thyroid gland is within normal limits. Abdomen: 4.4 cm heterogeneously enhancing left adrenal mass is stable compared to prior examinations likely represents metastatic disease. Visualized upper abdominal solid organs otherwise appear normal. Upper abdominal bowel loops are normal in caliber. IMPRESSION: 1. Large right upper lobe mass with right chest wall invasion is stable compared to 04/18/2016. 2. Mediastinal and right hilar lymphadenopathy stable compared to 04/18/2016. 3. Numerous heterogeneously enhancing masses in the right superior-posterior and superior-lateral chest wall compatible with metastatic disease. 4. 4.4 cm left adrenal metastatic lesion. 5. Bilateral lower lobe pulmonary emboli and superior vena cava thrombus stable compared to prior examinations. Dictated by: Alisia An MD, PhD on 04/28/2016 at 10:20 X-RAY CHEST ONE VIEW, PORTABLE: INDICATIONS: POST OP TECHNIQUE: One view of the chest was acquired. COMPARISON: [facility], CT, CT CHEST W CON, 04/28/2016, 8:08. [facility], CR, XR CHEST 2VW, 04/24/2016, 12:02. FINDINGS: Surgical changes and devices: None. Lungs and pleura: Large mass involving the right upper lobe with associated right upper rib destruction again noted and grossly unchanged. No definite or new focal consolidation. Left chest port with the tip projecting in the lower SVC. No pneumothorax or pleural effusion. Blunting of the costophrenic angles bilaterally. Mediastinum: Mediastinal contours appear normal. Heart size is normal. Bones and chest wall: No suspicious bony lesions. Overlying soft tissues appear unremarkable. IMPRESSION: Status post placement of left chest port with the tip projecting in the lower SVC. No pneumothorax. Redemonstration of large right upper lobe mass and associated adjacent rib destruction. Dictated by: Mookie Lui M.D. on 04/29/2016 at 17:32 Cardiac Echo Impression Transthoracic Echo: Interpretation Summary The left ventricle is normal in size. Left ventricular systolic function is normal. The ejection fraction is estimated to be 55-60%. There are no focal wall motion abnormalities. The right ventricle is normal in size and function. The right ventricular systolic pressure is estimated at 44 mmHg assuming a right atrial pressure of 15 mm Hg. Compared to the prior echo exam, there has been an increase in the severity of pulmonary hypertension. Both atria are normal in size. There is no significant valvular heart disease. The aortic root is normal size. 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 The size of thrombus is 0.6 x 1.3 cm. 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 She presented to [facility] on 04/18/16 with a 24 hour history of shortness of breath. Patients states that she knew she wasn't feeling right. Minimal amounts of activity made her short of breath and she would have to rest in bed for an hour to recover. She denies chest pain but does report that her sides are sore and it radiates into her back. She denies fever, chills but has been having night sweats. Over the past couple of days she has had a cough with some mild sputum production but no sinus congestion or sore throat. The patient has nausea but no vomiting. She has been constipated and taking Colace to help ease that; also reports increased gas. She denies hematuria, dysuria. In the ED the patient had a temperature of 38.0, heart rate of 119, respiratory rate of 18, blood pressure 115/77 and O2 saturation of 94% on room air. Labs were remarkable for WBC 10.6, Hgb 9.7, platelets 795, sodium 132, potassium 3.4. CTA of the chest showed pulmonary emboli. Heme/onc was called and recommendations were given for increased Lovenox dosing (1mg/kg twice daily). Patient to be admitted and oncology will follow along with us tomorrow. Hospital Course María is an unfortunate 61yo female with a hx of childhood poliomyelitis who has worsening Stage IV pulmonary adenocarcinoma and malignancy-related bilateral pulmonary emboli while on once daily dosing of Lovenox. She presented to [facility] on 04/18/16 with suddenly worsening dyspnea and worsening posterior shoulder pain. CT angio of the chest showed pulmonary emboli and increase in size of her RUL lung mass. She was admitted for treatment of her pulmonary emboli and acute pain crisis due to cancer. The following were addressed during this hospitalization: 1. Bilateral pulmonary emboli due to hypercoagulability in the setting of cancer , acute, present on admission. - Note that she was taking once daily Lovenox after her first pulmonary emboli, prior to this hospitalization - CT angio of the chest showed bilateral lower lobe pulmonary emboli - Lovenox 1 mg/kg BID started under the guidance of oncologist, Dr Zaman - She is to continue to receive Lovenox 50 mg BID given her multiple PEs in the setting of malignancy - Lovenox was held the evening of 04/28/16 and all day on 04/29/16 for port placement, resumed on the morning of 04/30/16 2. Stage IV pulmonary adenocarcinoma, present on admission - This was initially diagnosed 1 month prior to this hospitalization after shoulder xrays done for shoulder pain showed a mass in the right upper lobe of the lung. - Biopsy was done 03/17/16 with pathology showing adenocarcinoma - Increased tumor size from last month with destruction of ribs 3-6 on the right - Last Taxol treatment on 04/02/16, plan to transition to 2nd line treatment as an outpatient - Port placement performed on 04/29/[address] Renee - Oncology assisted with her care during this hospitalization - Plan for close outpatient follow up with Dr Zaman next week - Goals of care were discussed with the hospitalist team, at this time she would like to pursue all potential treatment options that might extend her life. 3.Aortic thrombus of unknown duration and Superior Vena Cava thrombus, presumed acute - Further driving the importance of Lovenox BID which will be resumed tomorrow morning - The thrombi were discussed with the patient following her echo and CT chest 4. Thrombocytosis, severe - Reactive in the setting of #1 and #2 above - Maximum platelet count of 1,514,000 on 04/25/16, slightly reduced over the next 4 days - Monitored 5. Acute anemia of unclear etiology. improved and stable - Suspect this is secondary to #2 above - 2 units of PRBCs given during this hospitalization: 1 unit transfused on and the other transfused on 04/20/16 - Pantoprazole 40mg BID given - Stool guaiac negative - Monitored and remained stable post transfusion - May need further transfusions in the future due to poor state of health 6. Cancer pain, present on admission, ongoing - See #2 above - Initially received Fentanyl 50mcg patch q3days, this was increased to 75 mcg patch q3 days due to poorly controlled pain at all times of day. She has been discharged with a prescription for fentanyl 75mcg patches. - Oxycodone-acetaminophen 10/325 mg Q3H PRN for breakthrough cancer pain; plan to continue this as an outpatient - Stool softeners BID scheduled and laxatives PRN while on opiate pain medication during this hospitalization, to be continued as an outpatient - Outpatient palliative radiation oncology with Dr Pham, he visited her here in the hospital and the plan for radiation has been discussed at length with her 7. Sinus tachycardia, present on admission, ongoing. - She has had tachycardia since mid February 2016 - Secondary to PE and cancer - Continued metoprolol tartrate 25 mg BID with parameters to hold for systolic BP < 90mmHg - Telemetry monitoring done during this hospitalization 8. Leukocytosis, worsening due to malignancy - Vancomycin and Zosyn were given when her WBC increased on 04/25/16nd we were concerned that she might have had a post obstructive pneumonia, CT chest did not show a pneumonia and the antibiotics were discontinued in the morning on 04/28. - Dr Avila consulted and agreed that this is unlikely to be an infection 9. Acute hypoxemic respiratory failure secondary to #1 and #2 above - Supplemental oxygen provided to keep oxygen saturation >92% - Desaturated quickly without supplemental oxygen when ambulating, supplemental oxygen to be provided at SNF 10. Low grade fever (38.0), acute, present on admission, resolved - Secondary to pulmonary emboli and adenocarcinoma - Dr Avila (infectious disease specialist) provided expertise and antibiotics were discontinued. Recall no pleural effusion or sign of pneumonia on CTA chest. 11. Hypokalemia, acute, present on admission, resolved - Corrected with 20 mEq once at admission - Monitored 12. Hyponatremia, acute, present on admission, resolved - NS 1L IV given in the ER and normalized with recurrence - Monitored 13. Diarrhea, resolved - She developed diarrhea on 04/22/16 which resolved after approximately 24hours - She had taken a single dose of miralax prior to the onset of diarrhea, possible that this was the etiology for her diarrhea - Stool PCR on [employer] without any positive result - Ondansetron available PRN, did not use during this hospitalization. Exam Vital Signs (Last) Date Time Temp Pulse Resp B/P Pulse Ox O2 Delivery O2 Flow Rate FiO2 04/30/16 04:57 36.9 70 18 100/63 96 Nasal Cannula 2.00 Exam On the date of discharge: General: Resting in bed with supplemental oxygen at 1L/h via nasal cannula, comfortable appearing. Pleasant. No acute distress. No pallor. HEENT: Mucus membranes moist. Sclera anicteric. Chest: Mildly tachycardic at 110 bpm. Regular rhythm without murmur, rub, or gallop appreciated. Left superolateral anterior chest with a horizontal procedural wound just superior to the visible port, edges well approximated with the presence of Dermabond. The wound is without drainage, edema, or erythema. Lungs: Moderate inspiratory effort with diminished breath sounds throughout the lung adams bilaterally. No wheezes, rales, or rhonchi Abdomen: Normoactive bowel tones, soft, nontender and nondistended. No hepatosplenomegaly appreciated. Extremities: No cyanosis, clubbing or edema. Back: Kyphotic posturing. Tender throughout the right thoracic region of the back. Skin: Normal turgor without rash Neuro: Normal speech, moves all 4 extremities with ease. Able to sit up in bed unassisted and with ease. Awake, alert and oriented x3. CBC Test 04/25/16 05:25 04/27/16 05:20 04/30/16 09:08 Blood Smear Pathologist Review Nucleated Red Blood Cells 1/100 WBC (0-24) White Blood Count 25.2th/mm3 (3.8-10.1) Red Blood Count 3.24mil/mm3 (3.90-5.20) Hemoglobin 8.7g/dL (12.0-15.6) Hematocrit 29.3% (35.0-46.0) Mean Corpuscular Volume 90.4fL (81-100) Mean Corpuscular Hemoglobin 26.9pg (27.0-35.0) Mean Corpuscular Hemoglobin Concent 29.7% (32.0-37.0) Red Cell Distribution Width 19.1% (12.3-15.4) Platelet Count 851bil/L (150-400) Neutrophils (%) (Auto) 78% (40-74) Lymphocytes (%) (Auto) 9% (14-46) Monocytes (%) (Auto) 9% (4-12) Eosinophils (%) (Auto) 0% (0-5) Basophils (%) (Auto) 0% (0-3) Band Neutrophils % 1% (1-5) Metamyelocytes % 2% (0-0) Myelocytes % 1% (0-0) CMP Test 04/18/16 17:20 04/19/16 05:35 04/20/16 05:15 04/24/16 05:35 Lactic Acid Level 1.8mmol/L Troponin T < 0.010ug/L Pro-B-Type Natriuretic Peptide 654.3pg/mL Phosphorus Level 3.9mg/dL Magnesium Level 1.9mg/dL Iron Level 7ug/dL Transferrin 89mg/dL Transferrin % Saturation 6 Ferritin 825ng/mL C-Reactive Protein 18.0mg/dL Test 04/26/16 05:20 04/30/16 09:08 Procalcitonin 2.67ng/mL Sodium Level 135mEq/L Potassium Level 4.8mEq/L Chloride Level 99mEq/L Carbon Dioxide Level 23mmol/L Blood Urea Nitrogen 6mg/dL Creatinine 0.30mg/dL Estimat Glomerular Filtration Rate 324mL/min Glucose Level 111mg/dL Calcium Level 8.3mg/dL Total Bilirubin 0.2mg/dL Aspartate Amino Transf (AST/SGOT) 25U/L Alanine Aminotransferase (ALT/SGPT) 9U/L Alkaline Phosphatase 179U/L Total Protein 5.6g/dL Albumin 2.1g/dL Discharge Medications Discharge Medications ([Fentanyl]) 1 PATCH PATCH 1 PATCH TOPICAL Q3D Prescribed by: HELENA PIKE DO Aspirin (Aspirin) 81 Mg Tablet 81 MG PO DAILY Prescribed by: HELENA PIKE, Enoxaparin (Lovenox) 60 Mg/0.6 Ml Syringe 50 MG SUBQ Q12 (Reported) Metoprolol Tartrate (Metoprolol Tartrate) 25 Mg Tablet 25 MG PO BID (Reported) As needed Docusate Sodium (Colace) 100 Mg Capsule 100 MG PO BID PRN PRN For Constipation ( Reported) Omeprazole (Omeprazole) 20 Mg Capsule.dr 20 MG PO DAILY PRN PRN For Nausea ( Reported) Ondansetron (Ondansetron) 4 Mg Tablet 4 MG PO Q6H PRN PRN For Nausea (Reported) oxyCODONE-Acetaminophen 10-325 mg (oxyCODONE-Acetaminophen 10-325 mg) 1 Each Tablet 1 TABLET PO Q3H PRN PRN For Pain (Reported) Additional med instructions Take the following: Lovenox 50mg injected subcutaneously twice daily. * You will be getting this medication twice daily every day except you will not receive a dose the evening of 04/28/2016 or either dose on 04/29/16 as you are scheduled to have a port placed on 04/29/[address] Renee. The Lovenox will return to twice daily dosing the morning of 04/30/16. Aspiring 325mg by mouth once daily Metoprolol 25mg by mouth twice daily The pain medication can cause constipation, thus you should take 1 tablet of docusate by mouth twice daily; This is a stool softener. For pain: Fentanyl 1 patch to be applied once every 3 days. The old patch must be removed prior to application of the new patch Oxycodone-acetaminophen 10/325mg tablet, 1 tablet by mouth every 3 hours as needed. You will not be able to take any additional acetaminophen when taking this medication, so take extra caution to avoid other acetaminophen containing medications. For nausea: Take 1 tablet of ondansetron by mouth every 4 hours as needed. [facility] Follow-up plan You have an appointment with Dr Zaman (oncologist) next week to start the new treatment for your cancer; make sure that you keep this appointment. Please call to schedule an appointment with Dr Nielson in the [facility] for follow up of this hospitalization,This may be in 1-2 weeks from now. Discharge Diet: No restrictions Discharge Activity: Other (Half-Way physical therapy) Follow-up Provider: Carmel Zaman MD Provider: AIDEN TREADWELL DO Follow-up in: 2 weeks Time spent 40 minutes Attending Statement I have seen and evaluated patient at bedside, in addition to directly supervising care provided by resident physician. I agree with above documentation. copies to: Carmel Zaman MD; AIDEN TREADWELL Rachel M DO Apr 30, 2016 09:12 Edvin Abraham DO Apr 30, 2016 15:05 None (NONE SEEN) Urine Culture Reflexed Not indicated Blood Smear Pathologist Review Procalcitonin 2.67ng/mL (See Comment) Test 04/26/16 19:15 04/27/16 05:20 04/28/16 05:57 04/30/16 09:08 Vancomycin Level Trough 13.2mcg/mL Nucleated Red Blood Cells 1/100 WBC (0-24) Band Neutrophils % 2% (1-5) Metamyelocytes % 1% (0-0) Myelocytes % 2% (0-0) Discharge Medications Discharge Medications ([Fentanyl]) 1 PATCH PATCH 1 PATCH TOPICAL Q3D Prescribed by: HELENA PIKE DO Aspirin (Aspirin) 81 Mg Tablet 81 MG PO DAILY Prescribed by: HELENA PIKE DO Enoxaparin (Lovenox) 60 Mg/0.6 Ml Syringe 50 MG SUBQ Q12 (Reported) Metoprolol Tartrate (Metoprolol Tartrate) 25 Mg Tablet 25 MG PO BID (Reported) As needed Docusate Sodium (Colace) 100 Mg Capsule 100 MG PO BID PRN PRN For Constipation ( Reported) Omeprazole (Omeprazole) 20 Mg Capsule.dr 20 MG PO DAILY PRN PRN For Nausea ( Reported) Ondansetron (Ondansetron) 4 Mg Tablet 4 MG PO Q6H PRN PRN For Nausea (Reported) oxyCODONE-Acetaminophen 10-325 mg (oxyCODONE-Acetaminophen 10-325 mg) 1 Each Tablet 1 TABLET PO Q3H PRN PRN For Pain (Reported) Additional med instructions Take the following: Lovenox 50mg injected subcutaneously twice daily. * You will be getting this medication twice daily every day except you will not receive a dose the evening of 04/28/2016 or either dose on 04/29/16 as you are scheduled to have a port placed on 04/29/[address] Renee. The Lovenox will return to twice daily dosing the morning of 04/30/16. Aspiring 325mg by mouth once daily Metoprolol 25mg by mouth twice daily The pain medication can cause constipation, thus you should take 1 tablet of docusate by mouth twice daily; This is a stool softener. For pain: Fentanyl 1 patch to be applied once every 3 days. The old patch must be removed prior to application of the new patch Oxycodone-acetaminophen 10/325mg tablet, 1 tablet by mouth every 3 hours as needed. You will not be able to take any additional acetaminophen when taking this medication, so take extra caution to avoid other acetaminophen containing medications. For nausea: Take 1 tablet of ondansetron by mouth every 4 hours as needed. Followup Plan Disposition: [facility] Follow-up plan You have an appointment with Dr Zaman (oncologist) next week to start the new treatment for your cancer; make sure that you keep this appointment. Please call to schedule an appointment with Dr Nielson in the [facility] for follow up of this hospitalization,This may be in 1-2 weeks from now. Discharge Diet: No restrictions Discharge Activity: Other (Half-Way physical therapy) Follow-up Provider: Carmel Zaman MD Provider: AIDEN TREADWELL DO Follow-up in: 2 weeks copies to: Carmel Zaman MD; AIDEN TREADWELL Rachel M DO Apr 30, 2016 09:12
--- NOTE | 2016-04-30 10:15 | NUR ---
Faxed orders to [facility] and called [facility], they will transport at 1300. Updated BACKEND DEVELOPER and RN
--- NOTE | 2016-04-30 10:23 | NUR ---
Social Work: Discharge Data: Pt is on day 12 of hospitalization. EMR reviewed. D/C orders are in. UR specialist set up transportation with [facility] [employer] at 1:00pm. RN, UA, pt, and family member notified. No further d/c planning needs at this time. [employer] will continue to follow if needs arise. Assessment: Pt who is independent at baseline. Plan: Pt will d/c to [facility] at 1:00pm today via cabulance. No further d/c planning needs at this time. [employer] will continue to follow if needs arise. NADYA Kasper
--- NOTE | 2016-04-30 13:00 | NUR ---
Discharge Report called to [facility]. Body sheet completed, Prescriptions, med records and pt packet completed for transport. IV DCd intact, no s/sx of distress, VSS. All belongings with pt, [facility] escorting pt to vehicle in at 1300.
== END 2016-04-30 12:59 | DRG 175 ==
LOC: SED 16:53 → MPC 20:31
PROVIDERS: ADMIT Internal Medicine; ATTEND Internal Medicine
PROC: 30233N1 Transfusion of Nonautologous Red Blood Cells into Peripheral Vein, Percutaneous Approach (ICD-10-PCS; 2016-04-19)
PROC: 30233N1 Transfusion of Nonautologous Red Blood Cells into Peripheral Vein, Percutaneous Approach (ICD-10-PCS; 2016-04-20)
PROC: 02HV33Z Insertion of Infusion Device into Superior Vena Cava, Percutaneous Approach (ICD-10-PCS; 2016-04-29)
PROC: 0JH60XZ Insertion of Tunneled Vascular Access Device into Chest Subcutaneous Tissue and Fascia, Open Approach (ICD-10-PCS; principal; 2016-04-29 14:45)
DX: I26.99 Other pulmonary embolism without acute cor pulmonale (principal); J96.01 Acute respiratory failure with hypoxia; C34.11 Malignant neoplasm of upper lobe, right bronchus or lung; E87.1 Hypo-osmolality and hyponatremia; F17.210 Nicotine dependence, cigarettes, uncomplicated; R00.0 Tachycardia, unspecified; E87.6 Hypokalemia; M62.81 Muscle weakness (generalized); B91 Sequelae of poliomyelitis; J44.9 Chronic obstructive pulmonary disease, unspecified; I51.3 Intracardiac thrombosis, not elsewhere classified; G89.3 Neoplasm related pain (acute) (chronic); D47.3 Essential (hemorrhagic) thrombocythemia; R19.7 Diarrhea, unspecified; D63.0 Anemia in neoplastic disease

== ENCOUNTER 2016-05-17 10:20 | Inpatient (IN) | payer MEDICARE ==
[2016-05-17] VITALS (10 sets, daily range): BP systolic 91–116; BP diastolic 52–78; PULSE 83–128; RESP 14–25; O2SAT 94–100
[~2016-05-17] VITALS: Ht 152.4 cm; Wt 49.1 kg
[~2016-05-17 10:20] MED LIST changes: +ASPI-973 PO; -ASPI81TA3 PO; -BISA-67 PO; -DIL4T PO; +DOCU-41 PO; -DXM4T PO; -HYDR4TAB PO; +LOV60 SUBQ; -LOV80 SUBQ; +METO25TA6 PO; +ONDA-53 PO; -POLY17PO6 PO; -SENN-133 PO
[2016-05-17] MEDS ORDERED: 0.9% Sodium Chloride 1,000 ML IV ONE (10:26)
--- NOTE | 2016-05-17 10:32 | ED.REPORT ---
HPI-General Illness Date of Service May 17, 2016 ED Provider: Emiliano Martin MD 61 year old female with stage IV pulmonary adenocarcinoma and history of cancer- related PE presents to the ER via EMS from [facility] due to low O2 saturation of 83% noticed en route to her radiation treatment appointment this morning. Associated symptom of nausea, fever, and chills. Patient denies any atypical shortness of breath, and history of DVT. Nursing Notes Stated Complaint: SHORTNESS OF BREATH Chief Complaint: Respiratory Complaints Nursing Notes Reviewed: Yes Allergies: Coded Allergies: cyclobenzaprine (Verified Allergy, Unknown, Unknown, 05/17/16) per outpatient record prednisone (Verified Adverse Reaction, Severe, "makes my skin crawl", 05/17) Scheduled Aspirin (Aspirin) 81 Mg Tablet 81 MG PO DAILY Docusate Sodium (Docusate Sodium) 250 Mg Capsule 250 MG PO DAILY Enoxaparin (Lovenox) 60 Mg/0.6 Ml Syringe 50 MG SUBQ Q12 Fentanyl 75 mcg/hr Patch (Fentanyl 75 mcg/hr Patch) 1 Each Patch.td72 1 PATCH TRANSDERM Q3D Gabapentin (Gabapentin) 100 Mg Capsule 100 MG PO DAILY Gabapentin (Gabapentin) 100 Mg Capsule 200 MG PO HS Metoprolol Tartrate (Metoprolol Tartrate) 25 Mg Tablet 25 MG PO BID Sennosides (Senna) 8.6 Mg Tablet 8.6 MG PO HS Scheduled PRN Acetaminophen (Acetaminophen) 325 Mg Capsule 650 MG PO q4 hours PRN PRN For Pain Docusate Sodium (Colace) 100 Mg Capsule 100 MG PO BID PRN PRN For Constipation Magnesium Hydroxide (Milk of Magnesia) 400 Mg/5 Ml Oral.susp 30 ML PO DAILY PRN PRN For Constipation Omeprazole (Omeprazole) 20 Mg Capsule.dr 20 MG PO DAILY PRN PRN For Nausea Ondansetron (Ondansetron) 4 Mg Tablet 4 MG PO Q6H PRN PRN For Nausea oxyCODONE-Acetaminophen 10-325 mg (oxyCODONE-Acetaminophen 10-325 mg) 1 Each Tablet 1 TABLET PO Q3H PRN PRN For Pain General Time Seen by MD: 10:21 Chief Complaint Other (Low O2 Saturation) Hx Obtained From: Patient, EMS Arrived By: Ambulance Sudden in Onset?: No Onset Occurred: Just prior to arrival Symptom Duration: Since onset Associated with: Reports: Nausea, Denies: Shortness of breath Context Related History: Reports Cancer Similar Sx Previous: Yes Past Medical History Past Medical History - Stage IV pulmonary adenocarcinoma - Cancer-related PE - Pneumonia - Thrombocytosis - 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 Past Surgical History Corrective surgery on her feet in childhood, otherwise none. Family History Mother blood clot Father cancer unspecified Brother Ear cancer Sister Breast cancer Smoking History Current Every Day Smoker Ambulatory Status Cane Review of Systems Full Review of Systems Constitutional: Reports: Chills, Fever Respiratory: Reports: Non-productive cough, Denies: Shortness of breath Cardiovascular: Denies: Chest pain GI: Reports: Nausea, Denies: Abdominal pain, Diarrhea, Vomiting Neurologic: Denies: Headache, Syncope Complete sys rev & neg: except as marked. Physical Exam Vital Signs Vital Signs Date Time Temp Pulse Resp B/P Pulse Ox O2 Delivery O2 Flow Rate FiO2 05/17/16 13:33 106 15 91/52 95 Nasal Cannula 3 05/17/16 11:26 109 22 105/58 100 Non-Rebreather 15 05/17/16 10:29 37.2 120 20 96/63 99 Non-Rebreather 15 05/17/16 10:29 37.2 120 20 96/58 99 Non-Rebreather 15 Initial VS: Reviewed Head / Eyes: Atraumatic, Normocephalic Neck: Supple, Non-tender, Full range of motion Abdomen / GI: Soft, Non-tender, No guarding, No rebound, No distention Extremities: Vascular intact, Neuro intact, No swelling, No tenderness Skin: Warm, Dry, No cyanosis Neurologic: Alert, Oriented, Nonfocal General/Constitutional: Awake, Alert, Well developed Appearance / Presentation: Positive: Cachectic, Frail Respiratory / Chest: No retractions, No chest tenderness, No chest wall deformity Tachypneic. Coarse breath sounds. 15L by nonrebreather Cardiovascular: No gallop, No murmurs, No rubs Heart Rate / Rhythm: Positive: Tachycardia Interpretation & Diagnostics Lab Results Interpretation Result Diagram: 05/17/16 1130 05/17/16 1130 Test 05/17/16 11:30 White Blood Count 14.1th/mm3 (3.8-10.1) Red Blood Count 2.47mil/mm3 (3.90-5.20) Hemoglobin 6.6g/dL (12.0-15.6) Hematocrit 22.4% (35.0-46.0) Mean Corpuscular Volume 90.7fL (81-100) Mean Corpuscular Hemoglobin 26.7pg (27.0-35.0) Mean Corpuscular Hemoglobin Concent 29.5% (32.0-37.0) Red Cell Distribution Width 18.6% (12.3-15.4) Platelet Count 739bil/L (150-400) Neutrophils (%) (Auto) 87.7% (40-74) Lymphocytes (%) (Auto) 3.0% (14-46) Monocytes (%) (Auto) 8.1% (4-12) Eosinophils (%) (Auto) 0.2% (0-5) Basophils (%) (Auto) 0.1% (0-3) Prothrombin Time 12.6sec (8.1-12.5) Prothromb Time International Ratio 1.17ratio Activated Partial Thromboplast Time 35.0sec (22.8-33.0) Sodium Level 132mEq/L (134-144) Potassium Level 5.3mEq/L (3.5-5.2) Chloride Level 94mEq/L (97-108) Carbon Dioxide Level 26mmol/L (18-29) Blood Urea Nitrogen 11mg/dL (8-27) Creatinine < 0.30mg/dL (0.57-1.00) Estimat Glomerular Filtration Rate 324mL/min (>59) Glucose Level 110mg/dL (60-99) Calcium Level 7.8mg/dL (8.5-10.1) Magnesium Level 2.0mg/dL (1.6-2.6) Total Bilirubin 0.2mg/dL (0.0-1.2) Aspartate Amino Transf (AST/SGOT) 12U/L (0-50) Alanine Aminotransferase (ALT/SGPT) 7U/L (0-32) Alkaline Phosphatase 141U/L (25-165) Troponin T 0.010ug/L (0.0-0.011) Pro-B-Type Natriuretic Peptide 1691pg/mL (0-287) Total Protein 5.0g/dL (6.4-8.4) Albumin 2.0g/dL (3.4-5.0) Hold Garcia Top Tube Received (Received) ECG Interpretation ECG Interpretation: Sinus tachycardia, rate 119 Normal axis Normal intervals No ST segment changes No T wave abnormalities When compared to 04/18/2016 more tachycardic Time: 10:54 Interpreted by: ED physician CT Chest Interpretation IMPRESSION: 1. Bilateral pulmonary emboli redemonstrated involving segmental and subsegmental pulmonary arteries in the lower lobes without evidence of interval progression in the degree of clot burden. 2. Marked progressive increase in size of a large right upper lobe mass with associated marked increase in extensive mediastinal, right hilar, and right chest wall invasion as described with associated bony destruction, displacement of mediastinal structures, and extension into the right T4-T5 neuroforamen. 3. Extensive encasement and narrowing of right hilar bronchovascular structures including marked narrowing of peripheral right upper lobe pulmonary arteries and the right upper lobe bronchus with associated postobstructive consolidation. 4. Marked increase in mediastinal and right hilar lymphadenopathy as well as right supraclavicular and posterior neck lymphadenopathy. 5. New bilateral pleural effusions, right greater than left. 6. Left adrenal mass consistent with metastatic disease partially visualized. Dictated by: Bud Carrizales M.D. on 05/17/2016 at 13:42 Approved by: Bud Carrizales M.D. on 05/17/2016 at 14:23 Study type: CT pulm angiogram Interpretation / Wet Read by: Interpret - Radiologist, Discussed w radiologist Re-Eval/Medical Decision Med Decision/Clinical Course 61 year old female with stage IV pulmonary adenocarcinoma and history of cancer- related PE presents to the ER via EMS from [facility] due to low O2 saturation of 83% noticed en route to her radiation treatment appointment this morning. Associated symptom of nausea, fever, and chills. Patient denies any atypical shortness of breath, and history of DVT. Per EMS the patient is usually on 3 L by nasal cannula dose requiring up to 15 L by nonrebreather to maintain oxygen saturation in the 90s. Upon arrival she is on 15 L by nonrebreather and is tachypneic as well as tachycardic though otherwise hemodynamically stable. Laboratory studies notable as below: Leukocytosis 14.1 Hct 22.4 down from 28.2 two days ago Na 132 K 5.3 BUN 11 Creat 0.3 BNP 1691 Troponin negative CTA of the chest was obtained as below: 1. Bilateral pulmonary emboli redemonstrated involving segmental and subsegmental pulmonary arteries in the lower lobes without evidence of interval progression in the degree of clot burden. 2. Marked progressive increase in size of a large right upper lobe mass with associated marked increase in extensive mediastinal, right hilar, and right chest wall invasion as described with associated bony destruction, displacement of mediastinal structures, and extension into the right T4-T5 neuroforamen. 3. Extensive encasement and narrowing of right hilar bronchovascular structures including marked narrowing of peripheral right upper lobe pulmonary arteries and the right upper lobe bronchus with associated postobstructive consolidation. 4. Marked increase in mediastinal and right hilar lymphadenopathy as well as right supraclavicular and posterior neck lymphadenopathy. 5. New bilateral pleural effusions, right greater than left. 6. Left adrenal mass consistent with metastatic disease partially visualized. Overall presentation initially quite concerning for pulmonary embolism. Per my initial conversation with radiology there was mention of new bilateral distal pulmonary emboli. Given that the patient is already on Lovenox I am unsure as to the benefit of heparinization. Meanwhile, the patient was weaned off of nonrebreather and was able to maintain oxygen saturation greater than 92% at rest with 4 L by nasal cannula. In the setting of the patient's extensive worsening pulmonary malignancy and pleural effusions I am unsure as to what degree her increasing oxygen requirement is due to pulmonary emboli. Patient was discussed with admitting hospitalist as well as oncology and we opted to initiate heparin infusion without bolus given that she is already on Lovenox. Additionally, the patient is quite anemic and I suspect this may be a continuing factor in her symptoms of dyspnea. Given her increasing oxygen requirements and severity of symptoms she was admitted to the critical care unit for further management in consultation with oncology. She was transferred in stable condition and reported symptomatic improvement. Source of Hx: Old records Time of Eval: 10:56 Re-Evaluation/Progress Note: Discussed need for admission. Patient is amenable to the plan. Time of Eval: 13:33 Re-Evaluation/Progress Note: Discussed lab and radiology results and updated the patient on the plan of care. Consultation #1: Referral / Consult Name: Jaspal Jenkins MD Consulted With: On-call physician (Oncology) Call Returned at: 13:28 Hydroelectric Plant Maintainer: Will see patient Note: Discussed patient case with Dr. Jenkins, Oncology. Agrees with plan to start heparin and admit. Consultation #2: Referral / Consult Name: Marianne Matt MD Consulted With: Hospitalist Call Returned at: 13:31 [employer] Plant Maintainer: Referred to other consult Consultation #3: Referral / Consult Name: Sina Kraus MD Consulted With: Hospitalist Call Returned at: 13:36 [employer] Plant Maintainer: Agrees with eval, Agrees with plan, Accepts admit Consultation #4: Referral / Consult Name: Addi Grider MD Consulted With: Hospitalist Call Returned at: 14:01 [employer] Plant Maintainer: Agrees with eval, Agrees with plan, Accepts admit Counseled Regarding: Diagnosis, Lab results, Need for admission Discharge & Departure Primary Impression: Pulmonary embolism Pulmonary embolism type: other Chronicity: unspecified Acute cor pulmonale presence: without acute cor pulmonale Qualified Code: I26.99 - Other pulmonary embolism without acute cor pulmonale Additional Impressions: Hypoxia Tachypnea Tachycardia Lung cancer Laterality: unspecified laterality Lung location: unspecified part of lung Qualified Code: C34.90 - Malignant neoplasm of unspecified part of unspecified bronchus or lung Respiratory distress Severe anemia Disposition: ADMITTED TO HOSPITAL Discharge Condition All VS Reviewed: Yes Condition: Stable Referrals: Jasmin Grider DO (PCP) Crit Care Except Billable Proc Time Spent: 105-134 minutes Services Performed: Patient management by me, Time spent at bedside, Reviewing test results, Reviewing imaging, Discussing patient care, Documentation in record, Time with fam/surrogate Scribe Attestation Portions of this note were transcribed by Hector Smith. I, Dr. Martin, personally performed the history, physical exam and medical decision-making; I reviewed and confirmed the accuracy of the information in the transcribed note. Signed by: Erendira Acosta, 05/17/2016 and 14:34 copies to: Jasmin Grider Beck O MD May 17, 2016 10:32 HECTOR SMITH May 17, 2016 10:44
[2016-05-17 11:44] LABS: BASOPHILS % (AUTO) 0.1 % (0-3); EOSINOPHILS % (AUTO) 0.2 % (0-5); MONOCYTES % (AUTO) 8.1 % (4-12); Mean Corpuscular Hemoglobin 26.7 pg (27.0-35.0); Mean Corpuscular Volume 90.7 fL (81-100); NEUTROPHILS % (AUTO) 87.7 % (40-74); Platelet Count 739 bil/L (150-400)
[2016-05-17 11:59] LABS: INR 1.17 ratio
[2016-05-17] MEDS ORDERED: Heparin 25K Unit/500mL 0.45 NS 25,000 UNIT in IV Premix 1 EACH IV ONE (13:40)
[2016-05-17] MEDS ORDERED: 0.9% Sodium Chloride 1,000 ML IV SCH (14:02)
[2016-05-17] MEDS ORDERED: Heparin 25K Unit/500mL 0.45 NS 25,000 UNIT in IV Premix 1 EACH IV SCH (14:05)
[2016-05-17] MEDS ORDERED: Ondansetron 2 mg/mL 2 mL Inj IVPUSH PRN (14:05)
[2016-05-17] MEDS ORDERED: Alum-Mag Hydrox-Simeth 30 mL Suspension PO PRN (14:05)
[2016-05-17] MEDS ORDERED: HYDROcodone-APAP 5-325 mg Tablet PO PRN (14:05)
[2016-05-17] MEDS ORDERED: Polyethylene Glycol (PEG) 17 Gm Powder PO PRN (14:05)
--- NOTE | 2016-05-17 14:25 | DRSVH ---
PROCEDURE: CT ANGIO CHEST PULMONARY EMBOLISM ([id number]) INDICATIONS: 61 year-old female with history of cancer presenting with shortness of breath, hypoxia, and tachycardia. TECHNIQUE: After the administration of intravenous contrast, 2 mm thick sections acquired from the pulmonary api maico to the posterior costophrenic angles. 3-dimensional maximum intensity projection (MIP) coronal a nd sagittal reformats were then acquired through the thorax. For radiation dose reduction, the follo wing was used: automated exposure control, adjustment of mA and/or kV according to patient size. COMPARISON: [facility], CT, CT CHEST W CON, 04/28/2016, 8:08. [facility], CT , CT CHEST W CON, 03/06/2016, 14:57. [facility], CR, XR CHEST 2VW, 03/05/2016, 16:33. [facility], CT, CT ANGIO CHEST PE, 04/18/2016, 19:20. FINDINGS: Image quality: Excellent. Pulmonary arteries: Multiple filling defects are redemonstrated bilaterally involving segmental and subsegmental branches in the lower lobes. These demonstrate similar to minimally decreased degree of thrombus compared to the prior study without evidence of progression. There is encasement of multip le right upper lobe peripheral pulmonary arteries which are markedly narrowed. There is also hiatal encasement of the right pulmonary arteries again noted without high-grade extrinsic mass effect. The main pulmonary artery is normal in caliber. Lungs and pleura: There is a large mass redemonstrated centered on the posterior right upper lobe wi th marked progressive increase in size. This demonstrates a customer operations representative transverse measurement of 12.0 x 8.9 cm compared to 10.5 x 8.3 cm at a comparable level previously. There is markedly increas ed mediastinal invasion with leftward displacement of mediastinal structures as well as bronchovascul ar encasement of the aorta and right hilar structures. There is increased extension posterior latera lly to the chest wall with increased bony destruction of the right posterior 3rd through 6th ribs as well as the T3 and T4 vertebrae. There is also extension into the right neuroforamen at T4-T5. Ther e are new bilateral pleural effusions, moderate on the right and small left, with associated compress blayne atelectasis. A small subpleural nodule in the left lower lobe measuring up to 0.7 cm appears unc hanged. There are severe bilateral intralobular emphysematous changes again noted. The trachea appe ars patent. As noted above, there is encasement of the distal trachea as well as right perihilar bro nchovascular structures. There is severe narrowing of the right upper lobe bronchus with apparent oc clusion and postobstructive consolidation. Mediastinum: Heart size is normal, without pericardial effusion. There is a left chest wall subclav prashant Port-A-Cath with the tip extending to the cavoatrial junction. Thoracic aorta is normal in calib er and enhancement. There is markedly increased mediastinal and right hilar lymphadenopathy with con fluent right hilar maria fernanda soft tissue. A customer operations representative precarinal node now measures up to 2.7 cm in short axis compared to 1.9 cm on 04/18/16 study. Confluent mediastinal lymph nodes demonstrate mild l eftward displacement of the esophagus, with soft tissue invasion not excluded. There is displacement of the superior vena cava without concentric narrowing to suggest SVC syndrome. Bones and chest wall: As noted above, there is bony destruction of multiple right posterior ribs and vertebra. There are multiple enlarged confluent right supraclavicular lymph nodes as well as enlarg ed lymph nodes in the right posterior neck. These are increased in size compared to the prior studie s with a customer operations representative node measuring 3.2 cm in short axis compared to approximately 1.4 cm on the study. The thyroid demonstrates no discrete nodules. Abdomen: Visualized upper abdomen redemonstrates a left adrenal mass which is partially visualized. IMPRESSION: 1. Bilateral pulmonary emboli redemonstrated involving segmental and subsegmental pulmonary arteries in the lower lobes without evidence of interval progression in the degree of clot burden. 2. Marked progressive increase in size of a large right upper lobe mass with associated marked incre ase in extensive mediastinal, right hilar, and right chest wall invasion as described with associated bony destruction, displacement of mediastinal structures, and extension into the right T4-T5 neurofo ramen. 3. Extensive encasement and narrowing of right hilar bronchovascular structures including marked angel rowing of peripheral right upper lobe pulmonary arteries and the right upper lobe bronchus with assoc iated postobstructive consolidation. 4. Marked increase in mediastinal and right hilar lymphadenopathy as well as right supraclavicular a nd posterior neck lymphadenopathy. 5. New bilateral pleural effusions, right greater than left. 6. Left adrenal mass consistent with metastatic disease partially visualized. Dictated by: Bud Carrizales M.D. on 05/17/2016 at 13:42 Approved by: Bud Carrizales M.D. on 05/17/2016 at 14:23
[2016-05-17] MEDS ORDERED: ACET325C PO (14:35)
[2016-05-17] MEDS ORDERED: SENN-133 PO (14:35)
[2016-05-17] MEDS ORDERED: LOV60 SUBQ (14:35)
[2016-05-17] MEDS ORDERED: MAGN400O4 PO (14:35)
[2016-05-17] MEDS ORDERED: DOCU250C2 PO (14:35)
[2016-05-17] MEDS ORDERED: GABA-500 PO ×2 (14:35)
[2016-05-17] MEDS ORDERED: FENT-2 TRANSDERM (14:35)
--- NOTE | 2016-05-17 15:54 | NUR ---
Arrived to room 2015. Pt alert and oriented x 3. ST per industrial engineering manager. Normotensive. Denies SOA. Lungs coarse. Sp02 >95% on 4L 02 per NC. Heparin gtt d/c. Right shoulder pain reported, rating pain 8/10. Pain chronic in nature. Fentanyl patch in place to left upper back. Plan of care and safety precautions reviewed at bedside. Will continue to monitor.
[2016-05-17] MEDS ORDERED: oxyCODONE-Acetamin 10-325 mg Tablet PO PRN ×2 (15:55→17:20)
[2016-05-17] MEDS ORDERED: Magnesium Hydroxide 355 mL Oral Suspension PO PRN (15:55)
[2016-05-17] MEDS ORDERED: 0.9% Sodium Chloride 250 ML IV SCH (15:59)
[2016-05-17] MEDS ORDERED: HepLOK Flush 100 unit/mL 5 mL Inj IVFLUSH PRN (16:00)
[2016-05-17] MEDS ORDERED: Sodium Chloride LOK Flush 10 mL Syringe IVFLUSH PRN ×2 (16:00)
[2016-05-17] MEDS ORDERED: 0.9% Sodium Chloride 250 ML IV PRN (16:55)
[2016-05-17] MEDS ORDERED: Furosemide 10 mg/mL 2 mL Inj IVPUSH ONE (16:55)
--- NOTE | 2016-05-17 17:34 | PCM.HPMED ---
Subjective Date of Service May 17, 2016 Primary Provider: Admitting Physician: Addi Grider MD Primary Care Physician: Jasmin Grider DO Attending Physician: Addi Grider MD Admit Status: From the Emergency Department, Admit to Yellow Team Chief Complaint: 61-year-old woman with metastatic lung cancer presents with acute on chronic respiratory failure with hypoxia, and acute on chronic anemia. History of Present Illness: Ms. Craft was diagnosed with stage IV non-small cell lung cancer in 02/2016. She has undergone chemotherapy and recent radiation treatments since [facility]). She was in her recent baseline state of health today getting ready to go to radiation treatment. The nurse at [facility] checked her O2 sat on her usual 3 L nasal prong, and it was in the 70-80% range. She endorses progressively worsening appetite over the last few days. Mild nausea but no vomiting. No severe chills. Some cough today, but producing only white sputum. No change in her chronic right posterior shoulder pain. No symptoms of neck or face congestion. No change in chronic constipation. She denies any signs of GI bleeding. No new symptoms in abdomen, urinary, peripheral musculoskeletal or neurologic systems. Review of Systems: 10 system ROS performed was notable for: Chronic constipation, right shoulder pain limiting right upper extremity movement, nausea without vomiting, chronic left leg paresis. Allergies Coded Allergies: cyclobenzaprine (Verified Allergy, Unknown, Unknown, 05/17/16) per outpatient record prednisone (Verified Adverse Reaction, Severe, "makes my skin crawl", 05/17) Home Medications Aspirin 81 mg Docusate Lovenox 50 mg subcutaneous every 12 Fentanyl 75 g per hour every 3-D Gabapentin 100 mg daily with 200 mg daily at bedtime Metoprolol 25 mg twice a day Omeprazole 20 mg daily Oxycodone acetaminophen 10/325 one by mouth every 3 hours when necessary Ondansetron when necessary Bowel regimen [facility] # Non-small cell lung cancer. Large destructive mass arising from posterior right upper lobe, destruction of the adjacent ribs, right hilar and mediastinal lymphadenopathy, left adrenal metastasis, and bilateral ovarian metastases. Biopsy of this mass was positive for poorly differentiated adenocarcinoma, negative for EGFR, ALK and ROS 1. PD-L1 tumor proportion score was less than 1% . Received one cycle of carboplatin/weekly paclitaxel but did not respond. Preparing to start second-line therapy with nivolumab. Palliative radiotherapy to painful large right upper lung mass, since 18/01/17. # Multiple pulmonary embolism secondary to #1; also recent aortic thrombosis # History of cigarette smoking greater than 40 pack years # History of poliomyelitis - left leg paresis with occasional use of cane. . Family History Mother with CHF Father cancer of uncertain origin One sister with breast cancer One brother skin cancer of the ear One son alive and well age 4040 years old Social History Hx Alcohol Use: No Alcoholic Drinks Per Day: a couple a week Hx Substance Use: Yes (pot ...) Hx Tobacco Use: Yes Smoking Status: Current Every Day Smoker Additional Information Currently residing at [facility]. Lives in [facility]. Does all her ADLs. 15 years ago. Has a roommate, not a domestic partner. Stop cigarette smoking 3 months ago. No alcohol. Exam Vital Signs Vital Sign - Last Date Time Temp Pulse Resp B/P Pulse Ox O2 Delivery O2 Flow Rate FiO2 05/17/16 16:21 Supplement Oxygen 05/17/16 15:30 110 20 103/53 99 05/17/16 14:59 36.2 4 Exam Constitutional: appears pale but alert ; no acute distress; vital signs noted Eyes: sclerae anicteric, no conjunctival pallor, ENMT: ears, nose atraumatic; oral mucosa moist Neck: supple, JVD 4-5 cm, no plethora or edema Chest: Inflation is symmetric, difficult to sit forward, Resp: auscultation generally clear, no wheezes, rales or dullness Cardiac: S1, S2, regular, no murmur Abdomen: bowel sounds present, nontender, no organomegaly Musculoskeletal: Left lower extremity atrophy, no joints with acute erythema, swelling Skin and soft tissues: no rash; no pitting edema Peripheral pulses: normal at wrist, feet Lymphatic: no adenopathy cervical Neurological: Cranial Nerves - face symmetric; pupils are minimally reactive to millimeter but not asymmetric, pneumatosis Reflexes - BJ 3+, KJ 1+ symmetric Motor - 5-/5 strength, normal tone Coordination - normal movement, no tremor Sensory - light touch intact Psych & Mental Status - oriented Lab and Diagnostics Result Diagram: 05/17/16 1130 05/17/16 1130 X-Rays, CTs and MRIs PROCEDURE: CT ANGIO CHEST PULMONARY EMBOLISM ([id number]) COMPARISON: [facility], CT, CT CHEST W CON, 04/28/2016, 8:08. IMPRESSION: 1. Bilateral pulmonary emboli redemonstrated involving segmental and subsegmental pulmonary arteries in the lower lobes without evidence of interval progression in the degree of clot burden. 2. Marked progressive increase in size of a large right upper lobe mass with associated marked increase in extensive mediastinal, right hilar, and right chest wall invasion as described with associated bony destruction, displacement of mediastinal structures, and extension into the right T4-T5 neuroforamen. 3. Extensive encasement and narrowing of right hilar bronchovascular structures including marked narrowing of peripheral right upper lobe pulmonary arteries and the right upper lobe bronchus with associated postobstructive consolidation. 4. Marked increase in mediastinal and right hilar lymphadenopathy as well as right supraclavicular and posterior neck lymphadenopathy. 5. New bilateral pleural effusions, right greater than left. 6. Left adrenal mass consistent with metastatic disease partially visualized. Dictated by: Bud Carrizales M.D. on 05/17/2016 at 13:42 . Assessment & Plan Ms. Rose is a 61-year-old woman with rapidly progressive non-small cell lung cancer who presents today with symptomatic anemia and acute on chronic respiratory failure with hypoxia. # Acute on chronic respiratory failure with hypoxia. Chest CT imaging suggests some progression of cancer. Cells are compressed by tumor and BNP is elevated. No clear pulmonary parenchymal infiltrate. Symptoms not suggestive of pneumonia. Suspect this is V/Q mismatch due to progression of cancer. Possibly worsened by anemia. Pulmonary embolic disease seems unchanged; hence not a cause of acute worsening. - Monitor oxygen saturation response to transfusion - Oxygen support as needed # Anemia. Likely chronic disease related. No current evidence of GI bleeding. Bilirubin level, no evidence of hemolysis. - Transfuse 2 units red blood cells - Lasix 20 mg IV, no other intravenous fluids at present due to elevated BNP. - Monitor stool guaiac or any other signs of GI bleeding - Repeat CBC daily # Elevated BNP. Findings test difficult to determine. Overall seems clinically euvolemic. BNP is likely due to cancer encasement of great vessels. Does not seem to be congestive heart failure. - Maintain neutral volume status. - Encourage by mouth intake - Lasix 20 mg in between 2 units of RBCs; otherwise no aggressive diuresis. # Bony metastases with Chronic pain. Patient reports no significant change. Radiology suggest progression of bony lesions in her chest. - Continue current pain regimen - Avoid skeletal movements that might precipitate pathologic fracture # Constipation. Opioid induced. - Aggressive bowel regimen # Hyponatremia. Patient is euvolemic. 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 - Follow daily BMP - [place] restriction if needed # Pulmonary embolism. Initially switched IV heparin. Current assessment is no progression of disease; no therapeutic failure of Lovenox. - Continue Lovenox 50 mg subcutaneous every 12 hours # Metastatic non-small cell lung cancer. - No inpatient chemotherapy planned at present - Oncology consult Dr. Jenkins # Thrombocytosis. Stable cancer related. # CODE STATUS. Discussed with patient and she endorses a request for full code. She is optimistic about response to nivolumab, and feels that her cancer may be curable. Patient is admitted to inpatient status with diagnosis of acute on chronic respiratory failure and symptomatic anemia. Expect greater than 2 mid nights of inpatient care. Time spent 70 minutes Addi Grider MD May 17, 2016 17:34
--- NOTE | 2016-05-17 18:06 | NUR ---
TRANSFUSION Consent obtained for blood transfusion, education and s/s of transfusion reaction reviewed at bedside. 1 unit of PRBCs transfusing. Vital signs stable. Will continue to monitor.
--- NOTE | 2016-05-17 21:13 | PROG NOTE ---
[address] [address] PROGRESS NOTE PATIENT: LILIANA ARREDONDO : 1955 MR#: [id number] ADMIT: 05/17/2016 JOB ID: [id number] DATE: 05/17/2016 SUBJECTIVE: The patient is a 61-year-old woman, treated by Dr. Zaman for metastatic pulmonary adenocarcinoma. She received initial carboplatin/weekly paclitaxel, but failed to respond. Marker studies were negative for EGFR ALK and ROS1. PD-L1 proportion was less than 1%. She started second-line therapy with nivolumab on May 07, 2016. She was residing at [facility], and became increasingly fatigued and short of breath. She presented to the emergency department with concerns for possible pulmonary embolism. Symptoms included shortness of breath, hypoxia, and tachycardia. Imaging showed bilateral pulmonary emboli, but these were actually stable compared to prior imaging. However, there was marked progression in the size of a large right upper lobe lung mass, which measures 12.0 x 8.9 cm compared to 10.5 x 8.3 cm previously. There was also markedly increased mediastinal invasion with leftward displacement of the mediastinal structures, as well as bronchovascular encasement of the aorta and right hilar structures. There was extension posterolaterally to the chest wall with bony destruction of the right posterior 3rd through 6th ribs, as well as the T3 and T4 vertebrae. She has extension into the right neural foramen at T4-T5. She is receiving radiation therapy to this area under the guidance of Dr. Bruce Pham, with additional treatments scheduled daily through Tuesday or of this week. Today's treatment was missed due to her symptoms and hospitalization. She has been afebrile. OBJECTIVE: Vitals: T 37.2, P 121, R 25, BP 100/78. O2 saturation 97% on 4 L oxygen by nasal cannula. HEENT: Conjunctivae pale, mucous membranes moist. No oral lesions. Nodes: A large palpable mass in the right supraclavicular region/right lower neck. No adenopathy in the axilla or groin. Chest: Decreased at the right base. Cardiac exam: Tachycardic but regular. Abdomen: Soft, nontender. Extremities: Trace edema, 2+ distal pulses. No calf tenderness. LABORATORIES: WBC 14.1, hemoglobin 6.6, hematocrit 22.4%, platelets 739,000. Sodium 132, potassium 5.3, BUN 11, creatinine less than 0.3, glucose 110. Calcium 7.8, albumin 2.0, AST 12, ALT 7, alkaline phosphatase 141. Troponin T 0.01. PT 12.6, INR 1.16, PTT 35.0. ASSESSMENT AND PLAN: Progressive metastatic pulmonary adenocarcinoma, refractory to first-line carboplatin/weekly paclitaxel chemotherapy, now on nivolumab: The patient began initial immunotherapy less than two weeks ago. She developed increasing shortness of breath and tachycardia at the [facility] ([facility]), and was found to be hypoxic on presentation to the emergency department. CT angiography does indeed show evidence of pulmonary emboli, but unchanged compared to prior imaging on April 18, 2016. What has changed, is her primary lung mass, which has increased in size, and her hematologic parameters, which show significant worsening of her anemia. Type and cross. Transfuse 2 units packed red blood cells tonight. Monitor oxygen needs. If she is clinically improving, she could be considered for transfer back to the [facility] in the next few days. Continue daily radiation therapy under the guidance of Dr. Bruce Pham and the radiation oncology team. Administer Lovenox 40 mg subcutaneously twice daily for ongoing management of her deep vein thromboses. Given stability of her pulmonary emboli, I do not see any indication to further increase her anticoagulation regimen. There is no evidence of active bleeding. Nivolumab immunotherapy was initially administered on May 07, 2016. She is due for her second nivolumab infusion on May 21, 2016, under the guidance of Dr. Carmel Zaman.
[2016-05-18 00:30] VITALS: BP 103/59; PULSE 126; RESP 23; O2SAT 94
[2016-05-18 04:30] VITALS: BP 106/55; PULSE 121; RESP 22; O2SAT 94
[2016-05-18 06:14] LABS: Mean Corpuscular Hemoglobin 27.4 pg (27.0-35.0); Mean Corpuscular Volume 87.4 fL (81-100)
--- NOTE | 2016-05-18 06:37 | NUR ---
Pain Pain was 8-9 per patient throughout night but pt appeared to have rested well after pain meds given. Remained on 3L NC. One small BM with formed brown stool. Voiding adequate urine. Labs are pending this morning. Will continue to monitor. See flow sheet for further details.
[2016-05-18 08:00] VITALS: BP 117/66; PULSE 132; RESP 22; O2SAT 94
[2016-05-18 10:00] VITALS: PULSE 115
[2016-05-18] MEDS ORDERED: Fentanyl TOPICAL (10:35)
[2016-05-18] MEDS ORDERED: OXYC5TAB72 PO (10:35)
--- NOTE | 2016-05-18 10:39 | PCM.DIMED ---
Discharge Instructions Date of Service May 18, 2016 Dates of Hospitalization May 17, 2016 at 14:47 Discharge Diagnosis Discharge Diagnosis Acute on chronic respiratory failure with hypoxia; metastatic non-small cell lung cancer; symptomatic anemia; chronic pain Medication Instructions Your fentanyl patch has been increased, so that she will not require as many oxycodone pills. The oxycodone prescription has been changed every 4 hours and may be taken with acetaminophen at the same time if needed. Do not take oxycodone if you are not feeling very sedated by the fentanyl patch. Diet No restrictions Activity Other (according to the physical therapy staff at the [facility]) Call your provider Shortness of breath Patient Instructions The dropping her oxygen level was likely due to the drop in your blood counts. He received a transfusion and the oxygen level has improved within [address] scan of your chest shows that your tumor has increased and spread. You are likely to experience some cough, weakness, appetite loss, and low red blood cell counts due to the progression of your lung cancer. We encourage you to maintain good nutrition. We encourage you to work with physical therapy to maintain your strength. You may benefit from a consultation with the Palliative Medicine service. You have declined at this time but may pursue this in the future. Follow-up plan You will continue with the radiation treatments. Follow-up Provider: Carmel Zaman MD Follow-up with PCP in: 1 week (contact Dr. Zaman's office for your next follow-up appointment) Addi Grider MD May 18, 2016 10:39
--- NOTE | 2016-05-18 10:46 | PROG NOTE ---
[address] [address] PROGRESS NOTE PATIENT: LILIANA ARREDONDO : 1955 MR#: [id number] ADMIT: 05/17/2016 JOB ID: [id number] DATE: 05/18/2016 SUBJECTIVE: The patient is a 61-year-old woman with metastatic pulmonary adenocarcinoma. She has recently started immunotherapy with nivolumab. She has been residing at [facility], but became increasingly short of breath. CT angiography yesterday showed increasing size of her primary lesion in the right upper lobe, currently 12.0 x 8.9 cm, with markedly increased mediastinal invasion with leftward displacement of the mediastinal structures. She still has evidence of pulmonary emboli, but these were stable compared to prior imaging. She was found to be profoundly anemic, with a hemoglobin of 6.6 and hematocrit 22.4%. She was transfused with 2 units packed red blood cells overnight. She is a bit sleepy this morning, but feels that she is breathing slightly better. She is not sure how much she can do when she is up and about. She spends most of her time in bed or at rest. OBJECTIVE: Low-grade fever. T-max 37.8, P 132, R 22, BP 117/66, O2 saturation 94% on 3 L oxygen by nasal cannula. HEENT: Conjunctivae slightly pale. Mucous membranes moist. No oral lesions. Nodes: There is a fullness in the right supraclavicular region/right lower neck. No axillary adenopathy. Chest: Decreased at the right base. Cardiac exam: Tachycardic but regular. Abdomen: Soft, nontender. Normoactive bowel tones. Extremities: Trace edema, 2+ distal pulses. No calf tenderness. LABORATORIES: WBC 13.4, hemoglobin 9.6, hematocrit 30.6%, platelets 707,000. Sodium 133, potassium 4.7, BUN 9, creatinine less than 0.3, glucose 111. ASSESSMENT AND PLAN: Progressive metastatic pulmonary adenocarcinoma, refractory to first-line carboplatin/weekly paclitaxel chemotherapy, now on nivolumab: The patient has only received one dose of immunotherapy with nivolumab, approximately two weeks ago. Current increased shortness of breath is likely due to a combination of increasing tumor burden with associated mediastinal invasion and leftward displacement of the mediastinal structures, as well as her worsening anemia. After transfusion, her hematocrit is at baseline. Recommend physical therapy evaluation to assess her current capabilities. Also, check oxygen saturation at rest and with activity. Continue daily radiation therapy to her involved spine. Once stabilized, she could be returned to the [facility]. Please confirm followup with Dr. Zaman at the [facility].
--- NOTE | 2016-05-18 10:51 | NUR ---
[employer] social work note: Briefly met with patient who is known to me. Met her room Arya. Patient is being discharged today. Please refer to Inpatient [facility] notes. Will have her radiation treatment today then return to the hospital for discharge to [facility]. No care needs identified at this time. Will continue to follow and address any needs as they arise.
--- NOTE | 2016-05-18 11:28 | NUR ---
Social Work Note: Initial Assessment/Discharge Data& Assessment: EMR reviewed. SW met with pt and pt significant other at bedside to discuss discharge planning and assess for any unmet needs, SW role explained. María Craft is a 61 year old female admitted on 05/18/2016 for hypoxia and anemia. Per MD pt is medically improved and ready for discharge. Pt has Medicare insurance coverage. Pt sees Ladi Grider MD for primary care. Pt came from [facility] and plans to return there when medically ready. SW confirmed with [facility] they are able to accept pt back to their facility this afternoon after radiation and will arrange transportation for 12:30p.m.. Pt confirmed discharge plan and denies any other needs. DPOA paperwork on hard chart. No other discharge needs identified. Plan: Per MD pt is medically improved and ready to discharge back to [facility] via wheelchair van at 12:30p.m.. Pt confirmed discharge plan and denies any other needs. No other discharge needs identified. All updated and agreeable to plan. NADYA Diaz Addendum: 05/18/16 at 1143 by VERENICE HAIDER Amended: Links added.
--- NOTE | 2016-05-18 11:42 | NUR ---
Called and spoke with Michela in admissions at [facility] and they will transport patient at 1230PM. 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
[2016-05-18 12:18] VITALS: PULSE 113
--- NOTE | 2016-05-18 12:38 | NUR ---
Discharge Pt d/c'd to [facility] in stable condition. Pt on 3L at 94%, able to transfer 1 person assist to wheelchair. Pt off unit from [id number] to radiation.
--- NOTE | 2016-05-18 15:43 | PCM.DC.MED ---
Discharge Summary Date of Service May 18, 2016 Dates of Hospitalization Date of Hospital Admission May 17, 2016 at 14:47 Date of Discharge: May 18, 2016 Providers: Admitting Physician: Epi Treadwell MD Primary Care Physician: Jasmin Treadwell DO Attending Physician: Epi Treadwell MD Diagnosis at Time of Discharge Diagnosis at Time of Discharge Acute on chronic respiratory failure with hypoxia; metastatic non-small cell lung cancer; symptomatic anemia; chronic pain Consultations Oncology, Dr. Jaspal Jenkins Procedures XRay, CTs & MRIs PROCEDURE: CT ANGIO CHEST PULMONARY EMBOLISM ([id number]) COMPARISON: [facility], CT, CT CHEST W CON, 04/28/2016, 8:08. IMPRESSION: 1. Bilateral pulmonary emboli redemonstrated involving segmental and subsegmental pulmonary arteries in the lower lobes without evidence of interval progression in the degree of clot burden. 2. Marked progressive increase in size of a large right upper lobe mass with associated marked increase in extensive mediastinal, right hilar, and right chest wall invasion as described with associated bony destruction, displacement of mediastinal structures, and extension into the right T4-T5 neuroforamen. 3. Extensive encasement and narrowing of right hilar bronchovascular structures including marked narrowing of peripheral right upper lobe pulmonary arteries and the right upper lobe bronchus with associated postobstructive consolidation. 4. Marked increase in mediastinal and right hilar lymphadenopathy as well as right supraclavicular and posterior neck lymphadenopathy. 5. New bilateral pleural effusions, right greater than left. 6. Left adrenal mass consistent with metastatic disease partially visualized. Dictated by: Bud Carrizales M.D. on 05/17/2016 at 13:42 . Brief History History of Present Illness (per admission note): Ms. Craft was diagnosed with stage IV non-small cell lung cancer in 02/2016. She has undergone chemotherapy and recent radiation treatments since (see PMH). She was in her recent baseline state of health today getting ready to go to radiation treatment. The nurse at [facility] checked her O2 sat on her usual 3 L nasal prong, and it was in the 70-80% range. She endorses progressively worsening appetite over the last few days. Mild nausea but no vomiting. No severe chills. Some cough today, but producing only white sputum. No change in her chronic right posterior shoulder pain. No symptoms of neck or face congestion. No change in chronic constipation. She denies any signs of GI bleeding. No new symptoms in abdomen, urinary, peripheral musculoskeletal or neurologic systems. Hospital Course # Acute on chronic respiratory failure with hypoxia. Chest CT imaging suggests progression of cancer. Central vascular structures are compressed by tumor and BNP is elevated. No clear pulmonary parenchymal infiltrate. Symptoms not suggestive of pneumonia. Her acute on chronic hypoxia is multifactorial. Possibly worsened by anemia. Pulmonary embolic disease seems unchanged; hence not a cause of acute worsening. Compression of pulmonary artery and central veins may be playing a role. Oxygen saturation returned to normal after transfusions of 2 units red blood cells. She has mild cough but no evidence of infectious pneumonia at this time. She seems high risk for postobstructive pneumonia and further respiratory compromise. She was advised that the current CT scan does show progression of the tumor compared to previous. - She was deemed clinically stable to return to [facility] facility and continue with her outpatient radiation treatments. - Dr. Zaman to manage outpatient transfusions for symptomatic anemia. # Anemia. Likely chronic disease related. No current evidence of GI bleeding. Bilirubin level, no evidence of hemolysis. - Transfused 2 units red blood cells - Lasix 20 mg IV, no other intravenous fluids at present due to elevated BNP. - Vital signs were stable and she continued adequate urine output # Elevated BNP. Findings test difficult to determine. Overall seems clinically euvolemic. BNP is likely due to cancer encasement of great vessels. Does not seem to be congestive heart failure. - This is not classic CHF; No medication changes # Bony metastases with Chronic pain. Patient reports no significant change. Radiology suggest progression of bony lesions in her chest. - She reported inadequate pain control and concerns that breakthrough oxycodone tablets were not brought promptly at the [facility] facility. - I have increased her fentanyl patch from 75 g per hour to 100 g per hour in order to reduce her need for breakthrough tablets. - Avoid skeletal movements that might precipitate pathologic fracture # Constipation. Opioid induced. - Aggressive bowel regimen # Hyponatremia. Patient is euvolemic. 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 - Serum sodium 132 on admission, 133 prior to discharge. Seems clinically mild and asymptomatic at this time. # Pulmonary embolism. Initially switched IV heparin. Current assessment is no progression of disease; no therapeutic failure of Lovenox. - Continue therapeutic Lovenox 50 mg subcutaneous every 12 hours # Metastatic non-small cell lung cancer. - Patient was advised of progression of her disease - She missed her radiation treatment on 05/17 but was discharged to complete her treatment on 05/18 and continue from there - She has appointment scheduled for further chemotherapy options with Dr. Zaman - Performed goals of care discussion, but she endorses hope of therapeutic response. She declined palliative consult at this time. She seems sobered by the news that there has been little response to chemoradiation so far. Her social supports are very weak. # Thrombocytosis. Stable cancer related. # CODE STATUS. Discussed with patient and she endorses a request for full code. She is optimistic about response to nivolumab, and feels that her cancer may be curable. # Patient seems at high risk for readmission in the near future. . Exam Vital Signs (Last) Date Time Temp Pulse Resp B/P Pulse Ox O2 Delivery O2 Flow Rate FiO2 05/18/16 12:18 113 05/18/16 08:00 Supplement Oxygen 05/18/16 08:00 37.8 22 117/66 94 3.00 Exam General: Pale appearing, sitting up in bed conversant, no acute distress HEENT: Pupils symmetric and reactive, sclerae anicteric, oral mucosa moist, face appears normal Neck: no JVD, no congestion, rubor or venous dilation. Chest: Generally clear to auscultation Cardiac: S1S2, no murmur Abdomen: BS normal, non-tender Extremities: No pitting edema; right upper extremity shoulder mobility restricted due to pain Neuro: A&O, cranial nerves symmetric, motor strength 4/5, coordination normal Test 05/17/16 11:30 05/18/16 05:50 Neutrophils (%) (Auto) 87.7% (40-74) Lymphocytes (%) (Auto) 3.0% (14-46) Monocytes (%) (Auto) 8.1% (4-12) Eosinophils (%) (Auto) 0.2% (0-5) Basophils (%) (Auto) 0.1% (0-3) Prothrombin Time 12.6sec (8.1-12.5) Prothromb Time International Ratio 1.17ratio Activated Partial Thromboplast Time 35.0sec (22.8-33.0) Magnesium Level 2.0mg/dL (1.6-2.6) Total Bilirubin 0.2mg/dL (0.0-1.2) Aspartate Amino Transf (AST/SGOT) 12U/L (0-50) Alanine Aminotransferase (ALT/SGPT) 7U/L (0-32) Alkaline Phosphatase 141U/L (25-165) Troponin T 0.010ug/L (0.0-0.011) Pro-B-Type Natriuretic Peptide 1691pg/mL (0-287) Total Protein 5.0g/dL (6.4-8.4) Albumin 2.0g/dL (3.4-5.0) Hold Garcia Top Tube Received (Received) White Blood Count 13.4th/mm3 (3.8-10.1) Red Blood Count 3.50mil/mm3 (3.90-5.20) Hemoglobin 9.6g/dL (12.0-15.6) Hematocrit 30.6% (35.0-46.0) Mean Corpuscular Volume 87.4fL (81-100) Mean Corpuscular Hemoglobin 27.4pg (27.0-35.0) Mean Corpuscular Hemoglobin Concent 31.4% (32.0-37.0) Red Cell Distribution Width 17.9% (12.3-15.4) Platelet Count 707bil/L (150-400) Sodium Level 133mEq/L (134-144) Potassium Level 4.7mEq/L (3.5-5.2) Chloride Level 94mEq/L (97-108) Carbon Dioxide Level 29mmol/L (18-29) Blood Urea Nitrogen 9mg/dL (8-27) Creatinine < 0.30mg/dL (0.57-1.00) Estimat Glomerular Filtration Rate 324mL/min (>59) Glucose Level 111mg/dL (60-99) Calcium Level 7.8mg/dL (8.5-10.1) Discharge Medications Discharge Medications ([Fentanyl]) 1 PATCH PATCH 1 PATCH TOPICAL Q3D Prescribed by: EPI TREADWELL MD Docusate Sodium (Docusate Sodium) 250 Mg Capsule 250 MG PO DAILY (Reported) Enoxaparin (Lovenox) 60 Mg/0.6 Ml Syringe 50 MG SUBQ Q12 (Reported) Gabapentin (Gabapentin) 100 Mg Capsule 100 MG PO DAILY (Reported) Gabapentin (Gabapentin) 100 Mg Capsule 200 MG PO HS (Reported) Metoprolol Tartrate (Metoprolol Tartrate) 25 Mg Tablet 25 MG PO BID (Reported) Sennosides (Senna) 8.6 Mg Tablet 8.6 MG PO HS (Reported) As needed Acetaminophen (Acetaminophen) 325 Mg Capsule 650 MG PO q4 hours PRN PRN For Pain (Reported) Docusate Sodium (Colace) 100 Mg Capsule 100 MG PO BID PRN PRN For Constipation ( Reported) Magnesium Hydroxide (Milk of Magnesia) 400 Mg/5 Ml Oral.susp 30 ML PO DAILY PRN PRN For Constipation (Reported) Omeprazole (Omeprazole) 20 Mg Capsule.dr 20 MG PO DAILY PRN PRN For Nausea ( Reported) Ondansetron (Ondansetron) 4 Mg Tablet 4 MG PO Q6H PRN PRN For Nausea (Reported) oxyCODONE (oxyCODONE) 5 Mg Tablet 10 MG PO Q4H PRN PRN FOR PAIN W/ TYLENOL PLEASE Prescribed by: EPI TREADWELL MD Additional med instructions Your fentanyl patch has been increased, so that she will not require as many oxycodone pills. The oxycodone prescription has been changed every 4 hours and may be taken with acetaminophen at the same time if needed. Do not take oxycodone if you are not feeling very sedated by the fentanyl patch. Followup Plan Follow-up plan You will continue with the radiation treatments. Discharge Diet: No restrictions Discharge Activity: Other (according to the physical therapy staff at the [facility] facility) Patient Instructions The dropping oxygen level was likely due to the drop in your blood counts. You received a transfusion and the oxygen level has improved within [address] scan of your chest shows that your tumor has increased and spread. You are likely to experience some cough, weakness, appetite loss, and low red blood cell counts due to the progression of your lung cancer. We encourage you to maintain good nutrition. We encourage you to work with physical therapy to maintain your strength. You may benefit from a consultation with the Palliative Medicine service. You have declined at this time but may pursue this in the future. Follow-up Provider: Carmel Zaman MD Follow-up with PCP in: 1 week (contact Dr. Zaman's office for your next follow-up appointment) Time spent 40 minutes copies to: Carmel Zaman MD; Jasmin Treadwell Jeffrey W MD May 18, 2016 15:43
== END 2016-05-18 12:34 | disposition home or self-care (01) | DRG 189 ==
LOC: SED 10:20 → CCU 14:47 → PCC 05-18 10:32
PROVIDERS: ADMIT Internal Medicine; ATTEND Internal Medicine
PROC: 30233N1 Transfusion of Nonautologous Red Blood Cells into Peripheral Vein, Percutaneous Approach (ICD-10-PCS; principal; 2016-05-17)
DX: J96.21 Acute and chronic respiratory failure with hypoxia (principal); C34.11 Malignant neoplasm of upper lobe, right bronchus or lung; C79.51 Secondary malignant neoplasm of bone; C79.72 Secondary malignant neoplasm of left adrenal gland; C79.89 Secondary malignant neoplasm of other specified sites; E22.2 Syndrome of inappropriate secretion of antidiuretic hormone; I82.509 Chronic embolism and thrombosis of unspecified deep veins of unspecified lower extremity; D63.0 Anemia in neoplastic disease; K59.03 Drug induced constipation; D47.3 Essential (hemorrhagic) thrombocythemia; F17.200 Nicotine dependence, unspecified, uncomplicated; R26.9 Unspecified abnormalities of gait and mobility; B91 Sequelae of poliomyelitis; Z79.82 Long term (current) use of aspirin; Z79.01 Long term (current) use of anticoagulants

== ENCOUNTER 2016-06-03 00:20 | Day surgery (SDC) | payer MEDICARE ==
[~2016-06-03] VITALS: Ht 154.9 cm; Wt 45.5 kg
[~2016-06-03 00:20] MED LIST changes: +ACET325C PO; -ASPI-973 PO; +DOCU250C2 PO; +GABA-500 PO; +MAGN400O4 PO; -OXYC-466 PO; +OXYC5TAB72 PO; +SENN-133 PO
[2016-06-03] MEDS ORDERED: 0.9% Sodium Chloride 250 ML ONE (07:33)
[2016-06-03 08:00] VITALS: BP 84/54; PULSE 117; RESP 16; O2SAT 93
[2016-06-03] MEDS ORDERED: HepLOK Flush 100 unit/mL 5 mL Inj IVFLUSH PRN (08:00)
[2016-06-03] MEDS ORDERED: FENT-2 TRANSDERM (08:09)
[2016-06-03] MEDS ORDERED: ENOX60DI7 SUBQ (08:09)
[2016-06-03] MEDS ORDERED: OXYC5SOL11 PO (08:09)
[2016-06-03] MEDS ORDERED: ONDA-53 PO (08:09)
[2016-06-03] MEDS ORDERED: Alteplase (Cathflo) 1 mg/mL 2 mL Inj INTRACATH ONE (09:05)
[2016-06-03] MEDS ORDERED: Alteplase (Cathflo) 1 mg/mL 2 mL Inj IVPUSH ONE (09:05)
[2016-06-03 11:12] VITALS: BP 84/54; PULSE 117; RESP 16
[2016-06-03 11:27] VITALS: BP 82/52; PULSE 117; RESP 16; O2SAT 93
[2016-06-03 14:25] VITALS: BP 85/52; PULSE 105; RESP 16; O2SAT 93
[2016-06-03 14:40] VITALS: BP 83/54; PULSE 100; RESP 16
[2016-06-03 17:14] VITALS: BP 95/59; PULSE 103; RESP 16
--- NOTE | 2016-06-03 17:15 | NUR ---
RBC/PORT Pt tolerated 2 units RBC without fail. VSS but running low 84/54, Lasix held by MD wiseman. Pt denies any adverse side affects. Pt port wouldn't draw blood, IVT used cath flow, by the end of the blood transfusion port is drawing blood and patent. Pt has been up to urinate in the BR although she was very weak, next use was on the [facility]. Pt will be seen at cancer care tomorrow, port will be left accessed per pt req. Labs drawn 30 post transfusion. No further interventions indicated. Addendum: 06/03/16 at 1748 by FREDDIE SANTIAGO RN Port will not draw.
== END 2016-06-03 23:59 | disposition home or self-care (01) ==
LOC: MOCO 00:20
PROVIDERS: ATTEND Internal Medicine
DX: D64.9 Anemia, unspecified (principal)
CPT/HCPCS: 36415; 36430; 85014; 85018; 86922; J7050; P9021

== ENCOUNTER 2016-06-13 21:20 | Inpatient (IN) | payer MEDICARE ==
[~2016-06-13] VITALS: Ht 162.6 cm; Wt 53.6 kg
[~2016-06-13 21:20] MED LIST changes: +ENOX60DI7 SUBQ; +FENT-2 TRANSDERM; -LOV60 SUBQ; -MAGN400O4 PO; +OXYC5SOL11 PO; -OXYC5TAB72 PO
[2016-06-13 21:22] VITALS: BP 103/53; PULSE 130; RESP 40; O2SAT 99
--- NOTE | 2016-06-13 21:35 | ED.REPORT ---
HPI-Dyspnea / Wheezing Date of Service Jun 13, 2016 ED Provider: Cecy Loya MD A 61 year old female with a history of PE, stage IV pulmonary adenocarcinoma, pneumonia, and multiple other medical concerns is brought to the ED via EMS due to shortness of breath. Per paramedics, the pt had been experiencing shortness of breath for 1.5 hours. Her oxygen saturation was 88% on room air and 98% on 8 L oxygen via nasal cannula. The pt states that she has been feeling unwell since she woke up this morning. She complains of constant right sided chest pain that is not baseline as well as a cough and fever. She denies lower extremity edema, rash, or black stool. Per pt's friend, the pt has been looking significantly more pale than normal today. She does not normally have breathing treatments at home. The pt resides at [facility]. Her last chemotherapy and radiation treatments were two months ago, but she has undergone Opdivo infusions more recently. Nursing Notes Stated Complaint: SHORTNESS OF BREATH Chief Complaint: Respiratory Complaints Nursing Notes Reviewed: Yes Allergies: Coded Allergies: cyclobenzaprine (Verified Allergy, Unknown, Unknown, 06/13/16) per outpatient record prednisone (Verified Adverse Reaction, Severe, "makes my skin crawl", 06/13) Scheduled Docusate Sodium (Docusate Sodium) 250 Mg Capsule 250 MG PO DAILY Enoxaparin Sodium (Enoxaparin Sodium) 60 Mg/0.6 Ml Syringe 50 MG SUBQ BID Fentanyl 75 mcg/hr Patch (Fentanyl 75 mcg/hr Patch) 1 Each Patch.td72 1 PATCH TRANSDERM Q3D Gabapentin (Gabapentin) 100 Mg Capsule 100 MG PO DAILY Gabapentin (Gabapentin) 100 Mg Capsule 200 MG PO HS Metoprolol Tartrate (Metoprolol Tartrate) 25 Mg Tablet 25 MG PO BID Multivitamin (Multi Vitamin Daily) 1 Each Tablet 1 EACH PO DAILY Sennosides (Senna) 8.6 Mg Tablet 8.6 MG PO HS Scheduled PRN Acetaminophen (Acetaminophen) 325 Mg Capsule 650 MG PO q4 hours PRN PRN For Pain Docusate Sodium (Colace) 100 Mg Capsule 100 MG PO BID PRN PRN For Constipation Omeprazole (Omeprazole) 20 Mg Capsule.dr 20 MG PO DAILY PRN PRN For Nausea oxyCODONE (oxyCODONE) 5 Mg/5 Ml Solution 10 MG PO Q4H PRN PRN For Pain Miscellaneous Medications Ondansetron (Ondansetron) 4 Mg Tablet 4 MG PO General Time Seen by MD: 21:33 Chief Complaint Shortness of breath Hx Obtained From: Patient, EMS Arrived By: Ambulance Sudden in Onset?: No Onset Occurred: 1 - 4 hours ago Symptom Duration: Since onset Recent Healthcare: Recent doctor visit, Recent hospitalization Similar Sx Previous: No Past Medical History Past Medical History - Stage IV pulmonary adenocarcinoma - Cancer-related PE - Pneumonia - Thrombocytosis - 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 Past Surgical History Corrective surgery on her feet in childhood, otherwise none. Pt resides at [facility]. Family History Mother blood clot Father cancer unspecified Brother Ear cancer Sister Breast cancer Smoking History Current Every Day Smoker Ambulatory Status Cane Review of Systems Review of Systems Note: pale denies black stool Constitutional: Reports: Fever Respiratory: Reports: Non-productive cough, Shortness of breath Cardiovascular: Reports: Chest pain, Denies: Edema Musculoskeletal: Denies: Back pain Skin: Denies Rash Complete sys rev & neg: except as marked. Physical Exam Initial Vital Signs Vital Signs (First) Date Time Temp Pulse Resp B/P Pulse Ox O2 Delivery O2 Flow Rate FiO2 06/13/16 21:22 37.3 130 40 103/53 99 Nasal Cannula 8 Initial VS: Reviewed General/Constitutional: Awake, Alert chronically ill appearing muscle wasting in all extremities Neck: Atraumatic, Supple, Full range of motion Respiratory / Chest: Atraumatic, Breath sounds = bilat, No respiratory distress diffuse rhonchi and wheezing throughout lung exam Cardiovascular: Regular rhythm, Heart sounds NL Heart Rate / Rhythm: Positive: Tachycardia ENT: Atraumatic, Airway patent, Mucous membranes moist Abdomen: Atraumatic, Soft, Non-tender, No distention Back: Atraumatic, Full range of motion Lower Extremity / Pelvis / MS: Atraumatic Skin: Atraumatic, Color NL, No rash, Warm, Dry Neurologic: Oriented X3, Speech NL, No sensory deficits Head / Eyes: Atraumatic, Normocephalic, PERRL, EOMI Upper Extremity / MS: Atraumatic Psychiatric: Affect NL, Mood NL Interpretation & Diagnostics Interpretation & Diagnostics: CT Pulmonary Angiogram: CONCLUSION: Bilateral pulmonary emboli. Large destructive mass in the right upper lobe extending into the right chest wall. Large right pleural effusion with compression atelectasis. A mobile postobstructive pneumonia in the right upper lobe. Diffuse emphysema. Possible metastatic disease to the left adrenal gland were primary in the left kidney. Lab Results Interpretation Result Diagram: 06/13/16213706/13/162137 Test 06/13/16 21:38 06/14/16 00:10 White Blood Count 16.6th/mm3 (3.8-10.1) Red Blood Count 3.81mil/mm3 (3.90-5.20) Hemoglobin 10.3g/dL (12.0-15.6) Hematocrit 33.1% (35.0-46.0) Mean Corpuscular Volume 86.9fL (81-100) Mean Corpuscular Hemoglobin 27.0pg (27.0-35.0) Mean Corpuscular Hemoglobin Concent 31.1% (32.0-37.0) Red Cell Distribution Width 17.1% (12.3-15.4) Platelet Count 263bil/L (150-400) Neutrophils (%) (Auto) 87.3% (40-74) Lymphocytes (%) (Auto) 4.3% (14-46) Monocytes (%) (Auto) 7.7% (4-12) Eosinophils (%) (Auto) 0.2% (0-5) Basophils (%) (Auto) 0.1% (0-3) Prothrombin Time 13.7sec (8.1-12.5) Prothromb Time International Ratio 1.27ratio Activated Partial Thromboplast Time 38.6sec (22.8-33.0) Sodium Level 130mEq/L (134-144) Potassium Level 3.9mEq/L (3.5-5.2) Chloride Level 90mEq/L (97-108) Carbon Dioxide Level 24mmol/L (18-29) Blood Urea Nitrogen 9mg/dL (8-27) Creatinine 0.30mg/dL (0.57-1.00) Estimat Glomerular Filtration Rate 324mL/min (>59) Glucose Level 137mg/dL (60-99) Calcium Level 8.1mg/dL (8.5-10.1) Total Bilirubin 0.3mg/dL (0.0-1.2) Aspartate Amino Transf (AST/SGOT) 16U/L (0-50) Alanine Aminotransferase (ALT/SGPT) 10U/L (0-32) Alkaline Phosphatase 138U/L (25-165) Troponin T 0.095ug/L (0.0-0.011) Pro-B-Type Natriuretic Peptide 3143pg/mL (0-287) Total Protein 5.6g/dL (6.4-8.4) Albumin 2.1g/dL (3.4-5.0) Procalcitonin 4.59ng/mL (0.00-0.08) Lactic Acid Level 1.0mmol/L (0.4-2.0) ECG Interpretation ECG Interpretation: normal sinus rhythm with a rate of [address] elevation flattened T wave in AVR and V1 slight Q wave in V2, 3, and AVF unchanged from previous dated 05/17/2016 Time: 21:41 Interpreted by: ED physician X-Ray Chest Interpretation Chest Xray Interpretation: interval resolution of left pleural effusion unchanged right upper lobe mass increased opacity of right perihilar area port in the correct position Interpretation / Wet Read by: Wet read ED physician Re-Eval/Medical Decision Med Decision/Clinical Course 61-year-old female with extensive past medical history including metastatic lung cancer, multiple PEs, multiple recent pneumonias, with hospitalization this past April here with shortness of breath and worsening chest pain. Differential diagnosis includes but is not limited to PE versus pneumonia versus pleural effusion versus worsening of her cancer. Patient was tachycardic and hypoxic upon arrival. I started her on fluids, and am treating presumptive healthcare associated pneumonia with vanc and Zosyn. She has evidence of bilateral PEs. She is is being treated currently with therapeutic Lovenox. After discussing the case with the hospitalist, we switched her to heparin. She is currently full code, though I did start the discussion about her long-term care goals. Her CTA also is concerning for postobstructive pneumonia. Her vitals improved somewhat while she was in the emergency department. She has been admitted to the ICU for further monitoring, antibiotics, and therapeutic treatment of her bilateral PEs. Source of Hx: Old records Re-Evaluation/Progress : Time of Eval: 23:48 Patient Status: Condition improved Re-Evaluation/Progress Note: Pt rechecked, who is resting comfortably. She is informed of her radiology results and the need for admission. The pt understands and agrees with the plan. All questions were addressed at this time. Consultation : Referral / Consult Name: Lor Murray DO Consulted With: Hospitalist Call Returned at: 00:12 Trim Mechanic: Agrees with eval, Agrees with plan, Accepts admit Note: Spoke with Dr. Murray, hospitalist, regarding pt's case. Dr. Murray agrees with the evaluation and agrees to admit the pt. Counseled Regarding: Diagnosis, Lab results, Need for admission Discharge & Departure Impression: Primary Impression: Pulmonary emboli Additional Impression: Pneumonia Disposition: ADMITTED TO HOSPITAL Discharge Condition All VS Reviewed: Yes Condition: Stable Referrals: Jasmin Grider DO (PCP) Erendira Attestation Portions of this note were transcribed by Mildred Laureano. I, Dr. Loya personally performed the history, physical exam and medical decision-making; I reviewed and confirmed the accuracy of the information in the transcribed note. Signed by: Erendira Monaco, 06/14/2016 and 0216. copies to: Jasmin Grider Rebecca A MD Jun 13, 2016 21:35 MILDRED LAUREANO Jun 13, 2016 21:44
[2016-06-13 21:44] LABS: BASOPHILS % (AUTO) 0.1 % (0-3); EOSINOPHILS % (AUTO) 0.2 % (0-5); MONOCYTES % (AUTO) 7.7 % (4-12); Mean Corpuscular Volume 86.9 fL (81-100); NEUTROPHILS % (AUTO) 87.3 % (40-74); Platelet Count 263 bil/L (150-400)
[2016-06-13 21:45] VITALS: BP 102/52; PULSE 128; RESP 29; O2SAT 98
[2016-06-13 22:12] LABS: INR 1.27 ratio
[2016-06-13 22:56] LABS: TROPONIN T 0.095 ug/L (0.0-0.011)
[2016-06-13] MEDS ORDERED: 0.9% Sodium Chloride 500 ML IV ONE (23:00)
[2016-06-13 23:08] VITALS: BP 97/47; PULSE 132; RESP 34; O2SAT 95
[2016-06-13] MEDS ORDERED: Vancomycin Inj 1,000 MG in IV Premix 1 EACH IV ONE (23:50)
[2016-06-13] MEDS ORDERED: Piperacillin-Tazo 3.375 Gm Inj 3.375 GM in Dextrose 5% Minibag Plus 50 ML IV ONE (23:50)
[2016-06-14] VITALS (9 sets, daily range): BP systolic 95–129; BP diastolic 45–96; PULSE 93–128; RESP 20–32; O2SAT 94–97
[2016-06-14] MEDS ORDERED: Acetaminophen IV 1,000 MG in IV Premix 1 EACH IV PRN (00:15)
[2016-06-14] MEDS ORDERED: Ondansetron 2 mg/mL 2 mL Inj IVPUSH PRN ×2 (00:15→02:55)
[2016-06-14] MEDS ORDERED: MULT-1018 PO (02:07)
--- NOTE | 2016-06-14 02:35 | PCM.HPMED ---
Subjective Date of Service Jun 14, 2016 Primary Provider: Admitting Physician: Lor Murray DO Primary Care Physician: Jasmin Grider DO Attending Physician: Lor Murray DO Admit Status: From the Emergency Department Chief Complaint: dyspnea History of Present Illness: 61yoF with past medical history of stage IV non-small cell lung cancer (dx'd 2015), PE on therapeutic lovenox, admitted from SNF with acute onset of shortness of breath. Patient states that she was in her nursing facility earlier in the evening and became acutely short of breath. On admission patient is somnolent but easily arousable, falling asleep during interview. As per ED documentation, EMS mentioned that patient had been short of breath for 1.5 hours prior to their arrival with oxygen saturation 88% on RA which improved to 98% on 8L nasal cannula. On presentation she endorsed right sided chest pain with associated cough and fever. Last chemotherapy was 2 months ago. At this time she is receiving nivolumab infusions. Lung cancer has been managed in the past by Drs. Jenkins and Austyn Recent admissions include 05/17-05/18 for acute on chronic respiratory failure and 04/18-04/30 during which time her pulmonary embolism was diagnosed. Review of Systems: complete review of system obtained. positive as per hpi otherwise negative. Allergies Coded Allergies: cyclobenzaprine (Verified Allergy, Unknown, Unknown, 06/13/16) per outpatient record prednisone (Verified Adverse Reaction, Severe, "makes my skin crawl", 06/13) Home Medications per [facility] med rec Acetaminophen Colace Enoxaparin 50mg BID Fentanyl patch 72 hour 100mcg/hr Gabapentin Metoprolol Omeprazole Ondansetron Oxycodone Senna PMH Bilateral pulmonary emboli due to hypercoagulability in the setting of cancer, acute, present on admission. 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 Cancer pain, present on admission and ongoing Hypoxemic respiratory failure Poliomyelitis (age 4 years) Chronic tobacco use (40+ pack year history) Surgical History Correctional surgery on her feet secondary to the poliomyelitis - approximately age 5 or 6 years Family History Mother last year of a major stroke; also had history of heart disease Social History Hx Alcohol Use: Yes (ocassional) Hx Substance Use: No Hx Tobacco Use: Yes Smoking Status: Former Smoker Exam Vital Signs Vital Sign - Last Date Time Temp Pulse Resp B/P Pulse Ox O2 Delivery O2 Flow Rate FiO2 06/14/16 01:00 37.7 123 24 95/53 96 Nasal Cannula 6.00 Intake and Output 06/13/16 06/13/16 06/14/16 Cumulative From/Thru 15:00 23:00 07:00 06/13/16 21:22 - 06/14/16 01:07 Intake Total 500 ml 500 ml Balance 500 ml 500 ml Intake IV Total 500 ml 500 ml Exam General: somnolent but easily arousable, Oriented X3, Cooperative, No acute Distress Eyes: PERRLA, Scleral Anicteric Mouth: Mouth Normal, Mucous Membranes Moist/[place] Neck: Supple, no Thyromegaly, trachea central. Chest & Lungs: decreased breathe sounds, coarse Cardiovascular: Normal S1, Normal S2, No Murmurs/Rubs/Gallops, Regular Rate/ Rhythm, (No JVD, no peripheral edema) Pulses: Radial (present and equal), Dorsalis Pedi (present and equal) Abdomen: Soft, no tenderness, not distended, hypoactive bowel tones. Musculoskeletal: Unremarkable. Normal range of motion, no swollen or erythematous joints Extremities: No edema, no cyanosis, no clubbing. Skin: sacral ulcer with heal ulcers Neurological: Grossly neurologically intact, has generalized weakness, Normal Speech, Sensation Intact Lymphatic: Lymph nodes Cervical and Axillary not palpable. Lab and Diagnostics Result Diagram: 06/13/16213706/13/162137 12-lead ECG reviewed. 06/13 HR 130, sinu PR117 QTc 371 No ischemic change Assessment & Plan 61yoF with past medical history of stage IV non-small cell lung cancer (dx'd 2015), PE on therapeutic lovenox, admitted from SNF with acute onset of shortness of breath meeting sepsis criteria with likely post obstructive pneumonia / HCAP Hypoxic respiratory failure, acute, POA -secondary to lung cancer, PE and post obstructive pneumonia -ABG prn -oxymask on admission to keep oxygen sat >92% -treatment as below Sepsis, acute, POA -HR>90, RR>20, WBC >12 -likely secondary to post obstructive pneumonia vs HCAP -treatment as below Post obstructive pneumonia, acute, POA -piperacillin-tazobactam and vancomycin started in ED, continue -albuterol q2HR PRN -fluid bolus PRN, elevated pro-BNP -MAP >55-60, will start norepinephrine if BP not fluid responsive, patient does have port Elevated troponin, acute, POA -newly elevated with complaints of right sided chest pain -EKG reviewed, no ischemic change -patient currently anticoagulated with enoxaparin, continue -potentially associated with PE -trend troponins -EKG PRN -no betablocker as patient is hypotensive, will hold off on lipid panel and hgbA1c given severity of underlying disease Hyponatremia, acute on chronic, POA -patient noted to have hyponatremia on prior admissions -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 Zaman of admission Pulmonary embolism, aorta thrombus, svc thrombus, chronic -continue enoxaparin 50mg BID -discuss imaging with oncology to assess for treatment failure Pain Evaluation: Adequate Pain Control GI Prophylaxis: Proton Pump Inhibitor VTE Prophylaxis: Other (patient is currently anticoagulated with enoxaparin 50mg BID) Resuscitation Status: Limited Interventions (Discussed with patient. reportedly full code but she states she doesn't want to be intubated but doesn' t believe her breathing will become a problem. AM team to discuss code status further with palliative care) Lor Murray DO Jun 14, 2016 02:35
[2016-06-14] MEDS: Vancomycin Dose per Pharmacist XX SCH ×2 (02:46→08:30)
[2016-06-14 02:50] LABS: Mean Corpuscular Hemoglobin 27.3 pg (27.0-35.0); Mean Corpuscular Volume 87.9 fL (81-100); Platelet Count 254 bil/L (150-400)
[2016-06-14] MEDS ORDERED: Polyethylene Glycol (PEG) 17 Gm Powder PO PRN (02:55)
[2016-06-14 03:18] LABS: BASOPHILS % (AUTO) 0 % (0-3); EOSINOPHILS % (AUTO) 0 % (0-5); MONOCYTES % (AUTO) 6 % (4-12); NEUTROPHILS % (AUTO) 90 % (40-74)
[2016-06-14] MEDS ORDERED: 0.9% Sodium Chloride 1,000 ML IV SCH (03:25)
[2016-06-14 03:51] LABS: TROPONIN T 0.104 ug/L (0.0-0.011)
--- NOTE | 2016-06-14 03:53 | PCM.CONPHA ---
Subjective Date of Service: Jun 14, 2016 Requesting Provider: Lor Murray DO dyspnea History of Present Illness Possible HCAP Reason for Pharmacy Consult: Vancomycin Dosing Objective Vital Signs Date Time Temp Pulse Resp B/P Pulse Ox O2 Delivery O2 Flow Rate FiO2 06/14/16 01:00 37.7 123 24 95/53 96 Nasal Cannula 6.00 06/14/16 00:29 128 27 96/45 94 Nasal Cannula 6 06/14/16 00:25 128 27 96/45 94 Nasal Cannula 6 06/13/16 23:08 132 34 97/47 95 Nasal Cannula 6 06/13/16 21:45 128 29 102/52 98 Nasal Cannula 6 06/13/16 21:22 37.3 130 40 103/53 99 Nasal Cannula 8 Intake and Output 06/12/16 06/13/16 06/14/16 00:00 00:00 00:00 Intake Total 500 ml Balance 500 ml Weight (Kilograms): 50.300 Height (Feet): 5 Height (Inches): 4.00 Test 06/13/16 21:38 06/14/16 02:45 Prothrombin Time 13.7sec (8.1-12.5) Prothromb Time International Ratio 1.27ratio Activated Partial Thromboplast Time 38.6sec (22.8-33.0) Total Bilirubin 0.3mg/dL (0.0-1.2) Aspartate Amino Transf (AST/SGOT) 16U/L (0-50) Alanine Aminotransferase (ALT/SGPT) 10U/L (0-32) Alkaline Phosphatase 138U/L (25-165) Pro-B-Type Natriuretic Peptide 3143pg/mL (0-287) Total Protein 5.6g/dL (6.4-8.4) Albumin 2.1g/dL (3.4-5.0) Procalcitonin 4.59ng/mL (0.00-0.08) White Blood Count 15.4th/mm3 (3.8-10.1) Red Blood Count 3.30mil/mm3 (3.90-5.20) Hemoglobin 9.0g/dL (12.0-15.6) Hematocrit 29.0% (35.0-46.0) Mean Corpuscular Volume 87.9fL (81-100) Mean Corpuscular Hemoglobin 27.3pg (27.0-35.0) Mean Corpuscular Hemoglobin Concent 31.0% (32.0-37.0) Red Cell Distribution Width 17.0% (12.3-15.4) Platelet Count 254bil/L (150-400) Neutrophils (%) (Auto) 90% (40-74) Lymphocytes (%) (Auto) 4% (14-46) Monocytes (%) (Auto) 6% (4-12) Eosinophils (%) (Auto) 0% (0-5) Basophils (%) (Auto) 0% (0-3) Metamyelocytes % 0% (0-0) Lactic Acid Level 1.0mmol/L (0.4-2.0) Assessment/Plan Assessment/Plan A/ - 61 y/o female patient required Vancomycin therapy to empirically treat possible HCAP. Patient had last chemo treatment 2 months ago for stage IV lung cancer, and recent hospitalization in Apr when pulmonary embolism was diagnosed. - Febrile with WBC in 16.6. Blood, urine, sputum, and MRSA screen: pending - Wt: 50.3kg, ht: 162.6cm, SCr: 0.3 ml/dL, est. clearance >150 ml/min, BMI: 19 kg/m2 - In ED, loading dose Vancomycin 1G iv given along with Zosyn P/ - Give Vancomycin 750mg iv q12h. Trough level ordered before 3rd dose @ 2330 06/14. This regimen would produce a trough around 17. Pharmacy will continue to follow and make necessary adjustment according to patient's clinical responses. Thank you for consulting clinical pharmacy in the care of this patient Francisco Delcid PharmD, [facility] Benny Delcid Jun 14, 2016 03:52
[2016-06-14] MEDS: Norepinephrine 8,000 mCg/250 mL D5W Premix IV SCH (04:41)
--- NOTE | 2016-06-14 05:19 | NUR ---
Admit note: Pt arrived to room 2015 per cart from ED accompanied by . Pt is awake/alert orientated to person and place. Pt move to bed with use of slide board and assist x4. Monitor shows sinus tach 120-130s and BP 80-90s/40-50. Lung coarse. Pt has 3 small pea size open sores to cocyxx mepilex was applied. Pt has Lt upper chest portacath accessed.
[2016-06-14] MEDS ORDERED: Piperacillin-Tazo 3.375 Gm Inj 3.375 GM in Dextrose 5% Minibag Plus 50 ML IV SCH (08:00)
[2016-06-14] MEDS: Senna-Docusate 8.6-50 mg Tablet PO SCH ×2 (08:09→21:56)
[2016-06-14 08:47] LABS: APPEARANCE,URINE HAZY (CLEAR,HAZY); COLOR,URINE STRAW (YELLOW); OCCULT BLOOD,URINE TRACE (NEGATIVE); UROBILINOGEN,URINE NORMAL (NORMAL); YEAST,URINE FEW (NONE SEEN)
--- NOTE | 2016-06-14 09:20 | DRSVH ---
PROCEDURE: X-RAY CHEST ONE VIEW, PORTABLE ([id number]) INDICATIONS: sob TECHNIQUE: One view of the chest was acquired. COMPARISON: [facility], CT, CT ANGIO CHEST PE, 05/17/2016, 12:47. [facility] , CR, XR CHEST 1VW (PORTABLE), 04/29/2016, 16:18. FINDINGS: Surgical changes and devices: None. Lungs and pleura: Large mass involving the right upper lobe with associated right upper rib destructi on again noted and grossly unchanged. No definite or new focal consolidation. Left chest port with th e tip projecting in the lower SVC. No pneumothorax or pleural effusion. Blunting of the costophrenic angles bilaterally. Interstitium is prominent. Mediastinum: Mediastinal contours appear normal. Heart size is normal. Bones and chest wall: No suspicious bony lesions. Overlying soft tissues appear unremarkable. IMPRESSION: 1. Large right upper lobe mass redemonstrated with associated rib destruction and likely post obstruc tive atelectasis versus pneumonia. 2. Prominent interstitium. Mild edema cannot be excluded. Dictated by: Erik De Los Santos RRA Interpreted: Alisia An MD on 06/14/2016 at 9:18 Transcribed by: RUPAL on 06/14/2016 at 9:20 Approved by: Alisia An MD, PhD on 06/14/2016 at 16:30
--- NOTE | 2016-06-14 09:22 | DRSVH ---
PROCEDURE: CT ANGIO CHEST PULMONARY EMBOLISM ([id number]) INDICATIONS: shortness of breath TECHNIQUE: After the administration of intravenous contrast, 2 mm thick sections acquired from the pulmonary api maico to the posterior costophrenic angles. 3-dimensional maximum intensity projection (MIP) coronal a nd sagittal reformats were then acquired through the thorax. For radiation dose reduction, the follo wing was used: automated exposure control, adjustment of mA and/or kV according to patient size. COMPARISON: [facility], CT, CT CHEST W CON, 04/28/2016, 8:08. [facility], CR , XR CHEST 1VW (PORTABLE), 06/13/2016, 21:34. [facility], CT, CT ANGIO CHEST PE, 7, 12:47. FINDINGS: Image quality: Excellent. Pulmonary arteries: Pulmonary arteries are normal in size. There are intraluminal filling defects in volving the left lower lobe lobar and segmental arteries, as well as right lower lobe segmental arter ies, compatible with acute central pulmonary embolism. Lungs and pleura: There is a large mass in the right upper lobe extending posteriorly invading into t he adjacent right upper ribs and chest wall musculature. The mass measures 10.1 x 1.0 cm, slightly i ncreased in size compared to 05/17/2016. There is extension of the mass into the right hilum compressi ng and severity narrowing the right upper lobe bronchus. Infiltrate in the right upper lobe anteriorl y is consistent with obstructive pneumonia. There is a moderate right pleural effusion, slightly incr eased. There are multiple lung nodules in the left upper and lower lobes, suspicious for pulmonary me tastasis. An 8 mm in the left lower lobe is slightly increasing size (previously measured 7 mm on 04/29). A 6 mm nodule in the left upper lobe previously measured 4 mm. A 1.2 cm nodule in the right lung base was not previously seen, which could obscure by pleural effusion and atelectasis on the las t exam in the same area. Mediastinum: There is excessive mediastinal and right hilar lymphadenopathy, unchanged. Heart size is normal, without pericardial effusion. Thoracic aorta is normal in caliber and enhancem ent. Esophagus is normal in caliber, without hiatal hernia. Bones and chest wall: No suspicious bony lesions. Ribs and thoracic spine appear intact throughout. Thyroid gland is unremarkable. No axillary or supraclavicular adenopathy. Abdomen: There is a large left adrenal mass measuring 5.4 x 5.6 cm consistent with metastasis. IMPRESSION: 1. Acute central pulmonary embolism involving the left lower lobe lobar and segmental arteries, as we ll as the right lower lobe segmental arteries. 2. A large mass in the right upper thorax. It is slightly increased in size compared to the last exam and seen invading the right upper ribs and posterior chest wall/musculature, and extending into the right hilum compressing the right upper lobe bronchus. 3. Multiple left lung nodules suspicious for pulmonary metastases. 4. Extensive right hilar and mediastinal lymphadenopathy consistent with maria fernanda metastasis. 5. Slightly increased moderate sized right pleural effusion. 6. Large left adrenal mass consistent with metastasis. Dictated by: Emil James M.D. on 06/14/2016 at 9:07 Transcribed by: JUNO on 06/14/2016 at 9:22 Approved by: Emil James M.D. on 06/14/2016 at 11:19
[2016-06-14] MEDS: 0.9% Sodium Chloride 250 ML IV SCH (09:51)
[2016-06-14] MEDS ORDERED: Sodium Chloride LOK Flush 10 mL Syringe IVFLUSH PRN ×2 (09:55)
[2016-06-14] MEDS ORDERED: HepLOK Flush 100 unit/mL 5 mL Inj IVFLUSH PRN (09:55)
[2016-06-14] MEDS ORDERED: Vancomycin Inj 1,000 MG in IV Premix 1 EACH IV SCH (10:30)
--- NOTE | 2016-06-14 10:46 | NUR ---
NUTRITION ASSESSMENT Assess: 61 YO F admitted to CCU for PE, pneumonia, and sepsis. Pt has been NPO X 1 day. PMHX: Stg IV non-small cell cancer, bilateral PE, poliomyelitis, respiratory failure, aortic thrombus/superior vena cava thrombus, tobacco. DIET: NPO X 1 day LABS: Na 130, Cr 0.30, Glu 117, Ca 7.4 MEDICATIONS: Reviewed. Pressors. GI: No BM noted. SKIN: Per notes, 3 pea sized open sores on coccyx. ANTHROPOMETRICS: Wt 50.3 kg, BMI 19.0 kg/m2, Admit wt: 50.3 kg. ESTIMATED NEEDS: Cancer Calories: 9604-3354 kcal/day (25-30 kcal/kg BW) Protein: 50-75 g/day (1.0-1.5 g/kg BW) NUTRITION DIAGNOSIS: 1) Inadequate oral intake related to inability to consume sufficient energy as evidenced by NPO status. INTERVENTION: 1) Will await timely advancement of diet. MONITOR/EVALUATE: NPO status, labs, GI, wt, POC, nutrition status. Follow per moderate nutrition risk guidelines.
[2016-06-14] MEDS ORDERED: Vancomycin Inj 750 MG in 0.9% Sodium Chloride 250 ML IV SCH (12:00)
[2016-06-14] MEDS ORDERED: DABI150C PO (13:24)
--- NOTE | 2016-06-14 13:38 | DRSVH ---
PROCEDURE: US VENOUS ARM DUPLEX UNILATERAL, RIGHT INDICATIONS: right arm swelling and redness TECHNIQUE: Real-time imaging, as well as color and pulse Doppler interrogation, was performed of the right upper extremity deep veins from the inferior neck to the antecubital fossa. COMPARISON: [facility], CT, CT ANGIO CHEST PE, 06/13/2016, 23:29. FINDINGS: There are occlusive filling defects in the internal jugular vein consistent with deep venou s thrombosis. There are near occlusive filling defects in the visualized portions of the subclavian v ein consistent with DVT. The brachial veins is occluded secondary to DVT. The axillary vein is not v isualized into patient's pain and limited mobility. The cephalic vein is patent. There is occlusion o f the distal basilic vein and partial portion of the proximal basilic vein. Enlarged supraclavicular lymph nodes is identified measuring 1.4 x 2.7 cm. IMPRESSION: 1. Extensive DVT in the right upper extremity veins and right internal jugular vein extending to the right subclavian vein. 2. Right cervical lymphadenopathy. Dictated by: Emil James M.D. on 06/14/2016 at 13:21 Approved by: Emil James M.D. on 06/14/2016 at 13:37
--- NOTE | 2016-06-14 13:43 | NUR ---
Palliative Care Palliative Care received verbal order from Olamide Sanchez DO 06/14/16 to assist with goals of care. Patient is a 61 year old woman with history of stage IV non-small cell lung cancer. She was admitted 06/14/16 from SNF with acute onset of shortness of breath meeting sepsis criteria with likely post obstructive pneumonia / HCAP. Patient resides at local SNF. Kendrick Craft (son) [phone] Palliative Care to follow. Celeste Rose
--- NOTE | 2016-06-14 13:47 | PCM.CONPAL ---
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 Palliative medicine consulted to assist patient and family in determination of goals of care. Summary of palliative recommendations: -Symptom management (Pain/other)- adequate symptom control with current program. Continue per hospitalist/critical care teams. We will continue to follow and assist with medication adjustments as needed. Discussed additional evaluation and possible interventions/treatment for the newly diagnosed acute central PE with Dr. Sanchez. -DPOA/Advanced Directives/POLST- patient's POA is her son Kendrick. She and Kendrick have discussed advance directive issues in the past and she said that he understands and will comply with her wishes. She has always said that she would not want to be kept alive on machines. We talked at length today about resuscitation issues, particularly in the setting of the findings on her CT scan (recurrent pulmonary emboli and apparent progression of her underlying neoplastic process). While she still wishes to pursue chemotherapy/immune modulating therapy as long as her oncologists recommend that, and continue other medical care, she does want to change her CODE STATUS to DO NOT RESUSCITATE/DO NOT INTUBATE. Orders updated to reflect this. Will plan on assisting her in completing a POLST prior to discharge -Family/emotional support- it sounds as if she has good support from her friend/ roommate Arya she is going to have him contact Kendrick and update him. Palliative team will continue to follow and provide support as able. Patient Goals: 1. Patient wants to be told the truth about her illness, even if it is unpleasant. 2. Patient would like to be told prognosis when it can be predicted, to better guide treatment decisions. Additional Medical Diagnoses with primary management by Hospitalist team include : Hypoxic respiratory failure, acute, POA Sepsis, acute, POA Post obstructive pneumonia, acute, POA Elevated troponin, acute, POA Hyponatremia, acute on chronic, POA Normocytic anemia, chronic Elevated BNP, chronic Stage IV non-small cell lung cancer, chronic Pulmonary embolism, aorta thrombus, svc thrombus, chronic Problems: End of Life Preferences DO NOT RESUSCITATE/DO NOT INTUBATE/limited interventions including treatment for pulmonary emboli and ongoing chemotherapy therapy/immune therapy per oncology Goals of Care Patient continues to hope for stabilization and some quality time in order to get her affairs in order Disposition To be determined Resuscitation Status Resuscitation Status: DNR/DNI:Do Not Resuscitate/Intubate (Discussed with patient. reportedly full code but she states she doesn't want to be intubated but doesn't believe her breathing will become a problem. AM team to discuss code status further with palliative care) POLST Updates/Changes Previous POLST?: No . Advanced Care Planning Address: Code status change Pain: Mild Symptom management: Dyspnea, Pain Pt History History of Present Illness Per admission H&P: 61yoF with past medical history of stage IV non-small cell lung cancer (dx'd 2015), h/o PE now on therapeutic lovenox, admitted from SNF with acute onset of shortness of breath. Patient states that she was in her nursing facility earlier in the evening and became acutely short of breath. On admission patient is somnolent but easily arousable, falling asleep during interview. As per ED documentation, EMS mentioned that patient had been short of breath for 1.5 hours prior to their arrival with oxygen saturation 88% on RA which improved to 98% on 8L nasal cannula. On presentation she endorsed right sided chest pain with associated cough and fever. Last chemotherapy was 2 months ago. At this time she is receiving nivolumab infusions. Lung cancer has been managed in the past by Drs. Jenkins and Austyn Recent admissions include 05/17-05/18 for acute on chronic respiratory failure and 04/18-04/30 during which time her pulmonary embolism was diagnosed. Palliative medicine consulted at the request of Dr. Jenkins of oncology in order to assist patient in determination of goals of care Prior to visiting, I reviewed her records in the EMR in detail, dating all the way back to her initial diagnosis and oncology consultation last February. Also spoke with Dr. Sanchez and the patient's bedside nurse. When I arrived, she is resting quietly in bed with head of bed elevated. Appears to be in mild dyspnea with tachypnea. Was oriented, alert and appropriate. Admits to mild dyspnea but denies any anterior/central severe chest discomfort. Does have chronic right thoracic pain from tumor mass/bony invasion of chest wall. Talked with her at length, reviewing her course of care since her cancer was diagnosed. Though it is unlikely, she claims that her oncologists have never told her how long she had to live, the probabilities of her therapy helping and to what extent (i.e. how much more time aggressive treatment may buy her). I reviewed the findings on her CT scan with her today- answer questions she had a both the new, acute pulmonary emboli and the implications for further treatment. Also advised her of the further progression of her tumor masses on CT. I did tell her that I would defer to her oncologists in terms of whether or not this changes her nivolumab treatment plans. We then talked at length about her goals and plans and then talked about her wishes for aggressive resuscitation. Past Medical History Significant PMH Noted: Bilateral pulmonary emboli due to hypercoagulability in the setting of cancer, acute, present on admission. 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 of 15 years Ayra (she notes they are not intimate but are just very good friends and he helps her maintain the household) Family Members Issues: Her POA is her son Kendrick; he lives in [place] and commutes to and from [place] every day where he works at [employer] She has not let him know about this hospitalization, but says that Arya is going to be talking to him today and updating him I offered to call and talk with Kendrick but she did not want me to She says that she and Kendrick talked about her wishes and he understands and agrees to go along with her wishes Social Support: As above Living Situation: Lived in her own home up until last hospitalization- since has been at [facility] PPS Patient Status: Baseline PPS Ambulation: Mainly Sit/Lie PPS Activity: Unable to do most activity PPS Self-Care: Full Self Care PPS Intake: Normal or reduced PPS Conscious Level: Full Performance Scale: 50% ADLs ADL Patient Status: Baseline ADL Ambulation: Mainly Sit/Lie ADL Dressing: Occasional assistance necessary ADL Feeding: Full ADL Hygene/bathing: Occasional assistance necessary ADL Transfers: Full POLST at Time of Admission Previous POLST?: No Allergy Allergies Reviewed: Yes Medications Current Medications: Current Medications Acetaminophen/ Premix 100 ml @ 400 mls/hr Q6H PRN IV Last administered on 06/14 02:01; Admin Dose 400 MLS/HR; Start 06/14/16 at 00:15 Ondansetron HCl Start with 4 MG, if ... Q4H PRN IVPUSH; Start 06/14/16 at 00:15 ; Stop 06/14/16 at 03:19; Status DC Pharmacy Consult 1 ea 1 ea DAILY XX Last administered on 06/14/16 08:30; Admin Dose 1 EA; Start 06/14/16 at 02:25 Piperacillin Sod/ Tazobactam Sod/ Dextrose/Water 50 ml @ 12.5 mls/hr Q8H IV Last administered on 06/14/16 08:09; Admin Dose 12.5 MLS/HR; Start 06/14/16 at 08:00 Oxycodone HCl 10 mg Q6H PRN PO Last administered on 06/14/16 08:25; Admin Dose 10 MG; Start 06/14/16 at 02:50 Morphine Sulfate 1-2 mg, for breakthrough pain Q4H PRN IVPUSH; Start 06/14/16 at 02:50 Polyethylene Glycol 17 gm DAILY PRN PO; Start 06/14/16 at 02:55 Senna 1 tablet BID PO Last administered on 06/14/16 08:09; Admin Dose 1 TABLET ; Start 06/14/16 at 08:30 Ondansetron HCl 4 mg 4 mg Q4H PRN IVPUSH; Start 06/14/16 at 02:55 Sodium Chloride 1,000 ml @ 50 mls/hr Q20H IV; Start 06/14/16 at 03:25 Vancomycin HCl 750 mg/Sodium Chloride 250 ml @ 166.667 mls/hr Q12H IV; Start at 12:00; Stop 06/14/16 at 12:00; Status DC Norepinephrine/ Premix 250 ml @ 4.71 mls/hr Q24H IV Last administered on 04:41; Admin Dose 4.71 MLS/HR; Start 06/14/16 at 04:20 Enoxaparin Sodium 50 mg 50 mg Q12 SUBQ Last administered on 06/14/16 11:27; Admin Dose 50 MG; Start 06/14/16 at 09:30 Sodium Chloride 250 ml @ 10 mls/hr Q24H IV; Start 06/14/16 at 09:51 Vancomycin/0.9 % Sod Chloride/ Premix 200 ml @ 200 mls/hr Q12H IV Last administered on 06/14/16 11:27; Admin Dose 200 MLS/HR; Start 06/14/16 at 10:30 Scheduled Dabigatran Etexilate Mesylate (Pradaxa) 150 Mg Capsule 150 MG PO BID Docusate Sodium (Docusate Sodium) 250 Mg Capsule 250 MG PO DAILY Enoxaparin Sodium (Enoxaparin Sodium) 60 Mg/0.6 Ml Syringe 50 MG SUBQ BID Fentanyl 75 mcg/hr Patch (Fentanyl 75 mcg/hr Patch) 1 Each Patch.td72 1 PATCH TRANSDERM Q3D Gabapentin (Gabapentin) 100 Mg Capsule 100 MG PO DAILY Gabapentin (Gabapentin) 100 Mg Capsule 200 MG PO HS Metoprolol Tartrate (Metoprolol Tartrate) 25 Mg Tablet 25 MG PO BID Multivitamin (Multi Vitamin Daily) 1 Each Tablet 1 EACH PO DAILY Sennosides (Senna) 8.6 Mg Tablet 8.6 MG PO HS Scheduled PRN Acetaminophen (Acetaminophen) 325 Mg Capsule 650 MG PO q4 hours PRN PRN For Pain Docusate Sodium (Colace) 100 Mg Capsule 100 MG PO BID PRN PRN For Constipation Omeprazole (Omeprazole) 20 Mg Capsule.dr 20 MG PO DAILY PRN PRN For Nausea oxyCODONE (oxyCODONE) 5 Mg/5 Ml Solution 10 MG PO Q4H PRN PRN For Pain Miscellaneous Medications Ondansetron (Ondansetron) 4 Mg Tablet 4 MG PO Current Treatments Ventilator: No Oxygen: Yes IV Fluids: Yes Antibiotics: Yes Telemetry: Yes Critical Care Unit: Yes Objective Findings Exam Vital Sign - Last Date Time Temp Pulse Resp B/P Pulse Ox O2 Delivery O2 Flow Rate FiO2 06/14/16 11:33 36.8 103 26 98/59 97 Nasal Cannula 6.00 Intake and Output 06/13/16 06/13/16 06/14/16 Cumulative From/Thru 15:00 23:00 07:00 06/13/16 21:22 - 06/14/16 06:24 Intake Total 2420 ml 2420 ml Output Total 925 ml 925 ml Balance 1495 ml 1495 ml Intake Oral 200 ml 200 ml IV Total 2220 ml 2220 ml Output Urine Total 925 ml 925 ml Objective Pale, fatigued appearing woman lying in bed. Vital signs noted. Oriented and appropriate. Skin is warm and dry. She was chilled at times but not febrile or diaphoretic. Head and neck exam without acute focal findings. Lungs with decreased breath sounds diffusely. Heart sounds rapid and regular with telemetry showing sinus tachycardia. Abdomen benign. Neurologic grossly intact. Lab/Diagnostics Lab and Imaging results reviewed in detail in EMR. Time spent Total time 85 minutes; >50% face to face with patient, providing counselling regarding plans and recommendations, and in care coordination with her medical teams. Of the above total time, 20 minutes counseling for advanced care planning with the patient, reviewing her wishes regarding aggressive resuscitation, etc. copies to: Carmel Zaman MD; Jasmin Grider David F MD Jun 14, 2016 13:47
--- NOTE | 2016-06-14 14:02 | NUR ---
Faxed script to [facility] to inquire about cost before filling per WAFER LINE WORKER. - updated WAFER LINE WORKER
--- NOTE | 2016-06-14 14:04 | NUR ---
Social Work Note: Attempted Initial Assessment Data& Assessment: EMR reviewed. María Craft is a 61 year old female admitted on 06/14/2016 for PE and pneumonia. Pt has Medicare insurance coverage and sees Jasmin Grider DO for primary care and Dr. Barraza for oncology. SW attempted to meet with pt at bedside for initial assessment but pt explained she was not feeling well enough at this time to talk to SW. SW agreed to come back another time to complete the assessment. SW inquired about pt preferred pharmacy in order to run a prescription for Pradaxa for insurance coverage per MD request. Pt preferred pharmacy is [facility] in [place]. UR specialist faxed prescription with a request to callback with coverage information. SW left voicemail for Oncology CM to notify her of pt hospital admission for coordination of care. Pt denies any other needs at this time. SW to continue to follow. Plan: SW to follow up with pt regarding discharge planning. SW to await call back from [facility] in [place] regarding coverage for prescription per MD request. Pt denies any other needs at this time. SW to continue to follow. NADYA Diaz
[2016-06-14] MEDS: 0.9% Sodium Chloride 1,000 ML IV SCH ×2 (17:17→21:38)
--- NOTE | 2016-06-14 17:32 | NUR ---
Wound Care wound evaluation order received, 61 yo female admitted with right upper extremity DVT from SNF. Presents with 3 small unstageable pressure injuries (POA) at the right side of her sacrum. They are approx 1 cm in diameter with a depth of 0.2 cm, wound bases are fibrinous slough and there is mild erythema, they do not currently communicate with one another and drain minimally a serous fluid which is without odor, pt is on a CCU bed, these are the only pressure related skin issues I see. These were cleaned with saline a fresh mepilex pad was placed and patient positioned in sidelying. Recommend nursing change dressings q 48 hours, no continence issues are identified.. Wound will follow up as needed.
--- NOTE | 2016-06-14 18:19 | DRSVH ---
[facility] [address] [place] [address] Echocardiogram Report Name: LILIANA ARREDONDO JStudy Date: Hospital Exam Location: [facility] Gender: Female : 1955 Age: 61 yrs BP: 106/60 mmHg Reason For Study: Pneumonia Ordering Physician: HOSPITALIST [facility] Performed By: Kristi Burden Interpretation Summary 1. Normal left ventricular size, wall thickness and systolic function. 2. Grossly normal right ventricular size with normal systolic function. The estimated right atrial pressure is low normal and the estimated RVSP is 41 mm Hg 3. Right pleural effusion Compared to the previous study, RV and LV systolic function are stable. A right pleural effusion is noted. Procedure: A two-dimensional transthoracic echocardiogram with color flow and Doppler was performed in limited views only. The study quality was technically good. Comparison is made with the echocardiogram of 04-19-16. The heart rate ranged between 112-113 bpm during the study. Left Ventricle: The left ventricle is normal in size. There is normal left ventricular wall thickness. The ejection fraction is estimated to be 55-60%. There are no obvious focal wall motion abnormalities noted but poor endocardial definition reduces the sensitivity for the detection of such. Diastolic function could not be accurately assessed due to tachycardia. Right Ventricle: The right ventricle is normal in size and function. The right ventricle is grossly normal size. The right ventricular systolic function is normal. Mitral Valve: The mitral valve is normal in structure and function. There is trace mitral regurgitation. Aortic Valve: The aortic valve opens well. Tricuspid Valve: The tricuspid valve leaflets are thin and pliable. The right ventricular systolic pressure is estimated at 41 mmHg assuming a right atrial pressure of 3 mm Hg. There is trace tricuspid regurgitation. Great Vessels: The IVC is of normal diameter and collapses greater than 50% with a sniff. This suggests a low right atrial pressure of 3 mm Hg. Pericardium/ Pleura There is no pericardial effusion. There is a moderate right-sided pleural effusion. MMode/2D Measurements & Calculations IVC diam: 1.8 cm Doppler Measurements & Calculations TR max kamron: 309.0 cm/sec TR max P.2 mmHg Reading Physician:06:18 PM
--- NOTE | 2016-06-14 18:22 | PCM.PNMED ---
Subjective Date of Service Jun 14, 2016 Subjective Overnight: No acute events Today: Patient states that she is currently unsure of her prognosis. She is unaware that the oncologic medication she is being infused with, is not first line therapy. The patient states that she would like to be DO NOT INTUBATE. She states she has been taking her Lovenox injections as scheduled twice daily without fail. She states that her right arm is enlarged due to radiation damage. She denies any ongoing fever or chills. Exam Vital Signs Vital Sign - Last Date Time Temp Pulse Resp B/P Pulse Ox O2 Delivery O2 Flow Rate FiO2 06/14/16 16:00 Supplement Oxygen 06/14/16 16:00 37.1 109 26 101/55 97 6.00 Intake and Output 06/13/16 06/13/16 06/14/16 Cumulative From/Thru 15:00 23:00 07:00 06/13/16 21:22 - 06/14/16 06:24 Intake Total 2420 ml 2420 ml Output Total 925 ml 925 ml Balance 1495 ml 1495 ml Intake Oral 200 ml 200 ml IV Total 2220 ml 2220 ml Output Urine Total 925 ml 925 ml Exam General: Chronically ill appearing female looking older than stated age lying quietly in bed, Alert and Oriented X3, Cooperative, No acute Distress Eyes: PERRLA, Scleral Anicteric Mouth: Mouth Normal, Mucous Membranes dry, no central cyanosis no tonsillar exudates Neck: Supple, no Thyromegaly, trachea midline no JVD Cardiovascular: Regular rate and rhythm, no murmurs rubs or gallops appreciated , no heaves or thrills Chest & Lungs: Left-sided port a cath, decreased breathe sounds in all lung adams, coarse breath sounds most notable in the lower lung adams on the right Abdomen: Soft, no tenderness, not distended, hypoactive bowel tones. Musculoskeletal: Unremarkable. Normal range of motion, swollen right arm with erythema over anterior deltoid to lateral pec with mild edema Extremities: No lower extremity edema, no cyanosis, no clubbing. Skin: sacral ulcer covered with clean dry bandage Neurological: Grossly neurologically intact, has generalized weakness worse in the lower extremities, Normal Speech : No Fulton in place Lab and Diagnostics Result Diagram: 06/14/165 06/14/16 024 X-Rays, CTs and MRIs PROCEDURE: CT ANGIO CHEST PULMONARY EMBOLISM ([id number]) IMPRESSION: 1. Acute central pulmonary embolism involving the left lower lobe lobar and segmental arteries, as well as the right lower lobe segmental arteries. 2. A large mass in the right upper thorax. It is slightly increased in size compared to the last exam and seen invading the right upper ribs and posterior chest wall/musculature, and extending into the right hilum compressing the right upper lobe bronchus. 3. Multiple left lung nodules suspicious for pulmonary metastases. 4. Extensive right hilar and mediastinal lymphadenopathy consistent with maria fernanda metastasis. 5. Slightly increased moderate sized right pleural effusion. 6. Large left adrenal mass consistent with metastasis. Dictated by: Emil James M.D. on 06/14/2016 at 9:07 Transcribed by: JUNO on 06/14/2016 at 9:22 Approved by: Emil James M.D. on 06/14/2016 at 11:19 12-lead ECG 06/13 reviewed No acute ischemic changes or parents of right heart strain patterns. Q waves in II, III, and F aVF consistent with possible old infarct Cardiac Echo Impressions Echocardiogram Report Interpretation Summary 1. Normal left ventricular size, wall thickness and systolic function. 2. Grossly normal right ventricular size with normal systolic function. The estimated right atrial pressure is low normal and the estimated RVSP is 41 mm Hg 3. Right pleural effusion Compared to the previous study, RV and LV systolic function are stable. A right pleural effusion is noted. Reading Physician:06:18 PM Additional Diagnostics PROCEDURE: US VENOUS ARM DUPLEX UNILATERAL, RIGHT IMPRESSION: 1. Extensive DVT in the right upper extremity veins and right internal jugular vein extending to the right subclavian vein. 2. Right cervical lymphadenopathy. Dictated by: Emil James M.D. on 06/14/2016 at 13:21 Approved by: Emil James M.D. on 06/14/2016 at 13:37 Assessment & Plan 61yoF with past medical history of stage IV non-small cell lung cancer (dx'd 2015), recent pulmonary embolus on therapeutic lovenox, admitted from SNF with acute onset of shortness of breath. Hospital day 1 1. Acute Hypoxic respiratory failure, present on admission - Patient has a history of stage IV non-small cell adenocarcinoma - 04/18/2016 patient was diagnosed with acute pulmonary embolus and placed on therapeutic Lovenox - CT PE performed on this medication shows acute pulmonary embolus - Right upper extremity ultrasound shows deep vein thrombosis - oxymask on admission to keep oxygen sat >92% - Failure of Lovenox therapy discussed with oncology Dr. Jenkins patient to be started on another anticoagulant dabigatran - Echo ordered for possible right heart strain given elevated troponins was negative for RV dysfunction - dabigatran 150 twice a day 2. Acute on chronic Pulmonary embolism, present on admission - Previous diagnosis of pulmonary embolus in 04/18/2016 - Patient previously on enoxaparin 50mg BID for prior pulmonary embolus - CT PE performed today shows acute left lower lobe pulmonary embolus and right lower lobe pulmonary embolus - Failure of Lovenox therapy discussed with oncology Dr. Jenkins patient to be started on another anticoagulant dabigatran - Echo ordered for possible right heart strain given elevated troponins was negative for RV dysfunction - dabigatran 150 twice a day 3. Elevated troponin, acute, present on admission - newly elevated with complaints of right sided chest pain, no chronic kidney disease to explain - CT PE performed today shows acute left lower lobe pulmonary embolus and right lower lobe pulmonary embolus - EKG reviewed, no ischemic change with no a right heart strain - patient previously anticoagulated with enoxaparin being converted to dabigatran - MAP >55-60, on norepinephrine drip attempting to titrate -Troponins trended to decline - EKG AND TROPONINS PRN - Echo ordered for possible right heart strain given elevated troponins was negative for RV dysfunction 4 Stage IV non-small cell adenocarcinoma lung cancer with metastases, chronic, present on admission - Failure of Lovenox therapy discussed with oncology Dr. Jenkins patient to be started on another anticoagulant dabigatran - Dr. Jenkins will notify Dr. Zaman of admission, patient likely to be seen wall inpatient - Given patient's desire for DO NOT INTUBATE status, discussed with Dr. Jenkins need for patient to likely be converted to DO NOT RESUSCITATE given patient's longest likely to cause given cancer and pulmonary embolus - Dr. Jenkins consented in the need for palliative to be involved in this case - Continue pain management with high-dose fentanyl patch and Roxicodone 5 possible Sepsis, acute, present on admission - HR 130, RR 40, WBC 12.3K at admission - Pro calcitonin remains elevated at 4.59 consistent with possible infection - Infectious disease consultant rn. 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 Pain Evaluation: Adequate Pain Control GI Prophylaxis: Proton Pump Inhibitor VTE Prophylaxis: Other (patient is currently anticoagulated with enoxaparin 50mg BID being converted to dabigitran 150mg BID) Resuscitation Status: DNR/DNI:Do Not Resuscitate/Intubate (Discussed with patient. reportedly full code but she states she doesn't want to be intubated but doesn't believe her breathing will become a problem. AM team to discuss code status further with palliative care) Attending Statement The patient was seen and examined together with Dr. Sanchez on 06/14/2016 and I agree with the history, exam and plan as outlined in the note above. . Chadd Sanchze DO Jun 14, 2016 18:22 Mukul Baird MD Jun 19, 2016 07:59
--- NOTE | 2016-06-14 19:32 | NUR ---
P: Resp, Hemodynamics, Nutrition, Social I,E: Pt continues on 6l O2 via NC. Sats have been mid to high 90's. RR has been increasing throughout the day and is now in the 30's. She was able to produce sputum which I sent to the lab for culture. BP has been improving today and I have been able to titrate the levophed down to .02mcg. NS continues at 150cc/hr per MD order this am. She has been voiding using the bedpan and the commode today. She has also been taking PO liquids. HR has been increasing today also, from 100's up to 120's this evening. Pt has complained of pain today, and has received roxicodone. She states this doesn't help much but has been able to sleep and rest on and off today. She also states she is comfortable with a pain level of 7/10. Fentanyl patch is due to be placed on pt this evening. Gabapentin has also been ordered tonight for pain. Pt was NPO for most of the day but was ordered a diet this evening. She does not have much appetite and requested fruit cups for dinner. She ate a small amount. I also ordered apple flavor ensure for improved nutrition source. Pt did have a large soft formed BM today. Pt's friend has been here most of the afternoon and is offering good support.
--- NOTE | 2016-06-14 21:52 | CONS ---
[address] [address] CONSULTATION REPORT PATIENT: LILIANA ARREDONDO : 1955 MR#: [id number] ADMIT: 06/14/2016 JOB ID: [id number] DATE OF SERVICE: 06/14/[address] Baird for this timely consultation. REASON FOR CONSULTATION: Possible pulmonary infection and worsening shortness of breath with respiratory failure. HISTORY OF PRESENT ILLNESS: The patient is an extremely unfortunate 61-year-old woman well known to me from two prior admissions this year. She was diagnosed in late 2015 with a large adenocarcinoma involving the right upper lobe. She also had metastatic disease. I was 1st asked to see her in February out of concern she might have postobstructive pneumonia, but I felt this was quite unlikely. Though she did have elevated white count and procalcitonin, we felt these were on the basis of the malignancy itself rather than any infection. The patient was subsequently at home following that February admission, only to be readmitted in late March with increasing shortness of breath. Again during the late March admission, I was asked to evaluate her and once again felt that she did not have a significant infection. We thought that her bilateral pulmonary emboli as well as her ongoing lung cancer were the explanation for her shortness of breath, leukocytosis, and elevated procalcitonin. Antibiotics were again discontinued and the patient was eventually discharged to [facility] where she has resided since her last discharge. While living there she has been able to get around a little bit using a walker but has not been able to walk independently and has been chronically short of breath with an intermittent cough. She has not been troubled by fevers or chills, though she does have occasional night sweats. The history of her worsening shortness of breath is a little unclear. The patient indicates that she got much more short of breath within just a couple days prior to admission but actually has been increasingly short of breath basically for an entire month, leading up to readmission in the wood piler hours this morning. The patient has been on Lovenox because of her bilateral pulmonary emboli and she has been on that continuously at the residential, so we know there has been total compliance. A CT scan done already today shows a new pulmonary embolism and it has also been discovered that she has a clot in her right upper extremity, which is the side where she has received radiation and opposite of the side where she currently has a port catheter in place. The patient tells us this afternoon that she would like to be comfortable. She denies fevers or chills, though she has had some night sweats. No significant sore throat. She notes she has a cough which is largely nonproductive but sometimes produces some thick whitish sputum. No hemoptysis has been noted. No nausea, vomiting, or diarrhea. PAST MEDICAL HISTORY: 1. Stage IV adenocarcinoma of the lung with metastases, diagnosed February 2016. 2. Bilateral pulmonary emboli, diagnosed February 2016. 3. History of polio as a child. 4. COPD with until recently ongoing cigarette smoking. SOCIAL HISTORY: The patient stopped smoking with her latest admission and subsequent transfer to [facility] but up until March 2016, she was smoking cigarettes. She lives with a roommate in the [facility]. She notes that her 17 years ago of cancer. She does not drink alcohol. FAMILY HISTORY: Including first-degree relatives all negative for TB. REVIEW OF SYSTEMS: No significant headache or sore throat today. She has pain in her right neck and some swollen lymph nodes which are chronic but perhaps worse recently. She does have worsening shortness of breath which has been going on since she left the hospital a month ago basically but perhaps considerably worse over the last few days. Productive cough, as noted. No significant abdominal pain. No nausea, vomiting, diarrhea, or dysuria. Patient can only walk limited amounts due to shortness of breath and weakness and uses a walker for balance. Remainder of the review of systems negative. PHYSICAL EXAMINATION: Reveals an afebrile woman. Temp 36.7, pulse 105, respiratory rate 26, blood pressure 107/63. She has not been febrile during her 12 hours or so back in the hospital. The patient is awake and alert. She is in obvious respiratory distress and appears much worse from an overall perspective than she did when I evaluated her in the last week of March of this year. She appears anxious, much more fatigued and a much more short of breath. Head without trauma. Eyes without conjunctivitis or scleral icterus. Oral cavity without thrush or pharyngitis. Right neck has obvious palpable nodes in the supraclavicular fossa. There is also diffuse erythema of the right neck where the patient has received radiation. The lungs are relatively clear which is a surprising as that is the way they were both in February and March as well, despite her large tumor mass. Cardiac tones: Regular rate and rhythm with mild tachycardia. No murmurs are appreciated. A port is present in the left upper chest and is benign. The right upper extremity is swollen out of proportion to the left upper extremity, and we know from ultrasound there is a DVT present. The abdomen soft, nontender, without hepatosplenomegaly or ascites. No Fulton catheter is present. The extremities are without evidence of synovitis, peripheral edema or skin rash. The patient is neurologically intact though diffusely weak and not able to get out of bed and walk, obviously. The remainder of the physical exam is essentially unremarkable. LABORATORIES: Include a white count, which going back to February, has never been normal, and her white count basically ranges between about 10,000 at a very low level and up to the mid 20s. It is currently 15,500, which is right about her normal white count over the past three months. Her hematocrit is 29. Her platelet count 254,000. Her creatinine 0.3. Troponins are elevated. Procalcitonin is 4.5, but note that over the past three months it has ranged from 0.9-4.5 basically, so this is within the range where she typically averages. She has 11-50 white cells in her urine. Urine Legionella is negative. Urine pneumococcal antigen is likewise negative. A MRSA screen is positive and that is the first time that that has been the case during her three admissions. Blood cultures are negative. IMAGING: Includes the venous ultrasound of the right upper extremity, which shows an extensive DVT extending into the subclavian vein. Right cervical adenopathy is noted and I think that is actually also supraclavicular adenopathy. The CT scan of the chest shows acute central pulmonary embolism. A large mass is also noted in the right upper thorax which is a little bigger than it was during the last CT and it is invading the chest wall, as was noted previously. Multiple lung nodules suspicious for pulmonary metastases are seen, along with extensive right hilar and mediastinal adenopathy. A right pleural effusion is noted as before and there is a large left adrenal mass, which almost certainly represents metastatic disease. IMPRESSION: As I have on the last two admissions in February 2016 and March 2016, I do not think the patient currently has an infection. Her shortness of breath and cough, as well as her elevated white count and procalcitonin are explained by her metastatic malignancy, as well as her extensive pulmonary emboli. The only nuance with this admission is that she now has a positive nasal methicillin-resistant Staphylococcus aureus swab, but I think it is highly unlikely that she has methicillin-resistant Staphylococcus aureus pneumonia as we do not see evidence on the CT scan and the patient does not have a significant fever. RECOMMENDATIONS: 1. Nasal Bactroban would be a reasonable addition to her therapy. 2. I would go ahead and stop the Zosyn and vancomycin. 3. This patient's situation appears very difficult as she has progressive metastatic disease in spite of therapy with worsening DVT and pulmonary emboli in spite of appropriate and aggressive anticoagulation. Her overall respiratory status today is much, much worse than it has been either of the two prior times I have seen her, and it would seem that the patient's overall course is steeply downhill over the past several weeks, during which she has been at the [facility]. I wonder if additional limits to her care or perhaps a transition to care might be indicated, but that is beyond the scope of the ID dietitian consultant obviously. 4. Will check on the patient again tomorrow, but at this point, I do not think antibiotics are indicated, at least in the short term. Will follow along with you.
[2016-06-14] MEDS: Dabigatran 150 mg Capsule PO SCH (21:56)
[2016-06-14] MEDS: Mupirocin 2% 22 Gm Ointment TOPICAL SCH (21:56)
[2016-06-15] VITALS (9 sets, daily range): BP systolic 94–128; BP diastolic 52–74; PULSE 109–128; RESP 26–39; O2SAT 94–98
[2016-06-15] MEDS: Norepinephrine 8,000 mCg/250 mL D5W Premix IV SCH (04:20)
[2016-06-15] MEDS: 0.9% Sodium Chloride 1,000 ML IV SCH ×4 (04:35→18:45)
[2016-06-15 06:17] LABS: BASOPHILS % (AUTO) 0.2 % (0-3); EOSINOPHILS % (AUTO) 0.2 % (0-5); MONOCYTES % (AUTO) 7.8 % (4-12); Mean Corpuscular Hemoglobin 27.2 pg (27.0-35.0); Mean Corpuscular Volume 89.6 fL (81-100); NEUTROPHILS % (AUTO) 87.8 % (40-74); Platelet Count 290 bil/L (150-400)
[2016-06-15 06:49] LABS: INR 1.37 ratio
--- NOTE | 2016-06-15 07:33 | NUR ---
Respiratory Pt tachyapneic . O2 via NC. Pt refused mask. Levophed off overnight. BP stable without Levophed support. Up to BSC x 1 and tolerated well. S.O at the bedside providing support and comfort.
[2016-06-15 08:12] LABS: TROPONIN T 0.094 ug/L (0.0-0.011)
[2016-06-15] MEDS ORDERED: Vancomycin Dose per Pharmacist XX SCH (08:30)
[2016-06-15] MEDS: Senna-Docusate 8.6-50 mg Tablet PO SCH ×3 (08:30→18:06)
[2016-06-15] MEDS: Mupirocin 2% 22 Gm Ointment TOPICAL SCH ×2 (08:46→20:41)
[2016-06-15] MEDS: Dabigatran 150 mg Capsule PO SCH ×2 (08:46→20:31)
[2016-06-15] MEDS: Vancomycin Inj 1,000 MG in IV Premix 1 EACH IV SCH ×2 (09:39→20:43)
[2016-06-15] MEDS: 0.9% Sodium Chloride 250 ML IV SCH (09:51)
[2016-06-15] MEDS ORDERED: Vancomycin Serum Trough XX ONE (10:00)
[2016-06-15] MEDS ORDERED: Alteplase (Cathflo) 1 mg/mL 2 mL Inj IVPUSH ONE (11:00)
--- NOTE | 2016-06-15 11:14 | PROG NOTE ---
[address] [address] PROGRESS NOTE PATIENT: LILIANA ARREDONDO : 1955 MR#: [id number] ADMIT: 06/14/2016 JOB ID: [id number] DATE: 06/15/2016 INFECTIOUS DISEASE FOLLOW UP NOTE: REASON FOR FOLLOW UP: Enterococcal bacteremia. INTERVAL HISTORY: Recall that this is the unfortunate 61-year-old woman who was recently diagnosed with adenocarcinoma involving the right upper lobe with chest wall invasion. I had seen her in February and in March with periods of increasing shortness of breath associated with leukocytosis and procalcitonin which we felt were entirely due to the metastatic and extensive tumor rather than infection and she did not receive any sustained antibiotics. She was admitted this time on the with increasing shortness of breath. She was admitted this time with increasing shortness of breath on the . We noted once again that she had an elevated white blood count and procalcitonin which we again felt was probably noninfectious though we did note that a MRSA swab of the nares was positive. The plan was to observe the patient and stopped her vanc and Zosyn which we did yesterday. Today we learned that a single positive blood culture is growing a streptococcal like organism which could represent an Enterococcus though we await further identification and this is from her blood culture. In addition we have a nose positive for MRSA which is new. The patient reports today that she is a little less short of breath than yesterday but still quite short of breath. She has some degree of right-sided pleuritic chest pain but not severe. She denies fevers and chills overnight. She notes that she is constantly cold. No nausea, vomiting or diarrhea and she states that her port is not working right and that people cannot draw from it though they can infuse into it. PHYSICAL EXAMINATION: Reveals a woman who is afebrile and has now been in the hospital about 48 hours. Temperature is 37.1, pulse 114, respiratory rate about 28-32, blood pressure 111/59. She is saturating 95% on 6 L. The examination of the head is unremarkable. Eyes without conjunctivitis. The oral cavity is notable for dry mucous membranes. Otherwise negative. The left chest port catheter is nontender and without inflammation. The abdomen is soft and nontender today. The lungs are notable for bilateral expiratory wheezing which is actually worse than yesterday. In addition, there is decreased breath sounds diffusely on the right. Cardiac tones without new murmur. The extremities are not unremarkable. The right upper extremity is swollen consistent with her recent DVT. Labs include a white count slightly increased 16,900, with left shift. Creatinine less than 0.3. LFTs normal. Troponins mildly elevated. Procalcitonin 4.67 today which is really unchanged from yesterday's 4.6. Urinalysis 11-50 white cells. Culture of the urine negative. Nasal smear positive for MRSA. Urine pneumococcal antigen done twice for unclear reasons, negative both times. 1/4 blood cultures growing what appears to be an Enterococcus. Susceptibilities are pending. IMAGING: Of course, revealed the extensive right upper extremity DVT. Also noted on the CT scan of the chest was an increasing right chest mass involving the chest wall and pulmonary mets. PE was also noted. IMPRESSION: This is an extremely unfortunate woman with a very aggressive right-sided adenocarcinoma with invasion of the chest wall who is now receiving second-line chemotherapy. She was admitted for increasing shortness of breath and a swollen right arm which is likely obviously a DVT with pulmonary embolism as seen on the CT angiogram. The problem is that her white count and procalcitonin are always elevated due to her tumor and it is hard to evaluate for infection. Blood cultures in 1/4 bottles are growing Enterococcus which could be basically a contaminant or could represent a true bacteremia. Pulmonary infections are not caused by Enterococci and her enterococcal bacteremia is not related to her pulmonary process though it could be related to her port which is often not working well in which blood cannot be drawn through. Also left unsettled here is how she acquired the MRSA in her nose and whether it is playing a role in her pulmonary process but I am inclined to doubt it. RECOMMENDATIONS: 1. Will continue with nasal Bactroban. 2. Will restart the vanco we stopped yesterday for treatment of what is probably an Enterococcus in her blood as well as also provide coverage, of course, for MRSA which I doubt is playing much of a role. 3. We have called and asked the PICC team to get involved and try and flush or get her port back to a functional status so we can draw blood cultures both through the port and the skin to try and establish if she has enterococcal bacteremia or port infection. 4. I have spoken to Dr. Zaman this morning to let him know the patient is in the hospital and see what advice and breastfeeding peer counselor he may have regarding the course of this very severe pulmonary malignancy now complicated by recurrent pulmonary emboli as well as DVT.
--- NOTE | 2016-06-15 12:03 | PCM.PALLBR ---
Palliative Care Recommendation Unfortunate 61-year-old woman with Stage IV metastatic pulmonary adenocarcinoma (driver supervisor mutation negative, PD-L1 negative) admitted with worsening dyspnea and now finding of "acute central pulmonary embolism involving the left lower lobe lobar and segmental arteries, as well as the right lower lobe segmental arteries " (this despite full anticoagulation with Lovenox). Palliative medicine consulted to assist patient and family in determination of goals of care. Summary of palliative recommendations: -Symptom management (Pain/other)- patient reports her discomfort inconsistently - she appears uncomfortable at times reports inadequate pain relief, but at the same time refuses increased dosing of her pain medicines. I increased the frequency of her prn oral oxycodone and will continue to follow, monitor and adjust. I reviewed her echocardiogram and laboratory results with her, answered questions she had. -DPOA/Advanced Directives/POLST- patient's POA is her son Kendrick. She and Kendrick have discussed advance directive issues in the past and she said that he understands and will comply with her wishes. She has always said that she would not want to be kept alive on machines. We talked at length today about resuscitation issues, particularly in the setting of the findings on her CT scan (recurrent pulmonary emboli and apparent progression of her underlying neoplastic process). While she still wishes to pursue chemotherapy/immune modulating therapy as long as her oncologists recommend that, and continue other medical care, she does want to change her CODE STATUS to DO NOT RESUSCITATE/DO NOT INTUBATE. Orders updated to reflect this. Will plan on assisting her in completing a POLST prior to discharge -Family/emotional support- it sounds as if she has good support from her friend/ roommate Arya she is going to have him contact Kendrick and update him. Palliative team will continue to follow and provide support as able. Patient Goals: 1. Patient wants to be told the truth about her illness, even if it is unpleasant. 2. Patient would like to be told prognosis when it can be predicted, to better guide treatment decisions. Additional Medical Diagnoses with primary management by Hospitalist team include : Hypoxic respiratory failure, acute, POA Sepsis, acute, POA Post obstructive pneumonia, acute, POA Elevated troponin, acute, POA Hyponatremia, acute on chronic, POA Normocytic anemia, chronic Elevated BNP, chronic Stage IV non-small cell lung cancer, chronic Pulmonary embolism, aorta thrombus, svc thrombus, chronic Problems: End of Life Preferences DO NOT RESUSCITATE/DO NOT INTUBATE/limited interventions including treatment for pulmonary emboli and ongoing chemotherapy therapy/immune therapy per oncology Goals of Care Patient continues to hope for stabilization and some quality time in order to get her affairs in order Disposition To be determined Resuscitation Status Resuscitation Status: DNR/DNI:Do Not Resuscitate/Intubate (Discussed with patient. reportedly full code but she states she doesn't want to be intubated but doesn't believe her breathing will become a problem. AM team to discuss code status further with palliative care) POLST Updates/Changes Previous POLST?: No . Pain: Moderate Symptom management: Anxiety, Dyspnea, Pain Total time 35 minutes; >50% face to face with patient, providing counselling regarding plans and recommendations, and in care coordination with her medical teams. copies to: Carmel Zaman MD; Jaspal Jenkins MD Palliative Brief Note Date of Service Jun 15, 2016 . Returned to reevaluate patient. Prior to visiting, reviewed her updated records in the EMR in detail. Also spoke with her bedside nurse. On my arrival, she is sitting up in bed watching television. She tells me she thinks her breathing is slightly better. She continues to have chest pain related to her tumor, and initially says that it is only incompletely controlled , but then when I inquired about adjusting her increasing her pain medicines she was very reluctant. Ultimately she said she did not want to have any additional pain medicine at this time. Nurses have also noted that her reporting of pain seems to be inconsistent and at times she may be mingling reports of pain with her overall sense of discomfort/distress because of all of her symptoms. Denied any nausea or other distress. On exam, pale, fatigued-appearing woman lying in bed. Vital signs noted. Skin is warm and dry. Head and neck exam without acute focal findings. Lungs with diminished breath sounds diffusely but I hear no rales or wheezes today. Heart sounds regular and rapid. Telemetry continues to show atrial fibrillation with rapid ventricular response. Her abdomen is rounded, soft and nontender. Extremities with mild diffuse puffiness. Laboratory and imaging studies reviewed in detail. Echocardiogram reviewed in particular- no evidence of right heart strain or failure secondary to her PE. Kevyn Sánchez MD Jun 15, 2016 12:03
[2016-06-15] MEDS ORDERED: Potassium Chloride 20 mEq/15 mL 15mL Oral Soln PO ONE (13:50)
--- NOTE | 2016-06-15 15:47 | NUR ---
Evaluation completed. Please go to "Notes" then click on "Assessments and Notes" (bottom left corner of screen). Then select appropriate discipline tab on top of screen.
--- NOTE | 2016-06-15 16:06 | NUR ---
P: Respiratory, Hemodynamics, Skin, Nutrition,Pain, Social I,E: Pt continues on 6l NC with sats in the mid to high 90's. She is dyspneic at rest, and is unable to lay flat comfortably. She is coughing intermittently and has small amounts of sputum which she states she swallows. She is off all pressors and BP is stable, UOP adequate. Her HR is elevated in the 110's to 120's ST. She has been turning and re positioning herself in bed today. She has been up out of bed twice today. Pt has been able to take more of a diet today, and I have ordered ensure in between meals which she states she likes. Pt states her pain is always there, it is usually a 9 or 10 but she appears comfortable. She states that 7/10 is her baseline and this is a number she is comfortable at. She also states that her pain is not always pain, but more "how I feel". Pt's room mate was here today and he offers good support and is helping with her finances.
--- NOTE | 2016-06-15 16:28 | NUR ---
Social Work Note: Continued Discharge Planning Data& Assessment: María Craft is a 61 year old female admitted on 06/14/2016 for SOB. Pt came from [facility] for rehab. Pt expressed to SW that she might not want to go back to [facility] for continued rehab. SW provided pt with SNF list to review. When SW followed up with pt, pt explained she has not thought about it yet and requested SW follow up with her tomorrow. SW to continue to follow. Plan: Anticipated discharge to SNF when medically ready. SW to follow up with pt regarding DC Planning tomorrow. SW to continue to follow. NADYA Diaz
--- NOTE | 2016-06-15 18:05 | PROG NOTE ---
[address] [address] PROGRESS NOTE PATIENT: LILIANA ARREDONDO : 1955 MR#: [id number] ADMIT: 06/14/2016 JOB ID: [id number] DATE: 06/15/2016 INPATIENT MEDICAL ONCOLOGY PROGRESS REPORT: DIAGNOSIS: 1. Progressive metastatic pulmonary adenocarcinoma, treatment refractory. 2. 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 HISTORY OF PRESENT ILLNESS: The patient is an unfortunate 61-year-old former smoker woman, only recently diagnosed with stage IV pulmonary adenocarcinoma, including a large right upper lobe mass with destruction of upper posterior right-sided ribs causing constant pain, extensive bilateral supraclavicular hilar and mediastinal lymphadenopathy, left adrenal metastases, and bilateral ovarian metastases. She initially received one cycle of carboplatin/weekly paclitaxel to which she did not respond. She then received palliative radiotherapy to the right upper lung mass. She has received three infusions of nivolumab but unfortunately she still has not responded. The patient was brought in from [facility] yesterday for progressive dyspnea and pain. O2 saturation was 88% on room air. CT chest angiogram done yesterday shows new bilateral acute lobar and segmental pulmonary emboli, a slight further increase in size of destructive right upper thoracic mass, multiple left lung nodules suspicious for metastases, extensive right hilar and mediastinal lymphadenopathy, enlarged left adrenal mass. Her bilateral pulmonary emboli are occurring despite Lovenox 1 mg/kg subcutaneously b.i.d. Troponin-T is positive, which is new. Echocardiogram does not show pericardial effusion. Today she appears very dyspneic at rest. She is quite tachypneic. She is in constant pain. She is awake, alert, and oriented x3. She is too weak to get up and walk to the bathroom. Blood pressure 111/56, heart rate 119, respiratory rate 31, O2 saturation 97% on 6 L. Temperature afebrile. LABORATORIES: Albumin is profoundly low at 1.9. ProBNP is markedly high at 4170. Troponin-T is positive. She has chronic leukocytosis and chronic anemia. IMPRESSION AND RECOMMENDATIONS: Unfortunately this patient has a very aggressive pulmonary adenocarcinoma that has not responded to chemotherapy or immunotherapy. It is associated with severe thrombophilia and she develops recurrent acute bilateral pulmonary emboli despite therapeutic Lovenox. She is highly symptomatic. She is profoundly malnourished as well. I had a long conversation with her tonight and explained that unfortunately her tumor does not appear to respond to chemotherapy, radiotherapy, or immunotherapy, and given her condition, the best course of action for her would be comfort care in the setting of hospice. I think her survival is quite short. She is quite worried and afraid, understandably. I reassured her that she will not be alone. I reassured her that she will be receiving comfort care and pain control. She is afraid of leaving the hospital. I will discuss this issue tomorrow. I think, given her very grave prognosis and probable expected survival of under 1-2 weeks, I hope we would be able to accommodate her wishes and keep her in hospital, at least for the next few days until her situation clarifies. I will try to return tomorrow for followup. We will switch to comfort care tomorrow. The patient was already made DNR/DNI by Dr. Sánchez today.
--- NOTE | 2016-06-15 18:06 | NUR ---
Pt refusing senna today Pt has been having frequent liquid/soft stools today and has refused her senna for today.
--- NOTE | 2016-06-15 19:35 | PCM.PNMED ---
Subjective Date of Service Jun 15, 2016 Subjective overnight: Patient was able to be titrated off of norepinephrine pressor support with stable blood pressure. No acute events otherwise noted. Today: Patient states that she is breathing much better today. She has not had any worsening chest pain. She denies any urinary difficulties. She states of the broad pressure cuff is hurting her right arm. She denies any headaches or changes in vision. She continues to have a cough but cannot bring up any sputum. Exam Vital Signs Vital Sign - Last Date Time Temp Pulse Resp B/P Pulse Ox O2 Delivery O2 Flow Rate FiO2 06/15/16 04:00 37.1 122 28 111/59 95 Nasal Cannula 6.00 Intake and Output 06/14/16 06/14/16 06/15/16 Cumulative From/Thru 15:00 23:00 07:00 06/13/16 21:22 - 06/15/16 06:00 Intake Total 1655 ml 1240 ml 5315 ml Output Total 800 ml 1725 ml Balance 855 ml 1240 ml 3590 ml Intake Oral 550 ml 750 ml IV Total 1655 ml 690 ml 4565 ml Output Urine Total 800 ml 1725 ml # Bowel Movements 1 1 Exam General: Chronically ill appearing female looking older than stated age lying quietly in bed, Alert and Oriented X3, Cooperative, No acute Distress Eyes: PERRLA, Scleral Anicteric Mouth: Mouth Normal, Mucous Membranes dry, no central cyanosis no tonsillar exudates Neck: Supple, no Thyromegaly, trachea midline no JVD Cardiovascular: Regular rate and rhythm, no murmurs rubs or gallops appreciated , no heaves or thrills Chest & Lungs: Left-sided port a cath, decreased breathe sounds in all lung adams right greater than left, coarse breath sounds most notable in the lower lung adams on the right Abdomen: Soft, no tenderness, not distended, hypoactive bowel tones. Musculoskeletal: Unremarkable. Normal range of motion, swollen right arm with erythema over anterior deltoid to lateral pec with mild edema Extremities: No lower extremity edema, no cyanosis, no clubbing. Skin: sacral ulcer covered with clean dry bandage Neurological: Grossly neurologically intact, has generalized weakness worse in the lower extremities, Normal Speech : No [place] in place Lab and Diagnostics Result Diagram: 06/15/16 0555 06/14/16 0245 X-Rays, CTs and MRIs PROCEDURE: CT ANGIO CHEST PULMONARY EMBOLISM ([id number]) IMPRESSION: 1. Acute central pulmonary embolism involving the left lower lobe lobar and segmental arteries, as well as the right lower lobe segmental arteries. 2. A large mass in the right upper thorax. It is slightly increased in size compared to the last exam and seen invading the right upper ribs and posterior chest wall/musculature, and extending into the right hilum compressing the right upper lobe bronchus. 3. Multiple left lung nodules suspicious for pulmonary metastases. 4. Extensive right hilar and mediastinal lymphadenopathy consistent with maria fernanda metastasis. 5. Slightly increased moderate sized right pleural effusion. 6. Large left adrenal mass consistent with metastasis. Dictated by: Emil James M.D. on 06/14/2016 at 9:07 Transcribed by: JUNO on 06/14/2016 at 9:22 Approved by: Emil James M.D. on 06/14/2016 at 11:19 12-lead ECG 06/13 reviewed No acute ischemic changes or parents of right heart strain patterns. Q waves in II, III, and F aVF consistent with possible old infarct Cardiac Echo Impressions Echocardiogram Report Interpretation Summary 1. Normal left ventricular size, wall thickness and systolic function. 2. Grossly normal right ventricular size with normal systolic function. The estimated right atrial pressure is low normal and the estimated RVSP is 41 mm Hg 3. Right pleural effusion Compared to the previous study, RV and LV systolic function are stable. A right pleural effusion is noted. Reading Physician:06:18 PM Additional Diagnostics PROCEDURE: US VENOUS ARM DUPLEX UNILATERAL, RIGHT IMPRESSION: 1. Extensive DVT in the right upper extremity veins and right internal jugular vein extending to the right subclavian vein. 2. Right cervical lymphadenopathy. Dictated by: Emil James M.D. on 06/14/2016 at 13:21 Approved by: Emil James M.D. on 06/14/2016 at 13:37 Assessment & Plan 61yoF with past medical history of stage IV non-small cell lung cancer (dx'd 2015), recent pulmonary embolus on therapeutic lovenox, admitted from SNF with acute onset of shortness of breath. Hospital day 2 1. Acute Hypoxic respiratory failure, present on admission - Patient has a history of stage IV non-small cell adenocarcinoma - 04/18/2016 patient was diagnosed with acute pulmonary embolus and placed on therapeutic Lovenox - CT PE performed on this medication shows acute pulmonary embolus - Right upper extremity ultrasound shows deep vein thrombosis - oxymask on admission to keep oxygen sat >92% - Failure of Lovenox therapy discussed with oncology Dr. Jenkins patient to be started on another anticoagulant dabigatran - Echo ordered for possible right heart strain given elevated troponins was negative for RV dysfunction - dabigatran 150 twice a day 2. Acute on chronic Pulmonary embolism, present on admission - Previous diagnosis of pulmonary embolus in 04/18/2016 - Patient previously on enoxaparin 50mg BID for prior pulmonary embolus - CT PE performed today shows acute left lower lobe pulmonary embolus and right lower lobe pulmonary embolus - Failure of Lovenox therapy discussed with oncology Dr. Jenkins patient to be started on another anticoagulant dabigatran - Echo ordered for possible right heart strain given elevated troponins was negative for RV dysfunction - dabigatran 150 twice a day 3. Elevated troponin, acute, present on admission - newly elevated with complaints of right sided chest pain, no chronic kidney disease to explain - CT PE performed today shows acute left lower lobe pulmonary embolus and right lower lobe pulmonary embolus - EKG reviewed, no ischemic change with no a right heart strain - patient previously anticoagulated with enoxaparin being converted to dabigatran - MAP >55-60, on norepinephrine drip attempting to titrate -Troponins trended to decline - EKG AND TROPONINS PRN - Echo ordered for possible right heart strain given elevated troponins was negative for RV dysfunction 4 Stage IV non-small cell adenocarcinoma lung cancer with metastases, chronic, present on admission - Failure of Lovenox therapy discussed with oncology Dr. Jenkins patient to be started on another anticoagulant dabigatran - Dr. Jenkins will notify Dr. Zaman of admission, patient likely to be seen wall inpatient - Given patient's desire for DO NOT INTUBATE status, discussed with Dr. Jenkins need for patient to likely be converted to DO NOT RESUSCITATE given patient's longest likely to cause given cancer and pulmonary embolus - Dr. Jenkins consented in the need for palliative to be involved in this case - Continue pain management with high-dose fentanyl patch and Roxicodone 5. Gram-positive cocci bacteremia, acute, present on admission, under evaluation - Cultures of both anaerobic and aerobic bottles consistent with possible enterococcus - Infectious disease following appreciated time and recommendations - IV therapy to make poor functional for line draw and culture, including new peripheral culture - Vancomycin IV - Consider likely line infection most likely site being right subclavian port 6 possible Sepsis, acute, present on admission, resolved - HR 130, RR 40, WBC 12.3K at admission - Pro calcitonin remains elevated at 4.59 consistent with possible infection - Infectious disease event management consultant. 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 GI Prophylaxis: Proton Pump Inhibitor VTE Prophylaxis: Other (patient is currently anticoagulated with enoxaparin 50mg BID being converted to dabigitran 150mg BID) Resuscitation Status: DNR/DNI:Do Not Resuscitate/Intubate (Discussed with patient. reportedly full code but she states she doesn't want to be intubated but doesn't believe her breathing will become a problem. AM team to discuss code status further with palliative care) Attending Statement The patient was seen and examined together with Dr. Sanchez on 06/15/2016 and I agree with the history, exam and plan as outlined in the note above. . Chadd Sanchez DO Jun 15, 2016 07:56 Mukul Baird MD Jun 19, 2016 08:00
[2016-06-16 00:35] VITALS: BP 118/57; PULSE 128; RESP 21; O2SAT 92
[2016-06-16 04:32] VITALS: BP 92/53; PULSE 120; RESP 22; O2SAT 94
[2016-06-16] MEDS: 0.9% Sodium Chloride 1,000 ML IV SCH ×2 (04:46→17:15)
--- NOTE | 2016-06-16 05:49 | NUR ---
Pain Pt stating pain 9/10 all shift despite her stating she was feeling better. Administered 10mg oxycodone x2 and 2 mg Morphine x2 this shift and Pt able to sleep and rest most of shift. VSS and Tele ST
[2016-06-16 08:00] VITALS: BP 129/76; PULSE 133; RESP 38; O2SAT 89
[2016-06-16] MEDS ORDERED: Vancomycin Serum Trough XX ONE (08:00)
[2016-06-16] MEDS: Senna-Docusate 8.6-50 mg Tablet PO SCH ×2 (08:30→20:30)
--- NOTE | 2016-06-16 08:47 | NUR ---
Social Work Note: Continued Discharge Planning Data& Assessment: Provided access to [facility], they are prepared to take pt back when she is medically ready. SW to follow up with pt regarding SNF preference and confirm pt would like to return vs. having another SNF review her. Plan: Anticipated discharge to SNF when medically ready. Pt is thinking about whether or not she would like to return to [facility] or try another facility. SW to continue to follow. NADYA Diaz
[2016-06-16] MEDS: Vancomycin Inj 1,000 MG in IV Premix 1 EACH IV SCH (09:23)
[2016-06-16] MEDS: Dabigatran 150 mg Capsule PO SCH ×2 (09:23→22:58)
[2016-06-16] MEDS: Mupirocin 2% 22 Gm Ointment TOPICAL SCH ×2 (09:24→20:30)
--- NOTE | 2016-06-16 09:47 | PROG NOTE ---
[address] [address] PROGRESS NOTE PATIENT: LILIANA ARREDONDO : 1955 MR#: [id number] ADMIT: 06/14/2016 JOB ID: [id number] DATE: 06/16/2016 INFECTIOUS DISEASE FOLLOW UP NOTE: REASON FOR FOLLOWUP: Polymicrobial bacteremia in a patient with end-stage lung cancer. INTERVAL HISTORY: The patient this morning is scared and quite short of breath. She reports increasing air hunger and increasing and great anxiety. Yesterday she was told by Dr. Zaman that her survival was highly unlikely and that he recommended palliative care and/or hospice. The patient is now coming to banking manager with her terminal prognosis and talking about her and about how lonely she is. She discussed briefly with us her family and how they will be impacted by her . As to her physical condition, the patient reports increasing shortness of breath. Her pain is reasonably well managed. She denies troubles with her port which she says is nontender and functioning well. Right upper extremity remains grossly swollen but is not terribly painful. She denies fevers or chills. She has no abdominal pain but she is not hungry. No diarrhea is noted. PHYSICAL EXAMINATION: Reveals a seriously ill woman lying supine in her CCU bed. Temperature 37.3, pulse 128 and regular. Blood pressure 92/53. She is saturating 91% on 6 L but short of breath and I asked respiratory therapy to increase her oxygen to any level to maintain comfort. The patient is obviously anxious. Oral cavity negative. Left chest port line benign. Right upper extremity grossly swollen and mildly tender. The lungs with decreased breath sounds, especially on the right. Cardiac tones very tachycardic without appreciable murmur. Regular rhythm. Abdomen benign. No new skin rash. LABORATORIES: Include a white count of 17,000 with 88% segs. Creatinine is less than 0.3 and that was done yesterday. We do not have new labs today. Urine Legionella negative. Of great interest is the blood cultures done on the when she was readmitted. These blood cultures are growing Enterococcus faecalis which is vanco sensitive from one bottle and Staph aureus from two bottles. We do not have susceptibilities yet on the Staph, but it is worth noting the patient's MRSA screen was positive on admission. The follow up blood cultures drawn through the port and the skin yesterday are pending. Recall that the patient's DVT study showed a large clot in the right upper extremity as well as pulmonary embolism. IMPRESSION: This patient is very near the end of her life with a very aggressive lung cancer which has been totally unresponsive to chemotherapy, radiation therapy and immunotherapy. The tumor is invading her chest wall and growing despite all these treatment modalities. In addition she has a large pulmonary embolism and extensive right upper extremity DVT and positive blood cultures for Enterococcus and Staph aureus. If we were to pursue an aggressive course, we would need to continue to get blood cultures through the periphery as well as the port, and if we were able to establish the port was infected, it would need to be removed. Additionally she would need 2-6 weeks of IV antibiotics. He had a transthoracic, a transthoracic echo and possibly a transesophageal echo. An additional concern in this patient would be that she could have central thrombophlebitis as she has both a DVT in the right arm as well as Staph aureus bacteremia. Given the patient's very, very short expected survival and critical nature of her lung cancer and pulmonary embolism I think that aggressive efforts to treat her infections are not warranted. For now we will keep her on vancomycin as it may have some role in maintaining comfort but I am not certain exactly what to do with her antibiotics as we make the transition to palliative and comfort care. RECOMMENDATIONS: 1. Will continue IV vancomycin for now. 2. Will continue to follow up the existing blood cultures but will not order any more. 3. Will defer from getting a transthoracic echo at this point until we have more clarity as to the plans for palliative care in this patient. 4. This case discussed in detail with Dr. Baird as well as respiratory therapy and Dr. Wood.
[2016-06-16] MEDS: 0.9% Sodium Chloride 250 ML IV SCH (09:51)
[2016-06-16 10:14] LABS: BASOPHILS % (AUTO) 0.2 % (0-3); EOSINOPHILS % (AUTO) 0.1 % (0-5); MONOCYTES % (AUTO) 6.7 % (4-12); Mean Corpuscular Volume 90.9 fL (81-100); NEUTROPHILS % (AUTO) 89.6 % (40-74); Platelet Count 336 bil/L (150-400)
--- NOTE | 2016-06-16 11:39 | NUR ---
shooter helpercroze cutter note: I met with patient with patient to see if there was anything I can do for her. She states she has only 3-4 weeks to live. Patient reports she is going to miss her friends, watching TV, and her family. Patient is "afraid" and does not what to expect. I asked patient if she would like me to contact Chaplain Cassie and she said it would be okay. I talked with Cassie. I let her know patient had questions about dying and what to expect. I let patient know I was office tomorrow and would try to come to see her again. Will continue to follow.
[2016-06-16 12:34] VITALS: PULSE 133
--- NOTE | 2016-06-16 12:42 | NUR ---
NUTRITION FOLLOW-UP: Assess: 61 YO F admitted to CCU with polymicrobial bacteremia in a patient with end-stage lung cancer. Yesterday she was told by Dr. Zaman that her survival was highly unlikely and that he recommended palliative care and/or hospice. She has a very aggressive lung cancer which has been totally unresponsive to chemotherapy, radiation therapy and immunotherapy. The tumor is invading her chest wall and growing despite all these treatment modalities. In addition she has a large pulmonary embolism and extensive right upper extremity DVT and positive blood cultures for Enterococcus and Staph aureus. Aggressive treatment would be difficult, per ID. Code status: DNR / DNI. PMHX: Stg IV non-small cell cancer, bilateral PE, poliomyelitis, respiratory failure, aortic thrombus/superior vena cava thrombus, tobacco. DIET:General. PO intake 25% x 1 tray. LABS: BUN 6, Cr < 0.30, Glu 110, A1c 6.1, Alb 2.0. MEDICATIONS: Reviewed. Gabapentin. GI: BM x 3 (06/15). SKIN: 3 small unstageable pressure injuries (POA) at the right side of sacrum, per Bias Machine Operator Helper. ANTHROPOMETRICS: Wt 53.8 kg, BMI 19.0 kg/m2, Admit wt: 50.3 kg. ESTIMATED NEEDS: Cancer Calories: 9430-7017 kcal/day (25-30 kcal/kg BW) Protein: 50-75 g/day (1.0-1.5 g/kg BW) NUTRITION DIAGNOSIS: 1) Inadequate oral intake related to inability to consume sufficient energy as evidenced by NPO status - SLIGHTLY IMPROVED. INTERVENTION: 1) Will add Ensure and Magic Cups to trays. MONITOR/EVALUATE: PO intake, labs, GI, wt, POC, nutrition status. Follow per moderate nutrition risk guidelines.
--- NOTE | 2016-06-16 13:07 | PCM.PALLBR ---
Palliative Care Recommendation Unfortunate 61-year-old woman with Stage IV metastatic pulmonary adenocarcinoma (tour bus driver/guide mutation negative, PD-L1 negative) admitted with worsening dyspnea and now finding of "acute central pulmonary embolism involving the left lower lobe lobar and segmental arteries, as well as the right lower lobe segmental arteries " (this despite full anticoagulation with Lovenox). Palliative medicine consulted to assist patient and family in determination of goals of care. Per oncology note of 06/15, no further treatment possible and the recommendation of her oncologist was that she transition to hospice/end-of-life care. See below for details of our lengthy conversations with the patient and her recruitment and outreach assistant Arya on 06/16 Disposition is now the big question- please see Dr. Zaman's note regarding his recommendations. Palliative FOREIGN LANGUAGES DEPARTMENT CHAIR also working on options such as [facility] in [facility]. Patient and her family are adamant she will not return to an SNF (because of what they perceived as very poor care repair) nor is return to her home an option. Summary of palliative recommendations: -Symptom management (Pain/other)- patient reports her discomfort inconsistently - and she is fearful that increasing pain medications may render her confused or unconscious. After further discussion today, she was willing to have me increase pain medicine slightly. I reviewed her current use of scheduled and prn medications, and I have increased her fentanyl patch from 75 to100 g. Will otherwise continue with her prn oral oxycodone (10 mg every 3 hours as needed) but I increased her IV morphine to 2-4 mg IV Q1 hr prn. Will follow and continue to adjust meds as needed as she transitions to comfort care. My expectation is that once disposition is determined, her antibiotics and other [id number] medications will be discontinued. -DPOA/Advanced Directives/POLST- patient's POA is her son Kendrick. She and Kendrick have discussed advance directive issues in the past and she said that he understands and will comply with her wishes. She has always said that she would not want to be kept alive on machines. CODE STATUS remains DO NOT RESUSCITATE/DO NOT INTUBATE, transitioning to purely comfort care in the next several days. On 06/15 I attempted to get her to complete a new POLST, but she declined, saying she was too fatigued. Will plan on assisting her in completing a POLST prior to discharge -Family/emotional support- good support from her friend/roommate Arya, and she continues to have Arya maintain contact with Kendrick and update him. Palliative team will continue to follow and provide support as able. Patient Goals: 1. Patient wants to be told the truth about her illness, even if it is unpleasant. 2. Patient would like to be told prognosis when it can be predicted, to better guide treatment decisions. Additional Medical Diagnoses with primary management by Hospitalist team include : Hypoxic respiratory failure, acute, POA Sepsis, acute, POA Post obstructive pneumonia, acute, POA Elevated troponin, acute, POA Hyponatremia, acute on chronic, POA Normocytic anemia, chronic Elevated BNP, chronic Stage IV non-small cell lung cancer, chronic Pulmonary embolism, aorta thrombus, svc thrombus, chronic Problems: End of Life Preferences DO NOT RESUSCITATE/DO NOT INTUBATE/limited interventions , transitioning to purely comfort care in the next several days Goals of Care Patient now understands no further role for chemotherapy or radiation therapy, and that she is within weeks of end-of-life Disposition To be determined Resuscitation Status Resuscitation Status: DNR/DNI:Do Not Resuscitate/Intubate (Discussed with patient. reportedly full code but she states she doesn't want to be intubated but doesn't believe her breathing will become a problem. AM team to discuss code status further with palliative care) POLST Updates/Changes Previous POLST?: No . Advanced Care Planning Address: Code status change, Comfort care Pain: Moderate Symptom management: Dyspnea, Pain Total time 90 minutes; >50% face to face with patient and family, providing counselling regarding plans and recommendations, and in care coordination with her medical teams. Of the above total time, 55 minutes counseling for advanced care planning with the patient and her recruitment and outreach assistant, as well as in consultation with oncology, etc. Palliative Brief Note Date of Service Jun 16, 2016 . Returned to reevaluate patient. Prior to visiting, reviewed her updated records in the EMR, with particular note made of last entry by her oncologist Dr. Zaman. Also reviewed her status with her medical team members. I spoke at length by phone with her housemate Arya, reviewing details of this admission with him, reviewing Dr. Zaman's note with him, answering questions he had and discussing her ongoing treatment and disposition options. He initially inquired as to whether some sort of radical surgery could be done to cure the cancer, but I gently let him know that that was not possible, and that the oncologist do not feel there is anything further that can be offered in terms of chemotherapy or radiation. He seemed to understand and accept this. Her POA is actually her son Kendrick (also known as JOHNNY) but he is relatively unavailable as he lives and works in [place] during the week. He will be home this weekend (he lives in [place]) and reportedly will visit the hospital then. Arya has been keeping him apprised of the situation. Per the patient and Arya , Kendrick has had some difficulty accepting the patient's diagnosis and rapid deterioration. When I arrived to visit her today, she is lying in bed, appears very fatigued. Occasionally winces with cough. Has been resistant to taking more pain medication previously, but today indicated she would allow me to try to adjust things upward slightly. She remains very concerned about getting confused or sedated by medicines. I was accompanied by palliative FOREIGN LANGUAGES DEPARTMENT CHAIR, Ms. Hernández, and we spoke at length with the patient about Dr. Zaman's recommendations, her options for ongoing care, her potential disposition, etc. Patient and Arya both insist that she will not return to an SNF because of poor quality care there. They also indicate that going home is not an option. They are interested in pursuing inquiries for transition to Hospice House in [facility]. They understand now that her survival is measured in days to weeks. Patient notes that she has tied up pretty much all loose ends, though she remains a little concerned about a few issues surrounding home arrangements. Kevyn Sánchez MD Jun 16, 2016 13:07
--- NOTE | 2016-06-16 13:38 | NUR ---
Social Work Note: Initial Assessment Data& Assessment: EMR reviewed. SW has been meeting with pt daily throughout her hospitalization but has not been feeling well enough to complete the entire assessment. SW collected information from Culinary Chef from [facility] and street light wirer CMIfrah Craft is a 61 year old female admitted on 06/14/2016 for PE and Pneumonia. Pt has Medicare insurance coverage. Pt sees Jasmin Grider DO and Dr. Barraza from primary care and oncology. [facility] and does not plan on returning to this SNF. Pt uses a wheelchair at baseline most recently. Pt does not have LTC insurance or Veterans benefits. Pt provided with DPOA/Advance Directive paperwork. SW to continue to follow for discharge planning needs. Pt denies any needs at this time. Plan: SW to continue to follow for discharge planning needs. SW to await further MD and palliative care MD recommendations. NADYA Diaz Addendum: 06/16/16 at 1347 by VERENICE HAIDER Amended: Links added.
--- NOTE | 2016-06-16 13:48 | NUR ---
Social Work Note: Continued Discharge Planning Data& Assessment: Pt has met with Palliative care and per Palliative Care SW pt has decided to pursue hospice services. Per Palliative care SW, pt prognosis extends to around two weeks or less. Pt is interested in Hospice house as she does not want to return to a SNF ever again and pt feels that going home with hospice is not an option for her. Palliative care SW has confirmed they do have bed availability. As pt meets criteria for Hospice House, SW requested [facility] Specialist fax referral for them to begin the review process. SW to continue to follow. Plan: Anticipated discharge to [facility]ospice House pending acceptance. SW to continue to follow. NADYA Diaz Addendum: 06/16/16 at 1620 by VERENICE HAIDER KASIHF Spoke with Oncology SW who explained that he would like to be updated on pt status daily and be updated on DC plan as soon as it is stabilized. Oncology SW also emphasized pt had a untrue fear of food and water being withheld from her if she were to go on hospice. Oncology SW explained to pt that she would be allowed to eat. Eating and drinking is important to pt in terms of quality of life during her final days. Pt hopes to pass very quickly during this hospitalization. KASHIF to continue to follow. NADYA Diaz
--- NOTE | 2016-06-16 14:03 | NUR ---
Palliative care note [facility] D/A : Met with pt and Dr. Sánchez earlier today. Pt had discussion with Dr. Zaman and is aware that there is no further oncological interventions available for her. She was also aware that she most likely has a few weeks of life left. She has spoken to her friend Arya but not yet to her son Kendrick. Pt friend Arya has been communicating with Kendrick and both he and pt note that Kendrick has been having a hard time with pt's diagnosis and illness. (Knedrick is pt DPOA and likes to go by . He lives in [place] but works in [place] and during the work week-lives with a friend in [place] and comes home on the weekends. He is and his spouse works as well.) Arya is pt good friend. They have known each other for a long time but he is not prepared to give personal care to pt and she would not feel comfortable with him providing that type of care for her. Pt is very clear that home with hospice will not work for her. She has recently been in a SNF but tells PC that She does not wish to spend her final days in a SNF. She is interested in the idea of [facility]. She is aware that it is in [place]. Pt voices that she would most like to stay at [facility] for the remainder of her life but understands when it is explained to her that this will probably not be possible. Have left message and [facility] [place] [facility]. They request that face sheet, med list, prog notes and H&P be faxed to [phone]. She does indicate that she is having more pain and has been reluctant to state this as she does not wish to be groggy. Dr. Sánchez states he can increase her pain meds by small doses to which pt agrees. Pt notes that she has purchased a plot next to her spouse, who is buried at [place] in [place]. His name was Bartolome Craft and he about 4 years ago. She has questions about payment methods at [employer] and asks this worker to call. Call to [employer] ([phone], Perfecto Jones) reveals that they do not have a "payment plan" but that things can be paid one by one. This most likely will not meet pt's objectives about her planning. Pt current code status is DNR/DNI. She has not wished to fill out POLST with Dr. Sánchez and team did not wish to add this to discussion today. This issue can be addressed on 06/17/16 when PC team can discuss a move to comfort care code status. Pt is not comfort care here at this time. She is still receiving antibx and other treatments. Plan is for her to transition to comfort care upon discharge. Message left for gilmer Felton in regards to plan. Also discussed with Malinda BARRERA in relation to eol and prognosis/use of acute care to assist with provider education. P: Palliative to follow. Peyton ALVARADOSW, [facility] Addendum: 06/16/16 at 1450 by ARY DARNELL SS PC note amendment Joe Timmons, oncology PICK UP OPERATOR and laminator to visit with pt today. GUI
[2016-06-16 14:30] VITALS: BP 105/56; PULSE 115; RESP 28; O2SAT 98
--- NOTE | 2016-06-16 14:53 | NUR ---
spiritual care: staff referral supportive listening as pt reflected about PC discussions today and planning for the end of her life. Pt explored her feelings and coping. pt asked me to return tomorrow for more conversation as she became breathless/experiencing pain. will plan to follow
--- NOTE | 2016-06-16 15:12 | NUR ---
Faxed referral to [facility] per ALTERATION MANAGER
--- NOTE | 2016-06-16 15:22 | NUR ---
Report to [facility] Report given to Karrie Taylor Pt to be moved to room 1031. Pt is not on tele.
--- NOTE | 2016-06-16 15:45 | NUR ---
Transfer Pt was transferred to [facility] room 1031 at 1545. Pt on precautions for MRSA. [place] by PCC RN. Per report tubing was disconnected during transport. Pt on 9L O2 via oxy mask. A&Ox3 able to transfer beds 2 person assist. SOB at rest and with activity. Bilateral swelling in arms R>L. Belongings with pt. Pain medication given before transfer. Care continues.
--- NOTE | 2016-06-16 18:52 | PROG NOTE ---
[address] [address] PROGRESS NOTE PATIENT: LILIANA ARREDONDO : 1955 MR#: [id number] ADMIT: 06/14/2016 JOB ID: [id number] DATE: 06/16/2016 DIAGNOSIS: Terminally ill patient with advanced pulmonary adenocarcinoma and bilateral acute on chronic pulmonary emboli. SUBJECTIVE: The patient has been moved to a regular hospital room. Her pain is perhaps slightly better, but she remains bed-bound, weak and short of breath. She has agreed with comfort care in the setting of hospice but is still quite fearful of the next few days and where she will be and what kind of assistance she would get. She was reassured that she will be well cared for and will not be alone. OBJECTIVE: Awake, alert, oriented x3. She is bed-bound. She is very tachypneic and dyspneic. Blood pressure 105/56, heart rate 115, temperature 37, O2 saturation 98% on 9 L face mask. IMPRESSION AND RECOMMENDATIONS: This patient has a very short expected survival. She needs to be reassured that she will be well cared for and will not be alone. When we talked about stopping her medications except comfort medications, she was very nervous. I do recommend that this patient continue to receive anticoagulation given her severe hypercoagulable state. I think we should continue Lovenox for this patient as long as she is conscious, but I expect that to only last for a few days. Her enterococcal infection seems jeter-sensitive, and I think that can be also treated with oral antibiotics. Dr. Sánchez is working on appropriate placement for her.
[2016-06-16 19:39] VITALS: BP 138/78; PULSE 120; RESP 22; O2SAT 97
--- NOTE | 2016-06-16 20:05 | PCM.PNMED ---
Subjective Date of Service Jun 16, 2016 Subjective overnight: no acute events Today: Patient states she is scared about her future. She was told that she only has weeks to live by her oncologist which I confirmed as likely. She states that her pain is fairly well-controlled after palliative medicine adjusted her narcotics. Her son has been informed of this patient's ongoing health concerns. Exam Vital Signs Vital Sign - Last Date Time Temp Pulse Resp B/P Pulse Ox O2 Delivery O2 Flow Rate FiO2 06/16/16 04:32 120 22 92/53 94 Nasal Cannula 6.00 06/16/16 00:35 37.3 Intake and Output 06/15/16 06/15/16 06/16/16 Cumulative From/Thru 15:00 23:00 07:00 06/13/16 21:22 - 06/16/16 05:48 Intake Total 1161 ml 6476 ml Output Total 600 ml 2325 ml Balance 561 ml 4151 ml Intake Oral 400 ml 1150 ml IV Total 761 ml 5326 ml Output Urine Total 1725 ml Urine/Stool Mix 600 ml 600 ml # Bowel Movements 3 4 Exam General: Chronically ill appearing female looking older than stated age lying quietly in bed, Alert and Oriented X3, Cooperative, No acute Distress Eyes: PERRLA, Scleral Anicteric Mouth: Mouth Normal, Mucous Membranes dry, no central cyanosis no tonsillar exudates Neck: Supple, no Thyromegaly, trachea midline no JVD Cardiovascular: Regular rate and rhythm, no murmurs rubs or gallops appreciated , no heaves or thrills Chest & Lungs: Left-sided port a cath, decreased breathe sounds in all lung adams right greater than left, coarse breath sounds most notable in the lower lung adams on the right, wet sounding cough intermittently noted which appears painful Abdomen: Soft, no tenderness, not distended, hypoactive bowel tones. Musculoskeletal: Unremarkable. Normal range of motion, swollen right arm with erythema over anterior deltoid to lateral pec with mild edema Extremities: No lower extremity edema, no cyanosis, no clubbing. Skin: sacral ulcer covered with clean dry bandage Neurological: Grossly neurologically intact, has generalized weakness worse in the lower extremities, Normal Speech : No [place] in place Lab and Diagnostics Result Diagram: 06/15/1655406/15/16 0555 X-Rays, CTs and MRIs PROCEDURE: CT ANGIO CHEST PULMONARY EMBOLISM ([id number]) IMPRESSION: 1. Acute central pulmonary embolism involving the left lower lobe lobar and segmental arteries, as well as the right lower lobe segmental arteries. 2. A large mass in the right upper thorax. It is slightly increased in size compared to the last exam and seen invading the right upper ribs and posterior chest wall/musculature, and extending into the right hilum compressing the right upper lobe bronchus. 3. Multiple left lung nodules suspicious for pulmonary metastases. 4. Extensive right hilar and mediastinal lymphadenopathy consistent with maria fernanda metastasis. 5. Slightly increased moderate sized right pleural effusion. 6. Large left adrenal mass consistent with metastasis. Dictated by: Emil James M.D. on 06/14/2016 at 9:07 Transcribed by: JUNO on 06/14/2016 at 9:22 Approved by: Emil James M.D. on 06/14/2016 at 11:19 12-lead ECG 06/13 reviewed No acute ischemic changes or parents of right heart strain patterns. Q waves in II, III, and F aVF consistent with possible old infarct Cardiac Echo Impressions Echocardiogram Report Interpretation Summary 1. Normal left ventricular size, wall thickness and systolic function. 2. Grossly normal right ventricular size with normal systolic function. The estimated right atrial pressure is low normal and the estimated RVSP is 41 mm Hg 3. Right pleural effusion Compared to the previous study, RV and LV systolic function are stable. A right pleural effusion is noted. Reading Physician:06:18 PM Additional Diagnostics PROCEDURE: US VENOUS ARM DUPLEX UNILATERAL, RIGHT IMPRESSION: 1. Extensive DVT in the right upper extremity veins and right internal jugular vein extending to the right subclavian vein. 2. Right cervical lymphadenopathy. Dictated by: Emil James M.D. on 06/14/2016 at 13:21 Approved by: Emil James M.D. on 06/14/2016 at 13:37 Assessment & Plan 61yoF with past medical history of stage IV non-small cell lung cancer (dx'd 2015), recent pulmonary embolus on therapeutic lovenox, admitted from SN[facility] with acute onset of shortness of breath. Hospital day 3 1. Acute Hypoxic respiratory failure, present on admission - Patient has a history of stage IV non-small cell adenocarcinoma - 04/18/2016 patient was diagnosed with acute pulmonary embolus and placed on therapeutic Lovenox - CT PE performed on this medication shows acute pulmonary embolus - Right upper extremity ultrasound shows deep vein thrombosis - oxymask on admission to keep oxygen sat >92% - Failure of Lovenox therapy discussed with oncology Dr. Jenkins patient to be started on another anticoagulant dabigatran - Echo ordered for possible right heart strain given elevated troponins was negative for RV dysfunction - dabigatran 150 twice a day, oncology recommends switching back to Lovenox however to bigger try and offers oral dosing and less pokes which may be more appropriate if this patient is to be moved to comfort care only in the future - Palliative consulted and medicine appreciates recommendations in time 2. Acute on chronic Pulmonary embolism, present on admission - Previous diagnosis of pulmonary embolus in 04/18/2016 - Patient previously on enoxaparin 50mg BID for prior pulmonary embolus - CT PE performed today shows acute left lower lobe pulmonary embolus and right lower lobe pulmonary embolus - Failure of Lovenox therapy discussed with oncology Dr. Jenkins patient to be started on another anticoagulant dabigatran - Echo ordered for possible right heart strain given elevated troponins was negative for RV dysfunction - dabigatran 150 twice a day, oncology recommends switching back to Lovenox however to bigger try and offers oral dosing and less pokes which may be more appropriate if this patient is to be moved to comfort care only in the future - Palliative consulted and medicine appreciates recommendations in time 3. Elevated troponin, acute, present on admission - newly elevated with complaints of right sided chest pain, no chronic kidney disease to explain - CT PE performed today shows acute left lower lobe pulmonary embolus and right lower lobe pulmonary embolus - EKG reviewed, no ischemic change with no a right heart strain - patient previously anticoagulated with enoxaparin being converted to dabigatran - MAP >55-60, on norepinephrine drip attempting to titrate -Troponins trended to decline - EKG AND TROPONINS PRN - Echo ordered for possible right heart strain given elevated troponins was negative for RV dysfunction 4 Stage IV non-small cell adenocarcinoma lung cancer with metastases, chronic, present on admission - Failure of Lovenox therapy discussed with oncology Dr. Jenkins patient to be started on another anticoagulant dabigatran - Dr. Jenkins will notify Dr. Zaman of admission, patient likely to be seen wall inpatient - Given patient's desire for DO NOT INTUBATE status, discussed with Dr. Jenkins need for patient to likely be converted to DO NOT RESUSCITATE given patient's longest likely to cause given cancer and pulmonary embolus - Dr. Jenkins consented in the need for palliative to be involved in this case - Continue pain management with high-dose fentanyl patch and Roxicodone 5. Gram-positive cocci bacteremia, acute, present on admission, under evaluation - Cultures of both anaerobic and aerobic bottles consistent with possible enterococcus and staph aureus - Infectious disease following appreciated time and recommendations - IV therapy to make poor functional for line draw and culture, including new peripheral culture - Vancomycin IV capable treating both enterococcus and staph aureus - Consider likely line infection most likely site being right subclavian port 6 possible Sepsis, acute, present on admission, resolved - HR 130, RR 40, WBC 12.3K at admission - Pro calcitonin remains elevated at 4.59 consistent with possible infection - Infectious disease warehouse consultant. 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 GI Prophylaxis: Proton Pump Inhibitor VTE Prophylaxis: Other (patient is currently anticoagulated with enoxaparin 50mg BID being converted to dabigitran 150mg BID) Resuscitation Status: DNR/DNI:Do Not Resuscitate/Intubate (Discussed with patient. reportedly full code but she states she doesn't want to be intubated but doesn't believe her breathing will become a problem. AM team to discuss code status further with palliative care) Attending Statement The patient was seen and examined together with Dr. Sanchez on 06/16/2016 and I agree with the history, exam and plan as outlined in the note above. . Chadd Sanchez DO Jun 16, 2016 07:54 Mukul Baird MD Jun 19, 2016 08:01
[2016-06-16] MEDS: Vancomycin/250 mL NS IV SCH ×2 (22:58)
[2016-06-17] MEDS: 0.9% Sodium Chloride 1,000 ML IV SCH ×2 (03:05→13:15)
--- NOTE | 2016-06-17 03:22 | NUR ---
Pain Patient c/o 10/10 pain beginning of shift, patient had difficult time taking routine PO medications. She could not tolerate removing the face mask to swallow pills, however her O2 SAT's were WNL. Her anxiety began to climb as did her pain thus the patient was given IV morphine. As evening progressed patient became more tolerant of swallowing pills so then returned to [facility] for pain. Patient required several minutes to recover after using bed jeter. Will continue to monitor pain.
[2016-06-17 05:13] VITALS: BP 108/64; PULSE 123; RESP 18; O2SAT 93
[2016-06-17] MEDS: Dabigatran 150 mg Capsule PO SCH ×2 (08:30→09:04)
[2016-06-17] MEDS: Mupirocin 2% 22 Gm Ointment TOPICAL SCH (08:30)
[2016-06-17] MEDS: Vancomycin/250 mL NS IV SCH ×2 (08:59)
[2016-06-17] MEDS: Senna-Docusate 8.6-50 mg Tablet PO SCH (09:05)
[2016-06-17] MEDS: 0.9% Sodium Chloride 250 ML IV SCH (09:51)
--- NOTE | 2016-06-17 11:48 | NUR ---
Spoke with [facility] at the [facility] they can accept patient and can do a late afternoon admit. They are needing to have completed POLST before patient leaves, signed consents for [facility], and complete discharge papers. CHUCK WAGON DRIVER is working on finding out if patient can sign own consents and checking in with Palliative Care Team. Also she will check in with patient's family to update on plan. Bed is available today and this will need to happen today if this is preferred plan.
[2016-06-17] MEDS ORDERED: Morphine 20 mg/mL Oral Syringe SL/PO PRN (13:05)
--- NOTE | 2016-06-17 14:30 | PCM.DIMED ---
Discharge Instructions Date of Service Jun 17, 2016 Dates of Hospitalization Jun 14, 2016 at 00:58 Discharge Diagnosis Discharge Diagnosis stage IV non-small cell lung cancer (dx'd 02/2016 pulmonary embolus causing acute hypoxic respiratory failure and exacerbated by stage IV lung cancer Gram-positive cocci bacteremia, present on admission likely secondary to postobstructive pneumonia Sepsis syndrome secondary to above Normocytic anemia, chronic Test Results X-Rays, CTs and MRIs PROCEDURE: CT ANGIO CHEST PULMONARY EMBOLISM ([id number]) IMPRESSION: 1. Acute central pulmonary embolism involving the left lower lobe lobar and segmental arteries, as well as the right lower lobe segmental arteries. 2. A large mass in the right upper thorax. It is slightly increased in size compared to the last exam and seen invading the right upper ribs and posterior chest wall/musculature, and extending into the right hilum compressing the right upper lobe bronchus. 3. Multiple left lung nodules suspicious for pulmonary metastases. 4. Extensive right hilar and mediastinal lymphadenopathy consistent with maria fernanda metastasis. 5. Slightly increased moderate sized right pleural effusion. 6. Large left adrenal mass consistent with metastasis. Dictated by: Emil James M.D. on 06/14/2016 at 9:07 Transcribed by: JUNO on 06/14/2016 at 9:22 Approved by: Emil James M.D. on 06/14/2016 at 11:19 12-lead ECG 06/13 reviewed No acute ischemic changes or parents of right heart strain patterns. Q waves in II, III, and F aVF consistent with possible old infarct Cardiac Echo Impressions Echocardiogram Report Interpretation Summary 1. Normal left ventricular size, wall thickness and systolic function. 2. Grossly normal right ventricular size with normal systolic function. The estimated right atrial pressure is low normal and the estimated RVSP is 41 mm Hg 3. Right pleural effusion Compared to the previous study, RV and LV systolic function are stable. A right pleural effusion is noted. Reading Physician:06:18 PM Additional Diagnostics PROCEDURE: US VENOUS ARM DUPLEX UNILATERAL, RIGHT IMPRESSION: 1. Extensive DVT in the right upper extremity veins and right internal jugular vein extending to the right subclavian vein. 2. Right cervical lymphadenopathy. Dictated by: Emil James M.D. on 06/14/2016 at 13:21 Diet No restrictions Activity No restrictions Patient Instructions Mrs. Craft, retreated for a clot in her lung as well as your arm and he will continue with taking dabigatran at your hospice facility. Infectious disease physician saw you for an infection that may have been the result of pneumonia, treated with IV antibiotics and this was discontinued at time of discharge Our goal is to make sure you are as comfortable as possible and the palliative care physician has written for specific regimen of pain medication that would like you to continue. This medication can cause constipation so please consider stool softeners as needed including medications such as senna and MiraLAX Follow-up plan For any questions please contact your primary care physician and your accepting hospice facility will be available for questions and staffed by a physician as well. Kevyn Hoff DO Jun 17, 2016 14:30
--- NOTE | 2016-06-17 14:40 | NUR ---
Social Work- Readiness for Discharge Data:EMR reviewed. Pt is on day 3 of hospitalization for PE, pneumonia per H&P. SW received notification that [facility]. SW followed up with pt regarding [facility] preference, pt agreeable to this. Palliative Care completed POLST with pt. UR Specialist provided consent paperwork to MEDICAL TRANSCRIBER. MEDICAL TRANSCRIBER obtained signatures of consent for [facility]. UR Specialist to create packet and coordinate discharge transportation. Pt to discharge to [facility] with LEOLA Skinner to follow. All updated and agreeable to plan. SW will continue to follow. Assessment: Pt who would benefit from [facility] Plan: Pt to discharge to [facility] later today. All updated and agreeable to plan. SW will continue to follow. Hortencia Brewer MSW
--- NOTE | 2016-06-17 14:40 | PCM.DC.MED ---
Discharge Summary Date of Service Jun 17, 2016 Dates of Hospitalization Date of Hospital Admission Jun 14, 2016 at 00:58 Date of Discharge: Jun 17, 2016 Providers: Admitting Physician: Lor Murray DO Primary Care Physician: Jasmin Grider DO Attending Physician: Lor Murray DO Diagnosis at Time of Discharge Diagnosis at Time of Discharge stage IV non-small cell lung cancer (dx'd 02/2016 pulmonary embolus causing acute hypoxic respiratory failure and exacerbated by stage IV lung cancer Gram-positive cocci bacteremia, present on admission likely secondary to postobstructive pneumonia Sepsis syndrome secondary to above Normocytic anemia, chronic Consultations Infectious disease, palliative care, oncology Procedures XRay, CTs & MRIs PROCEDURE: CT ANGIO CHEST PULMONARY EMBOLISM ([id number]) IMPRESSION: 1. Acute central pulmonary embolism involving the left lower lobe lobar and segmental arteries, as well as the right lower lobe segmental arteries. 2. A large mass in the right upper thorax. It is slightly increased in size compared to the last exam and seen invading the right upper ribs and posterior chest wall/musculature, and extending into the right hilum compressing the right upper lobe bronchus. 3. Multiple left lung nodules suspicious for pulmonary metastases. 4. Extensive right hilar and mediastinal lymphadenopathy consistent with maria fernanda metastasis. 5. Slightly increased moderate sized right pleural effusion. 6. Large left adrenal mass consistent with metastasis. Dictated by: Emil James M.D. on 06/14/2016 at 9:07 Transcribed by: JUNO on 06/14/2016 at 9:22 Approved by: Emil James M.D. on 06/14/2016 at 11:19 ECG 12 Lead 06/13 reviewed No acute ischemic changes or parents of right heart strain patterns. Q waves in II, III, and F aVF consistent with possible old infarct Cardiac Echo Impression Echocardiogram Report Interpretation Summary 1. Normal left ventricular size, wall thickness and systolic function. 2. Grossly normal right ventricular size with normal systolic function. The estimated right atrial pressure is low normal and the estimated RVSP is 41 mm Hg 3. Right pleural effusion Compared to the previous study, RV and LV systolic function are stable. A right pleural effusion is noted. Reading Physician:06:18 PM Other Diagnostics PROCEDURE: US VENOUS ARM DUPLEX UNILATERAL, RIGHT IMPRESSION: 1. Extensive DVT in the right upper extremity veins and right internal jugular vein extending to the right subclavian vein. 2. Right cervical lymphadenopathy. Dictated by: Emil James M.D. on 06/14/2016 at 13:21 Approved by: Emil James M.D. on 06/14/2016 at 13:37 Brief History Per admission H&P: 61yoF with past medical history of stage IV non-small cell lung cancer (dx'd 2015), h/o PE now on therapeutic lovenox, admitted from SNF with acute onset of shortness of breath. Patient states that she was in her nursing facility earlier in the evening and became acutely short of breath. On admission patient is somnolent but easily arousable, falling asleep during interview. As per ED documentation, EMS mentioned that patient had been short of breath for 1.5 hours prior to their arrival with oxygen saturation 88% on RA which improved to 98% on 8L nasal cannula. On presentation she endorsed right sided chest pain with associated cough and fever. Last chemotherapy was 2 months ago. At this time she is receiving nivolumab infusions. Lung cancer has been managed in the past by Drs. Jenkins and Austyn Recent admissions include 05/17-05/18 for acute on chronic respiratory failure and 04/18-04/30 during which time her pulmonary embolism was diagnosed. Palliative medicine consulted at the request of Dr. Jenkins of oncology in order to assist patient in determination of goals of care Prior to visiting, I reviewed her records in the EMR in detail, dating all the way back to her initial diagnosis and oncology consultation last February. Also spoke with Dr. Rausch and the patient's bedside nurse. When I arrived, she is resting quietly in bed with head of bed elevated. Appears to be in mild dyspnea with tachypnea. Was oriented, alert and appropriate. Admits to mild dyspnea but denies any anterior/central severe chest discomfort. Does have chronic right thoracic pain from tumor mass/bony invasion of chest wall. Talked with her at length, reviewing her course of care since her cancer was diagnosed. Though it is unlikely, she claims that her oncologists have never told her how long she had to live, the probabilities of her therapy helping and to what extent (i.e. how much more time aggressive treatment may buy her). I reviewed the findings on her CT scan with her today- answer questions she had a both the new, acute pulmonary emboli and the implications for further treatment. Also advised her of the further progression of her tumor masses on CT. I did tell her that I would defer to her oncologists in terms of whether or not this changes her nivolumab treatment plans. We then talked at length about her goals and plans and then talked about her wishes for aggressive resuscitation. Hospital Course 61yoF with past medical history of stage IV non-small cell lung cancer (dx'd 2015), recent pulmonary embolus on therapeutic lovenox, admitted from SNF with acute onset of shortness of breath. Hospital day 4 1. Acute Hypoxic respiratory failure, present on admission --> patient discussed goals of care with part of care and decision was made to transfer patient to hospice house, bed available in transport this afternoon - Patient has a history of stage IV non-small cell adenocarcinoma - 04/18/2016 patient was diagnosed with acute pulmonary embolus and placed on therapeutic Lovenox - CT PE performed on this medication shows acute pulmonary embolus - Right upper extremity ultrasound shows deep vein thrombosis - oxymask on admission to keep oxygen sat >92%, patient will transfer with comfort measures to continue supplemental oxygen for comfort - Failure of Lovenox therapy discussed with oncology Dr. Jenkins patient to be started on another anticoagulant dabigatran, this will be continued at the hospice house and further titration of this medication can be at the discretion of the hospice physician. The decision was made to continue this medication at this time per oncology recommendations - Echo ordered for possible right heart strain given elevated troponins was negative for RV dysfunction - dabigatran 150 twice a day 2. Acute on chronic Pulmonary embolism, present on admission - Previous diagnosis of pulmonary embolus in 04/18/2016 - Patient previously on enoxaparin 50mg BID for prior pulmonary embolus - CT PE performed showed acute left lower lobe pulmonary embolus and right lower lobe pulmonary embolus - Failure of Lovenox therapy discussed with oncology Dr. Jenkins patient to be started on another anticoagulant dabigatran, to continue at discharge 3. Elevated troponin, acute, present on admission - newly elevated with complaints of right sided chest pain, no chronic kidney disease to explain - CT PE performed today shows acute left lower lobe pulmonary embolus and right lower lobe pulmonary embolus - EKG reviewed, no ischemic change with no a right heart strain - patient previously anticoagulated with enoxaparin being converted to dabigatran - Patient was monitored in intensive care setting and was placed on a norepinephrine drip which was titrated off prior to transfer to the regular floor 4 Stage IV non-small cell adenocarcinoma lung cancer with metastases, chronic, present on admission - Dr. Jenkins will notify Dr. Zaman (patient's oncologist) of admission, patient likely to be seen wall inpatient - Given patient's desire for DO NOT INTUBATE status, discussed with Dr. Jenkins need for patient to subsequently converted to DO NOT RESUSCITATE given patient' s longest likely to cause given cancer and pulmonary embolus - Dr. Jenkins consented in the need for palliative to be involved in this case who helps with discharge opioid prescription of oxycodone 10 mg every 4 when necessary -Previous pain management regimen included high-dose fentanyl patch and Roxicodone 5. Gram-positive cocci bacteremia, acute, present on admission, under evaluation - Cultures of both anaerobic and aerobic bottles consistent with possible enterococcus and staph aureus - Infectious disease was consulted during admission and vancomycin IV was started while patient was hospitalized. This was discontinued at discharge given change in goals of care - IV therapy to make poor functional for line draw and culture, including new peripheral cultures - Consider likely line infection most likely site being right subclavian port 6 possible Sepsis, acute, present on admission, resolved - HR 130, RR 40, WBC 12.3K at admission - Pro calcitonin was elevated at 4.59 - Infectious disease communication consultant. 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 Exam Vital Signs (Last) Date Time Temp Pulse Resp B/P Pulse Ox O2 Delivery O2 Flow Rate FiO2 06/17/16 09:10 Supplement Oxygen 06/17/16 05:13 36.5 123 18 108/64 93 9.00 Exam General: Chronically ill appearing female looking older than stated age lying quietly in bed, Alert and Oriented X3, Cooperative, No acute Distress Eyes: PERRLA, Scleral Anicteric Mouth: Mouth Normal, Mucous Membranes dry, no central cyanosis no tonsillar exudates Neck: Supple, no Thyromegaly, trachea midline no JVD Cardiovascular: Mild tachycardia, no murmurs rubs or gallops appreciated, no heaves or thrills Chest & Lungs: Left-sided port a cath, decreased breathe sounds in all lung adams right greater than left, coarse breath sounds most notable in the lower lung adams on the right, wet sounding cough intermittently noted which appears painful Abdomen: Soft, no tenderness, not distended, hypoactive bowel tones. Musculoskeletal: Unremarkable. Normal range of motion, swollen right arm with erythema over anterior deltoid to lateral pec with mild edema Extremities: No lower extremity edema, no cyanosis, no clubbing. Skin: sacral ulcer covered with clean dry bandage Neurological: Grossly neurologically intact, has generalized weakness worse in the lower extremities, Normal Speech : No [place] in place Test 06/14/16 02:45 06/14/16 07:48 06/14/16 08:04 06/15/16 05:55 Metamyelocytes % 0% (0-0) Lactic Acid Level 1.0mmol/L (0.4-2.0) Urine Legionella pneumophilia Ag Negative (Negative) Urine Color Straw (YELLOW) Urine Appearance Hazy (CLEAR,HAZY) Urine pH 7.0 (5.0-8.0) Urine Specific Boles 1.010 (1.003-1.035) Urine Protein Negativemg/dL (NEG,TRACE) Urine Glucose (UA) Negativemg/dL (NEGATIVE) Urine Ketones Negativemg/dL (NEGATIVE) Urine Occult Blood Trace (NEGATIVE) Urine Nitrite Negative (NEGATIVE) Urine Bilirubin Negative (NEGATIVE) Urine Urobilinogen Normalmg/dL (NORMAL) Urine Leukocyte Esterase Moderate (NEGATIVE) Urine RBC 0-2/hpf (0-2) Urine WBC 11-50/hpf (0-5) Urine Epithelial Cells Occasional/hpf (NONE-MOD) Urine Crystals None seen (NONE SEEN) Urine Bacteria Few/hpf (NONE-FEW) Urine Hyaline Casts None/lpf (NONE) Urine Granular Casts None seen (NONE SEEN) Urine Waxy Casts None seen (NONE SEEN) Urine Red Blood Cell Casts None seen (NONE SEEN) Urine White Blood Cell Casts None seen (NONE SEEN) Urine Mucus None seen (None Seen) Urine Trichomonas None seen (NONE SEEN) Urine Yeast Few (NONE SEEN) Urinalysis Comment None Urine Culture Reflexed Indicated Prothrombin Time 14.8sec (8.1-12.5) Prothromb Time International Ratio 1.37ratio Activated Partial Thromboplast Time 45.0sec (22.8-33.0) Hemoglobin A1c 6.1% (4.8-5.6) Pro-B-Type Natriuretic Peptide 4170pg/mL (0-287) Procalcitonin 4.76ng/mL (0.00-0.08) Test 06/15/16 16:46 06/16/16 09:30 06/16/16 09:40 Troponin T 0.056ug/L (0.0-0.011) Vancomycin Level Trough 13.8mcg/mL White Blood Count 19.7th/mm3 (3.8-10.1) Red Blood Count 3.52mil/mm3 (3.90-5.20) Hemoglobin 9.5g/dL (12.0-15.6) Hematocrit 32.0% (35.0-46.0) Mean Corpuscular Volume 90.9fL (81-100) Mean Corpuscular Hemoglobin 27.0pg (27.0-35.0) Mean Corpuscular Hemoglobin Concent 29.7% (32.0-37.0) Red Cell Distribution Width 17.2% (12.3-15.4) Platelet Count 336bil/L (150-400) Neutrophils (%) (Auto) 89.6% (40-74) Lymphocytes (%) (Auto) 2.9% (14-46) Monocytes (%) (Auto) 6.7% (4-12) Eosinophils (%) (Auto) 0.1% (0-5) Basophils (%) (Auto) 0.2% (0-3) Sodium Level 135mEq/L (134-144) Potassium Level 3.7mEq/L (3.5-5.2) Chloride Level 101mEq/L (97-108) Carbon Dioxide Level 20mmol/L (18-29) Blood Urea Nitrogen 6mg/dL (8-27) Creatinine < 0.30mg/dL (0.57-1.00) Estimat Glomerular Filtration Rate 324mL/min (>59) Glucose Level 110mg/dL (60-99) Calcium Level 7.8mg/dL (8.5-10.1) Total Bilirubin 0.4mg/dL (0.0-1.2) Aspartate Amino Transf (AST/SGOT) 14U/L (0-50) Alanine Aminotransferase (ALT/SGPT) 8U/L (0-32) Alkaline Phosphatase 126U/L (25-165) Total Protein 4.7g/dL (6.4-8.4) Albumin 2.0g/dL (3.4-5.0) Discharge Medications Discharge Medications Dabigatran Etexilate Mesylate (Pradaxa) 150 Mg Capsule 150 MG PO BID Prescribed by: CLAUDIO RAUSCH DO Docusate Sodium (Docusate Sodium) 250 Mg Capsule 250 MG PO DAILY (Reported) Enoxaparin Sodium (Enoxaparin Sodium) 60 Mg/0.6 Ml Syringe 50 MG SUBQ BID ( Reported) Fentanyl 75 mcg/hr Patch (Fentanyl 75 mcg/hr Patch) 1 Each Patch.td72 1 PATCH TRANSDERM Q3D (Reported) Gabapentin (Gabapentin) 100 Mg Capsule 100 MG PO DAILY (Reported) Gabapentin (Gabapentin) 100 Mg Capsule 200 MG PO HS (Reported) Metoprolol Tartrate (Metoprolol Tartrate) 25 Mg Tablet 25 MG PO BID (Reported) Multivitamin (Multi Vitamin Daily) 1 Each Tablet 1 EACH PO DAILY (Reported) Sennosides (Senna) 8.6 Mg Tablet 8.6 MG PO HS (Reported) As needed Acetaminophen (Acetaminophen) 325 Mg Capsule 650 MG PO q4 hours PRN PRN For Pain (Reported) Docusate Sodium (Colace) 100 Mg Capsule 100 MG PO BID PRN PRN For Constipation ( Reported) Omeprazole (Omeprazole) 20 Mg Capsule.dr 20 MG PO DAILY PRN PRN For Nausea ( Reported) oxyCODONE (oxyCODONE) 5 Mg/5 Ml Solution 10 MG PO Q4H PRN PRN For Pain (Reported ) Miscellaneous Medications Ondansetron (Ondansetron) 4 Mg Tablet 4 MG PO (Reported) Followup Plan Disposition: Hospice house, facility Follow-up plan For any questions please contact your primary care physician and your accepting hospice facility will be available for questions and staffed by a physician as well. Discharge Diet: No restrictions Discharge Activity: No restrictions Patient Instructions Mrs. Craft, retreated for a clot in her lung as well as your arm and he will continue with taking dabigatran at your hospice facility. Infectious disease physician saw you for an infection that may have been the result of pneumonia, treated with IV antibiotics and this was discontinued at time of discharge Our goal is to make sure you are as comfortable as possible and the palliative care physician has written for specific regimen of pain medication that would like you to continue. This medication can cause constipation so please consider stool softeners as needed including medications such as senna and MiraLAX Time spent 60 minutes spent with discharge and management including coordination of care. Greater than 50% spent in [id number] counseling and discussion of goals of care. Kevyn Hoff DO Jun 17, 2016 14:40
[2016-06-17 14:53] VITALS: BP 112/64; PULSE 127; RESP 18; O2SAT 95
--- NOTE | 2016-06-17 15:07 | PCM.PNPALL ---
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 Palliative medicine consulted to assist patient and family in determination of goals of care. Per oncology note of 06/15, no further treatment possible and the recommendation of her oncologist was that she transition to hospice/end-of-life care. See below for details of our lengthy conversations with the patient and her physical medicine teacher Arya on 06/16 Disposition is now the big question- please see Dr. Zaman's note regarding his recommendations. Palliative FR[employer] SP[facility]LE also working on options such as [facility] in [facility]. Patient and her family are adamant she will not return to an SNF (because of what they perceived as very poor care repair) nor is return to her home an option. Summary of palliative recommendations: 06/17/16- Reviewed added support through hospice house. Her antibiotics have been stopped but her anticoagulation continues due to her very acute DVT/PE and comfort. She has a large tumor burden feeding her coagulopathy. There is debate whether further antibiotics would be helpful with large tumor and obstructive process. Reviewed goal is for comfort and she agrees with this. POL completed DNR/comfort care/no feeding tube Reviewed adding lorazepam 0.5-1 mg PO Q 6H PRN and she liked this idea due to her anxiety. 1 mg tabs #30 Meds to include Fentanyl patch 100 mcg Q 3 days #5 patches, MS concentrate 20 mg /ml-dosing 2-10 mg PO/SL Q 2H PRN #30 cc and oxycodone 5 mg tabs # 30- 2 tabs PO Q3 H PRN #30. -Symptom management (Pain/other)- patient reports her discomfort inconsistently - and she is fearful that increasing pain medications may render her confused or unconscious. After further discussion today, she was willing to have me increase pain medicine slightly. I reviewed her current use of scheduled and prn medications, and I have increased her fentanyl patch from 75 to100 g. Will otherwise continue with her prn oral oxycodone (10 mg every 3 hours as needed) but I increased her IV morphine to 2-4 mg IV Q1 hr prn. Will follow and continue to adjust meds as needed as she transitions to comfort care. My expectation is that once disposition is determined, her antibiotics and other [id number] medications will be discontinued. -DPOA/Advanced Directives/POLST- patient's POA is her son Kendrick. She and Kendrick have discussed advance directive issues in the past and she said that he understands and will comply with her wishes. She has always said that she would not want to be kept alive on machines. CODE STATUS remains DO NOT RESUSCITATE/DO NOT INTUBATE, transitioning to purely comfort care in the next several days. On 06/15 I attempted to get her to complete a new POLST, but she declined, saying she was too fatigued. Will plan on assisting her in completing a POLST prior to discharge -Family/emotional support- good support from her friend/roommate Arya, and she continues to have Arya maintain contact with Kendrick and update him. Palliative team will continue to follow and provide support as able. Patient Goals: 1. Patient wants to be told the truth about her illness, even if it is unpleasant. 2. Patient would like to be told prognosis when it can be predicted, to better guide treatment decisions. 3. Patient treasures her mental acuity and prefers some amt of discomfort to preserve that. Additional Medical Diagnoses with primary management by Hospitalist team include : Hypoxic respiratory failure, acute, POA Sepsis, acute, POA Post obstructive pneumonia, acute, POA Elevated troponin, acute, POA Hyponatremia, acute on chronic, POA Normocytic anemia, chronic Elevated BNP, chronic Stage IV non-small cell lung cancer, chronic Pulmonary embolism, aorta thrombus, svc thrombus, chronic Problems: End of Life Preferences DO NOT RESUSCITATE/DO NOT INTUBATE/limited interventions , transitioning to purely comfort care in the next several days Goals of Care Patient now understands no further role for chemotherapy or radiation therapy, and that she is within weeks of end-of-life Disposition To be determined Resuscitation Status Resuscitation Status: DNR/DNI:Do Not Resuscitate/Intubate (Discussed with patient. reportedly full code but she states she doesn't want to be intubated but doesn't believe her breathing will become a problem. AM team to discuss code status further with palliative care) POLST Updates/Changes Previous POLST?: No POLST Review Outcome: New Form Completed . Advanced Care Planning Address: Comfort care Symptom management: Depression, Anxiety, Dyspnea, Pain Palliative Subjective Palliative Care Daily Responde: Patient, Family/Proxy (friend Arya) Brief History [address] 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 She was also noted to have +blood culture for enterococcus fecalis and MRSA. She was treated with vancomycin starting 06/15/16. Her malignancy has increased in size despite ongoing treatment and Dr. Zaman told patient there was no more treatments to be done. He thought her life expectancy to be a matter of a few weeks. Patient/Family Concerns Patient concerned since they had a bad experience at SNF. Subjective Feels pain is adequately controlled. Bout of 10/10 pain in mid noc was related to needing to get up to BR otherwise feels adequate on meds. Has used approx 3 BTP med doses in last 24 hours Palliative Performance Scale PPS Patient Status: Baseline PPS Ambulation: Mainly Sit/Lie PPS Activity: Unable to do most activity PPS Self-Care: Full Self Care, Considerable assistance required PPS Intake: Normal or reduced, Minimal to sips PPS Conscious Level: Full Performace Scale: 50% ADLs ADL Patient Status: Baseline ADL Ambulation: Mainly Sit/Lie ADL Dressing: Occasional assistance necessary ADL Feeding: Full ADL Hygene/bathing: Occasional assistance necessary ADL Transfers: Full Responsive Patient Symptoms Pain (maximium): Moderate Tiredness/Fatigue: Moderate Nausea: Mild Depression: Moderate Anxiety: Moderate Anorexia: Moderate Shortness of Breath: Moderate Current Treatments Ventilator: No Oxygen: Yes IV Fluids: Yes Antibiotics: Yes Telemetry: Yes Critical Care Unit: Yes Objective Findings Exam Vital Sign - Last Date Time Temp Pulse Resp B/P Pulse Ox O2 Delivery O2 Flow Rate FiO2 06/17/16 14:53 36.7 127 18 112/64 95 OxyMask 9.00 Intake and Output 06/16/16 06/16/16 06/17/16 Cumulative From/Thru 15:00 23:00 07:00 06/13/16 21:22 - 06/17/16 05:43 Intake Total 400 ml 200 ml 8295 ml Output Total 425 ml 250 ml 3200 ml Balance -25 ml -50 ml 5095 ml Intake Oral 400 ml 200 ml 1750 ml IV Total 6545 ml Output Urine Total 425 ml 250 ml 2600 ml Urine/Stool Mix 600 ml # Bowel Movements 0 4 General: Alert/Oriented x3, Anxious HEENT: PERRLA, EOMI, Scleral Anicteric Heart: Regular Rate/Rhythm Lungs: Diminished, Tachypneic, Other (shallow respirations) Neuro: Cranial Nerve 3-12 Intact Lab/Diagnostics Lab and Imaging results reviewed in detail in EMR. WBC 19K CR wnl +BC as above Patient/Family Conference Discussion/Goals of Care Discussion FAMILY UNDERSTANDING OF DISEASE: Patient and friend Arya concerned regarding possible transfer to hospice house. They had a negative experience at [facility]. They verbalize that they understood Dr. Zaman's discussion that there was no further treatment for the lung CA and that it is growing despite treatment.. She has family- sister and brother coming down from "to say goodbye" She had DVT with PE despite full anticoag with lovenox. She had +BC on admit. She wishes to stay on her heart meds and her anticoagulation. She seems willing to stop her IV antibiotics when we discussed her very short term prognosis.She is tearful and afraid of not having adequate access to meds, O2 etc. Reviewed goal of hospice house for maximal support at EOL. DISEASE PROGRESSION/EVIDENCE OF DECLINE: Some concern for both patient and Arya in accepting the fact of EOL but also then wishing to deny--Arya wonders as her "appetite gets better" how does she get increased PO with her O2 demands etc. SYMPTOM BURDEN: GOALS: HOPES/WORRIES: Understands she is EOL but fears this. Time spent Total time 60 minutes; >50% face to face with patient and/or family, providing counselling regarding plans and recommendations, and in care coordination with his/her medical teams. spent reviewing records, discussing with patient CM/SW and Dr. Hoff, completion of POLST, exploring other options etc. I also spent an additional [ ] minutes counseling for advanced care planning with the patient/the patients family/the surrogate decision maker. copies to: Carmel Zaman MD; Jasmin Grider Deborah A MD Jun 17, 2016 15:07
--- NOTE | 2016-06-17 15:10 | NUR ---
Faxed orders and consents to [facility] at [facility] [phone]. Copied all paper work and placed on chart. Arranged BLS transport for 1600, patient is currently sating @ 95% with 9LO2. RN and PIPELINE CONSTRUCTION INSPECTOR updated on transportation and RN will medicate patient prior to transfer due to pain and anxiety. Updated UR RN about finalization of plan.
--- NOTE | 2016-06-17 15:20 | NUR ---
Social Work- Discharge Data: EMR reviewed. Pt is on day 3 of hospitalization for PE, pneumonia per H&P. Pt is medically stable for discharge today. [facility]osp[facility] agreeable to accepting pt today for late afternoon discharge. UR Specialist created packet, faxed orders, and arranged transportation via BLS at 1600. Pt to discharge to [facility]osp[facility] with LEOLA Skinner to follow. RN, UC, pt/family and Hosp[facility] all updated and agreeable to plan. Assessment: Pt who would benefit from Hospice [facility] Plan: Pt to discharge to [facility] via BLS at 1600. RN, UC, pt/family and Hosp[facility] all updated and agreeable to plan. Hortencia Brewer STUNT WOMAN
--- NOTE | 2016-06-17 16:27 | NUR ---
TRANSFER Patient transferred to [facility] for end of life care. patient transported via BLS. Son was here and present upon transport. Pt given 2 mg morphine for comfort, 02 -10 liters oxymask on. Report called to facility. Rn to RN report.
[2016-06-19] MEDS ORDERED: Vancomycin Serum Trough XX ONE (08:00)
== END 2016-06-17 16:35 | disposition hospice, inpatient (51) | DRG 180 ==
LOC: EDBD 21:20 → EDUNIT# 21:20 → SED 21:20 → PCC 06-14 00:58 → CCU 06-14 04:40 → PCC 06-15 08:48 → OSC 06-16 15:20
PROVIDERS: ADMIT Internal Medicine; ATTEND Internal Medicine
DX: C34.11 Malignant neoplasm of upper lobe, right bronchus or lung (principal); I26.99 Other pulmonary embolism without acute cor pulmonale; J96.01 Acute respiratory failure with hypoxia; J18.8 Other pneumonia, unspecified organism; A41.9 Sepsis, unspecified organism; I82.621 Acute embolism and thrombosis of deep veins of right upper extremity; C79.72 Secondary malignant neoplasm of left adrenal gland; E87.1 Hypo-osmolality and hyponatremia; R78.81 Bacteremia; T80.218A Other infection due to central venous catheter, initial encounter; Z92.21 Personal history of antineoplastic chemotherapy; Z92.3 Personal history of irradiation; F17.210 Nicotine dependence, cigarettes, uncomplicated; D64.9 Anemia, unspecified; Z51.5 Encounter for palliative care; Z66 Do not resuscitate; B95.62 Methicillin resistant Staphylococcus aureus infection as the cause of diseases classified elsewhere; B96.89 Other specified bacterial agents as the cause of diseases classified elsewhere; B95.2 Enterococcus as the cause of diseases classified elsewhere